=== PATIENT | male | born 1960 | race Caucasian/White ===

== ENCOUNTER 2020-04-28 07:40 | Outpatient (REF) | payer MEDICARE, SELFPAY ==
[2020-04-28 11:26] LABS: MANUAL DIFF FLAG NO
[2020-04-28 11:48] LABS: Basophils Absolute Auto 0.1 X10*3/uL (0.0-0.2); Basophils Percent Auto 0.6 % (0-2); Eosinophils Absolute Auto 0.2 X10*3/uL (0.0-0.4); Eosinophils Percent Auto 2.5 % (0-4); Hematocrit 46.6 % (42-52); Imm Gran Abs Auto 0.03 X10*3/uL (0.00-0.03); Imm Gran Pct Auto 0.3 % (0.0-0.4); Lymphocytes Absolute Auto 2.8 X10*3/uL (1.2-4.9); Lymphocytes Percent Auto 31.7 % (20-40); Mean Corpuscular HGB Conc 32.2 g/dl (31.0-36.0); Mean Corpuscular Hemoglobin 29.9 pg (27.0-33.0); Mean Platelet Volume 10.3 fL (9.4-12.4); Monocytes Absolute Auto 0.7 X10*3/uL (0.1-1.2); Monocytes Percent Auto 7.5 % (2-11); Neutrophils Percent Auto 57.4 % (45-73); Platelet Count 274 X10*3/uL (160-400); Red Blood Count 5.01 X10*6/uL (4.60-5.80); Red Cell Distribution Width 13.7 % (11.0-16.0); White Blood Count 8.8 X10*3/uL (4.8-10.8)
[2020-04-28 12:03] LABS: Creatinine Urine 104.77 mg/dL
[2020-04-28 12:05] LABS: Creatinine Urine 105.84 mg/dL; Microalbum/Creatinine Ratio Ur 39.6 ug/mg cr
[2020-04-28 12:07] LABS: Alanine Aminotransferase 39 U/L (0-40); Albumin Level 4.5 g/dL (3.5-5.0); Alkaline Phosphatase 146 U/L (39-117); Anion Gap 16 (12-20); Aspartate Amino Transferase 19 U/L (5-37); Bilirubin Total 0.2 mg/dL (0.0-1.0); Blood Urea Nitrogen 12 mg/dL (9-16); Calcium 8.6 mg/dL (8.4-10.2); Carbon Dioxide 27 mmol/L (22-29); Chloride 99 mmol/L (96-108); Cholesterol 257 mg/dL; Estimated Glomerular Filt Rate > 60; Glucose Fasting 208 mg/dL (60-99); HDL Cholesterol 29 mg/dL; Sodium 138 mmol/L (135-145); Total Protein 6.8 g/dL (6.5-8.0); Triglycerides 714 mg/dL
[2020-04-28 12:08] LABS: Prostate Specific Antigen Scr 0.68 ng/mL (<0.05-4.0); T4 Thyroxine 6.3 ug/dL (4.5-12.0); Thyroid Stimulating Hormone 1.44 mIU/mL (0.32-4.0)
[2020-04-28 21:47] LABS: Vitamin B12 1174 pg/mL (200-900)
[2020-05-01 21:24] LABS: Folate 17.9 ng/mL (> or = 4.0)
== END 2020-04-28 07:41 | disposition home or self-care (01) ==
LOC: HO.HMGCLDS 07:40
PROVIDERS: PCP Internal Medicine; Visit Provider Internal Medicine
DX: M87.051 Idiopathic aseptic necrosis of right femur (principal); E11.9 Type 2 diabetes mellitus without complications; I25.10 Atherosclerotic heart disease of native coronary artery without angina pectoris; E78.5 Hyperlipidemia, unspecified; I11.0 Hypertensive heart disease with heart failure; J44.9 Chronic obstructive pulmonary disease, unspecified; N40.0 Benign prostatic hyperplasia without lower urinary tract symptoms; F32.9 Major depressive disorder, single episode, unspecified; K62.5 Hemorrhage of anus and rectum; Z86.73 Personal history of transient ischemic attack (TIA), and cerebral infarction without residual deficits
CPT/HCPCS: 36415; 80053; 80061; 82043; 82607; 82746; 84153; 84436; 84443; 85025

== ENCOUNTER 2020-10-02 13:13 | Outpatient (REF) | payer MEDICARE, SELFPAY ==
--- NOTE | ~2020-10-02 | XR_ITS ---
EXAMINATION: XR CHEST CLINICAL INFORMATION: Intercostal pain COMPARISON: None TECHNIQUE: 2 views of the chest were obtained. FINDINGS: No significant abnormality is noted involving the heart, lungs, mediastinum, bony thorax or soft tissues. XR/XR chest 2V IMPRESSION: Unremarkable chest examination.
== END 2020-10-02 13:14 | disposition home or self-care (01) ==
LOC: HO.XRAY 13:13
PROVIDERS: PCP Internal Medicine; Visit Provider Nurse Practitioner Family
DX: R07.82 Intercostal pain (principal)
CPT/HCPCS: 71046

== ENCOUNTER 2020-10-03 09:38 | Outpatient (REF) | payer MEDICARE, SELFPAY ==
[2020-10-03 10:17] LABS: MANUAL DIFF FLAG NO
[2020-10-03 10:24] LABS: Basophils Absolute Auto 0.1 X10*3/uL (0.0-0.2); Basophils Percent Auto 0.5 % (0-2); Eosinophils Absolute Auto 0.2 X10*3/uL (0.0-0.4); Eosinophils Percent Auto 2.1 % (0-4); Hematocrit 45.8 % (42-52); Hemoglobin 15.3 g/dl (14.0-18.0); Imm Gran Abs Auto 0.04 X10*3/uL (0.00-0.03); Imm Gran Pct Auto 0.4 % (0.0-0.4); Lymphocytes Absolute Auto 2.6 X10*3/uL (1.2-4.9); Lymphocytes Percent Auto 26.2 % (20-40); Mean Corpuscular HGB Conc 33.4 g/dl (31.0-36.0); Mean Corpuscular Hemoglobin 29.9 pg (27.0-33.0); Mean Corpuscular Volume 89.5 fL (80-98); Mean Platelet Volume 9.9 fL (9.4-12.4); Monocytes Absolute Auto 0.8 X10*3/uL (0.1-1.2); Monocytes Percent Auto 7.6 % (2-11); Neutrophils Absolute Auto 6.2 X10*3/uL (2.0-8.3); Neutrophils Percent Auto 63.2 % (45-73); Platelet Count 238 X10*3/uL (160-400); Red Blood Count 5.12 X10*6/uL (4.60-5.80); Red Cell Distribution Width 13.5 % (11.0-16.0); White Blood Count 9.9 X10*3/uL (4.8-10.8)
[2020-10-03 10:46] LABS: Alanine Aminotransferase 20 U/L (0-40); Albumin Level 4.5 g/dL (3.5-5.0); Alkaline Phosphatase 120 U/L (39-117); Anion Gap 13 (12-20); Aspartate Amino Transferase 13 U/L (5-37); Bilirubin Total 0.5 mg/dL (0.0-1.0); Blood Urea Nitrogen 11 mg/dL (9-16); Calcium 8.7 mg/dL (8.4-10.2); Carbon Dioxide 29 mmol/L (22-29); Chloride 104 mmol/L (96-108); Cholesterol 268 mg/dL; Estimated Glomerular Filt Rate > 60; Glucose Fasting 159 mg/dL (60-99); HDL Cholesterol 32 mg/dL; Potassium 4.3 mmol/L (3.3-5.1); Sodium 142 mmol/L (135-145); Total Protein 6.6 g/dL (6.5-8.0); Triglycerides 496 mg/dL
[2020-10-03 11:24] LABS: Creatinine Urine 157.25 mg/dL
== END 2020-10-03 09:39 | disposition home or self-care (01) ==
LOC: HO.LAB 09:38
PROVIDERS: PCP Internal Medicine; Visit Provider Nurse Practitioner Family
DX: E11.65 Type 2 diabetes mellitus with hyperglycemia (principal); E78.00 Pure hypercholesterolemia, unspecified
CPT/HCPCS: 36415; 80053; 80061; 82043; 85025

== ENCOUNTER 2020-10-06 07:56 | Outpatient (REF) | payer MEDICARE, SELFPAY ==
--- NOTE | 2020-10-06 09:54 | MHC.AU.ANO ---
Adult Audiological Evaluation Date of Visit: 10/06/20 Body Component Engineer Used: Not Applicable Reason for Appointment: Audiologic re-evaluation due to perceived change in hearing ability. Ayo has lost his hearing aids received from this office in 2017 and needs replacements. Does patient feel they have a hearing loss?: Yes If Yes, Which Ear?: Both Ears When Was Hearing Difficulty First Noticed?: Childhood Has hearing been tested previously?: Yes Previous Hearing Test Results: 08/08/2016 [facility] Asymmetric moderately-severe rising to moderate mixed hearing loss at 4000 Hz, dropping to a severe loss at 8000 Hz with the left ear being poorer than the right in the high frequencies. Ear History: Ear Infections in Childhood: Both Ears History of Ear Wax Buildup: Both Ears Previous Ear Surgery: Multiple surgeries including tympanic membrane repair Bothersome Tinnitus/Ringing/Noises in Ears: Both Ears History of occupational noise exposure?: Yes Medical History: Medical History: Diabetes, Heart Problems, High Blood Pressure, Stroke Medication List: Not available for review Otoscopy: Right Ear: Partially occluded with cerumen Left Ear: Partially occluded with cerumen Tympanometry: Tympanometry performed due to: History of middle ear dysfunction Right Ear: Reduced Middle Ear Compliance (Type As) Left Ear: Non-compliant Middle Ear System (Type B) Otoacoustic Emissions Right Ear Results: Not performed at today's visit. Left Ear Results: Not performed at today's visit. Hearing Evaluation: Transducer(s) Used: Insert Earphones Bone Conduction Method: Conventional Audiometry Stimuli Used: Pure Tones Right Ear: Description of Hearing: Moderately-severe to severe mixed hearing loss Left Ear: Description of Hearing: Moderately-severe mixed hearing loss Speech Recognition Threshold (SRT): Method Used: Monitored Live Voice Stimuli Used: Spondee Words Right Ear: 60 dB HL Left Ear: 55 dB HL Word Discrimination: Method: Recorded Lists Word Lists Used: NU-6 Right Ear: 92% at 95 dB HL Left Ear: 92% at 90 dB HL Most Comfortable Level (MCL): Right Ear: 95 dB HL Left Ear: 90 dB HL Comparison: Compared to the most recent evaluation: Thresholds have decreased bilaterally. Recommendations: Cerumen removal by a physician. Audiological re-evaluation in one year. Due to the degree of hearing loss and communication difficulties, new binaural hearing aids are recommended. Ayo is advised to contact his insurance to determine which provider he can go to to obtain the hearing aids as [facility] is not contracted to dispense hearing aids with his insurance at this time. Diagnosis: Primary Diagnosis: H90.6 Mixed Hearing Loss, Bilateral Secondary Diagnosis: H69.93 Unspecified Eustachian Tube Dysfunction, Bilateral Services Performed: Comprehensive Audiological Evaluation (CPT 68323) Tympanometry (CPT 53104) Signature: Provider: Casimiro Garcia, CCC-A
== END 2020-10-06 07:57 | disposition home or self-care (01) ==
LOC: HO.SH 07:56
PROVIDERS: Visit Provider Internal Medicine
DX: H90.6 Mixed conductive and sensorineural hearing loss, bilateral (principal); H69.93 Unspecified Eustachian tube disorder, bilateral
CPT/HCPCS: 92557; 92567

== ENCOUNTER 2020-10-19 10:03 | Outpatient (REF) | payer MEDICARE, SELFPAY ==
--- NOTE | ~2020-10-19 | XR_ITS ---
EXAMINATION: XR HAND, LEFT CLINICAL INFORMATION: Other signs and symptoms of the musculoskeletal system COMPARISON: 07/29/2016 TECHNIQUE: PA, lateral, and oblique views of the left hand. FINDINGS: No fracture or dislocation. Mild degenerative changes throughout the interphalangeal joints with small osteophytes present. Diffuse soft tissue swelling, greatest at the ulnar aspect of the hand. No osseous erosions. XR/XR hand LT min 3V IMPRESSION: Soft tissue swelling. No acute osseous abnormality. Mild degenerative change.
[2020-10-19 11:33] LABS: Alanine Aminotransferase 23 U/L (0-40); Albumin Level 4.4 g/dL (3.5-5.0); Alkaline Phosphatase 135 U/L (39-117); Anion Gap 13 (12-20); Aspartate Amino Transferase 12 U/L (5-37); Bilirubin Total 0.3 mg/dL (0.0-1.0); Blood Urea Nitrogen 15 mg/dL (9-16); Calcium 8.8 mg/dL (8.4-10.2); Carbon Dioxide 31 mmol/L (22-29); Chloride 104 mmol/L (96-108); Cholesterol 182 mg/dL; Estimated Glomerular Filt Rate > 60; Glucose Random 174 mg/dL (60-115); HDL Cholesterol 30 mg/dL; LDL Cholesterol Calculated 97 mg/dl; Potassium 4.7 mmol/L (3.3-5.1); Sodium 143 mmol/L (135-145); Total Protein 6.7 g/dL (6.5-8.0); Triglycerides 276 mg/dL
[2020-10-19 11:39] LABS: Estimated Average Glucose 157 mg/dL; Hemoglobin A1c % 7.1 %
== END 2020-10-19 10:04 | disposition home or self-care (01) ==
LOC: HO.LAB 10:03
PROVIDERS: PCP Internal Medicine; Visit Provider Internal Medicine
DX: E78.00 Pure hypercholesterolemia, unspecified (principal); R29.898 Other symptoms and signs involving the musculoskeletal system
CPT/HCPCS: 36415; 73130; 80053; 80061; 83036

== ENCOUNTER 2021-01-08 07:38 | Outpatient (REF) | payer MEDICARE, SELFPAY ==
[2021-01-08 09:20] LABS: PSA,Total (Free>4and<10) 0.63 ng/mL (0.00-4.00)
== END 2021-01-08 07:39 | disposition home or self-care (01) ==
LOC: HO.LAB 07:38
PROVIDERS: PCP Internal Medicine; Visit Provider Urology
DX: Z12.5 Encounter for screening for malignant neoplasm of prostate (principal); N40.1 Benign prostatic hyperplasia with lower urinary tract symptoms
CPT/HCPCS: 36415; 84153

== ENCOUNTER → 2021-01-09 10:40 | Outpatient (BNVA) | payer MEDICARE, SELFPAY | PROVIDERS: Visit Provider Urology | DX: N40.1 Benign prostatic hyperplasia with lower urinary tract symptoms (principal); R35.0 Frequency of micturition | CPT/HCPCS: 51798; 99212 ==

== ENCOUNTER 2021-02-01 13:25 | Outpatient (REF) | payer MEDICARE, SELFPAY ==
[2021-02-01 15:06] LABS: Alanine Aminotransferase 23 U/L (0-40); Albumin Level 4.6 g/dL (3.5-5.0); Alkaline Phosphatase 132 U/L (39-117); Anion Gap 13 (12-20); Aspartate Amino Transferase 15 U/L (5-37); Bilirubin Total 0.4 mg/dL (0.0-1.0); Blood Urea Nitrogen 12 mg/dL (9-16); Calcium 9.2 mg/dL (8.4-10.2); Carbon Dioxide 28 mmol/L (22-29); Chloride 106 mmol/L (96-108); Cholesterol 146 mg/dL; Estimated Glomerular Filt Rate > 60; Glucose Random 161 mg/dL (60-115); HDL Cholesterol 28 mg/dL; LDL Cholesterol Calculated 76 mg/dl; Potassium 3.9 mmol/L (3.3-5.1); Sodium 143 mmol/L (135-145); Total Protein 6.9 g/dL (6.5-8.0); Triglycerides 210 mg/dL
[2021-02-01 15:25] LABS: Free T4 (Free Thyroxine) 0.88 ng/dL (0.71-1.85)
[2021-02-01 15:29] LABS: Thyroid Stimulating Hormone 1.07 uIU/mL (0.32-4.0)
== END 2021-02-01 13:26 | disposition home or self-care (01) ==
LOC: HO.LAB 13:25
PROVIDERS: Absent Provider Internal Medicine; PCP Internal Medicine; Referring Provider Nurse Practitioner Family; Visit Provider Internal Medicine
DX: J43.9 Emphysema, unspecified (principal); G47.33 Obstructive sleep apnea (adult) (pediatric); J98.4 Other disorders of lung; E78.00 Pure hypercholesterolemia, unspecified; E66.9 Obesity, unspecified; Z13.29 Encounter for screening for other suspected endocrine disorder
CPT/HCPCS: 36415; 80053; 80061; 84439; 84443; 99212

== ENCOUNTER 2021-09-17 10:03 | Outpatient (REF) | payer MEDICARE, SELFPAY ==
--- NOTE | ~2021-09-17 | XR_ITS ---
EXAMINATION: X-RAY BILATERAL HIPS CLINICAL INFORMATION: Bilateral primary osteoarthritis COMPARISON: MRI 12/01/2018. X-ray left hip 07/23/2019. X-ray right hip 04/22/2019. TECHNIQUE: Bilateral hips each 2 views FINDINGS: Right hip: Patchy lucencies and sclerosis in the right femoral head correlating with avascular necrosis, also seen on the prior MRI. Hip joint space is maintained. No acute fracture or dislocation is seen. Surgical clips project over the right hip joint. Left hip: Subtle sclerosis in the left femoral head, suggestive of avascular necrosis, also seen the prior MRI. No acute fracture or dislocation. Hip joint space is maintained. XR/XR hip LT min 2V IMPRESSION: Right hip: Findings suspicious for avascular necrosis right femoral head. No acute fractures seen. Left hip: Suspected left femoral head avascular necrosis. No acute fractures seen.
--- NOTE | ~2021-09-17 | XR_ITS ---
EXAMINATION: X-RAY BILATERAL HIPS CLINICAL INFORMATION: Bilateral primary osteoarthritis COMPARISON: MRI 12/01/2018. X-ray left hip 07/23/2019. X-ray right hip 04/22/2019. TECHNIQUE: Bilateral hips each 2 views FINDINGS: Right hip: Patchy lucencies and sclerosis in the right femoral head correlating with avascular necrosis, also seen on the prior MRI. Hip joint space is maintained. No acute fracture or dislocation is seen. Surgical clips project over the right hip joint. Left hip: Subtle sclerosis in the left femoral head, suggestive of avascular necrosis, also seen the prior MRI. No acute fracture or dislocation. Hip joint space is maintained. XR/XR hip RT min 2V IMPRESSION: Right hip: Findings suspicious for avascular necrosis right femoral head. No acute fractures seen. Left hip: Suspected left femoral head avascular necrosis. No acute fractures seen.
[2021-09-17 10:36] LABS: MANUAL DIFF FLAG NO
[2021-09-17 10:54] LABS: Basophils Absolute Auto 0.1 X10*3/uL (0.0-0.2); Basophils Percent Auto 0.7 % (0-2); Eosinophils Absolute Auto 0.1 X10*3/uL (0.0-0.4); Eosinophils Percent Auto 1.7 % (0-4); Hematocrit 44.2 % (42.0-52.0); Hemoglobin 14.7 g/dl (14.0-18.0); Imm Gran Abs Auto 0.04 X10*3/uL (0.00-0.03); Imm Gran Pct Auto 0.5 % (0.0-0.4); Lymphocytes Absolute Auto 2.6 X10*3/uL (1.2-4.9); Lymphocytes Percent Auto 31.3 % (20-40); Mean Corpuscular HGB Conc 33.3 g/dl (31.0-36.0); Mean Corpuscular Hemoglobin 29.5 pg (27.0-33.0); Mean Corpuscular Volume 88.6 fL (80.0-98.0); Mean Platelet Volume 10.6 fL (9.4-12.4); Monocytes Absolute Auto 0.6 X10*3/uL (0.1-1.2); Monocytes Percent Auto 7.1 % (2-11); Neutrophils Percent Auto 58.7 % (45-73); Platelet Count 220 X10*3/uL (160-400); Red Blood Count 4.99 X10*6/uL (4.60-5.80); Red Cell Distribution Width 13.2 % (11.0-16.0); White Blood Count 8.4 X10*3/uL (4.8-10.8)
[2021-09-17 11:46] LABS: Alanine Aminotransferase 28 U/L (0-40); Albumin Level 4.2 g/dL (3.5-5.0); Alkaline Phosphatase 109 U/L (39-117); Anion Gap 16 (12-20); Aspartate Amino Transferase 16 U/L (5-37); Bilirubin Total 0.5 mg/dL (0.0-1.0); Blood Urea Nitrogen 13 mg/dL (9-16); Calcium 9.8 mg/dL (8.4-10.2); Carbon Dioxide 27 mmol/L (22-29); Chloride 98 mmol/L (96-108); Cholesterol 252 mg/dL; Estimated Glomerular Filt Rate > 60; HDL Cholesterol 30 mg/dL; Potassium 4.8 mmol/L (3.3-5.1); Sodium 136 mmol/L (135-145); Total Protein 6.4 g/dL (6.5-8.0); Triglycerides 653 mg/dL
[2021-09-17 11:47] LABS: Creatinine Urine 31.76 mg/dL; Microalbum/Creatinine Ratio Ur 28.3 ug/mg cr
[2021-09-17 11:53] LABS: Free T4 (Free Thyroxine) 0.89 ng/dL (0.71-1.85); Prostate Specific Antigen Scr 0.59 ng/mL (<0.05-4.0); Thyroid Stimulating Hormone 0.76 uIU/mL (0.32-4.0); Vitamin D 25-OH Total 30.5 ng/mL (>30)
[2021-09-17 11:56] LABS: Glucose Random 475 mg/dL (60-115)
[2021-09-17 13:23] LABS: Folate > 20.0 ng/mL (> or = 4.0); Vitamin B12 1021 pg/mL (200-900)
== END 2021-09-17 10:04 | disposition home or self-care (01) ==
LOC: HO.XRAY 10:03
PROVIDERS: PCP Internal Medicine; Visit Provider Internal Medicine
DX: Z12.5 Encounter for screening for malignant neoplasm of prostate (principal); E11.65 Type 2 diabetes mellitus with hyperglycemia; M16.0 Bilateral primary osteoarthritis of hip; E78.00 Pure hypercholesterolemia, unspecified
CPT/HCPCS: 36415; 73502; 80053; 80061; 82043; 82306; 82607; 82746; 84153; 84439; 84443; 85025

== ENCOUNTER 2021-10-16 14:12 | Outpatient (REF) | payer MEDICARE, SELFPAY ==
--- NOTE | ~2021-10-16 | US_ITS ---
EXAMINATION: US ABDOMEN COMPLETE CLINICAL INFORMATION: Elevated liver function tests. Left upper quadrant abdominal pain. COMPARISON: CT abdomen pelvis 06/02/2019. TECHNIQUE: Real-time imaging of the abdominal viscera. FINDINGS: PANCREAS: The head and body the pancreas are normal. The tail is not well visualized due to bowel gas. ABDOMINAL AORTA: The proximal abdominal aorta is normal in caliber. The mid and distal abdominal aorta are not well visualized due to bowel gas. There is evidence of atherosclerotic disease. INFERIOR VENA CAVA: The visualized IVC is normal. LIVER: Liver echotexture is increased. The liver is normal in size. The liver contour is normal. No focal hepatic lesion. There is no intrahepatic biliary duct dilatation seen. GALLBLADDER: Normal. The gallbladder is physiologically distended without evidence of stones, sludge, polyps, wall thickening or pericholecystic fluid. COMMON BILE DUCT: Normal in caliber measuring 0.79 cm in diameter. RIGHT KIDNEY: There is a 2 cm cyst in the midpole. This may have a small focus of wall calcification. No hydronephrosis. No renal calculi or focal parenchymal lesions. The kidney measures 9.9 cm in maximum dimension. LEFT KIDNEY: There is a 5 mm cyst in the lower pole. No hydronephrosis or renal calculi. The kidney measures 10.7 cm in maximum dimension. SPLEEN: Upper normal in size. The spleen measures 12.7 cm in maximum dimension. FREE FLUID: None. US/US abdomen complete IMPRESSION: Echogenic liver probably representing fatty infiltration. Small bilateral renal cysts. Limited visualization of the tail the pancreas and aorta. Atherosclerotic disease.
== END 2021-10-16 14:13 | disposition home or self-care (01) ==
LOC: HO.US 14:12
PROVIDERS: PCP Internal Medicine; Visit Provider Internal Medicine
DX: R79.89 Other specified abnormal findings of blood chemistry (principal); R10.12 Left upper quadrant pain
CPT/HCPCS: 76700

== ENCOUNTER 2022-01-08 08:24 | Outpatient (REF) | payer MEDICARE, SELFPAY ==
[2022-01-08 09:25] LABS: Estimated Average Glucose 157 mg/dL; Hemoglobin A1c % 7.1 %
[2022-01-08 10:35] LABS: Alanine Aminotransferase 18 U/L (0-40); Albumin Level 4.5 g/dL (3.5-5.0); Alkaline Phosphatase 76 U/L (39-117); Anion Gap 13 (12-20); Aspartate Amino Transferase 15 U/L (5-37); Bilirubin Total 0.3 mg/dL (0.0-1.0); Blood Urea Nitrogen 21 mg/dL (9-16); Carbon Dioxide 26 mmol/L (22-29); Chloride 104 mmol/L (96-108); Cholesterol 175 mg/dL; Estimated Glomerular Filt Rate > 60; Glucose Random 130 mg/dL (60-115); HDL Cholesterol 44 mg/dL; LDL Cholesterol Calculated 111 mg/dl; Potassium 4.5 mmol/L (3.3-5.1); Sodium 138 mmol/L (135-145); Total Protein 6.6 g/dL (6.5-8.0); Triglycerides 100 mg/dL
== END 2022-01-08 08:25 | disposition home or self-care (01) ==
LOC: HO.10HDL 08:24
PROVIDERS: Visit Provider Internal Medicine
DX: E11.65 Type 2 diabetes mellitus with hyperglycemia (principal); E78.00 Pure hypercholesterolemia, unspecified
CPT/HCPCS: 36415; 80053; 80061; 83036

== ENCOUNTER → 2022-01-10 09:29 | Outpatient (BNVA) | payer MEDICARE, SELFPAY | PROVIDERS: PCP Internal Medicine; Visit Provider Urology | DX: N40.1 Benign prostatic hyperplasia with lower urinary tract symptoms (principal); R35.0 Frequency of micturition | CPT/HCPCS: 51798; 99212 ==

== ENCOUNTER 2022-01-31 14:19 | Outpatient (REF) | payer MEDICARE, SELFPAY ==
--- NOTE | ~2022-01-31 | XR_ITS ---
EXAMINATION: XR CHEST 2 VIEWS CLINICAL INFORMATION: J98.4 - Other disorders of lung. COMPARISON: Chest radiographs dated 10/02/2020. TECHNIQUE: Frontal and lateral views of the chest were obtained. FINDINGS: The heart, great vessels, pulmonary vasculature and mediastinum are normal. The lungs show no focal infiltrate, effusion or pneumothorax. There is no acute osseous abnormality. XR/XR chest 2V IMPRESSION: No active cardiopulmonary disease.
== END 2022-01-31 14:20 | disposition home or self-care (01) ==
LOC: HO.XRAY 14:19
PROVIDERS: PCP Internal Medicine; Visit Provider Internal Medicine
DX: J98.4 Other disorders of lung (principal); J43.9 Emphysema, unspecified; G47.33 Obstructive sleep apnea (adult) (pediatric)
CPT/HCPCS: 71046; 94010; 99212

== ENCOUNTER → 2022-02-26 14:47 | Outpatient (BNVA) | payer MEDICARE, SELFPAY | PROVIDERS: PCP Internal Medicine; Referring Provider Internal Medicine; Visit Provider Internal Medicine | DX: Z01.810 Encounter for preprocedural cardiovascular examination (principal); I25.10 Atherosclerotic heart disease of native coronary artery without angina pectoris | CPT/HCPCS: 93005; 99212 ==

== ENCOUNTER 2022-03-12 16:10 | Outpatient (REF) | payer MEDICARE, SELFPAY ==
--- NOTE | ~2022-03-12 | XR_ITS ---
EXAMINATION: XR HIP, LEFT CLINICAL INFORMATION: Pain COMPARISON: Previous x-ray August 2021 TECHNIQUE: Two views of the left hip. FINDINGS: Bone alignment is normal. No fracture or dislocation is seen. The joint space is normal. There is heterogeneous attenuation of the subchondral femoral head suggestive of AVN. Soft tissues are normal. XR/XR hip LT min 2V IMPRESSION: Left femoral head AVN.
--- NOTE | ~2022-03-12 | XR_ITS ---
EXAMINATION: LUMBAR SPINE AND SACRUM X-RAY CLINICAL INFORMATION: Fall COMPARISON: CT of the abdomen and pelvis May 2019 TECHNIQUE: 3 views of the lumbar spine. 3 views of the sacrum. FINDINGS: Lumbar spine: Bone alignment is normal. No fracture or dislocation is seen. There is degenerative disc disease at L5-S1. There is lower lumbar spine facet arthritis. There is evidence of atherosclerotic disease. There is a distal aortic stent. There are surgical clips in the retroperitoneum. Sacrum and coccyx: Bone alignment is normal. No fracture or dislocation is seen. The sacroiliac joints are normal. There is evidence of atherosclerotic disease. There are low central pelvic calcifications probably representing calcifications in the prostate. There are surgical clips projecting over the right femoral head. XR/XR sacrum coccyx min 2V IMPRESSION: Lumbar spine: Degenerative changes. Sacrum and coccyx: No fracture seen.
--- NOTE | ~2022-03-12 | XR_ITS ---
EXAMINATION: LUMBAR SPINE AND SACRUM X-RAY CLINICAL INFORMATION: Fall COMPARISON: CT of the abdomen and pelvis May 2019 TECHNIQUE: 3 views of the lumbar spine. 3 views of the sacrum. FINDINGS: Lumbar spine: Bone alignment is normal. No fracture or dislocation is seen. There is degenerative disc disease at L5-S1. There is lower lumbar spine facet arthritis. There is evidence of atherosclerotic disease. There is a distal aortic stent. There are surgical clips in the retroperitoneum. Sacrum and coccyx: Bone alignment is normal. No fracture or dislocation is seen. The sacroiliac joints are normal. There is evidence of atherosclerotic disease. There are low central pelvic calcifications probably representing calcifications in the prostate. There are surgical clips projecting over the right femoral head. XR/XR lumbar spine 2-3V IMPRESSION: Lumbar spine: Degenerative changes. Sacrum and coccyx: No fracture seen.
[2022-03-12 16:36] LABS: MANUAL DIFF FLAG NO
[2022-03-12 17:23] LABS: Basophils Absolute Auto 0.1 X10*3/uL (0.0-0.2); Basophils Percent Auto 0.5 % (0-2); Eosinophils Absolute Auto 0.2 X10*3/uL (0.0-0.4); Eosinophils Percent Auto 1.5 % (0-4); Hematocrit 42.6 % (42.0-52.0); Hemoglobin 14.2 g/dl (14.0-18.0); Imm Gran Abs Auto 0.05 X10*3/uL (0.00-0.03); Imm Gran Pct Auto 0.4 % (0.0-0.4); Lymphocytes Absolute Auto 3.8 X10*3/uL (1.2-4.9); Lymphocytes Percent Auto 27.6 % (20-40); Mean Corpuscular HGB Conc 33.3 g/dl (31.0-36.0); Mean Corpuscular Hemoglobin 29.8 pg (27.0-33.0); Mean Corpuscular Volume 89.3 fL (80.0-98.0); Mean Platelet Volume 10.3 fL (9.4-12.4); Monocytes Absolute Auto 0.9 X10*3/uL (0.1-1.2); Monocytes Percent Auto 6.3 % (2-11); Neutrophils Absolute Auto 8.7 x10*3/uL (2.0-8.3); Neutrophils Percent Auto 63.7 % (45-73); Platelet Count 289 X10*3/uL (160-400); Red Blood Count 4.77 X10*6/uL (4.60-5.80); Red Cell Distribution Width 14.1 % (11.0-16.0); White Blood Count 13.7 X10*3/uL (4.8-10.8)
[2022-03-12 17:48] LABS: Alanine Aminotransferase 41 U/L (0-40); Albumin Level 4.4 g/dL (3.5-5.0); Alkaline Phosphatase 83 U/L (39-117); Anion Gap 18 (12-20); Aspartate Amino Transferase 46 U/L (5-37); Bilirubin Total 0.4 mg/dL (0.0-1.0); Blood Urea Nitrogen 18 mg/dL (9-16); Calcium 9.3 mg/dL (8.4-10.2); Carbon Dioxide 23 mmol/L (22-29); Chloride 107 mmol/L (96-108); Estimated Glomerular Filt Rate > 60; Glucose Random 76 mg/dL (60-115); Sodium 144 mmol/L (135-145); Total Protein 6.7 g/dL (6.5-8.0)
[2022-03-12 17:49] LABS: Appearance Urine Clear; Color Urine Yellow; Glucose Urine UA Negative (Negative); Leukocyte Esterase Urine Moderate (2+) (Negative); Nitrite Urine Negative (Negative); PH 5.5 (5.0-8.0); Specific Gravity - Urine 1.025 (1.005-1.025); Urine Blood Negative (Negative); Urine Ketones Trace mg/dL (Negative); Urine Protein Trace mg/dL (Neg-Trace)
[2022-03-12 19:20] LABS: Bacteria Urine None Seen (None Seen); Hyaline Casts Urine 0-2 /LPF (0-2); RBC Urine 0-2 /HPF (0-2); Squamous Epithelial Cell Urine 0-2 /HPF (0-2); UACC Culture Trigger YES; WBC Urine 21-50 /HPF (0-5)
== END 2022-03-12 16:11 | disposition home or self-care (01) ==
LOC: HO.XRAY 16:10
PROVIDERS: PCP Internal Medicine; Visit Provider Nurse Practitioner Family
DX: R42 Dizziness and giddiness (principal); M25.552 Pain in left hip; R30.0 Dysuria; Z91.81 History of falling
CPT/HCPCS: 36415; 72100; 72220; 73502; 80053; 81001; 85025; 87086

== ENCOUNTER 2022-03-19 13:22 | Outpatient (REF) | payer MEDICARE, SELFPAY ==
--- NOTE | ~2022-03-19 | XR_ITS ---
EXAMINATION: XR HIP, LEFT CLINICAL INFORMATION: Pain left hip. COMPARISON: None. TECHNIQUE: 2 views of the left hip. FINDINGS: There is loss of left hip joint space without bony erosive changes or osteophytes. No acute fracture or dislocation. There are numerous calcifications seen in overlying the pubic symphysis likely within the prostate gland. XR/XR hip LT w [id number] IMPRESSION: Unremarkable left hip exam.
== END 2022-03-19 13:23 | disposition home or self-care (01) ==
LOC: HO.HMGCX 13:22
PROVIDERS: Visit Provider Nurse Practitioner Family
DX: M25.552 Pain in left hip (principal)
CPT/HCPCS: 73502

== ENCOUNTER 2022-03-21 10:03 | Emergency (ER) | payer MEDICARE, SELFPAY ==
--- NOTE | ~2022-03-21 | US_ITS ---
EXAMINATION: US VENOUS ULTRASOUND WITH DOPPLER LOWER EXTREMITY, LEFT CLINICAL INFORMATION: Left calf pain and tenderness. COMPARISON: None TECHNIQUE: Ultrasound of the deep veins is performed from the hip to the calf with compression sonography and color and pulse Doppler assessment. Spectral analysis with color-flow imaging is performed. FINDINGS: There is normal venous compression and respiratory variation and augmented flow. The visualized common femoral vein, superficial femoral vein, profunda femoral vein, popliteal vein, and the trifurcation region shows no evidence of deep venous thrombosis. No left popliteal cyst. The subcutaneous soft tissues are unremarkable. Mild widening and heterogeneity in the distal Achilles tendon without surrounding fluid collection. The subcutaneous soft tissues are unremarkable. Color Doppler showed no abnormal vascular flow. US/US venous duplex LE LT IMPRESSION: 1. No evidence for deep venous thrombosis in the visualized veins of the left lower extremity. 2. Mild widening and heterogeneity in the distal Achilles tendon. Correlate with physical exam as grade 1/2 strain cannot be excluded. If there is concern for acute injury, MRI should be considered.
--- NOTE | ~2022-03-21 | CT_ITS ---
EXAMINATION: CT HIP WITHOUT CONTRAST, LEFT CLINICAL INFORMATION: Fall history of AVN. COMPARISON: X-rays of the left hip February 2022, MRI of the right hip November 2018, CT scan the abdomen and pelvis 1999. TECHNIQUE: CT scan left hip is performed with reconstruction imaging performed at the acquisition workstation. This CT examination was performed using dose optimization techniques as appropriate, variously including the following: *Automated exposure control *Adjustment of mA and/or kV according to patient size (this includes techniques or standardized protocols for targeted exams where dose is matched to indication/reason for exam; i.e. extremities or head) *Use of iterative reconstruction technique DLP: 368 mGy-cm. FINDINGS: In the apex of the femoral head, there is an area of serpentine-shaped sclerosis extending along the subchondral portion of the anterosuperior femoral head unchanged compared to prior. The appearance is characteristic for chronic avascular necrosis. There is no femoral head complicating fracture. Joint space remains normal. There are degenerative changes in the symphysis pubis and left sacroiliac joint. Arterial calcification present. Posterior calcifications unchanged. CT/CT hip LT wo IV con IMPRESSION: Avascular necrosis of the left femoral head, stable compared with prior MRI and CT performed in 2019. No acute abnormality.
--- NOTE | ~2022-03-21 | XR_ITS ---
EXAMINATION: XR ANKLE, LEFT CLINICAL INFORMATION: Left ankle pain after falling COMPARISON: None TECHNIQUE: AP, lateral, and mortise views of the left ankle. FINDINGS: The bones and soft tissues are normal. No fracture. Alignment is anatomic. Joint spaces are maintained. No joint effusion. Small plantar and dorsal calcaneal spurs. XR/XR ankle LT min 3V IMPRESSION: No evidence for acute bony fracture or dislocation.
--- NOTE | ~2022-03-21 | CT_ITS ---
EXAMINATION: CT SCAN OF THE LEFT KNEE WITHOUT CONTRAST CLINICAL INFORMATION: Severe pain status post fall. COMPARISON: X-rays of the left knee July 2016. TECHNIQUE: CT scan of the left knee is performed reconstruction imaging performed at the acquisition workstation FINDINGS: There is no fracture. The visualized bone and compartments are normal. No arthrosis. No visible joint effusion. Arterial calcification present. CT/CT knee LT wo IV con IMPRESSION: No fracture or acute abnormality.
[2022-03-21 10:04] VITALS: BP 161/88; RESP 16; TEMP 36.6; O2SAT 98; BMI 34.9
[2022-03-21 10:45] VITALS: BP 157/88; PULSE 87; RESP 18; TEMP 36.9; O2SAT 92
--- NOTE | 2022-03-21 10:46 | ED.LOWEXIN ---
HPI - Extremity Injury (Lower) General Chief Complaint: Extremity Injury, Lower Stated Complaint: pains on L side Time Seen by Provider: 03/21/22 10:37 Source: patient Mode of arrival: wheelchair Limitations: no limitations History of Present Illness HPI Narrative: 61-year-old male with a history of CVA with left sided weakness, diabetes on insulin with neuropathy, hip osteoarthritis on chronic pain medication, COPD, BPH, LUIS ALBERTO, HLD, HTN, anxiety, depression who presents to the ER for evaluation of ongoing left lower extremity pain after a fall 2 weeks ago at home and his garden. He states he has had outpatient x-rays that did not show any broken bones. He reports the pain is getting worse and he is unable to walk at all. He has been taking extra of his Percocet to manage the pain with no improvement. He ran out of his pain medications. He reports the pain is worst in his left knee, his left calf in his left Achilles. He can barely move his foot. He reports his leg is numb, worse than usual. When asked about his fall he states he was dizzy and does not know what exactly happened. He thinks he fell on his left side but he isn't sure. He has seen his primary care doctor for this and is post to see orthopedics in the next week and a half. His doctor is also trying to arrange for physical therapy. MD complaint: hip injury, knee injury, leg injury, ankle injury and fall Onset (ago): week(s) (2) Injury: Left: hip, knee and ankle Type of Injury: unknown Place: home Severity: moderate Relieving factors: immobilization Exacerbating factors: weight bearing, movement and palpation Context: fall Associated symptoms: unable to bear weight Other symptoms: none Related Data Home Medications Medication Instructions Recorded Confirmed aspirin 81 mg tablet,delayed 80 mg PO DAILY 10/02/20 03/12/22 release cetirizine 10 mg tablet 10 mg PO QAM 01/10/22 03/12/22 famotidine 20 mg tablet 20 mg PO DAILY 01/10/22 03/12/22 insulin lispro 100 unit/mL subcut 01/10/22 03/12/22 subcutaneous pen triamcinolone acetonide 0.1 % topical 01/10/22 03/12/22 lotion Previous Rx's Medication Instructions Recorded sennosides 8.6 mg-docusate sodium 2 tab-cap PO BEDTIME 30 days #60 05/23/21 50 mg capsule (Senna Plus) caps nitroglycerin 0.4 mg sublingual 0.4 mg sublingual Q5M PRN chest 11/19/21 tablet pain #25 tabs pen needle, diabetic 31 gauge x #100 ea 11/21/21/ (1st Tier Unifine Pentips) insulin glargine 100 unit/mL (3 25 unit (0.25 mL) subcut QPM #8 mL 12/06/21 mL) subcutaneous pen (Lantus Solostar U-100 Insulin) pioglitazone 30 mg tablet 30 mg PO DAILY 30 days #30 tabs 12/06/21 albuterol sulfate 2.5 mg/3 mL 2.5 mg (3 mL) inhalation QID PRN 12/20/21 (0.083 %) solution for nebulization shortness of breath or wheezing #360 vials albuterol sulfate 90 mcg/actuation 2 puff inhalation Q4-6H PRN 12/20/21 aerosol inhaler shortness of breath or wheezing #1 ea atorvastatin 80 mg tablet 80 mg PO QPM 90 days #90 tabs 12/20/21 fenofibrate 160 mg tablet 160 mg PO DAILY 90 days #90 tabs 12/20/21 gabapentin 300 mg capsule 300 mg PO BID 90 days #180 caps 12/20/21 duloxetine 60 mg capsule,delayed 60 mg PO DAILY 90 days #90 caps 01/14/22 release ezetimibe 10 mg tablet (Zetia) 10 mg PO DAILY #30 tabs 01/14/22 flash glucose scanning reader #1 ea 01/14/22 (FreeStyle Anival 14 Day [place]) flash glucose sensor (FreeStyle #6 kits 01/14/22 Anival 14 Day Sensor kit) lisinopril 20 mg tablet 20 mg PO DAILY 3 months #90 tabs 02/19/22 meclizine 25 mg tablet 25 mg PO DAILY PRN dizziness 90 02/19/22 days #60 tabs metformin 1,000 mg tablet 1,000 mg PO DAILY 90 days #90 tabs 02/19/22 blood sugar diagnostic #3 boxes 02/20/22 blood-glucose meter (OneTouch #1 ea 02/20/22 Ultra2 Meter kit) lancets (OneTouch UltraSoft #3 boxes 02/20/22 Lancets) lancets 33 gauge (OneTouch Delica #3 boxes 02/20/22 Lancets) lidocaine 4 % topical patch 1 patch topical DAILY PRN pain #15 03/13/22 (Aspercreme (lidocaine)) ea blood sugar diagnostic (FreeStyle #100 ea 03/14/22 Lite Strips) naproxen 250 mg tablet 250 mg PO BID PRN pain #20 tabs 03/14/22 sulfamethoxazole 800 1 tab PO BID #14 tabs 03/14/22 mg-trimethoprim 160 mg tablet (Bactrim DS) oxycodone-acetaminophen 5 mg-325 1 tab PO BID PRN pain 30 days #60 03/19/22 mg tablet (Percocet) tabs oxycodone 5 mg tablet 5 mg PO Q6H PRN severe pain (scale 03/21/22 score 7-10) #10 tabs Allergies Allergy/AdvReac Type Severity Reaction Status Date / Time ciprofloxacin [From CIPRO] Allergy Severe SWELLING, Verified 03/12/22 15:31 ITCHING bee pollen [BEE STINGS] Allergy Unknown HIVES Verified 03/12/22 15:31 Penicillins Allergy Unknown UNKNOWN Verified 03/12/22 15:31 insulin lispro AdvReac Intermediate Swelling Verified 03/12/22 15:31 [From Humalog U-100 Insulin] Review of Systems Review of Systems: Constitutional: No Fever, No Chills ENT/Mouth: No sore throat, No Rhinorrhea, No Swallowing Difficulty Cardiovascular: No Chest Pain, No SOB Respiratory: No Cough, No Sputum Gastrointestinal: No Nausea, No Vomiting, No Diarrhea, No abdominal Pain Genitourinary: No Dysuria, No Urinary Frequency, No Hematuria Musculoskeletal: + joint pain, + Myalgias Skin: No Skin Lesions, No rash Neuro: No Weakness, No Numbness, No Dizziness, No Headache Psych: + Anxiety/Panic, No Depression Heme/Lymph: No Bruising, No Lymphadenopathy PMFSH Past Medical History Medical History Alcohol abuse Anxiety and depression Avascular necrosis of bone of right hip BPH (benign prostatic hyperplasia) Colon cancer screening COPD (chronic obstructive pulmonary disease) Coronary artery disease Cough History of CVA (cerebrovascular accident) Hypercholesterolemia Hypertension Leg cramps LUQ abdominal pain Mass of left paraspinous region Obesity (BMI 30-39.9) Obstructive sleep apnea Osteoarthritis, hip, bilateral Peripheral vascular disease Restrictive lung disease Type 2 diabetes mellitus with hyperglycemia Urinary incontinence Surgical History History of surgery History of tonsillectomy History of vascular surgery Family History Family History Father Lung cancer COPD (chronic obstructive pulmonary disease) Heart disease Hypertension Mother COPD (chronic obstructive pulmonary disease) Diabetes Hypertension Breast cancer Paternal Uncle Prostate cancer Sister Heart disease Social History Social History Housing: House Alcohol intake: former Patient Tobacco Use Status: Former Tobacco user e-Cigarette/Vaping Use: Never Used Second Hand Smoke Exposure: No Substance Use Type: Marijuana service: No Current occupational status: disabled Cognitive needs: Yes (cane) Hearing needs: Yes Vision needs: Yes Physical Exam Vital Signs: Vital Signs: Last Vital Signs Temp 98.9 F 03/21/22 14:16 Pulse 83 03/21/22 14:16 Resp 16 03/21/22 14:16 BP 165/96 H 03/21/22 14:22 Pulse Ox 94 03/21/22 14:16 O2 Del Method 03/21/22 14:16 O2 Flow Rate 2 03/21/22 14:16 BMI result Body Mass Index 34.9 Appearance: Alert. Oriented X3. No acute distress. Eyes: Pupils equal, round and reactive to light. ENT: Pharynx normal. Neck: Normal inspection. Neck supple. CVS: Normal heart rate and rhythm. Pulses normal. Respiratory: No respiratory distress. Breath sounds normal. Abdomen: Soft and nontender. +BS x4 Skin: Skin warm and dry. Normal skin color. Normal skin turgor. No rashes. Extremities: Left hand with contracture. Weakness on the left side. Left lower extremity with significant tenderness to the calf and Achilles. Unable to lay on his stomach for Espino test. No overlying erythema or warmth. Limited mobility of the foot, very limited plantar and dorsiflexion. No tenderness of the medial or lateral malleoli. The knee is nontender, no swelling. Pelvis is stable. No lateral hip tenderness. Neuro: Oriented X 3. left-sided weakness Course Course Course Narrative: 61-year-old male with history of stroke and left-sided weakness, diabetes diabetic neuropathy coming into the ER for evaluation of left lower extremity pain after a fall 2 weeks ago. He has had multiple x-rays done as an outpatient with no acute findings. He reports the pain is ongoing, limiting his ability to walk. He reports the pain is mostly in the back of his left ankle and foot. He has limited range of motion of the foot due to pain posteriorly. He has calf tenderness. Will get ultrasound of the lower extremity to rule out DVT, soft tissue ultrasound to rule out Achilles rupture, unable to do the Espino test due to pain. Will medicate and reassess. Will also get CT scans of his hip for rule out occult fracture. Reevaluation(s) Reevaluation #1: CT scans of the hip and knee were unremarkable. Ankle x-rays normal. Lower extremity Doppler does not show any DVT but there is some mild widening and heterogenicity in the distal Achilles tendon, recommended correlating with physical exam as a grade 1/2 strain cannot be excluded. MRI is recommended, however this is not emergent test should be done today in the emergency department. his injury was 2 weeks ago. He has an appointment with Orthopedics in a week and a half. Will plan to put the patient in a walking boot, treat his pain and have him follow-up with ortho for further evaluation. Spoke with case management rn who is going to arrange home VNA, home PT and OT. Patient adamantly denied need for physical therapy evaluation in the ER and does not want to go to an acute rehab. He states he has a wheelchair at home and can make his entire 1st floor safe unlivable for him Reevaluation #2: given patient's stroke history and left-sided weakness, he is having a difficult time ambulating with crutches with they walking boot. He would like to use it at home with a walker, which is what he ambulates with at baseline. Given the weight of a temporary splint, this would also likely be too heavy for him to tolerate. With a walking boot he can take it on and off as needed. He also has a wheelchair at home. He is stable for discharge home with Ortho follow-up. Discharge Plan Discharge Clinical Impression: Strain of left Achilles tendon Patient Disposition: Home, Self-Care Instructions: Achilles Tendinitis (ED) Additional Instructions: Your ultrasound today showed mild widening and heterogenicity in the distal Achilles tendon, grade 1/2 strain cannot be excluded. Your x-rays and CT scans not show any broken bones. You may bear weight as tolerated. Recommend with wearing the provided walking due with a walker when ambulating around her home. Home VNA, physical therapy and occupational therapy will follow-up with you in the home, most likely this Friday. Recommend following up with Orthopedics as scheduled. Take the prescribed pain medication as directed, for additional pain medication follow-up with your primary care doctor. Recommend rest, ice, elevation of the leg whenever possible. If you develop new or worsening symptoms call 911 or come back to the ER for further evaluation. Prescriptions: New oxycodone 5 mg tablet 5 mg PO Q6H PRN (Reason: severe pain (scale score 7-10)) Qty: 10 0RF Rx Instructions: Partial Fill upon patient request. No Action (DME) pen needle, diabetic [1st Tier Unifine Pentips] 31 gauge x 5/16 needle See Rx Instructions .Route Qty: 100 3RF Rx Instructions: 3 to 4 times per day albuterol sulfate 90 mcg/actuation HFA aerosol inhaler 2 puff inhalation Q4-6H PRN (Reason: shortness of breath or wheezing) Qty: 1 0RF albuterol sulfate 2.5 mg /3 mL (0.083 %) solution for nebulization 2.5 mg inhalation QID PRN (Reason: shortness of breath or wheezing) Qty: 360 3RF fenofibrate 160 mg tablet 160 mg PO DAILY 90 Days Qty: 90 3RF gabapentin 300 mg capsule 300 mg PO BID 90 Days Qty: 180 0RF atorvastatin 80 mg tablet 80 mg PO QPM 90 Days Qty: 90 2RF metformin 1,000 mg tablet 1,000 mg PO DAILY 90 Days Qty: 90 2RF meclizine 25 mg tablet 25 mg PO DAILY PRN (Reason: dizziness) 90 Days Qty: 60 0RF lisinopril 20 mg tablet 20 mg PO DAILY 90 Days Qty: 90 1RF (DME) blood sugar diagnostic Strip See Rx Instructions .ROUTE .MEDSUPPLY Qty: 3 3RF Rx Instructions: As directed check the blood sugar 3 times a day (DME) lancets [OneTouch UltraSoft Lancets] Misc See Rx Instructions .ROUTE .MEDSUPPLY Qty: 3 3RF Rx Instructions: As directed check the blood sugarTID (DME) blood-glucose meter [OneTouch Ultra2 Meter] Kit See Rx Instructions .ROUTE .MEDSUPPLY Qty: 1 0RF Rx Instructions: As directed check the blood sugar once a day (DME) lancets [OneTouch Delica Lancets] 33 gauge [facility] [place] See Rx Instructions .ROUTE .MEDSUPPLY Qty: 3 3RF Rx Instructions: As directed check the blood sugar TID lidocaine [Aspercreme (lidocaine)] 4 % adhesive patch,medicated 1 patch topical DAILY PRN (Reason: pain) Qty: 15 0RF naproxen 250 mg tablet 250 mg PO BID PRN (Reason: pain) Qty: 20 0RF (DME) FreeStyle Lite Strips Strip See Rx Instructions .MEDSUPPLY Qty: 100 2RF Rx Instructions: test daily sulfamethoxazole-trimethoprim [Bactrim DS] 800-160 mg tablet 1 tab PO BID Qty: 14 0RF oxycodone-acetaminophen [Percocet] 5-325 mg tablet 1 tab PO BID PRN (Reason: pain) 30 Days Qty: 60 0RF (DME) FreeStyle Anival 14 Day [place] [facility] [place] See Rx Instructions .ROUTE .MEDSUPPLY Qty: 1 0RF Rx Instructions: 4 times per day, patient on insulin (DME) FreeStyle Anival 14 Day Sensor Kit See Rx Instructions .ROUTE .MEDSUPPLY Qty: 6 3RF Rx Instructions: 4 times per day patient on insulin duloxetine 60 mg capsule,delayed release(DR/EC) 60 mg PO DAILY 90 Days Qty: 90 1RF ezetimibe [Zetia] 10 mg tablet 10 mg PO DAILY Qty: 30 3RF flu vacc [id number] 6mos up(PF) 60 mcg (15 mcg x 4)/0.5 mL syringe 0.5 ml IM ONCE Qty: 0.5 0RF aspirin 81 mg tablet,delayed release (DR/EC) 80 mg PO DAILY pioglitazone 30 mg tablet 30 mg PO DAILY 30 Days Qty: 30 3RF Lantus Solostar U-100 Insulin 100 unit/mL (3 mL) insulin pen 25 unit subcut QPM Qty: 8 3RF Rx Instructions: or as directed Senna Plus 8.6-50 mg capsule 2 tab-cap PO BEDTIME 30 Days Qty: 60 2RF nitroglycerin 0.4 mg tablet, sublingual 0.4 mg sublingual Q5M PRN (Reason: chest pain) Qty: 25 0RF Rx Instructions: do not exceed 3 doses per episode cetirizine 10 mg tablet 10 mg PO QAM famotidine 20 mg tablet 20 mg PO DAILY triamcinolone acetonide 0.1 % lotion topical insulin lispro 100 unit/mL insulin pen subcut Referrals: Jacey LAZARO [Outside] (Agency will call you to arrange a visit. ) Antonino Deluna MD [Physician] - (left achilles pain, ?strain) Interventions: ED Discharge Assessment Last Done: 03/21/22 16:27 Discharge Date/Time: 03/21/22 16:28
[2022-03-21] MEDS: HYDROmorphone HCl 1 MG/ML SYRINGE IM (11:56)
[2022-03-21 14:16] VITALS: BP 173/100; PULSE 83; RESP 16; TEMP 37.2; O2SAT 94
[2022-03-21 14:22] VITALS: BP 165/96
[2022-03-21] MEDS: oxyCODONE HCl Immed Release 5 MG TABLET 10 MG PO (14:48)
--- NOTE | 2022-03-21 16:02 | MHC.CM.ED ---
Received case management consult from Alisha CLEMENTE. Patient is s/p CVA. Was recently at PCP's office. PCP's office is in the process of arranging [facility]. [facility] referral made. Face to face completed. Patient and Alisha CLEMENTE aware. Continue to monitor for d/c needs.
== END 2022-03-21 16:28 | disposition home or self-care (01) ==
PROVIDERS: Emergency Provider Student in an Organized Health Care Education/Training Program; PCP Internal Medicine
DX: S86.012A Strain of left Achilles tendon, initial encounter (principal); W19.XXXA Unspecified fall, initial encounter; M25.562 Pain in left knee; M79.662 Pain in left lower leg; R42 Dizziness and giddiness; Y93.H2 Activity, gardening and landscaping; Y92.017 Garden or yard in single-family (private) house as the place of occurrence of the external cause; Y99.9 Unspecified external cause status
CPT/HCPCS: 73610; 73700; 93971; 96372; 99284; J1170

== ENCOUNTER 2022-04-04 13:13 | Emergency (ER) | payer MEDICARE, SELFPAY ==
[2022-04-04] VITALS (8 sets, daily range): BP systolic 145–210; BP diastolic 70–120; PULSE 53–112; RESP 16–30; TEMP 36.6–37.1; O2SAT 94–98; BMI 34.9; BMI 29.6
--- NOTE | ~2022-04-04 | CT_ITS ---
STUDY PERFORMED: CTA ABDOMEN, PELVIS AND LOWER EXTREMITY RUNOFF WITH CONTRAST HISTORY: Cold left lower extremity DESCRIPTION: Routine abdominal aorta and lower extremity runoff CTA protocol with contrast was performed. 100 mL of Omnipaque 350 was administered. 3D POSTPROCESSING: Multiple 3-D angiographic images were processed from the initial data set by the [facility] under concurrent physician supervision. This CT examination was performed using dose optimization techniques as appropriate, variously including the following: *Automated exposure control *Adjustment of mA and/or kV according to patient size (this includes techniques or standardized protocols for targeted exams where dose is matched to indication/reason for exam; i.e. extremities or head) *Use of iterative reconstruction technique DLP: 480 mGycm. 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 The celiac and SMA are patent. There are 2 renal arteries on the left and a single renal artery on the right that are patent. Immediately below the level of the renal arteries the aorta abruptly occludes. 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 The graft arises at the junction of the thoracic and abdominal aorta above the level of all abdominal vessels. At the time of the 06/02/2019, a common trunk was patent and the left femoral component was patent. The right femoral component was already occluded in 2019. On the current study, the entire graft including the common trunk as well as both the left and right limbs are completely occluded. RIGHT LOWER EXTREMITY: - Common Iliac Artery: Occluded. - Internal Iliac Artery: Occluded. - External Iliac Artery: Diseased and fills via collaterals. - Common Femoral Artery: Diseased but patent. Mild stenosis at the site of the occluded graft anastomosis.. - Profunda Femoral Artery: Patent. - Superficial Femoral Artery: Mild disease throughout. - Popliteal Artery: Patent. - Tibioperoneal Trunk: Widely patent - Posterior Tibial Artery: Widely patent. - Peroneal Artery: Widely patent. - Anterior Tibial Artery: Widely patent. LEFT LOWER EXTREMITY: - Common Iliac Artery: Occluded. - Internal Iliac Artery: Occluded. - External Iliac Artery: Occluded. - Common Femoral Artery: Occluded. - Profunda Femoral Artery: Patent and reconstituted via collaterals at the femoral bifurcation. - Superficial Femoral Artery: Patent but severely diseased, reconstituted via collaterals at the femoral bifurcation. There is a short segment near occlusion present in the mid SFA (6:919). - Popliteal Artery: Mildly diseased. - Tibioperoneal Trunk: Patent - Posterior Tibial Artery: Occluded. - Peroneal Artery: Fills faintly very proximally and poorly seen distally, possibly secondary to bolus. - Anterior Tibial Artery: Fills proximally, faint distally possibly secondary to bolus. CELIOMESENTERIC ARTERIES: Celiac and SMA are patent. The GINA is not. RENAL ARTERIES: Single patent renal artery on the right. 2 rather equal sized renal arteries. The lower pole branch has an ostial stenosis.. NONVASCULAR: Lung Bases: The visualized lung bases are unremarkable aside from some minimal atelectasis.. Liver, Gallbladder and Biliary Tree: The liver is normal in size, shape, and attenuation. No focal hepatic lesion or biliary ductal dilatation is present. The gallbladder is unremarkable with no evidence of radiopaque gallstones, gallbladder wall thickening, or obvious pericholecystic inflammatory changes. Pancreas: Unremarkable. Spleen: Unremarkable. Adrenal Glands: Both adrenal glands are thickened, left greater than right Kidneys and Ureters: The kidneys are normal in size, shape, and attenuation. No hydronephrosis, hydroureter, or calculi seen. No perinephric stranding. Bladder: Unremarkable. Gastrointestinal Tract: The small and large bowel are unremarkable. Colonic diverticula without diverticulitis. The appendix is unremarkable. Abdominal Wall: There is a left inguinal hernia present which appears to be direct. Bowel loops it directly in front of the groin vessels. Lymph Nodes: No retroperitoneal lymphadenopathy. Pelvic Viscera: Calcifications present throughout a mildly prominent prostate. Seminal vesicles normal. Osseous Structures: Mild degenerative changes present in the spine is marked at L5-S1 with there is herniation of disc material into the thecal sac and disc space narrowing. No bony destructive lesions are seen. CT/CT angio abd aorta runoff IMPRESSION: 1. There is been a dramatic change since the prior CT with occlusion of the entire aortobifemoral graft. Previously, the right limb had been occluded but the left limb had been patent. 2. On the left, the entire iliac system is occluded and there is reconstituted proximal profunda femoris and superficial femoral arteries. The SFA is extremely diseased with a near occlusive short segment stenosis. There is two-vessel runoff seen. The peroneal and anterior tibial artery both of which are not seen distally possibly secondary to low flow. 3. On the right, a diseased external iliac reconstitutes in the SFA is patent with mild disease. The popliteal is patent and there is good three-vessel runoff.
--- NOTE | ~2022-04-04 | XR_ITS ---
EXAMINATION: XR ANKLE, LEFT CLINICAL INFORMATION: Evaluate wound/ostial with pain COMPARISON: Left ankle 03/21/2022 TECHNIQUE: AP, lateral, and mortise views of the left ankle. FINDINGS: The bones and soft tissues are unremarkable and there is been no interval change when compared to 03/21/2022. No bone destruction to suggest osteomyelitis. No fracture. Alignment is anatomic. Joint spaces are maintained. No joint effusion. XR/XR ankle LT 2V IMPRESSION: Normal left ankle.
--- NOTE | ~2022-04-04 | US_ITS ---
EXAMINATION: NONINVASIVE ASSESSMENT OF THE ARTERIES OF THE LEFT LOWER EXTREMITY Viet Becerril MD CLINICAL INFORMATION: Cold left lower extremity TECHNIQUE: Bilateral lower extremity duplex ultrasound was performed with velocity measurements and waveform analysis in the Left common femoral arteries, profunda femoris arteries, proximal mid and distal superficial femoral arteries, popliteal arteries and tibial vessels. In the right leg, scans which were performed for comparison were limited due to the common femoral artery proximal profunda femoris artery and the proximal superficial femoral artery. This study was performed only at rest. COMPARISON: CT abdomen pelvis 10/27/2018 and 06/02/2019 Of note, The CT reveals that there are bilateral extra-anatomic grafts arising from the distal aorta extending down to the femoral arteries. At the time of the CT scan, the right-sided graft was occluded but the left-sided graft appear to be patent. FINDINGS: Velocities in cm/sec and phasicity as well as the presence of plaque are reported below. LEFT LEG: The common femoral artery is occluded and there is monophasic slow flow seen throughout the remainder of the left lower extremity External iliac artery: Occluded without flow Common Femoral: Occluded without flow Profunda Femoris: 29 Proximal SFA: 20 Mid SFA: 29 Distal SFA: 12 Popliteal: 20 Posterior tibial: 4 RIGHT LEG: Waveforms are all monophasic Common Femoral: 65 Proximal SFA: 35 Proximal profunda femoris: 38 US/US arterial duplex LE LT IMPRESSION: The patient's anatomic aortobifemoral grafts were not imaged but given the monophasic waveforms, presumably they are occluded. The previously seen patent left common femoral artery is now occluded with monophasic waveforms throughout the left lower extremity. Monophasic waveforms on the small portion of the right lower extremity that was examined suggest continued occlusion of this graft similar to the time of the last CT on 06/02/2019.
--- NOTE | 2022-04-04 13:26 | ED.GENADULT ---
HPI - General Adult General Chief complaint: General Medical <BRYN Flores Last Filed: 04/04/22 18:21> Stated complaint: BLE PAIN, SEEN RECENTLY FOR SAME PER EMS <BRYN Flores Last Filed: 04/04/22 18:21> Time Seen by Provider: 04/04/22 13:22 <BRYN Flores - Last Filed: 04/04/22 18:21> Source: patient and EMS <BRYN Flores Last Filed: 04/04/22 18:21> Mode of arrival: EMS <BRYN Flores Last Filed: 04/04/22 18:21> History of Present Illness HPI narrative: 61-year-old male with a history of CVA with left sided weakness, diabetes on insulin with neuropathy, hip osteoarthritis on chronic pain medication, COPD, BPH, LUIS ALBERTO, HLD, HTN, anxiety, depression who presents to the ER for evaluation of ongoing LLE pain x weeks. Reports left lower extremity intermittently cold. Pain described as burning. Also reports ulceration to left ankle x2 weeks. Denies fever, chills, trauma/injury or fall Patient was sent to ED by Jacey LAZARO as is unsafe at home Patient was evaluated in our ED on 03/21/2022 for similar symptoms had CT of the hip/knee which did not show any acute findings other than known left hip avascular necrosis. Also had LLE DVT which did not show DVT. Plan was to follow-up with orthopedics which patient has not yet done <BRYN Flores Last Filed: 04/04/22 18:21> Onset (ago): week(s) <BRYN Flores - Last Filed: 04/04/22 18:21> Related Data Home medications: Home Medications Medication Instructions Recorded Confirmed aspirin 81 mg tablet,delayed 80 mg PO DAILY 10/02/20 03/12/22 release cetirizine 10 mg tablet 10 mg PO QAM 01/10/22 03/12/22 famotidine 20 mg tablet 20 mg PO DAILY 01/10/22 03/12/22 insulin lispro 100 unit/mL 0 sliding scale dose subcut QIDACHS 01/10/22 04/04/22 subcutaneous pen triamcinolone acetonide 0.1 % topical 01/10/22 03/12/22 lotion oxycodone-acetaminophen 5 mg-325 1 tab PO BID PRN pain 04/04/22 04/04/22 mg tablet Previous Rx's Medication Instructions Recorded sennosides 8.6 mg-docusate sodium 2 tab-cap PO BEDTIME 30 days #60 05/23/21 50 mg capsule (Senna Plus) caps nitroglycerin 0.4 mg sublingual 0.4 mg sublingual Q5M PRN chest 11/19/21 tablet pain #25 tabs pen needle, diabetic 31 gauge x #100 ea 11/21/21/ (1st Tier Unifine Pentips) insulin glargine 100 unit/mL (3 25 unit (0.25 mL) subcut QPM #8 mL 12/06/21 mL) subcutaneous pen (Lantus Solostar U-100 Insulin) pioglitazone 30 mg tablet 30 mg PO DAILY 30 days #30 tabs 12/06/21 albuterol sulfate 2.5 mg/3 mL 2.5 mg (3 mL) inhalation QID PRN 12/20/21 (0.083 %) solution for nebulization shortness of breath or wheezing #360 vials albuterol sulfate 90 mcg/actuation 2 puff inhalation Q4-6H PRN 12/20/21 aerosol inhaler shortness of breath or wheezing #1 ea atorvastatin 80 mg tablet 80 mg PO QPM 90 days #90 tabs 12/20/21 fenofibrate 160 mg tablet 160 mg PO DAILY 90 days #90 tabs 12/20/21 gabapentin 300 mg capsule 300 mg PO BID 90 days #180 caps 12/20/21 duloxetine 60 mg capsule,delayed 60 mg PO DAILY 90 days #90 caps 01/14/22 release ezetimibe 10 mg tablet (Zetia) 10 mg PO DAILY #30 tabs 01/14/22 flash glucose scanning reader #1 ea 01/14/22 (FreeStyle Anival 14 Day [place]) flash glucose sensor (FreeStyle #6 kits 01/14/22 Anival 14 Day Sensor kit) lisinopril 20 mg tablet 20 mg PO DAILY 3 months #90 tabs 02/19/22 meclizine 25 mg tablet 25 mg PO DAILY PRN dizziness 90 02/19/22 days #60 tabs metformin 1,000 mg tablet 1,000 mg PO DAILY 90 days #90 tabs 02/19/22 blood sugar diagnostic #3 boxes 02/20/22 blood-glucose meter (OneTouch #1 ea 02/20/22 Ultra2 Meter kit) lancets (OneTouch UltraSoft #3 boxes 02/20/22 Lancets) lancets 33 gauge (OneTouch Delica #3 boxes 02/20/22 Lancets) lidocaine 4 % topical patch 1 patch topical DAILY PRN pain #15 03/13/22 (Aspercreme (lidocaine)) ea blood sugar diagnostic (FreeStyle #100 ea 03/14/22 Lite Strips) naproxen 250 mg tablet 250 mg PO BID PRN pain #20 tabs 03/14/22 oxycodone 5 mg tablet 5 mg PO Q6H PRN severe pain (scale 04/01/22 score 7-10) #75 tabs <BRYN Flores - Last Filed: 04/04/22 18:21> Allergies/adverse reactions: Allergies Allergy/AdvReac Type Severity Reaction Status Date / Time ciprofloxacin [From CIPRO] Allergy Severe SWELLING, Verified 04/01/22 08:58 ITCHING bee pollen [BEE STINGS] Allergy Unknown HIVES Verified 04/01/22 08:58 Penicillins Allergy Unknown UNKNOWN Verified 04/01/22 08:58 insulin lispro AdvReac Intermediate Swelling Verified 04/01/22 08:58 [From Humalog U-100 Insulin] <BRYN Flores - Last Filed: 04/04/22 18:21> Review of Systems Review of Systems: Constitutional: No Fever, No Chills, No Fatigue, No Malaise ENT/Mouth: No Ear Pain, No sore throat, No Rhinorrhea, No Swallowing Difficulty Eyes: No Eye Pain, No Swelling, No Redness, No Vision Changes Cardiovascular: No Chest Pain, No SOB, + Edema, No Palpitations Respiratory: No Cough, No Sputum, No Dyspnea Gastrointestinal: No Nausea, No Vomiting, No Diarrhea, No Constipation, No Abdominal pain Genitourinary: No irregular bleeding, No Dysuria, No Urinary Frequency, No Hematuria, No Urgency Musculoskeletal: + joint pain, No Myalgias, No Joint Swelling Skin: + Skin Lesions, No rash Neuro: No Weakness, No Numbness, No Paresthesias, No Dizziness, No Headache <BRYN Flores - Last Filed: 04/04/22 18:21> Yes all other systems are reviewed and are negative <BRYN Flores - Last Filed: 04/04/22 18:21> Constitutional: Constitutional: Reports as per HPI <BRYN Flores - Last Filed: 04/04/22 18:21> [facility] Past Medical History Attestation statement: The following information was validated with the patient. <BRYN Flores - Last Filed: 04/04/22 18:21> Medical History: Medical History Alcohol abuse Anxiety and depression Avascular necrosis of bone of right hip BPH (benign prostatic hyperplasia) Colon cancer screening COPD (chronic obstructive pulmonary disease) Coronary artery disease Cough History of CVA (cerebrovascular accident) Hypercholesterolemia Hypertension Leg cramps LUQ abdominal pain Mass of left paraspinous region Obesity (BMI 30-39.9) Obstructive sleep apnea Osteoarthritis, hip, bilateral Peripheral vascular disease Restrictive lung disease Type 2 diabetes mellitus with hyperglycemia Urinary incontinence <BRYN Flores - Last Filed: 04/04/22 18:21> Surgical History: Surgical History History of surgery History of tonsillectomy History of vascular surgery <BRYN Flores - Last Filed: 04/04/22 18:21> Family History Family History: Family History Father Lung cancer COPD (chronic obstructive pulmonary disease) Heart disease Hypertension Mother COPD (chronic obstructive pulmonary disease) Diabetes Hypertension Breast cancer Paternal Uncle Prostate cancer Sister Heart disease <BRYN Flores - Last Filed: 04/04/22 18:21> Social History Social History: Social History Housing: House Alcohol intake: former Patient Tobacco Use Status: Former Tobacco user e-Cigarette/Vaping Use: Never Used Second Hand Smoke Exposure: No Use of substances other than those prescribed or required for medical reasons: No Substance Use Type: Marijuana Advance Directives: No Advance Directives Information Provided: No service: No Current occupational status: disabled Cognitive needs: Yes (cane) Hearing needs: Yes Vision needs: Yes <BRYN Flores Last Filed: 04/04/22 18:21> Physical Exam ED Vital Signs: Vital Signs - 24 hr 04/04/22 13:23 04/04/22 14:56 04/04/22 15:11 Temperature 98 F Pulse Rate 112 H 103 H 88 Respiratory Rate 19 30 H 29 H Blood Pressure 169/112 H 186/87 H 152/83 H Pulse Oximetry 95 95 Oxygen Delivery Method Room Air Room Air 04/04/22 16:30 04/04/22 17:06 04/04/22 17:59 Temperature 98.0 F Pulse Rate 53 93 Respiratory Rate 20 29 H 20 Blood Pressure 146/82 H 145/70 H Pulse Oximetry 98 94 Oxygen Delivery Method Room Air Room Air BMI result Body Mass Index 29.6 <BRYN Flores Last Filed: 04/04/22 18:21> Vital Signs - 24 hr 04/04/22 13:23 04/04/22 14:56 04/04/22 15:11 Temperature 98 F Pulse Rate 112 H 103 H 88 Respiratory Rate 19 30 H 29 H Blood Pressure 169/112 H 186/87 H 152/83 H Pulse Oximetry 95 95 Oxygen Delivery Method Room Air Room Air 04/04/22 16:30 04/04/22 17:06 04/04/22 17:59 Temperature 98.0 F Pulse Rate 53 93 Respiratory Rate 20 29 H 20 Blood Pressure 146/82 H 145/70 H Pulse Oximetry 98 94 Oxygen Delivery Method Room Air Room Air BMI result Body Mass Index 29.6 <BRYN Wu - Last Filed: 04/04/22 18:53> Const General: cooperative, healthy appearing and no acute distress <BRYN Flores Last Filed: 04/04/22 18:21> Orientation/consciousness: patient oriented x3 <BRYN Flores Last Filed: 04/04/22 18:21> Limitations: no limitations <BRYN Flores Last Filed: 04/04/22 18:21> HENMT Head: Yes normal to inspection and Yes atraumatic <BRYN Flores Last Filed: 04/04/22 18:21> Ears: hearing grossly normal bilaterally <Roselia Freemanpatricia PA - Last Filed: 04/04/22 18:21> General nose exam: Normal external nose present <Roselia Freemanpatricia PA - Last Filed: 04/04/22 18:21> Face and sinus: Yes normal facial exam <Roselia Freemanpatricia PA - Last Filed: 04/04/22 18:21> Eyes General: appearance normal, both eyes and all related structures <Roselia Freemanpatricia PA - Last Filed: 04/04/22 18:21> EOM: EOMs intact bilaterally <Roselia Freemanpatricia PA - Last Filed: 04/04/22 18:21> Neck Neck: Yes normal visual inspection and Yes no meningeal signs <Roselia Freemanpatricia PA - Last Filed: 04/04/22 18:21> Resp Effort & Inspection: normal respiratory effort and no respiratory distress <Roselia Freemanpatricia PA - Last Filed: 04/04/22 18:21> Auscultation: clear to auscultation bilaterally <Roselia Freemanpatricia PA - Last Filed: 04/04/22 18:21> Cardio Rate: regular rate <Roselia Freemanpatricia PA - Last Filed: 04/04/22 18:21> Heart sounds: S1 normal heart sound present and S2 normal heart sound present <Roselia Freemanpatricia PA - Last Filed: 04/04/22 18:21> GI Inspection: Yes normal to inspection <Roselia Freemanpatricia PA - Last Filed: 04/04/22 18:21> Palpation (GI): Soft to palpation, nontender, no guarding and not rigid <Roselia Freemanpatricia PA - Last Filed: 04/04/22 18:21> General: Yes no CVA tenderness <Roselia Freemanpatricia PA - Last Filed: 04/04/22 18:21> Back/Spine/Pelvis Back: no CVA tenderness <Roselia Freemanpatricia PA - Last Filed: 04/04/22 18:21> Skin Other: Please refer to image above of left lower extremity ulceration. Nontender to palpation. No active drainage. No surrounding cellulitis. No fluctuance or induration, no streaking. <Roselia Mendez PA - Last Filed: 04/04/22 18:21> Rashes: no rashes <BRYN Flores - Last Filed: 04/04/22 18:21> Neuro General: patient oriented x3, tone normal and no meningeal signs <BRYN Flores Last Filed: 04/04/22 18:21> Gait exam (Neuro): Normal gait present <BRYN Flores Last Filed: 04/04/22 18:21> Extrem Other: Left lower extremity cool to touch, distal pulses palpable. Exquisitely tender to light palpation. Decreased ROM throughout secondary to pain. <BRYN Flores Last Filed: 04/04/22 18:21> Course Course Course Narrative: -1420--lactic acid elevated to 2.1 > likely from metformin, no evidence of infection at this time. Low suspicion for severe sepsis. Tachycardia suspected from pain. -1428--noted leukocytosis of 13.2. CRP elevated to 18.52 > empiric IV Cefepime/Vancomycin ordered -ESR is elevated to 90 XR ankle LT 2V IMPRESSION: Normal left ankle. > [place] from radiologist patient has severe arterial inflow disease > recommended CTA abdominal aortic runoff US arterial duplex LE LT IMPRESSION: The patient's anatomic aortobifemoral grafts were not imaged but given the monophasic waveforms, presumably they are occluded. The previously seen patent left common femoral artery is now occluded with monophasic waveforms throughout the left lower extremity. Monophasic waveforms on the small portion of the right lower extremity that was examined suggest continued occlusion of this graft similar to the time of the last CT on 06/02/2019. > ASA ordered -case discussed with Triny who suspects transfer however will pend CTA -this software writer has called ED Radiology to obtain stat reading twice, apparently no radiologist on from 1700-18:00 that is able to read study -1820--ED care transferred to BRYN Little pending CTA and anticipated transfer <BRYN Flores Last Filed: 04/04/22 18:21> Reevaluation(s) Reevaluation #1: Grafts were placed CTA aorta run off shows occlusion of the entire aortobifemoral graft. On the left the entire iliac system is occluded. Will start patient on heparin, patient had a graft placed at [facility], discussed this case with Triny it is most appropriate for patient to go to wear these grafts were placed. At this time call out to [facility] for arterial occlusion. <BRYN Wu - Last Filed: 04/04/22 18:53> Time: 18:39 <BRYN Wu - Last Filed: 04/04/22 18:53> Reevaluation #2: Dr. [facility] ED accepting <BRYN Wu - Last Filed: 04/04/22 18:53> Time: 18:47 <BRYN Wu - Last Filed: 04/04/22 18:53> Medical Decision Making MDM Narrative Medical decision making narrative: 61-year-old male with a history of CVA with left sided weakness, diabetes on insulin with neuropathy, hip osteoarthritis on chronic pain medication, COPD, BPH, LUIS ALBERTO, HLD, HTN, anxiety, depression who presents to the ER for evaluation of ongoing LLE pain x weeks. On exam hypertensive admits to taking BP meds this morning, tachycardic likely from pain, PE as above. Please refer to image. Concern for PAD/arterial compromise vs osteomyelitis. Low suspicion for DVT with recent negative duplex. Low concern for fracture. Compartments soft, low suspicion for compartment syndrome or necrotizing fasciitis Plan: Labs, lactic, ESR/CRP, ankle x-ray, arterial ultrasound, admission vs PT/case management <BRYN Flores - Last Filed: 04/04/22 18:21> Medical Records Medical records reviewed: Yes I reviewed the patient's medical records. <BYRN Flores - Last Filed: 04/04/22 18:21> Lab Data Lab results reviewed: Yes I reviewed the patient's lab results. <BRYN Flores Last Filed: 04/04/22 18:21> Result diagrams: : 04/04/22 13:54 04/04/22 13:54 <BRYN Flores Last Filed: 04/04/22 18:21> Labs: Lab Results 04/04/22 04/04/22 04/04/22 Range/Units 13:54 13:54 13:54 WBC (4.8-10.8) X10*3/uL RBC (4.60-5.80) X10*6/uL Hgb (14.0-18.0) g/dl Hct (42.0-52.0) % MCV (80.0-98.0) fL MCH (27.0-33.0) pg MCHC (31.0-36.0) g/dl RDW (11.0-16.0) % Plt Count (160-400) X10*3/uL MPV (9.4-12.4) fL Immature Gran % (Auto) (0.0-0.4) % Neut % (Auto) (45-73) % Lymph % (Auto) (20-40) % Weber % (Auto) (2-11) % Eos % (Auto) (0-4) % Baso % (Auto) (0-2) % Lymph # (Auto) (1.2-4.9) X10*3/uL Weber # (Auto) (0.1-1.2) X10*3/uL Eos # (Auto) (0.0-0.4) X10*3/uL Baso # (Auto) (0.0-0.2) X10*3/uL Abs Immat Gran (auto) (0.00-0.03) X10*3/uL Absolute Neuts (auto) (2.0-8.3) x10*3/uL Absolute Nucleated RBC (0.0-0.012) X10*3/uL Nucleated RBC % (auto) (0.0-0.2) /100WBC ESR 90 H (0-15) MM/HR Sodium 140 (135-145) mmol/L Potassium 4.2 (3.3-5.1) mmol/L Chloride 100 (96-108) mmol/L Carbon Dioxide 26 (22-29) mmol/L Anion Gap 18 (12-20) BUN 8 L D (9-16) mg/dL Creatinine 0.67 (0.5-1.4) mg/dL Estim Creat Clear Calc 106.3 Estimated GFR > 60 Random Glucose 118 H D (60-115) mg/dL Lactic Acid 2.1 H* (0.5-2.0) mmol/L Lactic Acid F/U @ 2Hr (0.5-2.0) mmol/L Calcium 9.1 (8.4-10.2) mg/dL Magnesium 1.6 (1.6-2.6) mg/dL Total Bilirubin 0.2 (0.0-1.0) mg/dL Direct Bilirubin < 0.2 (0.0-0.5) mg/dL AST 103 H (5-37) U/L ALT 103 H (0-40) U/L Alkaline Phosphatase 113 D (39-117) U/L C-Reactive Protein 18.52 H (< or = 0.50) mg/dL Total Protein 6.5 (6.5-8.0) g/dL Albumin 4.0 (3.5-5.0) g/dL COVID-19 (ANTHONY) (Negative) COVID-19 Clin Com 04/04/22 04/04/22 04/04/22 Range/Units 13:54 14:46 16:47 WBC 13.2 H (4.8-10.8) X10*3/uL RBC 4.35 L (4.60-5.80) X10*6/uL Hgb 12.3 L (14.0-18.0) g/dl Hct 37.9 L (42.0-52.0) % MCV 87.1 (80.0-98.0) fL MCH 28.3 (27.0-33.0) pg MCHC 32.5 (31.0-36.0) g/dl RDW 13.2 (11.0-16.0) % Plt Count 408 H D (160-400) X10*3/uL MPV 9.3 L (9.4-12.4) fL Immature Gran % (Auto) 0.5 H (0.0-0.4) % Neut % (Auto) 72.6 (45-73) % Lymph % (Auto) 19.3 L (20-40) % Weber % (Auto) 6.9 (2-11) % Eos % (Auto) 0.5 (0-4) % Baso % (Auto) 0.2 (0-2) % Lymph # (Auto) 2.5 (1.2-4.9) X10*3/uL Weber # (Auto) 0.9 (0.1-1.2) X10*3/uL Eos # (Auto) 0.1 (0.0-0.4) X10*3/uL Baso # (Auto) 0.0 (0.0-0.2) X10*3/uL Abs Immat Gran (auto) 0.07 H (0.00-0.03) X10*3/uL Absolute Neuts (auto) 9.6 H (2.0-8.3) x10*3/uL Absolute Nucleated RBC 0.000 (0.0-0.012) X10*3/uL Nucleated RBC % (auto) 0.0 (0.0-0.2) /100WBC ESR (0-15) MM/HR Sodium (135-145) mmol/L Potassium (3.3-5.1) mmol/L Chloride (96-108) mmol/L Carbon Dioxide (22-29) mmol/L Anion Gap (12-20) BUN (9-16) mg/dL Creatinine (0.5-1.4) mg/dL Estim Creat Clear Calc Estimated GFR Random Glucose (60-115) mg/dL Lactic Acid (0.5-2.0) mmol/L Lactic Acid F/U @ 2Hr 1.3 (0.5-2.0) mmol/L Calcium (8.4-10.2) mg/dL Magnesium (1.6-2.6) mg/dL Total Bilirubin (0.0-1.0) mg/dL Direct Bilirubin (0.0-0.5) mg/dL AST (5-37) U/L ALT (0-40) U/L Alkaline Phosphatase (39-117) U/L C-Reactive Protein (< or = 0.50) mg/dL Total Protein (6.5-8.0) g/dL Albumin (3.5-5.0) g/dL COVID-19 (ANTHONY) Negative (Negative) COVID-19 Clin Com See Note <BRYN Flores - Last Filed: 04/04/22 18:21> Lab Results 04/04/22 04/04/22 04/04/22 Range/Units 13:54 13:54 13:54 WBC (4.8-10.8) X10*3/uL RBC (4.60-5.80) X10*6/uL Hgb (14.0-18.0) g/dl Hct (42.0-52.0) % MCV (80.0-98.0) fL MCH (27.0-33.0) pg MCHC (31.0-36.0) g/dl RDW (11.0-16.0) % Plt Count (160-400) X10*3/uL MPV (9.4-12.4) fL Immature Gran % (Auto) (0.0-0.4) % Neut % (Auto) (45-73) % Lymph % (Auto) (20-40) % Weber % (Auto) (2-11) % Eos % (Auto) (0-4) % Baso % (Auto) (0-2) % Lymph # (Auto) (1.2-4.9) X10*3/uL [place] # (Auto) (0.1-1.2) X10*3/uL Eos # (Auto) (0.0-0.4) X10*3/uL Baso # (Auto) (0.0-0.2) X10*3/uL Abs Immat Gran (auto) (0.00-0.03) X10*3/uL Absolute Neuts (auto) (2.0-8.3) x10*3/uL Absolute Nucleated RBC (0.0-0.012) X10*3/uL Nucleated RBC % (auto) (0.0-0.2) /100WBC ESR 90 H (0-15) MM/HR Sodium 140 (135-145) mmol/L Potassium 4.2 (3.3-5.1) mmol/L Chloride 100 (96-108) mmol/L Carbon Dioxide 26 (22-29) mmol/L Anion Gap 18 (12-20) BUN 8 L D (9-16) mg/dL Creatinine 0.67 (0.5-1.4) mg/dL Estim Creat Clear Calc 106.3 Estimated GFR > 60 Random Glucose 118 H D (60-115) mg/dL Lactic Acid 2.1 H* (0.5-2.0) mmol/L Lactic Acid F/U @ 2Hr (0.5-2.0) mmol/L Calcium 9.1 (8.4-10.2) mg/dL Magnesium 1.6 (1.6-2.6) mg/dL Total Bilirubin 0.2 (0.0-1.0) mg/dL Direct Bilirubin < 0.2 (0.0-0.5) mg/dL AST 103 H (5-37) U/L ALT 103 H (0-40) U/L Alkaline Phosphatase 113 D (39-117) U/L C-Reactive Protein 18.52 H (< or = 0.50) mg/dL Total Protein 6.5 (6.5-8.0) g/dL Albumin 4.0 (3.5-5.0) g/dL COVID-19 (ANTHONY) (Negative) COVID-19 Clin Com 04/04/22 04/04/22 04/04/22 Range/Units 13:54 14:46 16:47 WBC 13.2 H (4.8-10.8) X10*3/uL RBC 4.35 L (4.60-5.80) X10*6/uL Hgb 12.3 L (14.0-18.0) g/dl Hct 37.9 L (42.0-52.0) % MCV 87.1 (80.0-98.0) fL MCH 28.3 (27.0-33.0) pg MCHC 32.5 (31.0-36.0) g/dl RDW 13.2 (11.0-16.0) % Plt Count 408 H D (160-400) X10*3/uL MPV 9.3 L (9.4-12.4) fL Immature Gran % (Auto) 0.5 H (0.0-0.4) % Neut % (Auto) 72.6 (45-73) % Lymph % (Auto) 19.3 L (20-40) % Weber % (Auto) 6.9 (2-11) % Eos % (Auto) 0.5 (0-4) % Baso % (Auto) 0.2 (0-2) % Lymph # (Auto) 2.5 (1.2-4.9) X10*3/uL Weber # (Auto) 0.9 (0.1-1.2) X10*3/uL Eos # (Auto) 0.1 (0.0-0.4) X10*3/uL Baso # (Auto) 0.0 (0.0-0.2) X10*3/uL Abs Immat Gran (auto) 0.07 H (0.00-0.03) X10*3/uL Absolute Neuts (auto) 9.6 H (2.0-8.3) x10*3/uL Absolute Nucleated RBC 0.000 (0.0-0.012) X10*3/uL Nucleated RBC % (auto) 0.0 (0.0-0.2) /100WBC ESR (0-15) MM/HR Sodium (135-145) mmol/L Potassium (3.3-5.1) mmol/L Chloride (96-108) mmol/L Carbon Dioxide (22-29) mmol/L Anion Gap (12-20) BUN (9-16) mg/dL Creatinine (0.5-1.4) mg/dL Estim Creat Clear Calc Estimated GFR Random Glucose (60-115) mg/dL Lactic Acid (0.5-2.0) mmol/L Lactic Acid F/U @ 2Hr 1.3 (0.5-2.0) mmol/L Calcium (8.4-10.2) mg/dL Magnesium (1.6-2.6) mg/dL Total Bilirubin (0.0-1.0) mg/dL Direct Bilirubin (0.0-0.5) mg/dL AST (5-37) U/L ALT (0-40) U/L Alkaline Phosphatase (39-117) U/L C-Reactive Protein (< or = 0.50) mg/dL Total Protein (6.5-8.0) g/dL Albumin (3.5-5.0) g/dL COVID-19 (ANTHONY) Negative (Negative) COVID-19 Clin Com See Note <BRYN Wu - Last Filed: 04/04/22 18:53> Critical Care Time Critical Care Time Critical Care Time: Yes <BRYN Flores - Last Filed: 04/04/22 18:21> Total Critical Care Time: 40 <BRYN Flores - Last Filed: 04/04/22 18:21> Attestation: I have personally provided critical care time exclusive of time spent on separately billable procedures. Time includes review of lab data, radiology results, discussion with consultants, and monitoring for potential decompensation. Intervention performed as documented. <BRYN Flores - Last Filed: 04/04/22 18:21> I have personally provided critical care time exclusive of time spent on separately billable procedures. Time includes review of lab data, radiology results, discussion with consultants, and monitoring for potential decompensation. Intervention performed as documented. I attest to this time spent taking care of the patient, obtaining history, physical, reviewing labs, imaging, speaking to my attending, speaking to specialist. <BRYN Wu - Last Filed: 04/04/22 18:53> Discharge Plan Discharge Clinical Impression: Occlusion of common femoral artery <BRYN Flores - Last Filed: 04/04/22 18:21> Patient Disposition: [facility] <BRYN Flores - Last Filed: 04/04/22 18:21> Transfer Details: Dr[facility] ED accepting <BRYN Flores - Last Filed: 04/04/22 18:21> [facility] ED accepting <BRYN Wu - Last Filed: 04/04/22 18:53> Additional Instructions: Dr. [facility] ED accepting <BRYN Flores - Last Filed: 04/04/22 18:21> Prescriptions: No Action (DME) pen needle, diabetic [1st Tier Unifine Pentips] 31 gauge x 5/16 needle See Rx Instructions .Route Qty: 100 3RF Rx Instructions: 3 to 4 times per day albuterol sulfate 90 mcg/actuation HFA aerosol inhaler 2 puff inhalation Q4-6H PRN (Reason: shortness of breath or wheezing) Qty: 1 0RF albuterol sulfate 2.5 mg /3 mL (0.083 %) solution for nebulization 2.5 mg inhalation QID PRN (Reason: shortness of breath or wheezing) Qty: 360 3RF fenofibrate 160 mg tablet 160 mg PO DAILY 90 Days Qty: 90 3RF gabapentin 300 mg capsule 300 mg PO BID 90 Days Qty: 180 0RF atorvastatin 80 mg tablet 80 mg PO QPM 90 Days Qty: 90 2RF metformin 1,000 mg tablet 1,000 mg PO DAILY 90 Days Qty: 90 2RF meclizine 25 mg tablet 25 mg PO DAILY PRN (Reason: dizziness) 90 Days Qty: 60 0RF lisinopril 20 mg tablet 20 mg PO DAILY 90 Days Qty: 90 1RF (DME) blood sugar diagnostic Strip See Rx Instructions .ROUTE .MEDSUPPLY Qty: 3 3RF Rx Instructions: As directed check the blood sugar 3 times a day (DME) lancets [OneTouch UltraSoft Lancets] [facility] [place] Rx Instructions .ROUTE .MEDSUPPLY Qty: 3 3RF Rx Instructions: As directed check the blood sugarTID (DME) blood-glucose meter [OneTouch Ultra2 Meter] Kit See Rx Instructions .ROUTE .MEDSUPPLY Qty: 1 0RF Rx Instructions: As directed check the blood sugar once a day (DME) lancets [OneTouch Delica Lancets] 33 gauge [facility] [place] Rx Instructions .ROUTE .MEDSUPPLY Qty: 3 3RF Rx Instructions: As directed check the blood sugar TID lidocaine [Aspercreme (lidocaine)] 4 % adhesive patch,medicated 1 patch topical DAILY PRN (Reason: pain) Qty: 15 0RF naproxen 250 mg tablet 250 mg PO BID PRN (Reason: pain) Qty: 20 0RF (DME) FreeStyle Lite Strips Strip See Rx Instructions .MEDSUPPLY Qty: 100 2RF Rx Instructions: test daily oxycodone-acetaminophen 5-325 mg tablet 1 tab PO BID PRN (Reason: pain) (DME) FreeStyle Anival 14 Day [place] [facility] [place] Rx Instructions .ROUTE .MEDSUPPLY Qty: 1 0RF Rx Instructions: 4 times per day, patient on insulin (DME) FreeStyle Anival 14 Day Sensor Kit See Rx Instructions .ROUTE .MEDSUPPLY Qty: 6 3RF Rx Instructions: 4 times per day patient on insulin duloxetine 60 mg capsule,delayed release(DR/EC) 60 mg PO DAILY 90 Days Qty: 90 1RF ezetimibe [Zetia] 10 mg tablet 10 mg PO DAILY Qty: 30 3RF aspirin 81 mg tablet,delayed release (DR/EC) 80 mg PO DAILY pioglitazone 30 mg tablet 30 mg PO DAILY 30 Days Qty: 30 3RF Lantus Solostar U-100 Insulin 100 unit/mL (3 mL) insulin pen 25 unit subcut QPM Qty: 8 3RF Rx Instructions: or as directed oxycodone 5 mg tablet 5 mg PO Q6H PRN (Reason: severe pain (scale score 7-10)) Qty: 75 0RF Rx Instructions: Partial Fill upon patient request. Senna Plus 8.6-50 mg capsule 2 tab-cap PO BEDTIME 30 Days Qty: 60 2RF nitroglycerin 0.4 mg tablet, sublingual 0.4 mg sublingual Q5M PRN (Reason: chest pain) Qty: 25 0RF Rx Instructions: do not exceed 3 doses per episode cetirizine 10 mg tablet 10 mg PO QAM famotidine 20 mg tablet 20 mg PO DAILY triamcinolone acetonide 0.1 % lotion topical insulin lispro 100 unit/mL insulin pen 0 sliding scale dose subcut QIDACHS Protocol: Insulin Correction Scale Less than or equal to 110 ---- Give (units): 0 111 to 150 Give (units): 0 151 to 200 Give (units): 2 201 to 250 Give (units): 4 251 to 300 Give (units): 6 301 to 350 Give (units): 8 Greater than 350 Give (units): 10 Call if Blood Glucose > : 350 <BRYN Flores - Last Filed: 04/04/22 18:21>
[2022-04-04 14:01] LABS: MANUAL DIFF FLAG NO
[2022-04-04 14:06] LABS: Basophils Percent Auto 0.2 % (0-2); Eosinophils Absolute Auto 0.1 X10*3/uL (0.0-0.4); Eosinophils Percent Auto 0.5 % (0-4); Hematocrit 37.9 % (42.0-52.0); Hemoglobin 12.3 g/dl (14.0-18.0); Imm Gran Abs Auto 0.07 X10*3/uL (0.00-0.03); Imm Gran Pct Auto 0.5 % (0.0-0.4); Lymphocytes Absolute Auto 2.5 X10*3/uL (1.2-4.9); Lymphocytes Percent Auto 19.3 % (20-40); Mean Corpuscular HGB Conc 32.5 g/dl (31.0-36.0); Mean Corpuscular Hemoglobin 28.3 pg (27.0-33.0); Mean Corpuscular Volume 87.1 fL (80.0-98.0); Mean Platelet Volume 9.3 fL (9.4-12.4); Monocytes Absolute Auto 0.9 X10*3/uL (0.1-1.2); Monocytes Percent Auto 6.9 % (2-11); Neutrophils Absolute Auto 9.6 x10*3/uL (2.0-8.3); Neutrophils Percent Auto 72.6 % (45-73); Platelet Count 408 X10*3/uL (160-400); Red Blood Count 4.35 X10*6/uL (4.60-5.80); Red Cell Distribution Width 13.2 % (11.0-16.0); White Blood Count 13.2 X10*3/uL (4.8-10.8)
[2022-04-04 14:16] LABS: Anion Gap 18 (12-20); Blood Urea Nitrogen 8 mg/dL (9-16); C Reactive Protein 18.52 mg/dL (< or = 0.50); Calcium 9.1 mg/dL (8.4-10.2); Carbon Dioxide 26 mmol/L (22-29); Chloride 100 mmol/L (96-108); Creatinine Clr Calc Pharmacy 106.3; Estimated Glomerular Filt Rate > 60; Glucose Random 118 mg/dL (60-115); Potassium 4.2 mmol/L (3.3-5.1); Sodium 140 mmol/L (135-145)
[2022-04-04 14:20] LABS: Lactic Acid 2.1 mmol/L (0.5-2.0)
[2022-04-04] MEDS: Labetalol HCL 100 MG/20 ML VIAL IVPUSH (14:53)
[2022-04-04] MEDS: cefEPime HCl 2 GM in 0.9 % Sodium Chloride 50 ML IV (14:54)
[2022-04-04] MEDS: 0.9 % Sodium Chloride 1,000 ML 999 ML IV (14:54)
[2022-04-04 14:55] LABS: Erythrocyte Sedimentation Rate 90 MM/HR (0-15)
[2022-04-04 15:23] LABS: COVID-19 Test Negative (Negative)
[2022-04-04 15:27] LABS: Alanine Aminotransferase 103 U/L (0-40); Alkaline Phosphatase 113 U/L (39-117); Aspartate Amino Transferase 103 U/L (5-37); Bilirubin Direct < 0.2 mg/dL (0.0-0.5); Bilirubin Total 0.2 mg/dL (0.0-1.0); Magnesium 1.6 mg/dL (1.6-2.6); Total Protein 6.5 g/dL (6.5-8.0)
[2022-04-04 15:59] LABS: Reflex Lactate? Lactic Acid Added
[2022-04-04] MEDS: iohexoL 350 MG/ML 100 ML INFUS..BTL IV (16:27)
[2022-04-04] MEDS: Aspirin Enteric Coated 325 MG TABLET.DR PO (17:06)
[2022-04-04] MEDS: Morphine Sulfate 4 MG/ML CARTRIDGE IVPUSH ×2 (17:06→19:53)
[2022-04-04 17:07] LABS: ~Lactic Acid-LAB USE ONLY 1.3 mmol/L (0.5-2.0)
--- NOTE | 2022-04-04 18:05 | PC.NURSE ---
pt a&ox3, hypertensive, other vss, medicated per provider order, NaCl finished, vanco 2g running, pt continues to report pain and numbness in legs, morphine brought pain down from a 04/29 [address] pt [address] results, med rec ordered.
[2022-04-04 19:47] LABS: Hematocrit 35.6 % (42.0-52.0); Hemoglobin 11.6 g/dl (14.0-18.0); Mean Corpuscular HGB Conc 32.6 g/dl (31.0-36.0); Mean Corpuscular Hemoglobin 28.5 pg (27.0-33.0); Mean Corpuscular Volume 87.5 fL (80.0-98.0); Mean Platelet Volume 9.1 fL (9.4-12.4); Platelet Count 388 X10*3/uL (160-400); Red Blood Count 4.07 X10*6/uL (4.60-5.80); Red Cell Distribution Width 13.4 % (11.0-16.0); White Blood Count 14.2 X10*3/uL (4.8-10.8)
[2022-04-04 19:53] LABS: INTERNATIONAL NORM RATIO 1.1 (0.9-1.1); Prothrombin Time 12.7 SEC (10.0-13.1)
[2022-04-04 19:56] LABS: PTT Heparin Drip 29.1 SEC (53-77.9)
[2022-04-04] MEDS: Heparin Sodium,Porcine 5,000 UNIT/ML VIAL 5700 UNIT IVPUSH (19:56)
[2022-04-04] MEDS: Heparin Sodium,Porcine/1/2NS 25,000 UNIT/250 ML IV.SOLN 9.97 UNIT IVCONT (19:59)
--- NOTE | 2022-04-04 20:09 | PC.NURSE ---
pt a&ox3, vss - remains hypertensive, reporting 10/10 pain, given morphine, and medicated per provider order. 18G placed right AC by provider, life flight at bedside to transfer pt to [place].
[2022-04-04] MEDS: LORazepam 1 MG TABLET PO (20:22)
--- NOTE | 2022-04-04 20:38 | PC.NURSE ---
attempted to call in report to [facility], transferred to multiple people, call disconnected.
--- NOTE | 2022-04-04 20:42 | PC.NURSE ---
attempted two more times to call in report to [facility], line disconnected after multiple transfers both times.
== END 2022-04-04 21:33 | disposition short-term general hospital (02) ==
PROVIDERS: Physician Assistant; Emergency Provider Emergency Medicine; PCP Internal Medicine
DX: I77.1 Stricture of artery (principal); M79.662 Pain in left lower leg; R60.0 Localized edema; E11.9 Type 2 diabetes mellitus without complications; Z79.4 Long term (current) use of insulin; Z20.822 Contact with and (suspected) exposure to COVID-19; Z87.891 Personal history of nicotine dependence; Z79.899 Other long term (current) drug therapy; Z86.73 Personal history of transient ischemic attack (TIA), and cerebral infarction without residual deficits
CPT/HCPCS: 36415; 73600; 75635; 80048; 80076; 83605; 83735; 85025; 85027; 85610; 85652; 85730; 86140; 87040; 87635; 93926; 96361; 96365; 96366; 96367; 96375; 99285; J0692; J2270; J3370; Q9967

== ENCOUNTER 2022-05-05 16:19 | Emergency (ER) | payer MEDICARE, SELFPAY ==
--- NOTE | ~2022-05-05 | CT_ITS ---
EXAMINATION: NONCONTRAST HEAD CT NONCONTRAST CERVICAL SPINE CT INDICATION INFORMATION: Pain status post fall COMPARISON: 10/13/2018 TECHNIQUE: Separate noncontrast CT examinations of the head and cervical spine were performed. Coronal and sagittal images were created for each examination at the technologist workstation. This CT examination was performed using dose optimization techniques as appropriate, variously including the following: *Automated exposure control *Adjustment of mA and/or kV according to patient size (this includes techniques or standardized protocols for targeted exams where dose is matched to indication/reason for exam; i.e. extremities or head) *Use of iterative reconstruction technique DLP: 1171 mGy-cm FINDINGS: Head: There is no evidence of acute intracranial hemorrhage or territorial infarction. No abnormal mass effect or midline shift is seen. Mcbride to white matter differentiation is well preserved. No extra-axial fluid collections are identified. No hydrocephalus. No significant volume loss. Chronic right frontoparietal infarct redemonstrated. Chronic bilateral thalamic lacunar infarcts also unchanged. Mild background chronic white matter small vessel ischemic changes. No acute osseous or soft tissue abnormality. The mastoid air cells and visualized portions of the paranasal sinuses are well aerated. Cervical spine: There is anatomic alignment of the vertebral bodies and posterior elements. The atlantoaxial and atlantooccipital articulations are intact. Vertebral body heights maintained. Endplate osteophytes present throughout the cervical spine, most notably at C3-C4 and C6-C7. No evidence of acute fracture. No prevertebral soft tissue swelling. Visualized portions of the lung apices are unremarkable. The thyroid gland is unremarkable. CT/CT cervical spine wo IV con IMPRESSION: No acute intracranial pathology. No cervical spine fracture or traumatic malalignment.
[2022-05-05 16:30] VITALS: BP 132/76; BP 97/54; PULSE 64; PULSE 75; RESP 14; TEMP 36.5; O2SAT 93; O2SAT 95; BMI 28.2
--- NOTE | 2022-05-05 18:02 | ED.GENADULT ---
HPI - General Adult General Chief complaint: Fall Stated complaint: fall Time Seen by Provider: 05/05/22 16:30 Source: patient Mode of arrival: ambulatory Limitations: no limitations History of Present Illness HPI narrative: 61-year-old male history of recent left BKA done April 09 and [facility] presents to the ED for opening of left BKA wound yesterday after falling. Patient states yesterdat he was reaching for the bathroom door handle and his right slippers were loose and tripped and fell unto his left BKA wound and than it opened. Patient states than wound opened and has been bleeding alot ever since yesterday. Patient denies hitting head, loss of concsuosuness, fever, chills, chest pain, shortness of breath, headache, or abdominal pain before falling Related Data Home Medications Medication Instructions Recorded Confirmed aspirin 81 mg tablet,delayed 80 mg PO DAILY 10/02/20 03/12/22 release cetirizine 10 mg tablet 10 mg PO QAM 01/10/22 03/12/22 famotidine 20 mg tablet 20 mg PO DAILY 01/10/22 03/12/22 insulin lispro 100 unit/mL 0 sliding scale dose subcut QIDACHS 01/10/22 04/04/22 subcutaneous pen triamcinolone acetonide 0.1 % topical 01/10/22 03/12/22 lotion oxycodone-acetaminophen 5 mg-325 1 tab PO BID PRN pain 04/04/22 04/04/22 mg tablet Previous Rx's Medication Instructions Recorded sennosides 8.6 mg-docusate sodium 2 tab-cap PO BEDTIME 30 days #60 05/23/21 50 mg capsule (Senna Plus) caps nitroglycerin 0.4 mg sublingual 0.4 mg sublingual Q5M PRN chest 11/19/21 tablet pain #25 tabs pen needle, diabetic 31 gauge x #100 ea 11/21/2112/03 (1st Tier Unifine Pentips) insulin glargine 100 unit/mL (3 25 unit (0.25 mL) subcut QPM #8 mL 12/06/21 mL) subcutaneous pen (Lantus Solostar U-100 Insulin) pioglitazone 30 mg tablet 30 mg PO DAILY 30 days #30 tabs 12/06/21 albuterol sulfate 2.5 mg/3 mL 2.5 mg (3 mL) inhalation QID PRN 12/20/21 (0.083 %) solution for nebulization shortness of breath or wheezing #360 vials albuterol sulfate 90 mcg/actuation 2 puff inhalation Q4-6H PRN 12/20/21 aerosol inhaler shortness of breath or wheezing #1 ea atorvastatin 80 mg tablet 80 mg PO QPM 90 days #90 tabs 12/20/21 fenofibrate 160 mg tablet 160 mg PO DAILY 90 days #90 tabs 12/20/21 gabapentin 300 mg capsule 300 mg PO BID 90 days #180 caps 12/20/21 duloxetine 60 mg capsule,delayed 60 mg PO DAILY 90 days #90 caps 01/14/22 release ezetimibe 10 mg tablet (Zetia) 10 mg PO DAILY #30 tabs 01/14/22 flash glucose scanning reader #1 ea 01/14/22 (FreeStyle Anival 14 Day Hornick) flash glucose sensor (FreeStyle #6 kits 01/14/22 Anival 14 Day Sensor kit) lisinopril 20 mg tablet 20 mg PO DAILY 3 months #90 tabs 02/19/22 meclizine 25 mg tablet 25 mg PO DAILY PRN dizziness 90 02/19/22 days #60 tabs metformin 1,000 mg tablet 1,000 mg PO DAILY 90 days #90 tabs 02/19/22 blood sugar diagnostic #3 boxes 02/20/22 blood-glucose meter (OneTouch #1 ea 02/20/22 Ultra2 Meter kit) lancets (OneTouch UltraSoft #3 boxes 02/20/22 Lancets) lancets 33 gauge (OneTouch Delica #3 boxes 02/20/22 Lancets) lidocaine 4 % topical patch 1 patch topical DAILY PRN pain #15 03/13/22 (Aspercreme (lidocaine)) ea blood sugar diagnostic (FreeStyle #100 ea 03/14/22 Lite Strips) naproxen 250 mg tablet 250 mg PO BID PRN pain #20 tabs 03/14/22 oxycodone 5 mg tablet 5 mg PO Q6H PRN severe pain (scale 04/01/22 score 7-10) #75 tabs Allergies Allergy/AdvReac Type Severity Reaction Status Date / Time ciprofloxacin [From CIPRO] Allergy Severe SWELLING, Verified 04/01/22 08:58 ITCHING bee pollen [BEE STINGS] Allergy Unknown HIVES Verified 04/01/22 08:58 Penicillins Allergy Unknown UNKNOWN Verified 04/01/22 08:58 insulin lispro AdvReac Intermediate Swelling Verified 04/01/22 08:58 [From Humalog U-100 Insulin] Review of Systems Review of Systems: Fall. left wound opened Yes all other systems are reviewed and are negative [facility] Past Medical History Medical History Alcohol abuse Anxiety and depression Avascular necrosis of bone of right hip BPH (benign prostatic hyperplasia) Colon cancer screening COPD (chronic obstructive pulmonary disease) Coronary artery disease Cough History of CVA (cerebrovascular accident) Hypercholesterolemia Hypertension Leg cramps LUQ abdominal pain Mass of left paraspinous region Obesity (BMI 30-39.9) Obstructive sleep apnea Osteoarthritis, hip, bilateral Peripheral vascular disease Restrictive lung disease Type 2 diabetes mellitus with hyperglycemia Urinary incontinence Surgical History History of surgery History of tonsillectomy History of vascular surgery Family History Family History Father Lung cancer COPD (chronic obstructive pulmonary disease) Heart disease Hypertension Mother COPD (chronic obstructive pulmonary disease) Diabetes Hypertension Breast cancer Paternal Uncle Prostate cancer Sister Heart disease Social History Social History Housing: House Alcohol intake: never Patient Tobacco Use Status: Former Tobacco user e-Cigarette/Vaping Use: Never Used Second Hand Smoke Exposure: No Use of substances other than those prescribed or required for medical reasons: Yes Substance Use Type: Marijuana Advance Directives: No Advance Directives Information Provided: No service: No Current occupational status: disabled Cognitive needs: Yes (cane) Hearing needs: Yes Vision needs: Yes Physical Exam ED Vital Signs: Vital Signs - 24 hr 05/05/22 16:30 05/05/22 18:24 05/05/22 20:07 Temperature 97.7 F Pulse Rate 64 69 80 Respiratory Rate 14 16 Blood Pressure 97/54 L 103/53 L 111/53 L Pulse Oximetry 93 94 Oxygen Delivery Method Room Air Room Air 05/05/22 20:27 Temperature 97.6 F Pulse Rate 71 Respiratory Rate 14 Blood Pressure 101/58 L Pulse Oximetry 92 Oxygen Delivery Method Room Air BMI result Body Mass Index 28.2 Const General: cooperative, healthy appearing, comfortable, no acute distress, well developed, alert, awake and Physically active Orientation/consciousness: oriented to person, oriented to place, oriented to time and patient oriented x3 [facility] Head: Yes normal to inspection, Yes No palpable skull fracture present, Yes normocephalic, Yes atraumatic and No abrasion Eyes General: appearance normal, both eyes and all related structures Neck Neck: Yes normal visual inspection, Yes full ROM, Yes no lymphadenopathy, Yes no meningeal signs, Yes trachea midline, Yes supple, No anterior neck swelling and No tender Chest Chest palpation & inspection: normal inspection of the chest and normal palpation of entire chest wall Resp Effort & Inspection: normal respiratory effort and able to speak in complete sentences Auscultation: clear to auscultation bilaterally Cardio Jugular venous distension: no JVD Heart sounds: S1 normal heart sound present and S2 normal heart sound present GI Inspection: Yes normal to inspection and No abdominal wall ecchymosis Palpation (GI): Soft to palpation, not firm, nontender, no guarding and not rigid General: No CVA tenderness and Yes no CVA tenderness Back/Spine/Pelvis Back: no CVA tenderness, No CVA tenderness and No back tenderness Skin General skin exam: no rashes or lesions noted and elasticity normal Neuro General: oriented to person, oriented to place, oriented to time, patient oriented x3, tone normal, moves all extremities, Normal light touch and pain sensation, no meningeal signs, no focal motor deficits and CN's II-XI intact bilaterally Extrem Other: Left BKA wound positive for dehiscnece and bleeding. Psych Appearance: grossly normal, well kempt and not disheveled Course Course Course Narrative: Active bleeding from the his wound Reevaluation(s) Reevaluation #1: Wound evaluated Dr. Garcia which was cleaned with sterile saline Betadine iodine and ChloraPrep. Twenty ilana was placed to close wound. Patient given p.o. antibiotics empirically. Left patient denies hitting head was sent for head CT cervical spine to rule out any bleed due to patient being on blood thinners. Blood pressure soft will do basic labs and give fluids. Time: 18:25 Reevaluation #2: O2 saturation on monitor 95%. Patient not in respiratory distress. Patient 02 saturation below 95 % were positional. Patient lying flat and unable to sit up straight due to left BKA pain. Labs ordered and pending due to soft blood pressure and patient stating large amount of bleeding from open BkA wound since yesterday. Time: 19:36 Reevaluation #3: Has slight drop in hemoglobin and hematocrit. Patient is on Xarelto. discuseds with patient the necessity for rectal exam to make sure he is not bleeding ( GI) since he is on blood thinners, but patient refused. Patient feels fine and wants to be discharged. It was discussed with patient workup or admit for GI bleed due to him being on blood thinner the patient still refused. Patient states bleeding was from the large amount of blood since yesterday from open left wound BKA. Case discussed with doctors Mello states patient could be discharged. patient made aware of possible if having GI bleed. patient understood risk and wanted to be discharged. 02 sat on monitor 97% on discharge. patient informed to hold xerolta and follow up wt PCP. Time: 21:21 Medical Decision Making MDM Narrative Medical decision making narrative: Wound dehiscence Lab Data Result diagrams: 05/05/22 20:03 05/05/22 20:03 Labs: Lab Results 05/05/22 05/05/22 05/05/22 Range/Units 20:03 20:03 20:03 WBC 11.6 H (4.8-10.8) X10*3/uL RBC 3.27 L (4.60-5.80) X10*6/uL Hgb 9.6 L (14.0-18.0) g/dl Hct 29.4 L (42.0-52.0) % MCV 89.9 (80.0-98.0) fL MCH 29.4 (27.0-33.0) pg MCHC 32.7 (31.0-36.0) g/dl RDW 14.8 (11.0-16.0) % Plt Count 308 (160-400) X10*3/uL MPV 9.2 L (9.4-12.4) fL Immature Gran % (Auto) 0.3 (0.0-0.4) % Neut % (Auto) 65.9 (45-73) % Lymph % (Auto) 24.6 (20-40) % [place] % (Auto) 6.6 (2-11) % Eos % (Auto) 2.3 (0-4) % Baso % (Auto) 0.3 (0-2) % Lymph # (Auto) 2.9 (1.2-4.9) X10*3/uL [place] # (Auto) 0.8 (0.1-1.2) X10*3/uL Eos # (Auto) 0.3 (0.0-0.4) X10*3/uL Baso # (Auto) 0.0 (0.0-0.2) X10*3/uL Abs Immat Gran (auto) 0.03 (0.00-0.03) X10*3/uL Absolute Neuts (auto) 7.7 (2.0-8.3) x10*3/uL Absolute Nucleated RBC 0.000 (0.0-0.012) X10*3/uL Nucleated RBC % (auto) 0.0 (0.0-0.2) /100WBC PT 12.1 (10.0-13.1) SEC INR 1.1 (0.9-1.1) APTT 32.7 (26.0-36.4) SEC Sodium 137 (135-145) mmol/L Potassium 4.6 (3.3-5.1) mmol/L Chloride 102 (96-108) mmol/L Carbon Dioxide 23 (22-29) mmol/L Anion Gap 17 (12-20) BUN 27 H D (9-16) mg/dL Creatinine 0.77 (0.5-1.4) mg/dL Estim Creat Clear Calc 83.3 Estimated GFR > 60 Random Glucose 110 (60-115) mg/dL Calcium 8.5 D (8.4-10.2) mg/dL Total Bilirubin 0.2 (0.0-1.0) mg/dL AST 10 D (5-37) U/L ALT 15 (0-40) U/L Alkaline Phosphatase 120 H (39-117) U/L Total Protein 5.9 L (6.5-8.0) g/dL Albumin 3.8 (3.5-5.0) g/dL Discharge Plan Discharge Clinical Impression: Dehiscence of wound Patient Disposition: Home, Self-Care Instructions: Wound Dehiscence (ED) Additional Instructions: You need follow-up with [facility] for left BKA wound dehiscence. Your made aware of dropping hemoglobin/hematocrit and did not want any further evaluation. Return to the ED immediately denies any rectal bleeding, black stool, abdominal pain, dizziness, weakness, chest pain, shortness of breath, fever, chills, vomiting blood, coughing up blood, or any other concerning symptoms. Please follow-up primary care provider Prescriptions: No Action (DME) pen needle, diabetic [1st Tier Unifine Pentips] 31 gauge x 5/16 needle See Rx Instructions .Route Qty: 100 3RF Rx Instructions: 3 to 4 times per day albuterol sulfate 90 mcg/actuation HFA aerosol inhaler 2 puff inhalation Q4-6H PRN (Reason: shortness of breath or wheezing) Qty: 1 0RF albuterol sulfate 2.5 mg /3 mL (0.083 %) solution for nebulization 2.5 mg inhalation QID PRN (Reason: shortness of breath or wheezing) Qty: 360 3RF fenofibrate 160 mg tablet 160 mg PO DAILY 90 Days Qty: 90 3RF gabapentin 300 mg capsule 300 mg PO BID 90 Days Qty: 180 0RF atorvastatin 80 mg tablet 80 mg PO QPM 90 Days Qty: 90 2RF metformin 1,000 mg tablet 1,000 mg PO DAILY 90 Days Qty: 90 2RF meclizine 25 mg tablet 25 mg PO DAILY PRN (Reason: dizziness) 90 Days Qty: 60 0RF lisinopril 20 mg tablet 20 mg PO DAILY 90 Days Qty: 90 1RF (DME) blood sugar diagnostic Strip See Rx Instructions .ROUTE .MEDSUPPLY Qty: 3 3RF Rx Instructions: As directed check the blood sugar 3 times a day (DME) lancets [OneTouch UltraSoft Lancets] Mis See Rx Instructions .ROUTE .MEDSUPPLY Qty: 3 3RF Rx Instructions: As directed check the blood sugarTID (DME) blood-glucose meter [OneTouch Ultra2 Meter] Kit See Rx Instructions .ROUTE .MEDSUPPLY Qty: 1 0RF Rx Instructions: As directed check the blood sugar once a day (DME) lancets [OneTouch Delica Lancets] 33 gauge misc See Rx Instructions .ROUTE .MEDSUPPLY Qty: 3 3RF Rx Instructions: As directed check the blood sugar TID lidocaine [Aspercreme (lidocaine)] 4 % adhesive patch,medicated 1 patch topical DAILY PRN (Reason: pain) Qty: 15 0RF naproxen 250 mg tablet 250 mg PO BID PRN (Reason: pain) Qty: 20 0RF (DME) FreeStyle Lite Strips Strip See Rx Instructions .MEDSUPPLY Qty: 100 2RF Rx Instructions: test daily oxycodone-acetaminophen 5-325 mg tablet 1 tab PO BID PRN (Reason: pain) (DME) FreeStyle Anival 14 Day Hornick Misc See Rx Instructions .ROUTE .MEDSUPPLY Qty: 1 0RF Rx Instructions: 4 times per day, patient on insulin (DME) FreeStyle Anival 14 Day Sensor Kit See Rx Instructions .ROUTE .MEDSUPPLY Qty: 6 3RF Rx Instructions: 4 times per day patient on insulin duloxetine 60 mg capsule,delayed release(DR/EC) 60 mg PO DAILY 90 Days Qty: 90 1RF ezetimibe [Zetia] 10 mg tablet 10 mg PO DAILY Qty: 30 3RF aspirin 81 mg tablet,delayed release (DR/EC) 80 mg PO DAILY pioglitazone 30 mg tablet 30 mg PO DAILY 30 Days Qty: 30 3RF Lantus Solostar U-100 Insulin 100 unit/mL (3 mL) insulin pen 25 unit subcut QPM Qty: 8 3RF Rx Instructions: or as directed oxycodone 5 mg tablet 5 mg PO Q6H PRN (Reason: severe pain (scale score 7-10)) Qty: 75 0RF Rx Instructions: Partial Fill upon patient request. Senna Plus 8.6-50 mg capsule 2 tab-cap PO BEDTIME 30 Days Qty: 60 2RF nitroglycerin 0.4 mg tablet, sublingual 0.4 mg sublingual Q5M PRN (Reason: chest pain) Qty: 25 0RF Rx Instructions: do not exceed 3 doses per episode cetirizine 10 mg tablet 10 mg PO QAM famotidine 20 mg tablet 20 mg PO DAILY triamcinolone acetonide 0.1 % lotion topical insulin lispro 100 unit/mL insulin pen 0 sliding scale dose subcut QIDACHS Protocol: Insulin Correction Scale Less than or equal to 110 ---- Give (units): 0 111 to 150 Give (units): 0 151 to 200 Give (units): 2 201 to 250 Give (units): 4 251 to 300 Give (units): 6 301 to 350 Give (units): 8 Greater than 350 Give (units): 10 Call MD if Blood Glucose > : 350 Referrals: [facility] [place] Surgeons [Provider Group] (Wound dehiscence) [facility] [place] Wound Care Management [Provider Group] (Wound dehiscence) Interventions: ED Discharge Assessment Last Done: 05/05/22 21:44 Discharge Date/Time: 05/05/22 21:57 Print Language: Sami
[2022-05-05] MEDS: fentaNYL citrate/PF 100 MCG/2 ML VIAL 25 MCG IVPUSH (18:14)
[2022-05-05] MEDS: 0.9 % Sodium Chloride 1,000 ML 999 ML IV (18:15)
[2022-05-05] MEDS: cephALEXin 500 MG CAPSULE PO (18:15)
[2022-05-05 18:24] VITALS: BP 103/53; PULSE 69; RESP 16; O2SAT 94
--- NOTE | 2022-05-05 18:27 | PC.NURSE ---
patent a/ox4 . pearrla . heart rate regular at 72 beats per minute . lungs clear , breathing even and unlabored . patient is a recent below the knee left leg amputee that fell today reopening area , provider at bedside cleansed area and applied 27 ilana to close area . IV placed in left AC and patient medicated for pain , given IV fluids and antibiotics . patient aware of plan of care .
[2022-05-05 20:07] VITALS: BP 111/53; PULSE 80
[2022-05-05 20:09] LABS: Basophils Percent Auto 0.3 % (0-2); Eosinophils Absolute Auto 0.3 X10*3/uL (0.0-0.4); Eosinophils Percent Auto 2.3 % (0-4); Hematocrit 29.4 % (42.0-52.0); Hemoglobin 9.6 g/dl (14.0-18.0); Imm Gran Abs Auto 0.03 X10*3/uL (0.00-0.03); Imm Gran Pct Auto 0.3 % (0.0-0.4); Lymphocytes Absolute Auto 2.9 X10*3/uL (1.2-4.9); Lymphocytes Percent Auto 24.6 % (20-40); MANUAL DIFF FLAG NO; Mean Corpuscular HGB Conc 32.7 g/dl (31.0-36.0); Mean Corpuscular Hemoglobin 29.4 pg (27.0-33.0); Mean Corpuscular Volume 89.9 fL (80.0-98.0); Mean Platelet Volume 9.2 fL (9.4-12.4); Monocytes Absolute Auto 0.8 X10*3/uL (0.1-1.2); Monocytes Percent Auto 6.6 % (2-11); Neutrophils Absolute Auto 7.7 x10*3/uL (2.0-8.3); Neutrophils Percent Auto 65.9 % (45-73); Platelet Count 308 X10*3/uL (160-400); Red Blood Count 3.27 X10*6/uL (4.60-5.80); Red Cell Distribution Width 14.8 % (11.0-16.0); White Blood Count 11.6 X10*3/uL (4.8-10.8)
[2022-05-05 20:15] LABS: INTERNATIONAL NORM RATIO 1.1 (0.9-1.1); Prothrombin Time 12.1 SEC (10.0-13.1)
[2022-05-05 20:17] LABS: Partial Thromboplastin Time 32.7 SEC (26.0-36.4)
[2022-05-05 20:27] VITALS: BP 101/58; PULSE 71; RESP 14; TEMP 36.4; O2SAT 92
[2022-05-05 20:34] LABS: Alanine Aminotransferase 15 U/L (0-40); Albumin Level 3.8 g/dL (3.5-5.0); Alkaline Phosphatase 120 U/L (39-117); Anion Gap 17 (12-20); Aspartate Amino Transferase 10 U/L (5-37); Bilirubin Total 0.2 mg/dL (0.0-1.0); Blood Urea Nitrogen 27 mg/dL (9-16); Calcium 8.5 mg/dL (8.4-10.2); Carbon Dioxide 23 mmol/L (22-29); Chloride 102 mmol/L (96-108); Creatinine Clr Calc Pharmacy 83.3; Estimated Glomerular Filt Rate > 60; Glucose Random 110 mg/dL (60-115); Potassium 4.6 mmol/L (3.3-5.1); Sodium 137 mmol/L (135-145); Total Protein 5.9 g/dL (6.5-8.0)
[2022-05-05] MEDS: Ketorolac Tromethamine 30 MG/ML VIAL IVPUSH (20:40)
== END 2022-05-05 21:57 | disposition home or self-care (01) ==
PROVIDERS: Physician Assistant; Emergency Provider Internal Medicine
DX: S89.92XA Unspecified injury of left lower leg, initial encounter (principal); R51.9 Headache, unspecified; M54.2 Cervicalgia; T81.30XA Disruption of wound, unspecified, initial encounter; Y82.9 Unspecified medical devices associated with adverse incidents; Y92.9 Unspecified place or not applicable; W01.0XXA Fall on same level from slipping, tripping and stumbling without subsequent striking against object, initial encounter; Y93.9 Activity, unspecified; Y99.9 Unspecified external cause status; Z87.891 Personal history of nicotine dependence; Z79.899 Other long term (current) drug therapy
CPT/HCPCS: 36415; 70450; 72125; 80053; 85025; 85610; 85730; 96372; 96374; 96375; 99284; 99285; J1885; J3010

== ENCOUNTER 2022-05-08 15:35 | Emergency (ER) | payer MEDICARE, SELFPAY ==
[2022-05-08 16:38] VITALS: BP 117/51; PULSE 69; RESP 18; TEMP 37.2; O2SAT 95; BMI 32.2
== END 2022-05-08 21:18 | disposition left against medical advice (07) ==
PROVIDERS: Emergency Provider Emergency Medicine; PCP Internal Medicine
DX: T87.89 Other complications of amputation stump (principal); Z89.512 Acquired absence of left leg below knee; Y82.8 Other medical devices associated with adverse incidents
CPT/HCPCS: 99281; 99282

== ENCOUNTER → 2022-05-14 09:45 | Outpatient (BNVA) | payer MEDICARE, SELFPAY | PROVIDERS: PCP Internal Medicine; Visit Provider Surgery | DX: Z48.02 Encounter for removal of sutures (principal); T87.81 Dehiscence of amputation stump; I73.9 Peripheral vascular disease, unspecified; Z89.612 Acquired absence of left leg above knee | CPT/HCPCS: 99202 ==

== ENCOUNTER 2022-05-21 12:40 | Outpatient (RCR) | payer MEDICARE, OTHER, SELFPAY | END 2022-07-09 12:00 | disposition home or self-care (01) | LOC: HO.WCC 12:40 | PROVIDERS: PCP Internal Medicine; Visit Provider Physician Assistant | DX: Z09 Encounter for follow-up examination after completed treatment for conditions other than malignant neoplasm (principal); E11.51 Type 2 diabetes mellitus with diabetic peripheral angiopathy without gangrene; E11.40 Type 2 diabetes mellitus with diabetic neuropathy, unspecified; I69.354 Hemiplegia and hemiparesis following cerebral infarction affecting left non-dominant side; I25.10 Atherosclerotic heart disease of native coronary artery without angina pectoris; I25.2 Old myocardial infarction; F12.90 Cannabis use, unspecified, uncomplicated; Z89.612 Acquired absence of left leg above knee; Z95.1 Presence of aortocoronary bypass graft; Z87.2 Personal history of diseases of the skin and subcutaneous tissue | CPT/HCPCS: 11042; 99212; 99213 ==

== ENCOUNTER 2022-07-25 08:15 | Outpatient (REF) | payer MEDICARE, SELFPAY ==
[2022-07-25 10:30] LABS: Hematocrit 43.8 % (42.0-52.0); Hemoglobin 13.9 g/dl (14.0-18.0); Immature Retic Fraction 10.2 % (2.3-13.4); Mean Corpuscular HGB Conc 31.7 g/dl (31.0-36.0); Mean Corpuscular Hemoglobin 27.5 pg (27.0-33.0); Mean Corpuscular Volume 86.6 fL (80.0-98.0); Mean Platelet Volume 9.9 fL (9.4-12.4); Platelet Count 339 X10*3/uL (160-400); Red Blood Count 5.06 X10*6/uL (4.60-5.80); Red Cell Distribution Width 14.4 % (11.0-16.0); Retic HGB Equivalent 34.1 pg (30.0-35.0); Reticulocyte Percent 1.3 % (0.5-1.8); Reticulocytes Absolute 0.064 X10*6/uL (0.026-0.095); White Blood Count 8.8 X10*3/uL (4.8-10.8)
[2022-07-25 10:40] LABS: Estimated Average Glucose 131 mg/dL; Hemoglobin A1c % 6.2 %
[2022-07-25 10:56] LABS: Alanine Aminotransferase 15 U/L (0-40); Albumin Level 4.3 g/dL (3.5-5.0); Alkaline Phosphatase 97 U/L (39-117); Anion Gap 12 (12-20); Aspartate Amino Transferase 12 U/L (5-37); Bilirubin Total 0.2 mg/dL (0.0-1.0); Blood Urea Nitrogen 10 mg/dL (9-16); Calcium 9.3 mg/dL (8.4-10.2); Carbon Dioxide 29 mmol/L (22-29); Chloride 102 mmol/L (96-108); Cholesterol 122 mg/dL; Estimated Glomerular Filt Rate > 60; Glucose Random 129 mg/dL (60-115); HDL Cholesterol 40 mg/dL; Iron 47 mcg/dL (45-160); LDL Cholesterol Calculated 65 mg/dl; Percent Iron Saturation 13 % (15-50); Potassium 4.2 mmol/L (3.3-5.1); Sodium 139 mmol/L (135-145); Total Iron Binding Capacity 352 mcg/dL (228-428); Total Protein 6.5 g/dL (6.5-8.0); Triglycerides 86 mg/dL; Unsaturated Iron Binding 305 ug/dL
[2022-07-25 10:59] LABS: Creatinine Urine 44.12 mg/dL; Microalbum/Creatinine Ratio Ur 47.5 ug/mg cr
[2022-07-25 11:14] LABS: Ferritin 56 ng/mL (20-250); Free T4 (Free Thyroxine) 0.98 ng/dL (0.71-1.85); Prostate Specific Antigen Scr 0.41 ng/mL (<0.05-4.0)
[2022-07-25 11:25] LABS: Folate 17.8 ng/mL (> or = 4.0); Vitamin B12 787 pg/mL (200-900)
== END 2022-07-25 08:16 | disposition home or self-care (01) ==
LOC: HO.10HDL 08:15
PROVIDERS: Visit Provider Internal Medicine
DX: Z12.5 Encounter for screening for malignant neoplasm of prostate (principal); E11.65 Type 2 diabetes mellitus with hyperglycemia; D72.829 Elevated white blood cell count, unspecified; E78.00 Pure hypercholesterolemia, unspecified
CPT/HCPCS: 36415; 80053; 80061; 82043; 82607; 82728; 82746; 83036; 83540; 84153; 84439; 84443; 85027; 85045

== ENCOUNTER 2022-08-15 10:45 | Outpatient (REF) | payer MEDICARE, MEDICAID, SELFPAY ==
--- NOTE | ~2022-08-15 | US_ITS ---
EXAMINATION: US PELVIS LIMITED (BLADDER) CLINICAL INFORMATION: Frequency of micturition. COMPARISON: CT angiography abdomen and pelvis and lower extremity runoff with contrast 04/04/2022. Ultrasound abdomen complete 10/16/2021. X-ray abdomen KUB 05/21/2017. TECHNIQUE: Real-time imaging of the bladder. Technically limited study secondary to body habitus. FINDINGS: BLADDER: Well distended and normal. Right ureteral jet is demonstrated; left is not. Prevoid bladder volume is 155.4 mL. Postvoid bladder volume is 34.3 mL. The bladder wall is thickened. ADDITIONAL FINDINGS: Prostate is mildly enlarged with a volume of 25.5 mL. There is echogenic calcification seen in the prostate gland. US/US bladder IMPRESSION: 1. Small postvoid residual bladder volume with normal right ureteral jet. Left ureteral jet is not seen. 2. Mild prostate enlargement.
== END 2022-08-15 10:46 | disposition home or self-care (01) ==
LOC: HO.US 10:45
PROVIDERS: Visit Provider Internal Medicine
DX: R35.0 Frequency of micturition (principal)
CPT/HCPCS: 76857

== ENCOUNTER → 2022-08-21 10:50 | Outpatient (BNVA) | payer MEDICARE, MEDICAID, SELFPAY | PROVIDERS: PCP Internal Medicine; Visit Provider Internal Medicine | DX: J43.9 Emphysema, unspecified (principal); J98.4 Other disorders of lung; G47.33 Obstructive sleep apnea (adult) (pediatric) | CPT/HCPCS: 99212 ==

== ENCOUNTER 2022-09-25 18:16 | Emergency (ER) | payer MEDICARE, MEDICAID, SELFPAY ==
--- NOTE | ~2022-09-25 | XR_ITS ---
EXAMINATION: XR CHEST CLINICAL INFORMATION: Shortness of breath COMPARISON: Chest x-ray on 01/31/2022 TECHNIQUE: 2 views of the chest were obtained. FINDINGS: The cardiac silhouette is normal. There is mild diffuse bronchial wall thickening. There are no areas of consolidation. There are no pleural effusions or pneumothoraces. The bones and soft tissues are unremarkable for the patient's age. XR/XR chest 2V IMPRESSION: Bronchial wall thickening may be infectious and/or inflammatory in etiology.
[2022-09-25 18:29] VITALS: BP 115/72; PULSE 74; RESP 18; TEMP 37.1; O2SAT 93; BMI 27.3
[2022-09-25 18:30] VITALS: BP 115/72; PULSE 71; RESP 20; TEMP 37.1; O2SAT 94
--- NOTE | 2022-09-25 18:31 | MHC.EDTECH ---
PT CAME IN VIA [facility] ,PT VITALS SIGN TAKEN ,PT USE THE URINAL ,PT GOT CHANGE INTO HOSPITAL ATTIRE ,PT WAS HOOKED UP TO WELFARE VISITOR .
--- NOTE | 2022-09-25 18:36 | PC.NURSE ---
Coming from home with increasing diff breathing. Pt denies any pain. COPD hx on 2l baseline. Left bka
--- NOTE | 2022-09-25 18:44 | ECG_ITS ---
Test Reason : SOB Blood Pressure : / mmHG Vent. Rate : 073 BPM Atrial Rate : 073 BPM P-R Int : 180 ms QRS Dur : 090 ms QT Int : 404 ms P-R-T Axes : 068 087 084 degrees QTc Int : 445 ms Normal sinus rhythm Low voltage QRS Cannot rule out Anterior infarct , age undetermined Abnormal ECG When compared with ECG of 13-OCT-2018 19:57, Minimal criteria for Anterior infarct are now Present Nonspecific T wave abnormality, improved in Inferior leads Nonspecific T wave abnormality, improved in Lateral leads Referred By: Deangelo Paula Electronically Signed By:AWAIS EDMONDS
--- NOTE | 2022-09-25 18:45 | ED_ITS ---
HPI - SOB/Dyspnea General Chief Complaint: Dyspnea Stated Complaint: SOB,97% 4LPM,ON HOME O2 PER EMS Time Seen by Provider: 09/25/22 18:34 Source: patient, EMS and old records reviewed Limitations: no limitations History of Present Illness HPI Narrative: Patient with a history of COPD, diabetes, uses oxygen at night at home. He states today he was cooking and the smoke from brown flower gave him shortness of breath. He denies being sick before this He denies chest pain. He states he went to put his oxygen on but 1 of his cats at to through the line so it was not getting much oxygen. He states it made him very anxious so he called EMS. No recent visits for similar issues. He denies recent history of COVID or other pulmonary infections. Chronic cough. No change in phlegm. Related Data Home Medications Medication Instructions Recorded Confirmed aspirin 81 mg tablet,delayed 80 mg PO DAILY 10/02/20 05/14/22 release cetirizine 10 mg tablet 10 mg PO QAM 01/10/22 05/14/22 insulin lispro 100 unit/mL 0 sliding scale dose subcut QIDACHS 01/10/22 05/14/22 subcutaneous pen Oxygen Home Use 05/23/22 Previous Rx's Medication Instructions Recorded sennosides 8.6 mg-docusate sodium 2 tab-cap PO BEDTIME 30 days #60 05/23/21 50 mg capsule (Senna Plus) caps nitroglycerin 0.4 mg sublingual 0.4 mg sublingual Q5M PRN chest 11/19/21 tablet pain #25 tabs pen needle, diabetic 31 gauge x #100 ea 11/21/21 5/16 (1st Tier Unifine Pentips) insulin glargine 100 unit/mL (3 25 unit (0.25 mL) subcut QPM #8 mL 12/06/21 mL) subcutaneous pen (Lantus Solostar U-100 Insulin) albuterol sulfate 2.5 mg/3 mL 2.5 mg (3 mL) inhalation QID PRN 12/20/21 (0.083 %) solution for nebulization shortness of breath or wheezing #360 vials albuterol sulfate 90 mcg/actuation 2 puff inhalation Q4-6H PRN 12/20/21 aerosol inhaler shortness of breath or wheezing #1 ea fenofibrate 160 mg tablet 160 mg PO DAILY 90 days #90 tabs 12/20/21 flash glucose scanning reader #1 ea 01/14/22 (FreeStyle Anival 14 Day Ignacio) flash glucose sensor (FreeStyle #6 kits 01/14/22 Anival 14 Day Sensor kit) blood sugar diagnostic #3 boxes 02/20/22 blood pressure monitor #1 ea 05/08/22 blood sugar diagnostic #3 boxes 05/10/22 lancets (AttorneyFeeTouch UltraSoft #3 boxes 05/10/22 Lancets) lancets 33 gauge (AttorneyFeeTouch Delica #3 boxes 05/10/22 Lancets) nut.tx.gluc.intol,lac-free,soy 1 ea PO .QD 90 days #90 bottles 05/23/22 (Glucerna oral liquid) atorvastatin 80 mg tablet 80 mg PO QPM 90 days #90 tabs 06/06/22 lidocaine 5 % topical patch 2 patch topical Q12H #1 box 06/06/22 melatonin 3 mg tablet 9 mg PO BEDTIME #270 tabs 06/06/22 quetiapine 25 mg tablet 25 mg PO BEDTIME #90 tabs 06/06/22 tizanidine 4 mg tablet 4 mg PO Q8H #90 tabs 06/06/22 blood-glucose meter (AttorneyFeeTouch #1 ea 06/07/22 Ultra2 Meter kit) COLLECTIONS TECHNICIAN SLEEVE L #1 ea 07/10/22 amlodipine 10 mg tablet 10 mg PO DAILY #90 tabs 07/29/22 carvedilol 25 mg tablet 25 mg PO BID #180 tabs 07/29/22 docusate sodium 100 mg capsule 100 mg PO BID #180 caps 07/29/22 duloxetine 60 mg capsule,delayed 60 mg PO DAILY 90 days #90 caps 07/29/22 release finasteride 5 mg tablet 5 mg PO DAILY #90 tabs 07/29/22 furosemide 40 mg tablet 40 mg PO DAILY #30 tabs 07/29/22 gabapentin 300 mg capsule 300 mg PO TID #90 caps 07/29/22 meclizine 25 mg tablet 25 mg PO DAILY PRN dizziness 90 07/29/22 days #60 tabs metformin 500 mg tablet 500 mg PO BID #180 tabs 07/29/22 rivaroxaban 2.5 mg tablet (Xarelto) 2.5 mg PO BID #90 tabs 07/29/22 pioglitazone 30 mg tablet 30 mg PO DAILY 30 days #30 tabs 08/09/22 ezetimibe 10 mg tablet (Zetia) 10 mg PO DAILY #30 tabs 08/18/22 [id number] SOCK, multiple ply #1 ea 08/20/22 ABove knee ([place]) DIABETIC SHOE #1 ea 08/23/22 potassium chloride 20 mEq 40 meq PO DAILY #60 tabs 09/03/22 tablet,extended release(part/cryst) oxycodone 10 mg tablet 10 mg PO TID PRN severe pain 09/12/22 (scale score 7-10) 30 days #85 tabs azithromycin 250 mg tablet 250 mg PO DAILY 4 days #4 tabs 09/25/22 nicotine (polacrilex) 2 mg gum 2 mg buccal Q2H #110 ea 09/25/22 prednisone 20 mg tablet 20 mg PO DAILY #5 tabs 09/25/22 Allergies Allergy/AdvReac Type Severity Reaction Status Date / Time ciprofloxacin [From CIPRO] Allergy Severe SWELLING, Verified 09/25/22 10:19 ITCHING bee pollen [BEE STINGS] Allergy Unknown HIVES Verified 09/25/22 10:19 Penicillins Allergy Unknown UNKNOWN Verified 09/25/22 10:19 insulin lispro AdvReac Intermediate Swelling Verified 09/25/22 10:19 [From Humalog U-100 Insulin] Review of Systems Constitutional: Comments: No fevers or chills. No general malaise. Cardiovascular: Comments: No chest pain Respiratory: Comments: Increased dyspnea as described Gastrointestinal: Comments: No nausea vomiting or diarrhea no abdominal pain Neurologic: Comments: No focal weakness PMFSH Past Medical History Medical History Alcohol abuse Ankle pain, left Anxiety and depression Avascular necrosis of bone of right hip BPH (benign prostatic hyperplasia) Colon cancer screening COPD (chronic obstructive pulmonary disease) Coronary artery disease Cough Dizziness Elevated WBCs History of CVA (cerebrovascular accident) Hospital discharge follow-up Hypercholesterolemia Hypertension Left leg weakness Leg cramps LUQ abdominal pain Mass of left paraspinous region Obesity (BMI 30-39.9) Obstructive sleep apnea Osteoarthritis, hip, bilateral Peripheral vascular disease Preoperative cardiovascular examination Recurrent falls Restrictive lung disease Screening for prostate cancer Type 2 diabetes mellitus with hyperglycemia Urinary incontinence UTI (urinary tract infection) Surgical History History of surgery History of tonsillectomy History of vascular surgery Family History Family History Father Lung cancer COPD (chronic obstructive pulmonary disease) Heart disease Hypertension Mother COPD (chronic obstructive pulmonary disease) Diabetes Hypertension Breast cancer Paternal Uncle Prostate cancer Sister Heart disease Social History Social History Housing: House Alcohol intake: never Patient Tobacco Use Status: Former Tobacco user Smoked in Last 30 Days: Yes e-Cigarette/Vaping Use: Never Used Second Hand Smoke Exposure: No Substance Use Type: Marijuana Advance Directives: No Advance Directives Information Provided: Yes service: No Current occupational status: disabled Cognitive needs: Yes (cane, wheel chair ) Hearing needs: Yes Vision needs: Yes Physical Exam Vital Signs: Vital Signs: Last Vital Signs Temp 97.8 F 09/25/22 19:44 Pulse 70 09/25/22 19:44 Resp 16 09/25/22 19:44 BP 122/87 09/25/22 19:44 Pulse Ox 93 09/25/22 19:44 O2 Del Method 09/25/22 19:44 O2 Flow Rate 2 09/25/22 19:44 Oxygen Flow Rate 2 09/25/22 18:29 BMI result Body Mass Index 27.3 Const: Other: Awake and alert. At this time no acute distress. On 4 L he is 93% on room air. Remainder vital signs are stable. He does appear somewhat anxious Resp: Other: Very diminished bilaterally without obvious wheezes rales or rhonchi. Cardio: Other: Regular rate and rhythm without murmurs rubs or gallops GI: Other: Soft nontender nondistended Skin: Other: Warm pink and dry without rash Neuro: Other: Nonfocal neuro exam Extrem: Other: Left leg above the knee amputation, remote Medications Administered Discontinued Medications Generic Name Dose Route Start Last Admin Trade Name Freq PRN Reason Stop Dose Admin Azithromycin 500 mg 09/25/22 19:20 09/25/22 20:02 Azithromycin 500 Mg Tablet PO 09/25/22 19:21 500 mg ONCE ONE Administration Ceftriaxone Sodium 1 gm/ 50 mls @ 100 mls/hr 09/25/22 19:20 09/25/22 20:01 Sodium Chloride IV 09/25/22 19:49 100 mls/hr ONCE ONE Administration Lorazepam 0.5 mg 09/25/22 18:43 09/25/22 20:00 Lorazepam 2 Mg/Ml Vial IVPUSH 09/25/22 18:44 0.5 mg ONCE ONE Administration Methylprednisolone Sodium Succinate 125 mg 09/25/22 18:43 09/25/22 19:59 Methylprednisolone Sod Succ 125 Mg/2 Ml Vial IVPUSH 09/25/22 18:44 125 mg ONCE ONE Administration Medical Decision Making Medical Decision Making MDM Narrative: Patient with acute dyspnea which started today after exposure to cooking smoke. This very well could be primarily reactive it a patient with history of significant COPD. It is also possible there is an underlying infectious or ischemic component. Will do cardiac and pulmonary workup. In the meantime will treat with a albuterol, Solu-Medrol, Ativan. Will reassess post treatment 20:28. Patient is feeling much better after treatment. Chest x-ray shows probable bronchitis. Will discharge home on prednisone and Zithromax for short course Lab Data 09/25/22 19:38 09/25/22 19:38 Labs: Lab Results 09/25/22 09/25/22 09/25/22 Range/Units 19:37 19:38 19:38 WBC 11.8 H (4.8-10.8) X10*3/uL RBC 4.87 (4.60-5.80) X10*6/uL Hgb 13.7 L (14.0-18.0) g/dl Hct 42.7 (42.0-52.0) % MCV 87.7 (80.0-98.0) fL MCH 28.1 (27.0-33.0) pg MCHC 32.1 (31.0-36.0) g/dl RDW 15.5 (11.0-16.0) % Plt Count 301 (160-400) X10*3/uL MPV 9.9 (9.4-12.4) fL Immature Gran % (Auto) 0.4 (0.0-0.4) % Neut % (Auto) 76.4 H (45-73) % Lymph % (Auto) 16.8 L (20-40) % [place] % (Auto) 4.0 (2-11) % Eos % (Auto) 1.8 (0-4) % Baso % (Auto) 0.6 (0-2) % Lymph # (Auto) 2.0 (1.2-4.9) X10*3/uL [place] # (Auto) 0.5 (0.1-1.2) X10*3/uL Eos # (Auto) 0.2 (0.0-0.4) X10*3/uL Baso # (Auto) 0.1 (0.0-0.2) X10*3/uL Abs Immat Gran (auto) 0.05 H (0.00-0.03) X10*3/uL Absolute Neuts (auto) 9.0 H (2.0-8.3) x10*3/uL Absolute Nucleated RBC 0.000 (0.0-0.012) X10*3/uL Nucleated RBC % (auto) 0.0 (0.0-0.2) /100WBC D-Dimer High Sensitivty 176 NG/ML Sodium (135-145) mmol/L Potassium (3.3-5.1) mmol/L Chloride (96-108) mmol/L Carbon Dioxide (22-29) mmol/L Anion Gap (12-20) BUN (9-16) mg/dL Creatinine (0.5-1.4) mg/dL Estim Creat Clear Calc Estimated GFR Random Glucose (60-115) mg/dL Lactic Acid 1.5 (0.5-2.0) mmol/L Calcium (8.4-10.2) mg/dL Total Bilirubin (0.0-1.0) mg/dL AST (5-37) U/L ALT (0-40) U/L Alkaline Phosphatase (39-117) U/L Troponin I High Sens (<3.5-35.0) ng/L B-Natriuretic Peptide (<100) pg/mL Total Protein (6.5-8.0) g/dL Albumin (3.5-5.0) g/dL COVID-19 (ANTHONY) (Negative) COVID-19 Clin Com 09/25/22 09/25/22 09/25/22 Range/Units 19:38 19:38 19:39 WBC (4.8-10.8) X10*3/uL RBC (4.60-5.80) X10*6/uL Hgb (14.0-18.0) g/dl Hct (42.0-52.0) % MCV (80.0-98.0) fL MCH (27.0-33.0) pg MCHC (31.0-36.0) g/dl RDW (11.0-16.0) % Plt Count (160-400) X10*3/uL MPV (9.4-12.4) fL Immature Gran % (Auto) (0.0-0.4) % Neut % (Auto) (45-73) % Lymph % (Auto) (20-40) % [place] % (Auto) (2-11) % Eos % (Auto) (0-4) % Baso % (Auto) (0-2) % Lymph # (Auto) (1.2-4.9) X10*3/uL [place] # (Auto) (0.1-1.2) X10*3/uL Eos # (Auto) (0.0-0.4) X10*3/uL Baso # (Auto) (0.0-0.2) X10*3/uL Abs Immat Gran (auto) (0.00-0.03) X10*3/uL Absolute Neuts (auto) (2.0-8.3) x10*3/uL Absolute Nucleated RBC (0.0-0.012) X10*3/uL Nucleated RBC % (auto) (0.0-0.2) /100WBC D-Dimer High Sensitivty NG/ML Sodium 144 (135-145) mmol/L Potassium 4.4 (3.3-5.1) mmol/L Chloride 106 (96-108) mmol/L Carbon Dioxide 28 (22-29) mmol/L Anion Gap 14 (12-20) BUN 18 H (9-16) mg/dL Creatinine 0.99 (0.5-1.4) mg/dL Estim Creat Clear Calc 68.0 Estimated GFR > 60 Random Glucose 134 H (60-115) mg/dL Lactic Acid (0.5-2.0) mmol/L Calcium 9.8 (8.4-10.2) mg/dL Total Bilirubin 0.3 (0.0-1.0) mg/dL AST 16 (5-37) U/L ALT 19 (0-40) U/L Alkaline Phosphatase 84 (39-117) U/L Troponin I High Sens 7.3 (<3.5-35.0) ng/L B-Natriuretic Peptide 32 (<100) pg/mL Total Protein 6.8 (6.5-8.0) g/dL Albumin 4.6 (3.5-5.0) g/dL COVID-19 (ANTHONY) (Negative) COVID-19 Clin Com 09/25/22 Range/Units 19:39 WBC (4.8-10.8) X10*3/uL RBC (4.60-5.80) X10*6/uL Hgb (14.0-18.0) g/dl Hct (42.0-52.0) % MCV (80.0-98.0) fL MCH (27.0-33.0) pg MCHC (31.0-36.0) g/dl RDW (11.0-16.0) % Plt Count (160-400) X10*3/uL MPV (9.4-12.4) fL Immature Gran % (Auto) (0.0-0.4) % Neut % (Auto) (45-73) % Lymph % (Auto) (20-40) % [place] % (Auto) (2-11) % Eos % (Auto) (0-4) % Baso % (Auto) (0-2) % Lymph # (Auto) (1.2-4.9) X10*3/uL [place] # (Auto) (0.1-1.2) X10*3/uL Eos # (Auto) (0.0-0.4) X10*3/uL Baso # (Auto) (0.0-0.2) X10*3/uL Abs Immat Gran (auto) (0.00-0.03) X10*3/uL Absolute Neuts (auto) (2.0-8.3) x10*3/uL Absolute Nucleated RBC (0.0-0.012) X10*3/uL Nucleated RBC % (auto) (0.0-0.2) /100WBC D-Dimer High Sensitivty NG/ML Sodium (135-145) mmol/L Potassium (3.3-5.1) mmol/L Chloride (96-108) mmol/L Carbon Dioxide (22-29) mmol/L Anion Gap (12-20) BUN (9-16) mg/dL Creatinine (0.5-1.4) mg/dL Estim Creat Clear Calc Estimated GFR Random Glucose (60-115) mg/dL Lactic Acid (0.5-2.0) mmol/L Calcium (8.4-10.2) mg/dL Total Bilirubin (0.0-1.0) mg/dL AST (5-37) U/L ALT (0-40) U/L Alkaline Phosphatase (39-117) U/L Troponin I High Sens (<3.5-35.0) ng/L B-Natriuretic Peptide (<100) pg/mL Total Protein (6.5-8.0) g/dL Albumin (3.5-5.0) g/dL COVID-19 (ANTHONY) Negative (Negative) COVID-19 Clin Com See Note Discharge Plan Discharge Clinical Impression: Acute exacerbation of chronic obstructive airways disease, Bronchitis Patient Disposition: Home, Self-Care Instructions: Acute Bronchitis (ED), COPD (Chronic Obstructive Pulmonary Disease) (ED) Additional Instructions: Continue to take your current medications. In addition I am prescribing a very short course of prednisone and azithromycin. The prednisone may elevate your blood sugar temporarily so be sure to adjust as needed. Prescriptions: New prednisone 20 mg tablet 20 mg PO DAILY Qty: 5 0RF azithromycin 250 mg tablet 250 mg PO DAILY 4 Days Qty: 4 0RF Rx Instructions: start on day 2 of therapy No Action (DME) pen needle, diabetic [1st Tier Unifine Pentips] 31 gauge x 5/16 needle See Rx Instructions .Route Qty: 100 3RF Rx Instructions: 3 to 4 times per day albuterol sulfate 90 mcg/actuation HFA aerosol inhaler 2 puff inhalation Q4-6H PRN (Reason: shortness of breath or wheezing) Qty: 1 0RF albuterol sulfate 2.5 mg /3 mL (0.083 %) solution for nebulization 2.5 mg inhalation QID PRN (Reason: shortness of breath or wheezing) Qty: 360 3RF fenofibrate 160 mg tablet 160 mg PO DAILY 90 Days Qty: 90 3RF (DME) blood sugar diagnostic Strip See Rx Instructions .ROUTE .MEDSUPPLY Qty: 3 3RF Rx Instructions: As directed check the blood sugar 3 times a day (DME) lancets [OneTouch UltraSoft Lancets] [facility] See Rx Instructions .ROUTE .MEDSUPPLY Qty: 3 3RF Rx Instructions: As directed check the blood sugarTID (DME) blood sugar diagnostic Strip See Rx Instructions .ROUTE .MEDSUPPLY Qty: 3 3RF Rx Instructions: As directed check the blood sugar 3 a day (DME) lancets [OneTouch Delica Lancets] 33 gauge misc See Rx Instructions .ROUTE .MEDSUPPLY Qty: 3 3RF Rx Instructions: As directed check the blood sugar TID melatonin 3 mg tablet 9 mg PO BEDTIME Qty: 270 3RF quetiapine 25 mg tablet 25 mg PO BEDTIME Qty: 90 3RF tizanidine 4 mg tablet 4 mg PO Q8H Qty: 90 2RF lidocaine 5 % adhesive patch,medicated 2 patch topical Q12H Qty: 1 3RF Rx Instructions: leave on most painful area for up to 12 hrs atorvastatin 80 mg tablet 80 mg PO QPM 90 Days Qty: 90 2RF (DME) blood-glucose meter [OneTouch Ultra2 Meter] Kit See Rx Instructions .ROUTE .MEDSUPPLY Qty: 1 0RF Rx Instructions: As directed check the blood sugar once a day amlodipine 10 mg tablet 10 mg PO DAILY Qty: 90 1RF gabapentin 300 mg capsule 300 mg PO TID Qty: 90 2RF finasteride 5 mg tablet 5 mg PO DAILY Qty: 90 1RF metformin 500 mg tablet 500 mg PO BID Qty: 180 1RF furosemide 40 mg tablet 40 mg PO DAILY Qty: 30 0RF docusate sodium 100 mg capsule 100 mg PO BID Qty: 180 2RF Xarelto 2.5 mg tablet 2.5 mg PO BID Qty: 90 0RF carvedilol 25 mg tablet 25 mg PO BID Qty: 180 1RF duloxetine 60 mg capsule,delayed release(DR/EC) 60 mg PO DAILY 90 Days Qty: 90 1RF meclizine 25 mg tablet 25 mg PO DAILY PRN (Reason: dizziness) 90 Days Qty: 60 0RF pioglitazone 30 mg tablet 30 mg PO DAILY 30 Days Qty: 30 3RF ezetimibe [Zetia] 10 mg tablet 10 mg PO DAILY Qty: 30 3RF (DME) [id number] SOCK, multiple ply ABove knee ([place]) See Rx Instructions .Route .MEDSUPPLY Qty: 1 0RF Rx Instructions: As directed potassium chloride 20 mEq tablet,ER particles/crystals 40 meq PO DAILY Qty: 60 0RF oxycodone 10 mg tablet 10 mg PO TID PRN (Reason: severe pain (scale score 7-10)) 30 Days Qty: 85 0RF Rx Instructions: Partial Fill upon patient request. (DME) FreeStyle Anival 14 Day Ignacio Misc See Rx Instructions .ROUTE .MEDSUPPLY Qty: 1 0RF Rx Instructions: 4 times per day, patient on insulin (DME) FreeStyle Anival 14 Day Sensor Kit See Rx Instructions .ROUTE .MEDSUPPLY Qty: 6 3RF Rx Instructions: 4 times per day patient on insulin aspirin 81 mg tablet,delayed release (DR/EC) 80 mg PO DAILY Lantus Solostar U-100 Insulin 100 unit/mL (3 mL) insulin pen 25 unit subcut QPM Qty: 8 3RF Rx Instructions: or as directed (DME) blood pressure monitor Kit See Rx Instructions .Route Qty: 1 0RF Rx Instructions: As directed (DME) COLLECTIONS TECHNICIAN SLEEVE L See Rx Instructions .Route .MEDSUPPLY Qty: 1 0RF Rx Instructions: As directed (DME) DIABETIC SHOE See Rx Instructions .Route .MEDSUPPLY Qty: 1 0RF Rx Instructions: As directed Senna Plus 8.6-50 mg capsule 2 tab-cap PO BEDTIME 30 Days Qty: 60 2RF nitroglycerin 0.4 mg tablet, sublingual 0.4 mg sublingual Q5M PRN (Reason: chest pain) Qty: 25 0RF Rx Instructions: do not exceed 3 doses per episode (DME) Oxygen Home Use Kit See Rx Instructions .Route Rx Instructions: 2 LPM as needed- [employer] supplier Glucerna Liquid 1 ea PO .QD 90 Days Qty: 90 0RF nicotine (polacrilex) 2 mg gum 2 mg buccal Q2H Qty: 110 0RF cetirizine 10 mg tablet 10 mg PO QAM insulin lispro 100 unit/mL insulin pen 0 sliding scale dose subcut QIDACHS Protocol: Insulin Correction Scale Less than or equal to 110 ---- Give (units): 0 111 to 150 Give (units): 0 151 to 200 Give (units): 2 201 to 250 Give (units): 4 251 to 300 Give (units): 6 301 to 350 Give (units): 8 Greater than 350 Give (units): 10 Call MD if Blood Glucose > : 350
--- NOTE | 2022-09-25 19:42 | MHC.EDTECH ---
pt ekg done and was read by provider ,blood drawn including blood culture 1st and 2 nd set ,lactic acid and covid swab all of which sent to lab .
[2022-09-25 19:44] VITALS: BP 122/87; PULSE 70; RESP 16; TEMP 36.6; O2SAT 93
[2022-09-25 19:45] LABS: MANUAL DIFF FLAG NO
[2022-09-25 19:48] LABS: Basophils Absolute Auto 0.1 X10*3/uL (0.0-0.2); Basophils Percent Auto 0.6 % (0-2); Eosinophils Absolute Auto 0.2 X10*3/uL (0.0-0.4); Eosinophils Percent Auto 1.8 % (0-4); Hematocrit 42.7 % (42.0-52.0); Hemoglobin 13.7 g/dl (14.0-18.0); Imm Gran Abs Auto 0.05 X10*3/uL (0.00-0.03); Imm Gran Pct Auto 0.4 % (0.0-0.4); Lymphocytes Percent Auto 16.8 % (20-40); Mean Corpuscular HGB Conc 32.1 g/dl (31.0-36.0); Mean Corpuscular Hemoglobin 28.1 pg (27.0-33.0); Mean Corpuscular Volume 87.7 fL (80.0-98.0); Mean Platelet Volume 9.9 fL (9.4-12.4); Monocytes Absolute Auto 0.5 X10*3/uL (0.1-1.2); Neutrophils Percent Auto 76.4 % (45-73); Platelet Count 301 X10*3/uL (160-400); Red Blood Count 4.87 X10*6/uL (4.60-5.80); Red Cell Distribution Width 15.5 % (11.0-16.0); White Blood Count 11.8 X10*3/uL (4.8-10.8)
[2022-09-25 19:57] LABS: D Dimer High Sensitivity 176 NG/ML
[2022-09-25 19:58] LABS: Lactic Acid 1.5 mmol/L (0.5-2.0)
[2022-09-25 19:59] LABS: COVID-19 Test Negative (Negative); IDNOW Serial# 55D5AD1C
[2022-09-25] MEDS: methylPREDNISolone Sod Succ 125 MG/2 ML VIAL IVPUSH (19:59)
[2022-09-25] MEDS: LORazepam 2 MG/ML VIAL 0.5 MG IVPUSH (20:00)
[2022-09-25] MEDS: cefTRIAXone sodium 1 GM in 0.9 % Sodium Chloride 50 ML IV (20:01)
[2022-09-25] MEDS: Azithromycin 500 MG TABLET PO (20:02)
[2022-09-25 20:03] LABS: Alanine Aminotransferase 19 U/L (0-40); Albumin Level 4.6 g/dL (3.5-5.0); Alkaline Phosphatase 84 U/L (39-117); Anion Gap 14 (12-20); Aspartate Amino Transferase 16 U/L (5-37); Bilirubin Total 0.3 mg/dL (0.0-1.0); Blood Urea Nitrogen 18 mg/dL (9-16); Calcium 9.8 mg/dL (8.4-10.2); Carbon Dioxide 28 mmol/L (22-29); Chloride 106 mmol/L (96-108); Estimated Glomerular Filt Rate > 60; Glucose Random 134 mg/dL (60-115); Potassium 4.4 mmol/L (3.3-5.1); Sodium 144 mmol/L (135-145); Total Protein 6.8 g/dL (6.5-8.0)
[2022-09-25 20:08] LABS: B Type Natriuretic Peptide 32 pg/mL (<100)
[2022-09-25 20:10] LABS: Troponin-I High Sensitivity 7.3 ng/L (<3.5-35.0)
== END 2022-09-25 20:55 | disposition home or self-care (01) ==
PROVIDERS: Emergency Provider Emergency Medicine; PCP Internal Medicine
DX: J44.1 Chronic obstructive pulmonary disease with (acute) exacerbation (principal); R06.02 Shortness of breath; Z20.822 Contact with and (suspected) exposure to COVID-19; E11.9 Type 2 diabetes mellitus without complications; I10 Essential (primary) hypertension; E78.00 Pure hypercholesterolemia, unspecified; F12.90 Cannabis use, unspecified, uncomplicated; Z99.81 Dependence on supplemental oxygen; Z87.891 Personal history of nicotine dependence; Z79.4 Long term (current) use of insulin; Z79.82 Long term (current) use of aspirin; Z79.899 Other long term (current) drug therapy; Z79.02 Long term (current) use of antithrombotics/antiplatelets
CPT/HCPCS: 36415; 71046; 80053; 83605; 83880; 84484; 85025; 85379; 87040; 87635; 93005; 96374; 96375; 99284; 99285; J0696; J2060; J2930

== ENCOUNTER → 2022-10-31 09:57 | Outpatient (BNVA) | payer MEDICARE, MEDICAID, SELFPAY | PROVIDERS: PCP Internal Medicine; Visit Provider Nurse Practitioner Family | DX: R35.0 Frequency of micturition (principal); N39.43 Post-void dribbling | CPT/HCPCS: 51798; 99202 ==

== ENCOUNTER 2022-11-11 09:09 | Emergency (ER) | payer MEDICARE, MEDICAID, SELFPAY ==
[2022-11-11] VITALS (8 sets, daily range): BP systolic 152–176; BP diastolic 63–92; PULSE 66–80; RESP 17–22; TEMP 36.6–37.3; O2SAT 91–96; BMI 32.5
--- NOTE | ~2022-11-11 | CT_ITS ---
EXAMINATION: CT PELVIS WITHOUT CONTRAST CLINICAL INFORMATION: Severe pelvic pain. COMPARISON: Previous CTA of the abdomen and pelvis March 2022 TECHNIQUE: Helical scanning was performed with submillimeter collimation through the pelvis. Sagittal and coronal multiplanar 2-D reconstructions were obtained. This CT examination was performed using dose optimization techniques as appropriate, variously including the following: *Automated exposure control *Adjustment of mA and/or kV according to patient size (this includes techniques or standardized protocols for targeted exams where dose is matched to indication/reason for exam; i.e. extremities or head) *Use of iterative reconstruction technique DLP: 374 mGy-cm FINDINGS: There is severe atherosclerotic disease. There is a partially visualized stent seen abdominal aorta. There are partially visualized by iliac bypass grafts. There is a new bypass graft in the left lateral abdomen extending to the left common femoral artery suggestive of an ax femoral bypass graft. There is a small amount of fluid seen surrounding the graft measuring 3 x 3 x 10 cm. Visualized bowel is unremarkable. The bladder is normal. There are large calcifications in the prostate gland. No ascites adenopathy or free air. No hernia. Degenerative changes at the left hip joint. Probable bilateral femoral head AVN. Degenerative changes of the visualized lower lumbar spine. CT/CT pelvis wo IV con . IMPRESSION: New left-sided bypass graft anastomosed to the left common femoral artery probably representing a left axillary femoral bypass graft. 3 x 3 x 10 cm fluid collection along the length of the visualized graft. Severe atherosclerotic disease. Bilateral femoral head AVN. Mild arthritis at the left hip joint.
--- NOTE | ~2022-11-11 | XR_ITS ---
EXAMINATION: XR HIP, RIGHT CLINICAL INFORMATION: Fall. Pain. COMPARISON: Previous x-ray August 2021 and CTA of the abdomen and pelvis March 2022 TECHNIQUE: Two views of the right hip and one view of the pelvis. FINDINGS: Bone alignment is normal. No fracture or dislocation. There is irregular sclerosis of both subchondral femoral heads suggestive of AVN. There is mild arthritis at the left hip joint. Bones of the pelvis are normal. There is evidence of atherosclerotic disease. There are calcifications in the prostate gland. XR/XR hip RT w [id number] IMPRESSION: No fracture or dislocation. Bilateral femoral head AVN. Mild arthritis at the left hip joint.
--- NOTE | ~2022-11-11 | CT_ITS ---
EXAMINATION: CT ANGIOGRAM RIGHT CLINICAL INFORMATION: Vascular disease. Absent pulses. Recent bypass. COMPARISON: Previous CTA of the abdomen and pelvis and bilateral lower extremities April 2017 TECHNIQUE: Axial images through the pelvis and right lower extremity following 100 mL Omnipaque 350 intravenous contrast. Sagittal and coronal reconstructions as well as 3-D MIPS reconstructions were performed. Concurrent supervision was provided on an independent workstation. This CT examination was performed using dose optimization techniques as appropriate, variously including the following: *Automated exposure control *Adjustment of mA and/or kV according to patient size (this includes techniques or standardized protocols for targeted exams where dose is matched to indication/reason for exam; i.e. extremities or head) *Use of iterative reconstruction technique DLP: 424 mGy-cm FINDINGS: There is severe atherosclerotic disease with vessel wall calcification. The visualized common internal and external iliac arteries are heavily calcified bilaterally. No flow is seen in the [place] visualized common internal and external iliac arteries bilaterally. There is a bi femoral bypass graft that is partially visualized and appears occluded. There is a bypass graft in the left lateral abdominal wall that is partially visualized. This is anastomosed to the distal left common femoral artery/proximal left profunda. This presumably represents a left axillary femoral bypass graft. Right: The right common femoral artery is occluded. The right SFA is occluded. There is a small amount of flow is seen in proximal right profunda branches in the upper thigh. The right popliteal artery is occluded. No flow is seen in the trifurcation vessels in the lower leg. No flow is seen in the right foot. Left: There is an above-knee amputation. There is a a patent left axillary bypass graft. This appears to be anastomosed to the distal common femoral artery/proximal left profunda. The left leg is not included in the [id number]. The visualized proximal left profunda is patent. There is severe atherosclerotic disease with very small caliber vessel and severe segmental stenoses of the visualized [place] left SFA. Nonvascular: Visualized bowel is unremarkable. The bladder is normal. The prostate gland is heavily calcified and slightly enlarged. No ascites or adenopathy. There is bilateral femoral head AVN. Bony structures are otherwise unremarkable. CT/CT angio LE RT IMPRESSION: Severe atherosclerotic disease. Occluded bifemoral bypass grafts in the pelvis. Patent left axillary to femoral bypass graft. There may be minimal flow in proximal profunda collaterals in the upper thigh otherwise there is no flow seen in the right lower extremity.
--- NOTE | 2022-11-11 09:24 | ED.GENADULT ---
HPI - General Adult General Chief complaint: Fall Stated complaint: R HIP PAIN S/P FALL OUT OF W/C THIS AM PER EMS Time Seen by Provider: 11/11/22 09:11 Source: patient and EMS Mode of arrival: EMS Limitations: no limitations History of Present Illness HPI narrative: 62-year-old male presents with right hip pain. Patient fell from his wheelchair. With mechanical nature. He did not lose consciousness. There was no prodrome such as chest pain, shortness breath, palpitations or lightheadedness. He did not hit his head. Did not lose consciousness. He denies a severe her right hip pain. The pain is worse with movement. Does not radiate. There is no numbness or tingling. Patient was by her by EMS per Related Data Home Medications Medication Instructions Recorded Confirmed insulin lispro 100 unit/mL 0 sliding scale dose subcut QIDACHS 01/10/22 11/11/22 subcutaneous pen Oxygen Home Use 05/23/22 10/18/22 gabapentin 600 mg tablet 600 mg PO TID 11/11/22 11/11/22 Previous Rx's Medication Instructions Recorded pen needle, diabetic 31 gauge x #100 ea 11/21/21/ (1st Tier Unifine Pentips) insulin glargine 100 unit/mL (3 25 unit (0.25 mL) subcut QPM #8 mL 12/06/21 mL) subcutaneous pen (Lantus Solostar U-100 Insulin) albuterol sulfate 2.5 mg/3 mL 2.5 mg (3 mL) inhalation QID PRN 12/20/21 (0.083 %) solution for nebulization shortness of breath or wheezing #360 vials albuterol sulfate 90 mcg/actuation 2 puff inhalation Q4-6H PRN 12/20/21 aerosol inhaler shortness of breath or wheezing #1 ea fenofibrate 160 mg tablet 160 mg PO DAILY 90 days #90 tabs 12/20/21 flash glucose scanning reader #1 ea 01/14/22 (FreeStyle Anival 14 Day [place]) flash glucose sensor (FreeStyle #6 kits 01/14/22 Anival 14 Day Sensor kit) blood sugar diagnostic #3 boxes 02/20/22 blood pressure monitor #1 ea 05/08/22 blood sugar diagnostic #3 boxes 05/10/22 lancets (OneTouch UltraSoft #3 boxes 05/10/22 Lancets) lancets 33 gauge ([facility] Del[facility] #3 boxes 05/10/22 Lancets) atorvastatin 80 mg tablet 80 mg PO QPM 90 days #90 tabs 06/06/22 melatonin 3 mg tablet 9 mg PO BEDTIME #270 tabs 06/06/22 quetiapine 25 mg tablet 25 mg PO BEDTIME #90 tabs 06/06/22 tizanidine 4 mg tablet 4 mg PO Q8H #90 tabs 06/06/22 blood-glucose meter ([facility] #[facility] ea 06/07/22 Ultra2 Meter kit) RETAIL PRODUCT DEMO SPECIALIST SLEEVE L #1 ea 07/10/22 amlodipine 10 mg tablet 10 mg PO DAILY #90 tabs 07/29/22 carvedilol 25 mg tablet 25 mg PO BID #180 tabs 07/29/22 docusate sodium 100 mg capsule 100 mg PO BID #180 caps 07/29/22 duloxetine 60 mg capsule,delayed 60 mg PO DAILY 90 days #90 caps 07/29/22 release finasteride 5 mg tablet 5 mg PO DAILY #90 tabs 07/29/22 gabapentin 300 mg capsule 300 mg PO TID #90 caps 07/29/22 metformin 500 mg tablet 500 mg PO BID #180 tabs 07/29/22 pioglitazone 30 mg tablet 30 mg PO DAILY 30 days #30 tabs 08/09/22 ezetimibe 10 mg tablet (Zetia) 10 mg PO DAILY #30 tabs 08/18/22 [id number] SOCK, multiple ply #1 ea 08/20/22 ABove knee (AK) DIABETIC SHOE #1 ea 08/23/22 nicotine (polacrilex) 2 mg gum 2 mg buccal Q2H #110 ea 09/25/22 prednisone 20 mg tablet 20 mg PO DAILY #5 tabs 09/25/22 potassium chloride 20 mEq 40 meq PO DAILY #60 tabs 10/15/22 tablet,extended release(part/cryst) rivaroxaban 2.5 mg tablet (Xarelto) 2.5 mg PO BID #90 tabs 10/15/22 hydrocortisone 2.5 % topical cream 1 appl PA BID-QID PRN hemorrhoids 10/18/22 with perineal applicator #30 grams (Proctosol HC) terazosin 5 mg capsule 5 mg PO BEDTIME 30 days #30 caps 10/31/22 lisinopril 10 mg tablet 10 mg PO DAILY #30 tabs 11/06/22 nitroglycerin 0.4 mg sublingual 0.4 mg sublingual Q5M PRN chest 11/06/22 tablet pain #25 tabs lidocaine 5 % topical patch 2 patch topical Q12H 30 days #30 ea 11/07/22 oxycodone 10 mg tablet 10 mg PO TID PRN severe pain 11/07/22 (scale score 7-10) 30 days #80 tabs Allergies Allergy/AdvReac Type Severity Reaction Status Date / Time ciprofloxacin [From CIPRO] Allergy Severe SWELLING, Verified 10/31/22 10:54 ITCHING bee pollen [BEE STINGS] Allergy Unknown HIVES Verified 10/31/22 10:54 Penicillins Allergy Unknown UNKNOWN Verified 10/31/22 10:54 insulin lispro AdvReac Intermediate Swelling Verified 10/31/22 10:54 [From Humalog U-100 Insulin] [facility] Past Medical History Medical History Alcohol abuse Ankle pain, left Anxiety and depression Avascular necrosis of bone of right hip BPH (benign prostatic hyperplasia) Colon cancer screening COPD (chronic obstructive pulmonary disease) Coronary artery disease Cough Dizziness Elevated WBCs History of CVA (cerebrovascular accident) Hospital discharge follow-up Hypercholesterolemia Hypertension Left leg weakness Leg cramps LUQ abdominal pain Mass of left paraspinous region Obesity (BMI 30-39.9) Obstructive sleep apnea Osteoarthritis, hip, bilateral Peripheral vascular disease Preoperative cardiovascular examination Recurrent falls Restrictive lung disease Screening for prostate cancer Type 2 diabetes mellitus with hyperglycemia Urinary incontinence UTI (urinary tract infection) Surgical History History of surgery History of tonsillectomy History of vascular surgery Family History Family History Father Lung cancer COPD (chronic obstructive pulmonary disease) Heart disease Hypertension Mother COPD (chronic obstructive pulmonary disease) Diabetes Hypertension Breast cancer Paternal Uncle Prostate cancer Sister Heart disease Social History Social History Housing: House Alcohol intake: never Patient Tobacco Use Status: Former Tobacco user Smoked in Last 30 Days: Yes e-Cigarette/Vaping Use: Never Used Second Hand Smoke Exposure: No Use of substances other than those prescribed or required for medical reasons: Yes Substance Use Type: Marijuana Substance Use Frequency: Daily Advance Directives: No Advance Directives Information Provided: No service: No Current occupational status: disabled Cognitive needs: Yes (cane, wheel chair ) Hearing needs: Yes Vision needs: Yes Physical Exam ED Vital Signs: Vital Signs - 24 hr 11/11/22 09:31 11/11/22 10:23 11/11/22 12:36 Temperature 99.2 F Pulse Rate 66 Respiratory Rate 18 20 20 Blood Pressure 171/74 H Pulse Oximetry 91 L Oxygen Delivery Method Room Air 11/11/22 12:40 11/11/22 15:29 11/11/22 15:33 Temperature 97.9 F 98.4 F Pulse Rate 69 70 Respiratory Rate 20 22 H 22 H Blood Pressure 176/63 H 163/84 H Pulse Oximetry 91 L 92 Oxygen Delivery Method Room Air Room Air BMI result Body Mass Index 32.5 GEN: Well developed, no acute distress, alert, oriented HEENT: Normocephalic, atraumatic, normal external ears, nose appears normal, no oropharyngeal edema or exudates Eyes: Normal to appearance Neck: Supple, no lymphadenopathy Respiratory: Talks in complete sentences, no respiratory distress, clear to auscultation bilaterally Cardiovascular: Regular rate and rhythm, no murmurs rubs or gallops Abdomen: Soft, nontender, nondistended, no guarding, no rebound Back: No CVA tenderness Extremities: No clubbing cyanosis or edema, right aka, unable to fully assess right hip Neurologic: No focal neurologic deficits, cranial nerves 2-12 intact, strength is 5/5 bilaterally Skin: No rash Course Course Course Narrative: 62-year-old male presents with acute traumatic right hip pain. Will rule out fracture Reevaluation(s) Reevaluation #1: There is no evidence of fracture on CT scan or x-ray. He still has significant pain in the right hip area. He is getting his 4th dose of opioid analgesics. His extremity continues to feel cold all palpation. He does have faint pulses on the dorsal pedis. At this point, I will order a CT angiogram of the right lower extremity to rule out acute occlusion which could be causing his pain. He reports difficulty feeling his leg. I did contact [place] [facility] PP for Dr. Ventura, [facility]. I have forwarded on the images to [facility]. There was a seroma noted on the left side or fluid collection rather. They believe it is a seroma does not require immediate attention. However more concerning is his pain out of proportion to injury and cool extremity. Time: 14:18 Reevaluation #2: Awaiting CTA results. Discussed plan with Dr. Carroll. If any major issues, pain Dr. Ventura from can be contact. Time: 16:09 Medications Administered Discontinued Medications Generic Name Dose Route Start Last Admin Trade Name Freq PRN Reason Stop Dose Admin Hydromorphone HCl 0.5 mg 11/11/22 09:15 11/11/22 10:23 Hydromorphone Hcl 0.5 Mg/0.5 Ml Syringe IVPUSH 11/11/22 09:16 0.5 mg ONCE ONE Administration Protocol Hydromorphone HCl 1 mg 11/11/22 10:49 11/11/22 10:57 Hydromorphone Hcl 1 Mg/Ml Syringe IVPUSH 11/11/22 10:50 1 mg ONCE ONE Administration Protocol Hydromorphone HCl 1 mg 11/11/22 11:41 11/11/22 12:36 Hydromorphone Hcl 1 Mg/Ml Syringe IVPUSH 11/11/22 11:42 1 mg ONCE ONE Administration Protocol Hydromorphone HCl 1.5 mg 11/11/22 14:16 11/11/22 15:33 Hydromorphone Hcl 2 Mg/Ml Vial IVPUSH 11/11/22 14:17 1.5 mg ONCE ONE Administration Protocol Ceftriaxone Sodium 1 gm/ 50 mls @ 100 mls/hr 11/11/22 10:09 11/11/22 10:57 Sodium Chloride IV 11/11/22 10:38 Infused ONCE ONE Infusion Iohexol 100 ml 11/11/22 15:20 11/11/22 15:21 Iohexol 350 Mg/Ml 100 Ml Infus..Btl IV 11/11/22 15:21 85 ml ONCE ONE Administration Medical Decision Making Medical Decision Making MDM Narrative: 62-year-old male presents with acute right hip pain. Is traumatic. I have a very difficult time assessing patient for possible deformity. He is tender generally speaking. Will obtain an x-ray. Will provide patient with analgesia Differential Diagnosis Differential Diagnoses: The differential diagnosis associated with the presentation includes (Fracture, strain, sprain, contusion) Admission/Observation Consideration of admission/observation: Escalation of care including admission/observation considered Lab Data MDM Lab Attestation statement: I reviewed the patient's lab results. 11/11/22 10:17 11/11/22 10:17 Labs: Lab Results 11/11/22 11/11/22 11/11/22 Range/Units 09:23 09:23 10:17 WBC 13.3 H (4.8-10.8) X10*3/uL RBC 4.85 (4.60-5.80) X10*6/uL Hgb 14.1 (14.0-18.0) g/dl Hct 43.1 (42.0-52.0) % MCV 88.9 (80.0-98.0) fL MCH 29.1 (27.0-33.0) pg MCHC 32.7 (31.0-36.0) g/dl RDW 14.8 (11.0-16.0) % Plt Count 277 (160-400) X10*3/uL MPV 9.9 (9.4-12.4) fL Immature Gran % (Auto) 0.4 (0.0-0.4) % Neut % (Auto) 78.1 H (45-73) % Lymph % (Auto) 14.8 L (20-40) % [place] % (Auto) 5.2 (2-11) % Eos % (Auto) 1.1 (0-4) % Baso % (Auto) 0.4 (0-2) % Lymph # (Auto) 2.0 (1.2-4.9) X10*3/uL [place] # (Auto) 0.7 (0.1-1.2) X10*3/uL Eos # (Auto) 0.1 (0.0-0.4) X10*3/uL Baso # (Auto) 0.1 (0.0-0.2) X10*3/uL Abs Immat Gran (auto) 0.05 H (0.00-0.03) X10*3/uL Absolute Neuts (auto) 10.4 H (2.0-8.3) x10*3/uL Absolute Nucleated RBC 0.000 (0.0-0.012) X10*3/uL Nucleated RBC % (auto) 0.0 (0.0-0.2) /100WBC Sodium (135-145) mmol/L Potassium (3.3-5.1) mmol/L Chloride (96-108) mmol/L Carbon Dioxide (22-29) mmol/L Anion Gap (12-20) BUN (9-16) mg/dL Creatinine (0.5-1.4) mg/dL Estim Creat Clear Calc Estimated GFR Random Glucose (60-115) mg/dL Calcium (8.4-10.2) mg/dL Urine Color Yellow Urine Appearance Clear Urine pH 6.5 (5.0-9.0) Ur Specific [place] 1.015 (1.005-1.025) Urine Protein Negative (Neg-Trace) mg/dL Urine Glucose (UA) 500 H (Negative) mg/dL Urine Ketones Negative (Negative) mg/dL Urine Blood Negative (Negative) Urine Nitrite Negative (Negative) Ur Leukocyte Esterase Moderate (2+) H (Negative) Urine RBC 0-2 (0-2) /HPF Urine WBC >50 H (0-5) /HPF Ur Squamous Epith Cells 0-2 (0-2) /HPF Urine Bacteria None Seen (None Seen) Hyaline Casts 0-2 (0-2) /LPF COVID-19 (ANTHONY) Negative (Negative) COVID-19 Clin Com See Note 11/11/22 Range/Units 10:17 WBC (4.8-10.8) X10*3/uL RBC (4.60-5.80) X10*6/uL Hgb (14.0-18.0) g/dl Hct (42.0-52.0) % MCV (80.0-98.0) fL MCH (27.0-33.0) pg MCHC (31.0-36.0) g/dl RDW (11.0-16.0) % Plt Count (160-400) X10*3/uL MPV (9.4-12.4) fL Immature Gran % (Auto) (0.0-0.4) % Neut % (Auto) (45-73) % Lymph % (Auto) (20-40) % [place] % (Auto) (2-11) % Eos % (Auto) (0-4) % Baso % (Auto) (0-2) % Lymph # (Auto) (1.2-4.9) X10*3/uL [place] # (Auto) (0.1-1.2) X10*3/uL Eos # (Auto) (0.0-0.4) X10*3/uL Baso # (Auto) (0.0-0.2) X10*3/uL Abs Immat Gran (auto) (0.00-0.03) X10*3/uL Absolute Neuts (auto) (2.0-8.3) x10*3/uL Absolute Nucleated RBC (0.0-0.012) X10*3/uL Nucleated RBC % (auto) (0.0-0.2) /100WBC Sodium 143 (135-145) mmol/L Potassium 4.2 (3.3-5.1) mmol/L Chloride 106 (96-108) mmol/L Carbon Dioxide 27 (22-29) mmol/L Anion Gap 14 (12-20) BUN 14 (9-16) mg/dL Creatinine 0.87 (0.5-1.4) mg/dL Estim Creat Clear Calc 75.0 Estimated GFR > 60 Random Glucose 225 H (60-115) mg/dL Calcium 8.9 D (8.4-10.2) mg/dL Urine Color Urine Appearance Urine pH (5.0-9.0) Ur Specific [place] (1.005-1.025) Urine Protein (Neg-Trace) mg/dL Urine Glucose (UA) (Negative) mg/dL Urine Ketones (Negative) mg/dL Urine Blood (Negative) Urine Nitrite (Negative) Ur Leukocyte Esterase (Negative) Urine RBC (0-2) /HPF Urine WBC (0-5) /HPF Ur Squamous Epith Cells (0-2) /HPF Urine Bacteria (None Seen) Hyaline Casts (0-2) /LPF COVID-19 (ANTHONY) (Negative) COVID-19 Clin Com Independent Interpretation I performed an independent interpretation of an: EKG and Plain X-Ray Independent Historian Clinical information obtained from an independent historian. History obtained from or confirmed by: EMS Prescription Management I considered prescription management with: Pain Medication Critical Care Time Critical Care Time Critical Care Time: Yes Total Critical Care Time: 50 Attestation: Approximately 50 minutes of critical care time performed with bedside assessment, frequent re-evaluation, pain management, concern for acute vascular compromise of the right lower extremity, consultation with providers, all outside procedure. Discharge Plan Discharge Clinical Impression: Acute pain of right hip, Accidental fall, Acute UTI Patient Disposition: Still a Patient Prescriptions: No Action (DME) pen needle, diabetic [1st Tier Unifine Pentips] 31 gauge x 5/16 needle See Rx Instructions .Route Qty: 100 3RF Rx Instructions: 3 to 4 times per day albuterol sulfate 90 mcg/actuation HFA aerosol inhaler 2 puff inhalation Q4-6H PRN (Reason: shortness of breath or wheezing) Qty: 1 0RF albuterol sulfate 2.5 mg /3 mL (0.083 %) solution for nebulization 2.5 mg inhalation QID PRN (Reason: shortness of breath or wheezing) Qty: 360 3RF fenofibrate 160 mg tablet 160 mg PO DAILY 90 Days Qty: 90 3RF (DME) blood sugar diagnostic Strip See Rx Instructions .ROUTE .MEDSUPPLY Qty: 3 3RF Rx Instructions: As directed check the blood sugar 3 times a day (DME) lancets [OneTouch UltraSoft Lancets] [facility] See Rx Instructions .ROUTE .MEDSUPPLY Qty: 3 3RF Rx Instructions: As directed check the blood sugarTID (DME) blood sugar diagnostic Strip See Rx Instructions .ROUTE .MEDSUPPLY Qty: 3 3RF Rx Instructions: As directed check the blood sugar 3 a day (DME) lancets [OneTouch Delica Lancets] 33 gauge misc See Rx Instructions .ROUTE .MEDSUPPLY Qty: 3 3RF Rx Instructions: As directed check the blood sugar TID melatonin 3 mg tablet 9 mg PO BEDTIME Qty: 270 3RF quetiapine 25 mg tablet 25 mg PO BEDTIME Qty: 90 3RF tizanidine 4 mg tablet 4 mg PO Q8H Qty: 90 2RF atorvastatin 80 mg tablet 80 mg PO QPM 90 Days Qty: 90 2RF (DME) blood-glucose meter [OneTouch Ultra2 Meter] Kit See Rx Instructions .ROUTE .MEDSUPPLY Qty: 1 0RF Rx Instructions: As directed check the blood sugar once a day amlodipine 10 mg tablet 10 mg PO DAILY Qty: 90 1RF gabapentin 300 mg capsule 300 mg PO TID Qty: 90 2RF finasteride 5 mg tablet 5 mg PO DAILY Qty: 90 1RF metformin 500 mg tablet 500 mg PO BID Qty: 180 1RF docusate sodium 100 mg capsule 100 mg PO BID Qty: 180 2RF carvedilol 25 mg tablet 25 mg PO BID Qty: 180 1RF duloxetine 60 mg capsule,delayed release(DR/EC) 60 mg PO DAILY 90 Days Qty: 90 1RF pioglitazone 30 mg tablet 30 mg PO DAILY 30 Days Qty: 30 3RF ezetimibe [Zetia] 10 mg tablet 10 mg PO DAILY Qty: 30 3RF (DME) [id number] SOCK, multiple ply ABove knee ([place]) See Rx Instructions .Route .MEDSUPPLY Qty: 1 0RF Rx Instructions: As directed Xarelto 2.5 mg tablet 2.5 mg PO BID Qty: 90 0RF potassium chloride 20 mEq tablet,ER particles/crystals 40 meq PO DAILY Qty: 60 0RF nitroglycerin 0.4 mg tablet, sublingual 0.4 mg sublingual Q5M PRN (Reason: chest pain) Qty: 25 0RF Rx Instructions: do not exceed 3 doses per episode lisinopril 10 mg tablet 10 mg PO DAILY Qty: 30 6RF lidocaine 5 % adhesive patch,medicated 2 patch topical Q12H 30 Days Qty: 30 12RF Rx Instructions: leave on most painful area for up to 12 hrs oxycodone 10 mg tablet 10 mg PO TID PRN (Reason: severe pain (scale score 7-10)) 30 Days Qty: 80 0RF Rx Instructions: Partial Fill upon patient request. prednisone 20 mg tablet 20 mg PO DAILY Qty: 5 0RF gabapentin 600 mg tablet 600 mg PO TID (DME) FreeStyle Anival 14 Day [place] Misc See Rx Instructions .ROUTE .MEDSUPPLY Qty: 1 0RF Rx Instructions: 4 times per day, patient on insulin (DME) FreeStyle Anival 14 Day Sensor Kit See Rx Instructions .ROUTE .MEDSUPPLY Qty: 6 3RF Rx Instructions: 4 times per day patient on insulin Lantus Solostar U-100 Insulin 100 unit/mL (3 mL) insulin pen 25 unit subcut QPM Qty: 8 3RF Rx Instructions: or as directed (DME) blood pressure monitor Kit See Rx Instructions .Route Qty: 1 0RF Rx Instructions: As directed (DME) RETAIL PRODUCT DEMO SPECIALIST SLEEVE L See Rx Instructions .Route .MEDSUPPLY Qty: 1 0RF Rx Instructions: As directed (DME) DIABETIC SHOE See Rx Instructions .Route .MEDSUPPLY Qty: 1 0RF Rx Instructions: As directed (DME) Oxygen Home Use Kit See Rx Instructions .Route Rx Instructions: 2 LPM as needed- [facility] [place] supplier hydrocortisone [Proctosol HC] 2.5 % cream with perineal applicator 1 appl PA BID-QID PRN (Reason: hemorrhoids) Qty: 30 3RF nicotine (polacrilex) 2 mg gum 2 mg buccal Q2H Qty: 110 0RF insulin lispro 100 unit/mL insulin pen 0 sliding scale dose subcut QIDACHS Protocol: Insulin Correction Scale Less than or equal to 110 ---- Give (units): 0 111 to 150 Give (units): 0 151 to 200 Give (units): 2 201 to 250 Give (units): 4 251 to 300 Give (units): 6 301 to 350 Give (units): 8 Greater than 350 Give (units): 10 Call MD if Blood Glucose > : 350 terazosin 5 mg capsule 5 mg PO BEDTIME 30 Days Qty: 30 1RF
[2022-11-11 09:44] LABS: COVID-19 Test Negative (Negative); IDNOW Serial# 9DB6401D
[2022-11-11 09:52] LABS: Appearance Urine Clear; Color Urine Yellow; Glucose Urine UA 500 mg/dL (Negative); Leukocyte Esterase Urine Moderate (2+) (Negative); Nitrite Urine Negative (Negative); PH 6.5 (5.0-9.0); Specific Gravity - Urine 1.015 (1.005-1.025); UMIC TRIGGER UACC YES; Urine Blood Negative (Negative); Urine Ketones Negative (Negative); Urine Protein Negative (Neg-Trace)
--- NOTE | 2022-11-11 09:55 | PHA.MEDREC ---
Pharmacy Consult ? Medication Reconciliation Pharmacy has completed the medication reconciliation. List from [facility]
[2022-11-11 09:57] LABS: Bacteria Urine None Seen (None Seen); Hyaline Casts Urine 0-2 /LPF (0-2); RBC Urine 0-2 /HPF (0-2); Squamous Epithelial Cell Urine 0-2 /HPF (0-2); UACC Culture Trigger YES; WBC Urine >50 /HPF (0-5)
[2022-11-11 10:21] LABS: MANUAL DIFF FLAG NO
[2022-11-11] MEDS: HYDROmorphone HCl 0.5 MG/0.5 ML SYRINGE IVPUSH (10:23)
[2022-11-11] MEDS: cefTRIAXone sodium 1 GM in 0.9 % Sodium Chloride 50 ML IV (10:27)
[2022-11-11 10:28] LABS: Basophils Absolute Auto 0.1 X10*3/uL (0.0-0.2); Basophils Percent Auto 0.4 % (0-2); Eosinophils Absolute Auto 0.1 X10*3/uL (0.0-0.4); Eosinophils Percent Auto 1.1 % (0-4); Hematocrit 43.1 % (42.0-52.0); Hemoglobin 14.1 g/dl (14.0-18.0); Imm Gran Abs Auto 0.05 X10*3/uL (0.00-0.03); Imm Gran Pct Auto 0.4 % (0.0-0.4); Lymphocytes Percent Auto 14.8 % (20-40); Mean Corpuscular HGB Conc 32.7 g/dl (31.0-36.0); Mean Corpuscular Hemoglobin 29.1 pg (27.0-33.0); Mean Corpuscular Volume 88.9 fL (80.0-98.0); Mean Platelet Volume 9.9 fL (9.4-12.4); Monocytes Absolute Auto 0.7 X10*3/uL (0.1-1.2); Monocytes Percent Auto 5.2 % (2-11); Neutrophils Absolute Auto 10.4 x10*3/uL (2.0-8.3); Neutrophils Percent Auto 78.1 % (45-73); Platelet Count 277 X10*3/uL (160-400); Red Blood Count 4.85 X10*6/uL (4.60-5.80); Red Cell Distribution Width 14.8 % (11.0-16.0); White Blood Count 13.3 X10*3/uL (4.8-10.8)
[2022-11-11 10:47] LABS: Anion Gap 14 (12-20); Blood Urea Nitrogen 14 mg/dL (9-16); Calcium 8.9 mg/dL (8.4-10.2); Carbon Dioxide 27 mmol/L (22-29); Chloride 106 mmol/L (96-108); Estimated Glomerular Filt Rate > 60; Glucose Random 225 mg/dL (60-115); Potassium 4.2 mmol/L (3.3-5.1); Sodium 143 mmol/L (135-145)
--- NOTE | 2022-11-11 10:52 | PC.NURSE ---
pt reporting pain to the right hip, cannot move right leg, and right lower extremity pale, cool to touch, with faint pedal pulse. pt laying on left side as stated more comfortable for pt. IV line established, labs drawn, urine sample obtained, medicated per mar. pt currently resting in no apparent distress. vss. pt sating at 91% but is reported to be pt's baseline due to hx of COPD. wctm
[2022-11-11] MEDS: HYDROmorphone HCl 1 MG/ML SYRINGE IVPUSH ×3 (10:57→19:52)
--- NOTE | 2022-11-11 11:12 | PC.NURSE ---
medicated further per emar, repositioned with assistance from pct and this rn, pt able to partially assist in repositioning. urinal placed at bedside.
[2022-11-11] MEDS: iohexoL 350 MG/ML 100 ML INFUS..BTL IV (15:21)
[2022-11-11] MEDS: HYDROmorphone HCl 2 MG/ML VIAL 1.5 MG IVPUSH (15:33)
--- NOTE | 2022-11-11 18:49 | MHC.EDTECH ---
@[id number] CALL PLACED TO [facility] [facility] TRANSFER LINE @ DR VICTOR REQUEST JOCELYNE ANSWERS, TAKES PT INFO THEN ASKS TO SPEAK WITH DR KAYLEIGH VICTOR TAKES OVER CALL RIGHT AWAY
--- NOTE | 2022-11-11 19:33 | MHC.EDTECH ---
[facility] accepted patient to the ED, accepted and accpetd for vascular. Luis called for a BLS transfer at 1923 ETA 1999. RN aware
== END 2022-11-11 21:25 | disposition short-term general hospital (02) ==
PROVIDERS: Emergency Medicine; Emergency Provider Emergency Medicine Emergency Medical Services; PCP Internal Medicine
DX: G89.11 Acute pain due to trauma (principal); M25.551 Pain in right hip; N39.0 Urinary tract infection, site not specified; E11.9 Type 2 diabetes mellitus without complications; I10 Essential (primary) hypertension; E78.00 Pure hypercholesterolemia, unspecified; Z86.73 Personal history of transient ischemic attack (TIA), and cerebral infarction without residual deficits; Z79.899 Other long term (current) drug therapy; Z79.02 Long term (current) use of antithrombotics/antiplatelets; Z79.84 Long term (current) use of oral hypoglycemic drugs; Z79.01 Long term (current) use of anticoagulants
CPT/HCPCS: 72192; 73502; 73706; 80048; 81001; 85025; 87086; 87635; 96365; 96375; 96376; 99285; J0696; J1170; Q9967

== ENCOUNTER 2023-01-13 08:24 | Outpatient (REF) | payer MEDICARE, MEDICAID, SELFPAY ==
[2023-01-13 10:25] LABS: MANUAL DIFF FLAG NO
[2023-01-13 10:32] LABS: Basophils Percent Auto 0.4 % (0-2); Eosinophils Absolute Auto 0.3 X10*3/uL (0.0-0.4); Eosinophils Percent Auto 3.1 % (0-4); Hematocrit 35.5 % (42.0-52.0); Hemoglobin 11.2 g/dl (14.0-18.0); Imm Gran Abs Auto 0.03 X10*3/uL (0.00-0.03); Imm Gran Pct Auto 0.4 % (0.0-0.4); Lymphocytes Absolute Auto 2.1 X10*3/uL (1.2-4.9); Lymphocytes Percent Auto 24.8 % (20-40); Mean Corpuscular HGB Conc 31.5 g/dl (31.0-36.0); Mean Corpuscular Hemoglobin 28.2 pg (27.0-33.0); Mean Corpuscular Volume 89.4 fL (80.0-98.0); Mean Platelet Volume 10.3 fL (9.4-12.4); Monocytes Absolute Auto 0.6 X10*3/uL (0.1-1.2); Monocytes Percent Auto 7.6 % (2-11); Neutrophils Absolute Auto 5.3 x10*3/uL (2.0-8.3); Neutrophils Percent Auto 63.7 % (45-73); Platelet Count 272 X10*3/uL (160-400); Red Blood Count 3.97 X10*6/uL (4.60-5.80); Red Cell Distribution Width 14.2 % (11.0-16.0); White Blood Count 8.3 X10*3/uL (4.8-10.8)
[2023-01-13 10:42] LABS: Sodium 140 mmol/L (135-145)
[2023-01-13 10:43] LABS: Alanine Aminotransferase 11 U/L (0-40); Albumin Level 3.8 g/dL (3.5-5.0); Alkaline Phosphatase 70 U/L (39-117); Anion Gap 12 (12-20); Aspartate Amino Transferase 14 U/L (5-37); Bilirubin Total 0.3 mg/dL (0.0-1.0); Blood Urea Nitrogen 15 mg/dL (9-16); Calcium 9.1 mg/dL (8.4-10.2); Carbon Dioxide 28 mmol/L (22-29); Chloride 104 mmol/L (96-108); Estimated Glomerular Filt Rate > 60; Glucose Random 115 mg/dL (60-115); Magnesium 1.7 mg/dL (1.6-2.6); Potassium 4.3 mmol/L (3.3-5.1); Total Protein 6.5 g/dL (6.5-8.0)
[2023-01-13 10:56] LABS: B Type Natriuretic Peptide 37 pg/mL (<100)
== END 2023-01-13 08:25 | disposition home or self-care (01) ==
LOC: HO.10HDL 08:24
PROVIDERS: Visit Provider Internal Medicine
DX: I25.10 Atherosclerotic heart disease of native coronary artery without angina pectoris (principal); Z86.73 Personal history of transient ischemic attack (TIA), and cerebral infarction without residual deficits
CPT/HCPCS: 36415; 80053; 83735; 83880; 85025

== ENCOUNTER 2023-02-14 07:42 | Outpatient (REF) | payer MEDICARE, MEDICAID, SELFPAY ==
--- NOTE | ~2023-02-14 | FL_ITS ---
EXAMINATION: FL BARIUM SWALLOW CLINICAL INFORMATION: Dysphagia. COMPARISON: 12/25/2016. TECHNIQUE: Barium swallow examination is performed using fluoroscopic evaluation in addition to multiple fluoroscopic spot views. The patient is imaged both upright and prone and using both thick and thin sulfate along with effervescent granules. Fluoroscopy Time: 1.8 minutes minutes DAP: 7.302 Gycm2 Images: 20 FINDINGS: The study was limited due to inability of patient to stand or turn on table. A modified barium swallow chair was used for a portion of the study. On a few of the thin and thick liquid swallows, there is noted to be a small amount of laryngeal penetration without tracheal aspiration and which cleared with spontaneous coughing. No nasopharyngeal reflux identified. No Zenker's diverticulum. No cricopharyngeal hypertrophy. There is normal esophageal motility. No persistent stricture or ulceration is appreciated. There is a small sliding hiatal hernia. No gastroesophageal reflux was elicited including with water siphon test. Patient swallowed half-inch diameter barium tablet without difficulty. FL/FL barium swallow IMPRESSION: 1. Limited study demonstrating some trace laryngeal penetration without tracheal aspiration. Spontaneous cough reflex was elicited with the penetration. 2. Small sliding hiatal hernia.
== END 2023-02-14 07:43 | disposition home or self-care (01) ==
LOC: HO.XRAY 07:42
PROVIDERS: Visit Provider Internal Medicine
DX: R13.10 Dysphagia, unspecified (principal)
CPT/HCPCS: 74220

== ENCOUNTER → 2023-02-14 07:43 | Outpatient (BNV) | payer MEDICARE, MEDICAID, SELFPAY | PROVIDERS: Visit Provider Radiology Diagnostic Radiology | DX: R13.10 Dysphagia, unspecified (principal) | CPT/HCPCS: 74221 ==

== ENCOUNTER 2023-02-24 10:27 | Outpatient (AMB) | payer MEDICARE, MEDICAID, SELFPAY ==
[2023-02-24 10:48] VITALS: BP 84/52; PULSE 58; O2SAT 89; BMI 32.8
--- NOTE | 2023-02-24 10:48 | A.OFFVIS_ITS ---
Intake Vital Signs 02/24/23 10:48 Height 5 ft Weight 168 lb BMI 32.8 BP 84/52 L Blood Pressure Location Lt brachial Position Sitting Pulse 58 Pulse Source Pulse Oximeter Pulse Oximetry (%) 89 L Oxygen Delivery Method Room Air Intake Visit Reasons: COPD Intake Note: pt is here for follow up and states he has been having trouble with breathing, he is using gummies rather than smoking. Training Consultant Required: No Allergies ciprofloxacin [From CIPRO] Allergy (Severe, Verified 02/24/23 11:01) SWELLING, ITCHING bee pollen [BEE STINGS] Allergy (Unknown, Verified 02/24/23 11:01) HIVES Penicillins Allergy (Unknown, Verified 02/24/23 11:01) UNKNOWN insulin lispro [From Humalog U-100 Insulin] Adverse Reaction (Intermediate, Verified 02/24/23 11:01) Swelling Medication List - Last Reconciled 02/24/23 by Azael Sams MD albuterol sulfate 90 mcg/actuation 2 puffs inhalation Q4-6H PRN albuterol sulfate 2.5 mg (3 mL) inhalation QID PRN amlodipine 10 mg PO DAILY atorvastatin 80 mg PO QPM 90 days blood pressure monitor As directed blood sugar diagnostic As directed check the blood sugar 3 a day blood sugar diagnostic As directed check the blood sugar 3 times a day blood-glucose meter (Modern Family DoctorTouch Ultra2 Meter kit) As directed check the blood sugar once a day cadexomer iodine 0.9% (Iodosorb) 40 grams topical ONCE carvedilol 25 mg PO BID compress.stocking,knee,reg,med As directed 20-30 mm HG [DIABETIC SHOE As directed] docusate sodium 100 mg PO BID duloxetine 60 mg PO DAILY 90 days ezetimibe (Zetia) 10 mg PO DAILY fenofibrate 160 mg PO DAILY 90 days finasteride 5 mg PO DAILY flash glucose scanning reader (RacemiStyle Anival 14 Day [place]) 4 times per day, patient on insulin flash glucose sensor (FreeStyle Anival 14 Day Sensor kit) 4 times per day patient on insulin gabapentin 300 mg PO TID gabapentin 600 mg PO TID 30 days hydrocortisone 2.5% (Proctosol HC) 1 appl AL BID-QID PRN insulin glargine (Lantus Solostar U-100 Insulin) 25 units (0.25 mL) subcut QPM insulin lispro 1 sliding scale dose See Protocol subcut QIDACHS [[id number] SOCK, multiple ply ABove knee (AK) As directed] lancets As directed check the blood sugar TID lancets As directed check the blood sugarTID lidocaine 5% 2 patches topical Q12H 30 days lisinopril 10 mg PO DAILY lorazepam 0.5 mg PO BEDTIME PRN metformin 500 mg PO BID nicotine (polacrilex) 2 mg buccal Q2H nitroglycerin 0.4 mg sublingual Q5M PRN oxycodone 10 mg PO TID PRN 30 days Oxygen Home Use 2 LPM as needed- [employer]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, diabetic (1st Tier Unifine Pentips) 3 to 4 times per day pioglitazone 30 mg PO DAILY 90 days potassium chloride ER 40 mEq (2 x 20 mEq) PO DAILY [PULLUPS XL As directed] quetiapine 25 mg PO BEDTIME rivaroxaban (Xarelto) 2.5 mg PO BID [LOSS PREVENTION AND 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 HE HAS THE PROSTHESIS FOR LEFT LOWER EXTREMITY AND WOULD BE, STARTING TO USE IT. HIS WEIGHT REMAINS UP, HE HAS SLEEP APNEA BUT CANNOT USE THE CPAP, DOES USE O2. 2 L/MINUTE FOR NOCTURNAL HYPOXEMIA CLAIMS THAT HE GETS SHORT OF BREATH EASILY DURING THE DAYTIME AND HAS MILD INTERMITTENT COUGH. LUCKILY HE HAS HAD NO CHEST INFECTION. USES ALBUTEROL SOLUTION IN THE NEBULIZER TWICE A DAY AND P.R.N.. HIS PULMONARY PROBLEM IS MAINLY RESTRICTIVE DUE TO BEING OVERWEIGHT. HE DOES NOT SMOKE CIGARETTES AND USES ONLY GUMMIES. REPLACED BY [facility] Medical History Alcohol abuse Ankle pain, left Anxiety and depression Avascular necrosis of bone of right hip BPH (benign prostatic hyperplasia) Colon cancer screening COPD (chronic obstructive pulmonary disease) Coronary artery disease Cough Dizziness Elevated WBCs History of CVA (cerebrovascular accident) Hospital discharge follow-up Hypercholesterolemia Hypertension Left leg weakness Leg cramps LUQ abdominal pain Mass of left paraspinous region Obesity (BMI 30-39.9) Obstructive sleep apnea Osteoarthritis, hip, bilateral Peripheral vascular disease Preoperative cardiovascular examination Recurrent falls Restrictive lung disease Screening for prostate cancer Type 2 diabetes mellitus with hyperglycemia Urinary incontinence UTI (urinary tract infection) Surgical History History of surgery History of tonsillectomy History of vascular surgery Family History Father Lung cancer COPD (chronic obstructive pulmonary disease) Heart disease Hypertension Mother COPD (chronic obstructive pulmonary disease) Diabetes Hypertension Breast cancer Paternal Uncle Prostate cancer Sister Heart disease Social History Housing: House Alcohol intake: never Patient Tobacco Use Status: Former Tobacco user Tobacco use type: Cigarette Years Smoked: stopped smoking 12/2022 e-Cigarette/Vaping Use: Never Used Second Hand Smoke Exposure: No Substance Use Type: Marijuana service: No Current occupational status: disabled Cognitive needs: Yes (cane, wheel chair ) Hearing needs: Yes Vision needs: Yes Review of Systems Const All systems reviewed & are unremarkable except as noted in HPI and below ENT Denies nasal congestion and Denies nasal discharge Card Denies chest pain at rest, Denies irregular heart rhythm, Denies leg edema and Reports dyspnea on exertion (mild ) Resp Reports cough (occasional due to an urge to clear throat ) and Reports dyspnea on exertion (mild ) GI Reports no additional complaints Musc Reports arthralgias (rt hip ) Neuro Reports no additional complaints Psych Reports no additional complaints Physical Exam Const General: healthy appearing (Except for being overweight), comfortable, no acute distress, alert and awake Orientation/consciousness: patient oriented x3 HEENT Head: Yes normal to inspection General nose exam: No nasal polyps present and No nasal discharge present Face and sinus: Yes sinuses nontender Mouth: oropharynx normal Throat: Yes posterior oropharynx normal Eyes General: appearance normal, both eyes and all related structures Neck Neck: Yes normal visual inspection, Yes no lymphadenopathy, Yes trachea midline and Yes no JVD Thyroid: Thyroid normal Chest Chest palpation & inspection: normal inspection of the chest, normal palpation of entire chest wall and no tenderness Resp Other: Percussion note is resonant, breath sounds are slightly decreased over the basilar areas. No wheezes rhonchi or crepitations are heard. Cardio Palpation: normal PMI Rate: regular rate Rhythm: regular rhythm Heart sounds: no gallops and no murmurs Peripheral pulses: Peripheral pulses 2+ throughout GI Palpation (GI): Soft to palpation, nontender, No hepatosplenomegaly present, no masses and Other GI palpation findings present (Abdomen is slightly protuberant) Auscultation: normal bowel sounds Back/Spine/Pelvis Thoracic/Lumbar Spine: thoracic and lumbar spine normal to inspection Skin General skin exam: no rashes or lesions noted Neuro General: patient oriented x3 and no focal motor deficits Cranial nerves: Yes CN's II-XII intact bilaterally Extrem Other: S/P LEFT AK. AMPUTEE RT LEG AND FOOT , THIN , NO PULSES General: Yes no calf tenderness Psych Appearance: grossly normal and well kempt Speech and movement: Normal speech and movement present Assessment & Plan Assessment & Plan (1) Obesity (BMI 30-39.9): Comment: HE DOES HAVE MODERATELY SEVERE OBESITY. MAINLY IT IS DUE TO BODY HABITUS. HE IS SHORT STATURED WEIGHT REMAINS UP BECAUSE HE IS NOT ABLE TO DO MUCH WALKING, HOPEFULLY ONCE HE LEARNS TO USE THE PROSTHESIS, AND STARTS WALKING, HE WILL BE IS ABLE TO LOSE SOME WEIGHT. Code(s): E66.9 - Obesity, unspecified (2) Obstructive sleep apnea: Comment: HAS CLINICAL FEATURES OF OBSTRUCTIVE SLEEP APNEA, HE IS NOT ABLE TO TOLERATE CPAP. AT THIS TIME , HE DOES NOT HAVE SYMPTOMS OF OBSTRUCTIVE SLEEP APNEA AT NIGHT, BUT DOES HAVE NOCTURNAL HYPOXEMIA. USES O2 2 L/MT AT NIGHT . Code(s): G47.33 - Obstructive sleep apnea (adult) (pediatric) (3) COPD (chronic obstructive pulmonary disease): Comment: THE OBSTRUCTIVE COMPONENT IS VERY MINIMAL, HE HAS NEBULIZER DEVICE AT HOME. ADVISED TO USE ALBUTEROL SOLUTION IN THE NEBULIZER B.I.D, AND MAY USE Q 6 HOURS P.R.N.. HE MAY ALSO USE OXYGEN 2 L/MINUTE FOR SHORT PERIODS IF HE FEELS SHORT OF BREATH DURING THE DAYTIME. Code(s): J44.9 - Chronic obstructive pulmonary disease, unspecified Qualifiers: COPD type: emphysema Emphysema type: unspecified Qualified Code(s): J43.9 - Emphysema, unspecified Coding Level of Care Code Est Pt Level 3 (02740) Diagnoses Obesity (BMI 30-39.9) E66.9 Obstructive sleep apnea G47.33 COPD (chronic obstructive pulmonary disease) J43.9 COPD type: emphysema Emphysema type: unspecified
== END 2023-02-24 11:02 | disposition home or self-care (01) ==
PROVIDERS: PCP Internal Medicine; Visit Provider Internal Medicine
DX: E66.9 Obesity, unspecified (principal); G47.33 Obstructive sleep apnea (adult) (pediatric); J43.9 Emphysema, unspecified
CPT/HCPCS: 99213

== ENCOUNTER → 2023-02-24 10:27 | Outpatient (BNVA) | payer MEDICARE, MEDICAID, SELFPAY | PROVIDERS: Visit Provider Internal Medicine | DX: J43.9 Emphysema, unspecified (principal); G47.33 Obstructive sleep apnea (adult) (pediatric); E66.9 Obesity, unspecified | CPT/HCPCS: 99212 ==

== ENCOUNTER 2023-03-05 13:02 | Outpatient (AMB) | payer MEDICARE, MEDICAID, SELFPAY ==
[2023-03-05 13:04] VITALS: BP 102/56; PULSE 58; O2SAT 91
--- NOTE | 2023-03-05 13:04 | MHC.PC.OV ---
Vital Signs 03/05/23 13:04 03/05/23 13:21 Height 5 ft BP 102/56 L Blood Pressure Location Lt brachial Position Sitting Pulse 58 Pulse Source Pulse Oximeter Temp Source Skin Pulse Oximetry (%) 91 L 93 Oxygen Delivery Method Room Air Room Air Intake Visit Reasons: fatigue Intake Note: pt states fatigue X1week Hop Strainer Required: No Allergies ciprofloxacin [From CIPRO] Allergy (Severe, Verified 03/05/23 13:19) SWELLING, ITCHING bee pollen [BEE STINGS] Allergy (Unknown, Verified 03/05/23 13:19) HIVES Penicillins Allergy (Unknown, Verified 03/05/23 13:19) UNKNOWN insulin lispro [From Humalog U-100 Insulin] Adverse Reaction (Intermediate, Verified 03/05/23 13:19) Swelling Medication List - Last Reconciled 03/05/23 by ILIA Alcazar albuterol sulfate 90 mcg/actuation 2 puffs inhalation Q4-6H PRN albuterol sulfate 2.5 mg (3 mL) inhalation QID PRN amlodipine 10 mg PO DAILY atorvastatin 80 mg PO QPM 90 days blood pressure monitor As directed blood sugar diagnostic As directed check the blood sugar 3 a day blood sugar diagnostic As directed check the blood sugar 3 times a day blood-glucose meter ([employer] Ultra2 Meter kit) As directed check the blood sugar once a day cadexomer iodine 0.9% (Iodosorb) 40 grams topical ONCE carvedilol 25 mg PO BID compress.stocking,knee,reg,med As directed 20-30 mm HG [DIABETIC SHOE As directed] docusate sodium 100 mg PO BID duloxetine 60 mg PO DAILY 90 days ezetimibe (Zetia) 10 mg PO DAILY fenofibrate 160 mg PO DAILY 90 days finasteride 5 mg PO DAILY flash glucose scanning reader ([employer]Style Anival 14 Day [place]) 4 times per day, patient on insulin flash glucose sensor (FreeStyle Anival 14 Day Sensor kit) 4 times per day patient on insulin gabapentin 300 mg PO TID gabapentin 600 mg PO TID 30 days hydrocortisone 2.5% (Proctosol HC) 1 appl [place] BID-QID PRN insulin glargine (Lantus Solostar U-100 Insulin) 25 units (0.25 mL) subcut QPM insulin lispro 1 sliding scale dose See Protocol subcut QIDACHS [[id number] SOCK, multiple ply ABove knee ([place]) As directed] lancets As directed check the blood sugar TID lancets As directed check the blood sugarTID lidocaine 5% 2 patches topical Q12H 30 days lisinopril 10 mg PO DAILY lorazepam 0.5 mg PO BEDTIME PRN metformin 500 mg PO BID nicotine (polacrilex) 2 mg buccal Q2H nitroglycerin 0.4 mg sublingual Q5M PRN oxycodone 10 mg PO TID PRN 30 days Oxygen Home Use 2 LPM as needed- [employer]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 Holliday. Medical history significant for hypertension, hypercholesterolemia, CAD, diabetes type 2, BPH, COPD, obesity, LUIS ALBERTO-on oxygen at night, AKA of left lower extremity, anemia. Patient also reports dark urine, burning with urination, urinary frequency, low back pain for over 1 week now. Reports that he does not drink enough water. No fever or chills. Also reports suprapubic pain. No shortness of breath or chest pain. [facility] Medical History Alcohol abuse Ankle pain, left Anxiety and depression Avascular necrosis of bone of right hip BPH (benign prostatic hyperplasia) Colon cancer screening COPD (chronic obstructive pulmonary disease) Coronary artery disease Cough Dizziness Elevated WBCs History of CVA (cerebrovascular accident) Hospital discharge follow-up Hypercholesterolemia Hypertension Left leg weakness Leg cramps LUQ abdominal pain Mass of left paraspinous region Obesity (BMI 30-39.9) Obstructive sleep apnea Osteoarthritis, hip, bilateral Peripheral vascular disease Preoperative cardiovascular examination Recurrent falls Restrictive lung disease Screening for prostate cancer Type 2 diabetes mellitus with hyperglycemia Urinary incontinence UTI (urinary tract infection) Surgical History History of surgery History of tonsillectomy History of vascular surgery Family History Father Lung cancer COPD (chronic obstructive pulmonary disease) Heart disease Hypertension Mother COPD (chronic obstructive pulmonary disease) Diabetes Hypertension Breast cancer Paternal Uncle Prostate cancer Sister Heart disease Social History Housing: House Alcohol intake: never Patient Tobacco Use Status: Former Tobacco user Tobacco use type: Cigarette Years Smoked: stopped smoking 12/2022 e-Cigarette/Vaping Use: Never Used Second Hand Smoke Exposure: No Substance Use Type: Marijuana service: No Current occupational status: disabled Cognitive needs: Yes (cane, wheel chair ) Hearing needs: Yes Vision needs: Yes Questionnaire Thrive Questionnaire Date Thrive assessed: 10/18/22 AUDIT C Alcohol Use Questionnaire (AUDIT-C) 1. How often do you have a drink containing alcohol?: Never 3. How often do you have six or more drinks on one occasion?: Never Total Score: 0 Score Reviewed/Action Taken: No FRANCESCA-7 AMB Questionnaire FRANCESCA-7 Date FRANCESCA - 7 assessed: 10/18/22 Source: Developed by Drs. Lio Izaguirre, Taylor Beck, Kiko Chaparro and colleagues, with an educational anh from [employer]. Review of Systems Const Denies body aches, Denies chills, Reports fatigue, Denies fever(s) and Denies headache(s) Eyes Denies change in vision ENT Denies dizziness, Denies otalgia, Denies headache(s), Denies nasal discharge, Denies sinus pain and Denies sore throat Card Denies chest pain, Denies edema, Denies lightheadedness and Denies dyspnea Resp Denies cough, Denies dyspnea and Denies wheezing GI Reports abdominal pain, Denies constipation, Denies diarrhea, Denies nausea and Denies vomiting Denies hematuria, Denies difficulty urinating, Reports dysuria, Reports flank pain and Reports urinary frequency Musc Denies myalgias Skin/Breast Denies rash Neuro Denies dizziness and Denies headache(s) Endo Reports fatigue Aller/Immun Denies wheezing Physical exam (Primary Care) Vital Signs: Last Vital Signs Pulse 58 03/05/23 13:04 BP 102/56 L 03/05/23 13:04 Pulse Ox 91 L 03/05/23 13:04 Oxygen Delivery Method Room Air 03/05/23 13:04 Tobacco/Smoking Status: Tobacco use Status Tobacco use date assessed 03/05/23 03/05/23 13:11 Patient Tobacco Use Status Former Tobacco user 03/05/23 13:11 Tobacco use type Cigarette 03/05/23 13:11 e-Cigarette/Vaping Use Never Used 03/05/23 13:11 Thrive Assessment: Date of Thrive Assessment Date Thrive assessed 10/18/22 03/05/23 13:11 Const General: cooperative and no acute distress Orientation/consciousness: patient oriented x3 HENMT Head: Yes normocephalic and Yes atraumatic Mouth: oropharynx normal and moist mucous membranes Throat: Yes posterior oropharynx normal Eyes General: appearance normal, both eyes and all related structures Neck Neck: Yes normal visual inspection, Yes full ROM and Yes no lymphadenopathy Resp Effort & Inspection: normal respiratory effort and able to speak in complete sentences Auscultation: clear to auscultation bilaterally, no crackles, no rales, no rhonchi and no wheezes Cardio Rate: regular rate Rhythm: regular rhythm Heart sounds: S1 normal heart sound present and S2 normal heart sound present GI Palpation (GI): Soft to palpation, not firm, Tenderness to palpation present (GI) suprapubicly; with no rebound tenderness, no guarding, not rigid and no hepatosplenomegaly Auscultation: normal bowel sounds General: No CVA tenderness Back/Spine/Pelvis Back: No CVA tenderness Skin General skin exam: no rashes or lesions noted Neuro General: patient oriented x3 Extrem Other: Trace edema right lower extremity Left lower extremity AKA General: Yes full ROM Assessment and Plan Assessment & Plan (1) Dysuria: Code(s): R30.0 - Dysuria Plan: Urinalysis showed leukocytes and protein, due to patient being symptomatic will treat with antibiotic for UTI. Increase fluid consumption. Will send urine for culture. Patient agreed with the plan. Keep appointment with PCP as scheduled or follow-up sooner as needed. Orders: Orders Urine Culture Today R30.0 - Dysuria Medications: New nitrofurantoin monohyd/m-cryst 100 mg (Macrobid) must administer with a meal/food 100 mg PO Q12H 7 days 14 caps 0RF R30.0 - Dysuria Coding Level of Care Code Est Pt Level 3 (54129) Diagnoses Dysuria R30.0
[2023-03-05 13:21] VITALS: O2SAT 93
== END 2023-03-05 14:05 | disposition home or self-care (01) ==
PROVIDERS: PCP Internal Medicine; Visit Provider Nurse Practitioner Family
DX: R30.0 Dysuria (principal); Z13.9 Encounter for screening, unspecified
CPT/HCPCS: 81003; 99213

== ENCOUNTER 2023-03-05 13:39 | Outpatient (REF) | payer MEDICARE, MEDICAID, SELFPAY | END 2023-03-05 13:40 | disposition home or self-care (01) | LOC: HO.LAB 13:39 | PROVIDERS: Visit Provider Nurse Practitioner Family | DX: R30.0 Dysuria (principal) | CPT/HCPCS: 87086 ==

== ENCOUNTER 2023-03-12 11:00 | Outpatient (REF) | payer MEDICARE, MEDICAID, SELFPAY ==
[2023-03-12 11:13] LABS: MANUAL DIFF FLAG NO
[2023-03-12 11:52] LABS: Basophils Percent Auto 0.5 % (0-2); Eosinophils Absolute Auto 0.3 X10*3/uL (0.0-0.4); Eosinophils Percent Auto 3.6 % (0-4); Hematocrit 39.1 % (42.0-52.0); Hemoglobin 12.2 g/dl (14.0-18.0); Imm Gran Abs Auto 0.02 X10*3/uL (0.00-0.03); Imm Gran Pct Auto 0.3 % (0.0-0.4); Immature Retic Fraction 20.9 % (2.3-13.4); Lymphocytes Absolute Auto 2.3 X10*3/uL (1.2-4.9); Lymphocytes Percent Auto 29.8 % (20-40); Mean Corpuscular HGB Conc 31.2 g/dl (31.0-36.0); Mean Corpuscular Hemoglobin 27.1 pg (27.0-33.0); Mean Corpuscular Volume 86.7 fL (80.0-98.0); Mean Platelet Volume 10.1 fL (9.4-12.4); Monocytes Absolute Auto 0.5 X10*3/uL (0.1-1.2); Monocytes Percent Auto 6.4 % (2-11); Neutrophils Absolute Auto 4.7 x10*3/uL (2.0-8.3); Neutrophils Percent Auto 59.4 % (45-73); Platelet Count 286 X10*3/uL (160-400); Red Blood Count 4.51 X10*6/uL (4.60-5.80); Red Cell Distribution Width 15.2 % (11.0-16.0); Retic HGB Equivalent 31.4 pg (30.0-35.0); Reticulocyte Percent 1.9 % (0.5-1.8); Reticulocytes Absolute 0.084 X10*6/uL (0.026-0.095); White Blood Count 7.8 X10*3/uL (4.8-10.8)
[2023-03-12 12:01] LABS: Appearance Urine Clear; Color Urine Yellow; Glucose Urine UA Negative (Negative); Leukocyte Esterase Urine Trace (Negative); Nitrite Urine Negative (Negative); PH 5.5 (5.0-9.0); UMIC TRIGGER UA YES; Urine Blood Negative (Negative); Urine Ketones Negative (Negative); Urine Protein Trace mg/dL (Neg-Trace)
[2023-03-12 12:04] LABS: Bacteria Urine None Seen (None Seen); Hyaline Casts Urine 0-2 /LPF (0-2); RBC Urine 0-2 /HPF (0-2); Squamous Epithelial Cell Urine 0-2 /HPF (0-2); WBC Urine 0-5 /HPF (0-5)
[2023-03-12 12:38] LABS: Iron 57 mcg/dL (45-160); Percent Iron Saturation 15 % (15-50); Total Iron Binding Capacity 372 mcg/dL (228-428); Unsaturated Iron Binding 315 ug/dL
[2023-03-12 12:43] LABS: Ferritin 55 ng/mL (20-250)
[2023-03-12 13:04] LABS: Folate 16.5 ng/mL (> or = 4.0); Vitamin B12 922 pg/mL (200-900)
== END 2023-03-12 11:01 | disposition home or self-care (01) ==
LOC: HO.LAB 11:00
PROVIDERS: PCP Internal Medicine; Visit Provider Internal Medicine
DX: D64.9 Anemia, unspecified (principal)
CPT/HCPCS: 36415; 81001; 81003; 82607; 82728; 82746; 83540; 85025; 85045

== ENCOUNTER 2023-04-07 13:31 | Outpatient (AMB) | payer MEDICARE, MEDICAID, SELFPAY ==
--- NOTE | 2023-04-07 13:42 | A.OFFVIS_ITS ---
Intake Intake Visit Reasons: Urinary/ Pain/ Burning Intake Note: Patient presents for Dysuria/urinary frequency Urology Medications: finasteride, terazosin Blood Thinner: Xarelto PVR: 0ml's Binder Cutter Hand Required: No Accompanied by: Self / Same As Patient Allergies ciprofloxacin [From CIPRO] Allergy (Severe, Verified 04/07/23 14:20) SWELLING, ITCHING bee pollen [BEE STINGS] Allergy (Unknown, Verified 04/07/23 14:20) HIVES Penicillins Allergy (Unknown, Verified 04/07/23 14:20) UNKNOWN insulin lispro [From Humalog U-100 Insulin] Adverse Reaction (Intermediate, Verified 04/07/23 14:20) Swelling Medication List - Last Reconciled 04/07/23 by ILIA Silverio-ASH albuterol sulfate 90 mcg/actuation 2 puffs inhalation Q4-6H PRN albuterol sulfate 2.5 mg (3 mL) inhalation QID PRN amlodipine 10 mg PO DAILY atorvastatin 80 mg PO QPM 90 days blood pressure monitor As directed blood sugar diagnostic As directed check the blood sugar 3 a day blood sugar diagnostic As directed check the blood sugar 3 times a day blood-glucose meter ([place] Ultra2 Meter kit) As directed check the blood sugar once a day cadexomer iodine 0.9% (Iodosorb) 40 grams topical ONCE carvedilol 25 mg PO BID compress.stocking,knee,reg,med As directed 20-30 mm HG [DIABETIC SHOE As directed] docusate sodium 100 mg PO BID duloxetine 60 mg PO DAILY 90 days ezetimibe (Zetia) 10 mg PO DAILY fenofibrate 160 mg PO DAILY 90 days finasteride 5 mg PO DAILY flash glucose scanning reader ([employer] Anival 14 Day [place]) 4 times per day, patient on insulin flash glucose sensor (FreeStyle Anival 14 Day Sensor kit) 4 times per day patient on insulin gabapentin 300 mg PO TID gabapentin 600 mg PO TID 30 days hydrocortisone 2.5% (Proctosol HC) 1 appl [place] BID-QID PRN insulin glargine (Lantus Solostar U-100 Insulin) 25 units (0.25 mL) subcut QPM insulin lispro 1 sliding scale dose See Protocol subcut QIDACHS [[id number] SOCK, multiple ply ABove knee ([place]) As directed] lancets As directed check the blood sugar TID lancets As directed check the blood sugarTID lidocaine 5% 2 patches topical Q12H 30 days lisinopril 10 mg PO DAILY lorazepam 0.5 mg PO BEDTIME PRN metformin 500 mg PO BID nicotine (polacrilex) 2 mg buccal Q2H nitroglycerin 0.4 mg sublingual Q5M PRN oxycodone 10 mg PO TID PRN 30 days Oxygen Home Use 2 LPM as needed- [employer]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, diabetic (1st Tier Unifine Pentips) 3 to 4 times per day pioglitazone 30 mg PO DAILY 90 days potassium chloride ER 40 mEq (2 x 20 mEq) PO DAILY potassium chloride ER 20 mEq PO BID [PULLUPS XL As directed] quetiapine 25 mg PO BEDTIME rivaroxaban (Xarelto) 2.5 mg PO BID [DEPUTY SHERIFF K9 HANDLER SLEEVE L As directed] sulfamethoxazole-trimethoprim 800-160 mg (Bactrim DS) 1 tab PO BID 14 days terazosin 5 mg PO BEDTIME 30 days tizanidine 4 mg PO Q8H HPI HPI Comments History of Present Illness Details Ayo is a pleasant 62-year-old male patient of Dr. Holliday. He has a past medical history of recurrent falls, restrictive lung disease, LUIS ALBERTO, obesity, osteoarthritis, COPD, history of CVA, BPH, type 2 diabetes, coronary artery disease, PVD, hypercholesteremia, alcohol abuse, anxiety, depression, and hypertension. He presents to the office today for a follow up. Of note, patient was seen approximately approximately 5 months ago as a new patient for urinary issues at which time a retroperitoneal ultrasound was ordered for further assess ment evaluation. Patient reports he has been unable to follow-up due to being hospitalized and undergoing surgical procedure for his right leg. He reports noting worsening lower urinary symptoms. He discusses he continues with urinary urgency, urinary frequency, nocturia, and pain upon urination. MITZI performed and prostate noted to be boggy. Discussed symptoms possibly related to prostatitis. Patient reports having had previous TURP approximately 5-[address] Blue. Patient discusses in March 2022 undergoing left above the knee amputation in [place] and is recovering well and has been receiving PT and OT therapy. Patient discusses being a recovering alcoholic and had been sober for over 3 years. He discusses attempting to quit smoking and is limiting his smoking and utilizing nicotine patches. He mentions feeling is alcoholism has caught up to him and he has been having so many health concerns with his eyes, ears, circulation, bladder issues, and overall health. Discussed importance of obtaining retroperitoneal ultrasound as recommended at last office visit. In office urinalysis results reviewed with the patient today. PVR 0 mL. PSAs are as follows: 05/09--0.7, 01/08--0.6, 09/11--0.6, 08/12-- 0.4 PFSH Medical History Recurrent falls Hospital discharge follow-up Ankle pain, left Left leg weakness UTI (urinary tract infection) Screening for prostate cancer Elevated WBCs Dizziness Preoperative cardiovascular examination LUQ abdominal pain Cough Colon cancer screening Leg cramps Restrictive lung disease Mass of left paraspinous region Obstructive sleep apnea Obesity (BMI 30-39.9) Osteoarthritis, hip, bilateral COPD (chronic obstructive pulmonary disease) History of CVA (cerebrovascular accident) BPH (benign prostatic hyperplasia) Avascular necrosis of bone of right hip Type 2 diabetes mellitus with hyperglycemia Coronary artery disease Peripheral vascular disease Hypercholesterolemia Alcohol abuse Urinary incontinence Anxiety and depression Hypertension Surgical History History of surgery History of vascular surgery History of tonsillectomy Family History Father Lung cancer COPD (chronic obstructive pulmonary disease) Heart disease Hypertension Mother COPD (chronic obstructive pulmonary disease) Diabetes Hypertension Breast cancer Paternal Uncle Prostate cancer Sister Heart disease Social History Housing: House Alcohol intake: never Patient Tobacco Use Status: Former Tobacco user Tobacco use type: Cigarette Years Smoked: stopped smoking 12/2022 e-Cigarette/Vaping Use: Never Used Second Hand Smoke Exposure: No Substance Use Type: Marijuana service: No Current occupational status: disabled Cognitive needs: Yes (cane, wheel chair ) Hearing needs: Yes Vision needs: Yes Review of Systems Const All systems reviewed & are unremarkable except as noted in HPI and below Reports as per HPI Eyes Reports as per HPI ENT Reports no additional complaints Card Reports as per HPI Resp Reports as per HPI GI Reports no additional complaints Reports as per HPI Musc Reports as per HPI Neuro Reports as per HPI Psych Reports as per [facility] Endo Reports as per HPI Jorge/Lymph Reports no additional complaints Aller/Immun Reports no additional complaints Physical Exam Const General: cooperative, comfortable, no acute distress, well developed, alert and awake Orientation/consciousness: patient oriented x3 Limitations: wheelchair HEENT Other: bilateral hearing aides present. Head: Yes normal to inspection, Yes normocephalic and Yes atraumatic Ears: hearing grossly normal bilaterally Eyes General: appearance normal, both eyes and all related structures Neck Neck: Yes normal visual inspection and Yes trachea midline Chest Chest palpation & inspection: normal inspection of the chest Resp Effort & Inspection: normal respiratory effort and able to speak in complete sentences Cardio Rate: regular rate GI Inspection: Yes normal to inspection Rectal Exam - Male: Yes visual inspection normal, Yes normal sphincter tone and Yes prostate abnormal (boggy ) General: Yes no CVA tenderness Back/Spine/Pelvis Back: no CVA tenderness Skin General skin exam: no rashes or lesions noted Neuro General: patient oriented x3 Extrem General: Yes normal to inspection Psych Appearance: grossly normal and well kempt Mental Status: mental status grossly normal Speech and movement: Normal speech and movement present and Clear speech present Affect: normal affect Attitude: cooperative Thought process: Normal thought process present Thought content: Normal thought content present Insight: Fair insight present (Psych) Judgement: Fair judgement present (Psych) Office Procedures Post Void Residual Post Residual Void Post Void Residual (PVR): 0 48093-Apay Void Residual by ultrasound Results AMB Urinalysis, Automated UA Leukoctes 70 Randee/uL Last Edit by JohnnieParkplatzking Marie on 04/07/23 14:03 UA Nitrite Negative Last Edit by Abebe Salazar on 04/07/23 14:03 UA Urobilinogen 0.2 mg/dL Last Edit by [employer] on 04/07/23 14:03 UA Protein 0 mg/dL Last Edit by Clicker Marie on 04/07/23 14:03 UA pH 5.5 Last Edit by HookLogicellen Salazar on 04/07/23 14:03 UA Blood 0 Buster/uL Last Edit by Clicker Marie on 04/07/23 14:03 UA Specific [place] 1.025 Last Edit by Clicker Marie on 04/07/23 14:03 UA Ketone Negative Last Edit by Abebe Salazar on 04/07/23 14:03 UA Bilirubin 0 mg/dL Last Edit by Abebe Salazar on 04/07/23 14:03 UA Glucose 0 mg/dL Last Edit by Abebe Salazar on 04/07/23 14:03 Results Reviewed Results Reviewed: Laboratory Last Values Urine pH (Auto) 5.5 04/07/23 13:50 Specific [place] (Auto) 1.025 04/07/23 13:50 Urine Protein (Auto) 0 mg/dL 04/07/23 13:50 Glucose (UA)(Auto) 0 mg/dL 04/07/23 13:50 Urine Ketones (Auto) Negative 04/07/23 13:50 Urine Blood (Auto) 0 Buster/uL 04/07/23 13:50 Urine Nitrite (Auto) Negative 04/07/23 13:50 Urine Bilirubin (Auto) 0 mg/dL 04/07/23 13:50 Urine Urobilinogen (Auto) 0.2 mg/dL 04/07/23 13:50 Leukocyte Esterase (Auto) 70 Randee/uL 04/07/23 13:50 Assessment & Plan Assessment & Plan (1) Lower urinary tract symptoms: Code(s): R39.9 - Unspecified symptoms and signs involving the genitourinary system (2) Prostatitis: Code(s): N41.9 - Inflammatory disease of prostate, unspecified Plan In office urinalysis results reviewed with the patient today; as noted above. MITZI; boggy prostate Start Bactrim as discussed and prescribed. Will obtain retroperitoneal ultrasound for further assessment evaluation. Discussed, educated, and encouraged on the importance of drinking plenty of water daily. Discussed importance of managing diabetes for improvement in lower urinary tract symptoms as well as overall health and well-being. Discussed and stressed the importance of limiting/quitting smoking for overall health and well-being. Follow-up in 1 month with imaging to be completed prior; or sooner with any issues, concerns, and or questions. Orders: Orders AMB Urinalysis Automated Today Z13.9 - Encounter for screening, unspecified AMB Post Void Residual by ultrasound Today N40.1 - Benign prostatic hyperplasia with lower urinary tract symptoms, R35.0 - Frequency of micturition US retroperitoneal comp Today R39.9 - Unspecified symptoms and signs involving the genitourinary system Medications: New sulfamethoxazole-trimethoprim 800-160 mg (Bactrim DS) 1 tab PO BID 14 days 28 tabs 0RF N39.0 - Urinary tract infection, site not specified Discontinued nitrofurantoin monohyd/m-cryst 100 mg (Macrobid) must administer with a meal/food Discontinued Reason: Doctor's Order 100 mg PO Q12H 7 days 14 caps 0RF R30.0 - Dysuria Patient Instructions: The patient had an opportunity to ask questions regarding the treatment plan. All questions were answered. Physical exam, labs, and imaging were discussed and reviewed in detail. As well as risks, benefits, and discussion of treatment choices. No major barriers to understanding were identified. The patient expressed understanding and agreement with the above treatment plan. The patient was made aware they should contact our office by phone for worsening of their current condition, the appearance of new symptoms, or with any questions or concerns. Compliance is encouraged with any medications and follow up testing that is ordered. It is a privilege to be allowed the opportunity to participate in? your urological care.? Again, if you have any questions or concerns If you have any questions or concerns please do not hesitate to contact me. The office is [phone]. This note is constructed using voice recognition software. While every effort has been made to ensure accuracy accounts payable associate errors may have been included. Yours sincerely, ILIA Silverio-ASH Coding Level of Care Code Tele Est Pt Level 4 (56631) Diagnoses Lower urinary tract symptoms R39.9 Prostatitis N41.9 CPT Codes Post Residual Void - PVR CPT Code: 73284-Xfdu Void Residual by ultrasound ([id number])
== END 2023-04-07 14:13 | disposition home or self-care (01) ==
PROVIDERS: PCP Internal Medicine; Visit Provider Nurse Practitioner Family
DX: R39.9 Unspecified symptoms and signs involving the genitourinary system (principal); N41.9 Inflammatory disease of prostate, unspecified
CPT/HCPCS: 99214

== ENCOUNTER → 2023-04-07 13:31 | Outpatient (BNVA) | payer MEDICARE, MEDICAID, SELFPAY | PROVIDERS: PCP Internal Medicine; Visit Provider Nurse Practitioner Family | DX: N41.9 Inflammatory disease of prostate, unspecified (principal); R39.9 Unspecified symptoms and signs involving the genitourinary system | CPT/HCPCS: 51798; 81003 ==

== ENCOUNTER 2023-04-17 10:45 | Outpatient (AMB) | payer MEDICARE, MEDICAID, SELFPAY ==
[2023-04-17 10:51] VITALS: BP 102/52; PULSE 54; O2SAT 89
--- NOTE | 2023-04-17 10:51 | MHC.PC.OV ---
Vital Signs 04/17/23 10:51 Height 5 ft BMI Reason not done Patient refused/unable BP 102/52 L Blood Pressure Location Lt brachial Position Sitting Pulse 54 Pulse Source Pulse Oximeter Pulse Oximetry (%) 89 L Oxygen Delivery Method Room Air Intake Visit Reasons: Slurred speech Allergies ciprofloxacin [From CIPRO] Allergy (Severe, Verified 04/17/23 10:51) SWELLING, ITCHING bee pollen [BEE STINGS] Allergy (Unknown, Verified 04/17/23 10:51) HIVES Penicillins Allergy (Unknown, Verified 04/17/23 10:51) UNKNOWN insulin lispro [From Humalog U-100 Insulin] Adverse Reaction (Intermediate, Verified 04/17/23 10:51) Swelling Medication List - Last Reconciled 04/17/23 by Pedro Holliday MD albuterol sulfate 90 mcg/actuation 2 puffs inhalation Q4-6H PRN albuterol sulfate 2.5 mg (3 mL) inhalation QID PRN amlodipine 5 mg PO DAILY aspirin (Adult Low Dose Aspirin) 81 mg PO DAILY atorvastatin 80 mg PO QPM 90 days blood pressure monitor As directed blood sugar diagnostic As directed check the blood sugar 3 a day blood sugar diagnostic As directed check the blood sugar 3 times a day blood-glucose meter (Spongecelluch Ultra2 Meter kit) As directed check the blood sugar once a day cadexomer iodine 0.9% (Iodosorb) 40 grams topical ONCE carvedilol 25 mg PO BID compress.stocking,knee,reg,med As directed 20-30 mm HG [DIABETIC SHOE As directed] docusate sodium 100 mg PO BID duloxetine 60 mg PO DAILY 90 days ezetimibe (Zetia) 10 mg PO DAILY fenofibrate 160 mg PO DAILY 90 days finasteride 5 mg PO DAILY flash glucose scanning reader (FreeStyle Anival 14 Day [place]) 4 times per day, patient on insulin flash glucose sensor (FreeStyle Anival 14 Day Sensor kit) 4 times per day patient on insulin gabapentin 300 mg PO TID gabapentin 600 mg PO TID 30 days hydrocortisone 2.5% (Proctosol HC) 1 appl [place] BID-QID PRN insulin glargine (Lantus Solostar U-100 Insulin) 25 units (0.25 mL) subcut QPM insulin lispro 1 sliding scale dose See Protocol subcut QIDACHS [[id number] SOCK, multiple ply ABove knee ([place]) As directed] lancets As directed check the blood sugar TID lancets As directed check the blood sugarTID lidocaine 5% 2 patches topical Q12H 30 days lisinopril 10 mg PO DAILY lorazepam 0.5 mg PO BEDTIME PRN metformin 500 mg PO BID nicotine (polacrilex) 2 mg buccal Q2H nitroglycerin 0.4 mg sublingual Q5M PRN oxycodone 10 mg PO TID PRN 30 days Oxygen Home Use 2 LPM as needed- [employer]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, diabetic (1st Tier Unifine Pentips) 3 to 4 times per day pioglitazone 30 mg PO DAILY 90 days potassium chloride ER 40 mEq (2 x 20 mEq) PO DAILY potassium chloride ER 20 mEq PO BID [PULLUPS XL As directed] quetiapine 25 mg PO BEDTIME rivaroxaban (Xarelto) 2.5 mg PO BID [ELEPHANT TAMER SLEEVE L As directed] sulfamethoxazole-trimethoprim 800-160 mg (Bactrim DS) 1 tab PO BID 14 days terazosin 5 mg PO BEDTIME 30 days tizanidine 4 mg PO Q8H Tobacco use date assessed: 03/05/23 Dental Screening Dental Screen Date: 04/17/23 Did you have a dental visit in the last 12 months?: No Did you have a dental problem in the last 6 months where you did not have access to dental care?: No Was dental information given to patient?: No HPI Slurred speech HPI Details 62-year-old male smoker with multiple medical problems diabetes mellitus COPD hypercholesterolemia hypertension coronary artery disease peripheral vascular disease history of CVA with a history of ski me of the right lower extremity with an 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 Review of the notes follows up with urology recently has urinary urgency frequency and pain on urination concern about prostatitis patient has been advised on ultrasound of the kidneys was started on Bactrim. With a history of smoking patient is scheduled to have CT scan 03/21/2023 at 15:00. Patient also has COPD and be followed up by Pulmonary breathing is compromised due to the morbid obesity has features of obstructive sleep apnea but cannot tolerate CPAP has nocturnal hypoxemia also uses oxygen at. Night Patient has dysphagia and had barium swallow done Limited study demonstrating some trace laryngeal penetration without tracheal aspiration. Spontaneous cough reflex was elicited with the penetration. 2. Small sliding hiatal hernia. Patient was beeing seen by PT to train patient to walk using L leg prosthesis but noted to have slurring of speech. . started last week had panic attack states could not hold anything - sleed off chair - states could not talk - emt called but decline ER visit now . complains of L facial numbness with weakness of the L arm. PAtient is on xarelto [facility] Medical History Recurrent falls Hospital discharge follow-up Ankle pain, left Left leg weakness UTI (urinary tract infection) Screening for prostate cancer Elevated WBCs Dizziness Preoperative cardiovascular examination LUQ abdominal pain Cough Colon cancer screening Leg cramps Restrictive lung disease Mass of left paraspinous region Obstructive sleep apnea Obesity (BMI 30-39.9) Osteoarthritis, hip, bilateral COPD (chronic obstructive pulmonary disease) History of CVA (cerebrovascular accident) BPH (benign prostatic hyperplasia) Avascular necrosis of bone of right hip Type 2 diabetes mellitus with hyperglycemia Coronary artery disease Peripheral vascular disease Hypercholesterolemia Alcohol abuse Urinary incontinence Anxiety and depression Hypertension Surgical History History of surgery History of vascular surgery History of tonsillectomy Family History Father Lung cancer COPD (chronic obstructive pulmonary disease) Heart disease Hypertension Mother COPD (chronic obstructive pulmonary disease) Diabetes Hypertension Breast cancer Paternal Uncle Prostate cancer Sister Heart disease Social History Housing: House Alcohol intake: never Patient Tobacco Use Status: Former Tobacco user Tobacco use type: Cigarette Years Smoked: stopped smoking 12/2022 e-Cigarette/Vaping Use: Never Used Second Hand Smoke Exposure: No Substance Use Type: Marijuana service: No Current occupational status: disabled Cognitive needs: Yes (cane, wheel chair ) Hearing needs: Yes Vision needs: Yes Questionnaire PHQ-9 Over the last 2 weeks, how often have you been bothered by any of the following problems? 1. Little interest or pleasure in doing things: more than half the days 2. Feeling down, depressed, or hopeless: nearly every day 3. Trouble falling or staying asleep, or sleeping too much: nearly every day 4. Feeling tired or having little energy: nearly every day 5. Poor appetite or overeating: more than half the days 6. Feeling bad about yourself - or that you are a failure or have let yourself or your family down: nearly every day 7. Trouble concentrating on things, such as reading the newspaper or watching television: nearly every day 8. Moving or speaking so slowly that other people could have noticed. Or the opposite - being so fidgety or restless that you have been moving around a lot more than usual: nearly every day 9. Thoughts that you would be better off or of hurting yourself in some way: not at all Total score: 22 Depression Screening Interpretation: Positive Depression Screening Follow-up: Declines treatment Source: Developed by Drs. Lio Izaguirre, Taylor Beck, Kiko Chaparro and colleagues, with an educational anh from [employer]. Thrive Questionnaire Date Thrive assessed: 10/18/22 AUDIT C Alcohol Use Questionnaire (AUDIT-C) 1. How often do you have a drink containing alcohol?: Never 3. How often do you have six or more drinks on one occasion?: Never Total Score: 0 Score Reviewed/Action Taken: No FRANCESCA-7 AMB Questionnaire FRANCESCA-7 Date FRANCESCA - 7 assessed: 10/18/22 Source: Developed by Drs. Lio Izaguirre, Taylor Beck, Kiko Chaparro and colleagues, with an educational anh from [employer]. Physical exam (Primary Care) Vital Signs: Last Vital Signs Pulse 54 04/17/23 10:51 BP 102/52 L 04/17/23 10:51 Pulse Ox 89 L 04/17/23 10:51 Oxygen Delivery Method Room Air 04/17/23 10:51 Tobacco/Smoking Status: Tobacco use Status Tobacco use date assessed 03/05/23 04/17/23 10:58 Patient Tobacco Use Status Former Tobacco user 04/17/23 10:58 Tobacco use type Cigarette 04/17/23 10:58 e-Cigarette/Vaping Use Never Used 04/17/23 10:58 PHQ-9: PHQ-9 Score PHQ-9: Total score 22 04/17/23 11:10 Depression Screening Interpretation: Positive Depression Screening Follow-up: Declines treatment Thrive Assessment: Date of Thrive Assessment Date Thrive assessed 10/18/22 04/17/23 10:58 Const General: alert; No acute distress Eyes Conjunctivae: conjunctivae normal Resp Auscultation: clear to auscultation bilaterally Cardio Rate: regular rate Rhythm: regular rhythm GI Inspection: Yes normal to inspection Extrem Other: Patient sitting on the wheelchair left above the knee amputation with sensory problem of left side of the face with mild weakness of the left upper extremity 4/5 while all the other extremities are 5/5. Smile with left mild asymmetry on the nasal labial fold Results AMB Hemoglobin A1c AMB Hemoglobin A1c 6.1 % Last Edit by Amanda Cartagena CMA on 04/17/23 11:12 Results Reviewed Results Reviewed: Laboratory Last Values Hgb A1c (Clinic) 6.1 % (4.0-6.0) H 04/17/23 11:10 Assessment and Plan Assessment & Plan (1) Hypertension: Code(s): I10 - Essential (primary) hypertension Qualifiers: Hypertension type: essential hypertension Qualified Code(s): I10 - Essential (primary) hypertension Plan: Continue with blood pressure medication. Decrease salt intake and exercise because of blood pressure being on the hypotensive side will decrease amlodipine to 5 mg once a day (2) Hypercholesterolemia: Code(s): E78.00 - Pure hypercholesterolemia, unspecified Plan: Avoid fried foods, chicken skin, eggs, butter margarine, pastries and meat. Be it pork or beef they have a lot of cholesterol LDL goal of less than 70. Last blood work was in July 2019 (3) Coronary artery disease: Comment: RCA stent in 2012 Dr. Dodson Code(s): I25.10 - Atherosclerotic heart disease of [place] coronary artery without angina pectoris Qualifiers: Coronary Disease-Associated Artery/Lesion type: [place] artery [place] vs. transplanted heart: [place] heart Associated angina: without angina Qualified Code(s): I25.10 - Atherosclerotic heart disease of [place] coronary artery without angina pectoris Plan: Control the cholesterol, weight, blood pressure, diabetes (4) Type 2 diabetes mellitus with hyperglycemia: Code(s): E11.65 - Type 2 diabetes mellitus with hyperglycemia Qualifiers: Diabetes mellitus watermelon inspector insulin use: without fdc use Qualified Code(s): E11.65 - Type 2 diabetes mellitus with hyperglycemia Plan: Decrease the amount of carbohydrate intake, pasta, bread, rice and potatoes are all sugar and that is aside from all the sweet stuff, remember that fruits are good but they are Sweet also. Patient is advised not to drink any soda. Hemoglobin A1c goal of less than 6.5. (5) Obesity (BMI 30-39.9): Comment: HE DOES HAVE MODERATELY SEVERE OBESITY. MAINLY IT IS DUE TO BODY HABITUS. HE IS SHORT STATURED WEIGHT REMAINS UP BECAUSE HE IS NOT ABLE TO DO MUCH WALKING, HOPEFULLY ONCE HE LEARNS TO USE THE PROSTHESIS, AND STARTS WALKING, HE WILL BE IS ABLE TO LOSE SOME WEIGHT. Code(s): E66.9 - Obesity, unspecified Plan: Diet and exercise (6) COPD (chronic obstructive pulmonary disease): Comment: THE OBSTRUCTIVE COMPONENT IS VERY MINIMAL, HE HAS NEBULIZER DEVICE AT HOME. ADVISED TO USE ALBUTEROL SOLUTION IN THE NEBULIZER B.I.D, AND MAY USE Q 6 HOURS P.R.N.. HE MAY ALSO USE OXYGEN 2 L/MINUTE FOR SHORT PERIODS IF HE FEELS SHORT OF BREATH DURING THE DAYTIME. Code(s): J44.9 - Chronic obstructive pulmonary disease, unspecified Qualifiers: COPD type: emphysema Emphysema type: unspecified Qualified Code(s): J43.9 - Emphysema, unspecified Plan: Continue with inhaler as needed (7) History of CVA (cerebrovascular accident): Comment: Left-sided weakness Code(s): Z86.73 - Personal history of transient ischemic attack (TIA), and cerebral infarction without residual deficits Plan: Patient is on aspirin already and on anticoagulation with Xarelto will refer to Neurology (8) Tobacco abuse: Comment: Patient stopped mid December 2022 Code(s): Z72.0 - Tobacco use Plan: Patient states has stopped smoking already and using the gum (9) Ischemia of right lower extremity: Comment: October 2022 with critical limb ischemia of the right femoral and popliteal artery status post bypass, revascularization and fasciotomy on the right lower extremity now with concerns about early rhabdomyolysis patient underwent right axillary to femoral bypass thrombo embolectomy of the right superficial femoral artery and 4 compartment fasciotomy of the right leg, Code(s): I99.8 - Other disorder of circulatory system Plan: Control the cholesterol, weight, blood pressure, diabetes (10) Above knee amputation of left lower extremity: Comment: Left 04/15/2022 Dr. Boone Code(s): S78.112A - Complete traumatic amputation at level between left hip and knee, initial encounter Plan: Patient has the prosthesis right now for the left lower extremity (11) Slurring of speech: Code(s): R47.81 - Slurred speech Plan: Will worked up for CVA this has started 1 week ago patient is on aspirin and Xarelto will check blood work to control to prevent. Orders: Orders AMB Hemoglobin A1c Today Z13.9 - Encounter for screening, unspecified CT head/brain wo IV con Today R47.81 - Slurred speech Comprehensive Met. Panel Today R47.81 - Slurred speech Complete Blood Count Auto Diff Today R47.81 - Slurred speech Free T4 (Free Thyroxine) Today R47.81 - Slurred speech Thyroid Stimulating Hormone Today R47.81 - Slurred speech Vitamin B12 and Folate Today R47.81 - Slurred speech Referrals Neurology Referral R47.81 - Slurred speech Medications: New aspirin (Adult Low Dose Aspirin) 81 mg PO DAILY 30 tabs 0RF Z86.73 - Personal history of transient ischemic attack (TIA), and cerebral infarction without residual deficits Changed From amlodipine 10 mg PO DAILY 90 tabs 1RF I10 - Essential (primary) hypertension To amlodipine 5 mg PO DAILY 30 tabs 5RF I10 - Essential (primary) hypertension Coding Level of Care Code Est Pt Level 4 (88946) Diagnoses Essential hypertension I10 Hypertension type: essential hypertension Hypercholesterolemia E78.00 Coronary artery disease involving [place] coronary artery of [place] heart without angina pectoris I25.10 Coronary Disease-Associated Artery/Lesion type: [place] artery [place] vs. transplanted heart: [place] heart Associated angina: without angina Type 2 diabetes mellitus with hyperglycemia, without long-term current use of insulin E11.65 Diabetes mellitus watermelon inspector insulin use: without fdc use Obesity (BMI 30-39.9) E66.9 Pulmonary emphysema, unspecified emphysema type J43.9 COPD type: emphysema Emphysema type: unspecified History of CVA (cerebrovascular accident) Z86.73 Tobacco abuse Z72.0 Ischemia of right lower extremity I99.8 Above knee amputation of left lower extremity S78.112A Slurring of speech R47.81 Additional Codes PHQ-9 - 99853 - PHQ-9 Billing: ([id number])
== END 2023-04-17 11:32 | disposition home or self-care (01) ==
PROVIDERS: PCP Internal Medicine; Visit Provider Internal Medicine
DX: E11.65 Type 2 diabetes mellitus with hyperglycemia (principal); J43.9 Emphysema, unspecified; S78.112A Complete traumatic amputation at level between left hip and knee, initial encounter; Z89.612 Acquired absence of left leg above knee; I10 Essential (primary) hypertension; E78.00 Pure hypercholesterolemia, unspecified; I25.10 Atherosclerotic heart disease of native coronary artery without angina pectoris; I99.8 Other disorder of circulatory system; E66.9 Obesity, unspecified; Z86.73 Personal history of transient ischemic attack (TIA), and cerebral infarction without residual deficits; Z72.0 Tobacco use; R47.81 Slurred speech
CPT/HCPCS: 83036; 99214

== ENCOUNTER 2023-04-17 14:19 | Outpatient (REF) | payer MEDICARE, MEDICAID, SELFPAY ==
--- NOTE | ~2023-04-17 | CT_ITS ---
EXAMINATION: CT HEAD WITHOUT CONTRAST CLINICAL INFORMATION: Slurred speech. COMPARISON: 05/05/2022 TECHNIQUE: Contiguous axial imaging was performed from the skull base to vertex without intravenous administration of contrast. This CT examination was performed using dose optimization techniques as appropriate, variously including the following: *Automated exposure control *Adjustment of mA and/or kV according to patient size (this includes techniques or standardized protocols for targeted exams where dose is matched to indication/reason for exam; i.e. extremities or head) *Use of iterative reconstruction technique DLP: 884 mGy-cm FINDINGS: The lateral, third and fourth ventricles are normally outlined. The cortical sulci and basal cisterns are normally outlined as well. There is an old right frontal/parietal infarct. There is an old left thalamic lacunar infarct. There is no acute territorial defect, hemorrhage or midline shift. The extra-axial spaces are unremarkable. Calvarium: Intact. Maxillofacial sinuses and mastoids: The maxillofacial sinuses are clear. The mastoids are under aerated/opacified. CT/CT head/brain wo IV con IMPRESSION: Old right frontoparietal infarct. Old left thalamic lacunar infarct. No acute intracranial abnormality.
[2023-04-17 14:29] LABS: MANUAL DIFF FLAG NO
[2023-04-17 15:08] LABS: Basophils Absolute Auto 0.1 X10*3/uL (0.0-0.2); Basophils Percent Auto 0.6 % (0-2); Eosinophils Absolute Auto 0.2 X10*3/uL (0.0-0.4); Eosinophils Percent Auto 2.4 % (0-4); Hematocrit 37.9 % (42.0-52.0); Hemoglobin 11.9 g/dl (14.0-18.0); Imm Gran Abs Auto 0.03 X10*3/uL (0.00-0.03); Imm Gran Pct Auto 0.4 % (0.0-0.4); Lymphocytes Absolute Auto 1.9 X10*3/uL (1.2-4.9); Lymphocytes Percent Auto 23.5 % (20-40); Mean Corpuscular HGB Conc 31.4 g/dl (31.0-36.0); Mean Corpuscular Hemoglobin 28.2 pg (27.0-33.0); Mean Corpuscular Volume 89.8 fL (80.0-98.0); Mean Platelet Volume 10.1 fL (9.4-12.4); Monocytes Absolute Auto 0.5 X10*3/uL (0.1-1.2); Monocytes Percent Auto 5.9 % (2-11); Neutrophils Absolute Auto 5.6 x10*3/uL (2.0-8.3); Neutrophils Percent Auto 67.2 % (45-73); Platelet Count 250 X10*3/uL (160-400); Red Blood Count 4.22 X10*6/uL (4.60-5.80); Red Cell Distribution Width 16.4 % (11.0-16.0); White Blood Count 8.3 X10*3/uL (4.8-10.8)
[2023-04-17 15:41] LABS: Alanine Aminotransferase 19 U/L (0-40); Albumin Level 4.2 g/dL (3.5-5.0); Alkaline Phosphatase 65 U/L (39-117); Anion Gap 16 (12-20); Aspartate Amino Transferase 18 U/L (5-37); Bilirubin Total 0.2 mg/dL (0.0-1.0); Blood Urea Nitrogen 19 mg/dL (9-16); Calcium 9.4 mg/dL (8.4-10.2); Carbon Dioxide 27 mmol/L (22-29); Chloride 101 mmol/L (96-108); Estimated Glomerular Filt Rate 43; Glucose Random 90 mg/dL (60-115); Potassium 4.4 mmol/L (3.3-5.1); Sodium 140 mmol/L (135-145); Total Protein 6.7 g/dL (6.5-8.0)
[2023-04-17 15:58] LABS: Free T4 (Free Thyroxine) 1.06 ng/dL (0.71-1.85); Thyroid Stimulating Hormone 0.47 uIU/mL (0.32-4.0)
[2023-04-17 16:12] LABS: Folate > 20.0 ng/mL (> or = 4.0); Vitamin B12 919 pg/mL (200-900)
== END 2023-04-17 14:20 | disposition home or self-care (01) ==
LOC: HO.CT 14:19
PROVIDERS: PCP Internal Medicine; Visit Provider Internal Medicine
DX: R47.81 Slurred speech (principal)
CPT/HCPCS: 36415; 70450; 80053; 82607; 82746; 84439; 84443; 85025

== ENCOUNTER 2023-05-02 10:03 | Outpatient (AMB) | payer MEDICARE, SELFPAY ==
[2023-05-02 10:08] VITALS: BP 128/68; PULSE 64; O2SAT 97
--- NOTE | 2023-05-02 10:08 | MHC.PC.OV ---
Vital Signs 05/02/23 10:08 Height 5 ft BMI Reason not done Patient refused/unable BP 128/68 Blood Pressure Location Lt brachial Position Sitting Pulse 64 Pulse Source Pulse Oximeter Pulse Oximetry (%) 97 Oxygen Delivery Method Room Air Intake Visit Reasons: 3 month f/u Allergies ciprofloxacin [From CIPRO] Allergy (Severe, Verified 05/02/23 10:09) SWELLING, ITCHING bee pollen [BEE STINGS] Allergy (Unknown, Verified 05/02/23 10:09) HIVES Penicillins Allergy (Unknown, Verified 05/02/23 10:09) UNKNOWN insulin lispro [From Humalog U-100 Insulin] Adverse Reaction (Intermediate, Verified 05/02/23 10:09) Swelling Tobacco use date assessed: 03/05/23 Dental Screening Dental Screen Date: 05/02/23 Did you have a dental visit in the last 12 months?: No Did you have a dental problem in the last 6 months where you did not have access to dental care?: No Was dental information given to patient?: No HPI 3 month f/u HPI Details 62-year-old obese male Smoker with diabetes mellitus coronary artery disease hypertension hypercholesterolemia COPD history of CVA with left above the knee amputation coming in for follow-up. Last seen in 04/17/2023. Up-to-date with Cologuard test. Patient had a CT of the brain showing no acute intracranial abnormality but old right frontoparietal infarct old left thalamic lacunar infarct. Noted on the blood work showing renal insufficiency. Patient is here for follow-up PAtient states was trying to reach down and fell hitting his head with R temporal laceration , otherwise need glucerna refill and pull ups too big. [facility] Medical History Recurrent falls Hospital discharge follow-up Ankle pain, left Left leg weakness UTI (urinary tract infection) Screening for prostate cancer Elevated WBCs Dizziness Preoperative cardiovascular examination LUQ abdominal pain Cough Colon cancer screening Leg cramps Restrictive lung disease Mass of left paraspinous region Obstructive sleep apnea Obesity (BMI 30-39.9) Osteoarthritis, hip, bilateral COPD (chronic obstructive pulmonary disease) History of CVA (cerebrovascular accident) BPH (benign prostatic hyperplasia) Avascular necrosis of bone of right hip Type 2 diabetes mellitus with hyperglycemia Coronary artery disease Peripheral vascular disease Hypercholesterolemia Alcohol abuse Urinary incontinence Anxiety and depression Hypertension Surgical History History of surgery History of vascular surgery History of tonsillectomy Family History Father Lung cancer COPD (chronic obstructive pulmonary disease) Heart disease Hypertension Mother COPD (chronic obstructive pulmonary disease) Diabetes Hypertension Breast cancer Paternal Uncle Prostate cancer Sister Heart disease Social History Housing: House Alcohol intake: never Patient Tobacco Use Status: Former Tobacco user Tobacco use type: Cigarette Years Smoked: stopped smoking 12/2022 e-Cigarette/Vaping Use: Never Used Second Hand Smoke Exposure: No Substance Use Type: Marijuana service: No Current occupational status: disabled Cognitive needs: Yes (cane, wheel chair ) Hearing needs: Yes Vision needs: Yes Questionnaire PHQ-9 Over the last 2 weeks, how often have you been bothered by any of the following problems? 1. Little interest or pleasure in doing things: more than half the days 2. Feeling down, depressed, or hopeless: nearly every day 3. Trouble falling or staying asleep, or sleeping too much: nearly every day 4. Feeling tired or having little energy: nearly every day 5. Poor appetite or overeating: more than half the days 6. Feeling bad about yourself - or that you are a failure or have let yourself or your family down: nearly every day 7. Trouble concentrating on things, such as reading the newspaper or watching television: nearly every day 8. Moving or speaking so slowly that other people could have noticed. Or the opposite - being so fidgety or restless that you have been moving around a lot more than usual: nearly every day 9. Thoughts that you would be better off or of hurting yourself in some way: not at all Total score: 22 Depression Screening Interpretation: Positive Depression Screening Follow-up: Declines treatment Depression Screening Done: Yes Source: Developed by Drs. Lio Izaguirre, Taylor Beck, Kiko Chaparro and colleagues, with an educational anh from [employer]. Thrive Questionnaire Date Thrive assessed: 10/18/22 AUDIT C Alcohol Use Questionnaire (AUDIT-C) 1. How often do you have a drink containing alcohol?: Never 3. How often do you have six or more drinks on one occasion?: Never Total Score: 0 Score Reviewed/Action Taken: No FRANCESCA-7 AMB Questionnaire FRANCESCA-7 Date FRANCESCA - 7 assessed: 10/18/22 Source: Developed by Drs. Lio Izaguirre, Taylor Beck, Kiko Chaparro and colleagues, with an educational anh from [employer]. Physical exam (Primary Care) Vital Signs: Last Vital Signs Pulse 64 05/02/23 10:08 BP 128/68 05/02/23 10:08 Pulse Ox 97 05/02/23 10:08 Oxygen Delivery Method Room Air 05/02/23 10:08 Tobacco/Smoking Status: Tobacco use Status Tobacco use date assessed 03/05/23 05/02/23 10:15 Patient Tobacco Use Status Former Tobacco user 05/02/23 10:15 Tobacco use type Cigarette 05/02/23 10:15 e-Cigarette/Vaping Use Never Used 05/02/23 10:15 PHQ-9: PHQ-9 Score PHQ-9: Total score 22 05/02/23 10:26 Depression Screening Interpretation: Positive Depression Screening Follow-up: Declines treatment Thrive Assessment: Date of Thrive Assessment Date Thrive assessed 10/18/22 05/02/23 10:15 Const General: alert; No acute distress Eyes Conjunctivae: conjunctivae normal Resp Auscultation: clear to auscultation bilaterally Cardio Rate: regular rate Rhythm: regular rhythm GI Inspection: Yes normal to inspection Extrem Other: L above the knee amputation General: Yes edema Office Procedures Flu Questionnaire Does the patient have a severe egg allergy?: No Does the patient have severe life threatening allergies?: No Does the patient have a fever or illness today?: No Has the patient ever had Guillain-[place] Syndrome?: No Has the patient ever had any past reaction to a flu shot?: No Immunizations flu vacc [id number] 6mos up(PF) 60 mcg(15 mcgx4)/0.5 mL IM syringe Performing Provider: Pedro Holliday MD [facility] Administered by: Amanda Cartagena CMA on 05/02/23 10:23 Dose Route Admin Location Dispensed Lot Number Expiration Date NDC Acid Strength Inspector 0.5 mL IM Left Deltoid 0.5 mL [id number] 01/18/24 13134-241-99 [employer] VIS Given Date VIS Provided VIS Publication Date 05/02/23 Single Vaccine 21 Eligibility Eligibility Date Funding Source Not [facility] Eligible 05/02/23 Private Assessment and Plan Assessment & Plan (1) Renal insufficiency: Code(s): N28.9 - Disorder of kidney and ureter, unspecified Plan: Avoid NSAIDs, keep well hydrated will continue to follow-up. remindced repeat test (2) Tobacco abuse: Comment: Patient stopped mid December 2022 Code(s): Z72.0 - Tobacco use Plan: Patient has done good with stopping! (3) History of CVA (cerebrovascular accident): Comment: Left-sided weakness Code(s): Z86.73 - Personal history of transient ischemic attack (TIA), and cerebral infarction without residual deficits Plan: Control the cholesterol, weight, blood pressure, diabetes (4) Peripheral vascular disease: Comment: Left axillofemoral bypass and guillotine at knee amputation left 04/09/2022 Dr. Ventura Code(s): I73.9 - Peripheral vascular disease, unspecified Plan: When sitting down elevate the legs, exercise, and support stockings (5) Above knee amputation of left lower extremity: Comment: Left 04/15/2022 Dr. Boone Code(s): S78.112A - Complete traumatic amputation at level between left hip and knee, initial encounter (6) Atherosclerotic cardiovascular disease: Code(s): I25.10 - Atherosclerotic heart disease of [place] coronary artery without angina pectoris Plan: Control the cholesterol, weight, blood pressure, diabetes (7) Obstructive sleep apnea: Comment: HAS CLINICAL FEATURES OF OBSTRUCTIVE SLEEP APNEA, HE IS NOT ABLE TO TOLERATE CPAP. AT THIS TIME , HE DOES NOT HAVE SYMPTOMS OF OBSTRUCTIVE SLEEP APNEA AT NIGHT, BUT DOES HAVE NOCTURNAL HYPOXEMIA. USES O2 2 L/MT AT NIGHT . Code(s): G47.33 - Obstructive sleep apnea (adult) (pediatric) Plan: Patient not able to tolerate CPAP (8) Obesity (BMI 30-39.9): Comment: HE DOES HAVE MODERATELY SEVERE OBESITY. MAINLY IT IS DUE TO BODY HABITUS. HE IS SHORT STATURED WEIGHT REMAINS UP BECAUSE HE IS NOT ABLE TO DO MUCH WALKING, HOPEFULLY ONCE HE LEARNS TO USE THE PROSTHESIS, AND STARTS WALKING, HE WILL BE IS ABLE TO LOSE SOME WEIGHT. 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 Hemoglobin A1c goal of less than 6.5 (10) COPD (chronic obstructive pulmonary disease): Comment: THE OBSTRUCTIVE COMPONENT IS VERY MINIMAL, HE HAS NEBULIZER DEVICE AT HOME. ADVISED TO USE ALBUTEROL SOLUTION IN THE NEBULIZER B.I.D, AND MAY USE Q 6 HOURS P.R.N.. HE MAY ALSO USE OXYGEN 2 L/MINUTE FOR SHORT PERIODS IF HE FEELS SHORT OF BREATH DURING THE DAYTIME. Code(s): J44.9 - Chronic obstructive pulmonary disease, unspecified Qualifiers: COPD type: emphysema Emphysema type: unspecified Qualified Code(s): J43.9 - Emphysema, unspecified Plan: Continue with inhaler summation (11) Hypertension: Code(s): I10 - Essential (primary) hypertension Qualifiers: Hypertension type: essential hypertension Qualified Code(s): I10 - Essential (primary) hypertension Plan: Continue with blood pressure medication. Decrease salt intake and exercise (12) Hypercholesterolemia: Code(s): E78.00 - Pure hypercholesterolemia, unspecified Plan: Avoid fried foods, chicken skin, eggs, butter margarine, pastries and meat. Be it pork or beef they have a lot of cholesterol LDL goal of less than 70 and triglyceride of less than 150 Orders: Orders Influenza [id number] Immunization Today Z23 - Encounter for immunization Complete Blood Count Auto Diff 3 Months E11. - Type 2 diabetes mellitus with hyperglycemia Thyroid Stimulating Hormone 3 Months . - Type 2 diabetes mellitus with hyperglycemia Vitamin B12 and Folate 3 Months . - Type 2 diabetes mellitus with hyperglycemia Lipid Panel 3 Months E11.65 - Type 2 diabetes mellitus with hyperglycemia, E78.00 - Pure hypercholesterolemia, unspecified Creatinine Urine 3 Months . - Type 2 diabetes mellitus with hyperglycemia Prostate Specific Antigen Scr 3 Months . - Type 2 diabetes mellitus with hyperglycemia Comprehensive Met. Panel 3 Months .65 - Type 2 diabetes mellitus with hyperglycemia Free T4 (Free Thyroxine) 3 Months E11.65 - Type 2 diabetes mellitus with hyperglycemia Microalbumin, Random (w Creat) 3 Months E11.65 - Type 2 diabetes mellitus with hyperglycemia Medications: Refilled nut.tx.gluc.intol,lac-free,soy (Glucerna oral liquid) 1 ea PO .QD 90 ea 3RF 90 days E11.65 - Type 2 diabetes mellitus with hyperglycemia [PULLUPS XL] As directed 60 ea 11RF R35.0 - Frequency of micturition, Z86.73 - Personal history of transient ischemic attack (TIA), and cerebral infarction without residual deficits Coding Level of Care Code Est Pt Level 4 (63735) Diagnoses Renal insufficiency N28.9 Tobacco abuse Z72.0 History of CVA (cerebrovascular accident) Z86.73 Peripheral vascular disease I73.9 Above knee amputation of left lower extremity S78.112A Atherosclerotic cardiovascular disease I25.10 Obstructive sleep apnea G47.33 Obesity (BMI 30-39.9) E66.9 Type 2 diabetes mellitus with hyperglycemia, without long-term current use of insulin E11.65 Diabetes mellitus senior living insulin use: without senior living use Pulmonary emphysema, unspecified emphysema type J43.9 COPD type: emphysema Emphysema type: unspecified Essential hypertension I10 Hypertension type: essential hypertension Hypercholesterolemia E78.00 Additional Codes PHQ-9 - 86269 - PHQ-9 Billing: ([id number])
== END 2023-05-02 11:39 | disposition home or self-care (01) ==
PROVIDERS: PCP Internal Medicine; Visit Provider Internal Medicine
DX: Z23 Encounter for immunization (principal)
CPT/HCPCS: 90471; 90686; 99214

== ENCOUNTER 2023-05-06 12:29 | Outpatient (REF) | payer MEDICARE, MEDICAID, SELFPAY ==
--- NOTE | ~2023-05-06 | US_ITS ---
EXAMINATION: US RETROPERITONEAL COMPLETE (RENAL) CLINICAL INFORMATION: Prostatitis, UTI symptoms. COMPARISON: US pelvis limited (bladder) 08/15/2022. CTA abdomen, pelvis and lower extremity runoff with contrast 04/04/2022. Ultrasound abdomen complete 10/16/2021. X-ray abdomen KUB 05/21/2017. TECHNIQUE: Real-time imaging of the kidneys and bladder. Technically extremely limited study secondary to breathing and body habitus. FINDINGS: RIGHT KIDNEY: 10.9 x 5.9 x 5.8 cm (SAG x AP x TRV). No hydronephrosis. No renal calculi. Limited visualization. Right renal mid to lower pole 1.8 x 1.8 x 1.9 cm complex cyst with septations and calcifications previously measured 2.2 x 2.0 x 2.1 cm on 10/16/2021 and appears increased in complexity with focal lobular peripheral calcification measuring 0.4 cm and thickening of septations. LEFT KIDNEY: 10.9 x 4.7 x 4.4 cm (SAG x AP x TRV). No hydronephrosis. No renal calculi. Limited visualization. 0.8 x 0.6 x 0.9 cm cyst with benign features. There is no indication for follow-up imaging. BLADDER: Partially distended, limiting evaluation. Mild irregularity and trabeculation of the bladder wall as well as bladder wall thickness of 0.5 cm are difficult to fully evaluate due to suboptimal distention. Bilateral ureteral jets are demonstrated. Prevoid bladder volume is 141.3 mL. Postvoid bladder volume is 23.4 mL. ADDITIONAL FINDINGS: Prostate volume 34.0 mL. US/US retroperitoneal comp IMPRESSION: 1. Right renal mid to lower pole 1.9 cm complex cyst appears increased in complexity with focal lobular peripheral calcification measuring 0.4 cm and thickening of septations. Limited visualization. CT scan recommended for further evaluation. 2. No hydronephrosis. No renal calculi. 3. Enlarged prostate. 4. Mild irregularity and trabeculation of the bladder wall as well as bladder wall thickness of 0.5 cm are difficult to fully evaluate due to suboptimal distention of the bladder.
== END 2023-05-06 12:30 | disposition home or self-care (01) ==
LOC: HO.US 12:29
PROVIDERS: PCP Internal Medicine; Visit Provider Nurse Practitioner Family
DX: R39.9 Unspecified symptoms and signs involving the genitourinary system (principal)
CPT/HCPCS: 76770

== ENCOUNTER 2023-05-19 08:52 | Outpatient (AMB) | payer MEDICARE, MEDICAID, SELFPAY ==
--- NOTE | 2023-05-19 08:59 | A.OFFVIS_ITS ---
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: No Accompanied by: Self / Same As Patient Allergies ciprofloxacin [From CIPRO] Allergy (Severe, Verified 05/19/23 10:06) SWELLING, ITCHING bee pollen [BEE STINGS] Allergy (Unknown, Verified 05/19/23 10:06) HIVES Penicillins Allergy (Unknown, Verified 05/19/23 10:06) UNKNOWN insulin lispro [From Humalog U-100 Insulin] Adverse Reaction (Intermediate, Verified 05/19/23 10:06) Swelling Medication List - Last Reconciled 05/19/23 by QUYEN Silverio albuterol sulfate 90 mcg/actuation 2 puffs inhalation Q4-6H PRN albuterol sulfate 2.5 mg (3 mL) inhalation QID PRN amlodipine 5 mg PO DAILY aspirin (Adult Low Dose Aspirin) 81 mg PO DAILY atorvastatin 80 mg PO QPM 90 days blood pressure monitor As directed blood sugar diagnostic As directed check the blood sugar 3 a day blood sugar diagnostic As directed check the blood sugar 3 times a day blood-glucose meter (OneTouch Ultra2 Meter kit) As directed check the blood sugar once a day cadexomer iodine 0.9% (Iodosorb) 40 grams topical ONCE carvedilol 25 mg PO BID compress.stocking,knee,reg,med As directed 20-30 mm HG [DIABETIC SHOE As directed] docusate sodium 100 mg PO BID duloxetine 60 mg PO DAILY 90 days ezetimibe (Zetia) 10 mg PO DAILY fenofibrate 160 mg PO DAILY 90 days finasteride 5 mg PO DAILY flash glucose scanning reader (FireFly LED Lighting Anival 14 Day [place]) 4 times per day, patient on insulin flash glucose sensor (Desktoneyle Anival 14 Day Sensor kit) 4 times per day patient on insulin gabapentin 300 mg PO TID gabapentin 600 mg PO TID 30 days hydrocortisone 2.5% (Proctosol HC) 1 appl [place] BID-QID PRN insulin glargine (Lantus Solostar U-100 Insulin) 25 units (0.25 mL) subcut QPM insulin lispro 1 sliding scale dose See Protocol subcut QIDACHS [[id number] SOCK, multiple ply ABove knee (AK) As directed] lancets As directed check the blood sugar TID lancets As directed check the blood sugarTID lidocaine 5% 2 patches topical Q12H 30 days lisinopril 10 mg PO DAILY lorazepam 0.5 mg PO BEDTIME PRN metformin 500 mg PO BID nicotine (polacrilex) 2 mg buccal Q2H nitrofurantoin macrocrystal 100 mg PO DAILY 14 days nitroglycerin 0.4 mg sublingual Q5M PRN nut.tx.gluc.intol,lac-free,soy (Glucerna oral liquid) 1 ea PO .QD 90 days oxycodone 10 mg PO TID PRN 30 days Oxygen Home Use 2 LPM as needed- [employer]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, diabetic (1st Tier Unifine Pentips) 3 to 4 times per day pioglitazone 30 mg PO DAILY 90 days potassium chloride ER 20 mEq PO BID [PULLUPS As directed] quetiapine 25 mg PO BEDTIME rivaroxaban (Xarelto) 2.5 mg PO BID [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 Holliday. He has a past medical history of recurrent falls, restrictive lung disease, LUIS ALBERTO, obesity, osteoarthritis, COPD, history of CVA, BPH, type 2 diabetes, coronary artery disease, PVD, hypercholesteremia, alcohol abuse, anxiety, depression, and hypertension. He presents to the office today for a follow up of his lower urinary tract symptoms. In discussion with the patient today he reports to be doing and feeling well. He reports feeling as if he might have another urinary tract infection due to increased episodes of urinary frequency and foul-smelling urine. He otherwise denies hematuria, dysuria, changes to urinary stream, flank pain, fever, and or chills. When asked he reports compliance with terazosin 5 mg and finasteride 5 mg daily. Recent retroperitoneal ultrasound results reviewed with the patient today. Right kidney with no hydronephrosis or calculi noted. Right renal mid to lower pole 1.8 x 1.8 x 1.9 cm complex cyst with septations and calcifications previously measured 2.2 x 2.0 x 2.1 cm on 10/16/2021 and appears increased in complexity with focal lobular peripheral calcification measuring 0.4 cm and thickening of septations. Left kidney with no hydronephrosis and or calculi. 0.8 x 0.6 x 0.9 cyst with benign features. There is no indication for follow-up imaging per radiology report. The bladder is partially distended limiting evaluation. Mild irregularity and trabeculation of the bladder wall as well as bladder wall thickness of 0.5 cm. Pre void bladder volume is approximately 140 mL. Postvoid bladder volume is approximately [address] renal mass protocol for further assessment evaluation. Patient reports having had previous TURP approximately 5-[address] Blue. Patient discusses in March 2022 undergoing left above the knee amputation in [place] and is recovering well and has been receiving PT and OT therapy. Patient discusses being a recovering alcoholic and had been sober for over 3 years. He discusses attempting to quit smoking and is limiting his smoking and utilizing nicotine patches. He mentions feeling is alcoholism has caught up to him and he has been having so many health concerns with his eyes, ears, circulation, bladder issues, and overall health. In office urinalysis results reviewed with the patient today. PSAs are as follows: 05/09--0.7, 01/08--0.6, 09/11--0.6, 08/12-- 0.4 [facility] Medical History Recurrent falls Hospital discharge follow-up Ankle pain, left Left leg weakness UTI (urinary tract infection) Screening for prostate cancer Elevated WBCs Dizziness Preoperative cardiovascular examination LUQ abdominal pain Cough Colon cancer screening Leg cramps Restrictive lung disease Mass of left paraspinous region Obstructive sleep apnea Obesity (BMI 30-39.9) Osteoarthritis, hip, bilateral COPD (chronic obstructive pulmonary disease) History of CVA (cerebrovascular accident) BPH (benign prostatic hyperplasia) Avascular necrosis of bone of right hip Type 2 diabetes mellitus with hyperglycemia Coronary artery disease Peripheral vascular disease Hypercholesterolemia Alcohol abuse Urinary incontinence Anxiety and depression Hypertension Surgical History History of surgery History of vascular surgery History of tonsillectomy Family History Father Lung cancer COPD (chronic obstructive pulmonary disease) Heart disease Hypertension Mother COPD (chronic obstructive pulmonary disease) Diabetes Hypertension Breast cancer Paternal Uncle Prostate cancer Sister Heart disease Social History Housing: House Alcohol intake: never Patient Tobacco Use Status: Former Tobacco user Tobacco use type: Cigarette Years Smoked: stopped smoking 12/2022 e-Cigarette/Vaping Use: Never Used Second Hand Smoke Exposure: No Substance Use Type: Marijuana service: No Current occupational status: disabled Cognitive needs: Yes (cane, wheel chair ) Hearing needs: Yes Vision needs: Yes Results AMB Urinalysis, Automated UA Leukoctes 500 Randee/uL Last Edit by EVETTE Victoria on 05/19/23 09:20 3+ Luma Cardenas 05/19/23 09:20 UA Nitrite Negative Last Edit by EVETTE Victoria on 05/19/23 09:20 UA Urobilinogen 0.2 mg/dL Last Edit by EVETTE Victoria on 05/19/23 09:2 0 UA Protein 0 mg/dL Last Edit by EVETTE Victoria on 05/19/23 09:20 UA pH 6.5 Last Edit by EVETTE Victoria on 05/19/23 09:20 UA Blood 0 Buster/uL Last Edit by EVETTE Victoria on 05/19/23 09:20 UA Specific [place] 1.015 Last Edit by EVETTE Victoria on 05/19/23 09: 20 UA Ketone Negative Last Edit by EVETTE Victoria on 05/19/23 09:20 UA Bilirubin 0 mg/dL Last Edit by EVETTE Victoria on 05/19/23 09:20 UA Glucose 0 mg/dL Last Edit by EVETTE Victoria on 05/19/23 09:20 Results Reviewed Results Reviewed: Laboratory Last Values Urine pH (Auto) 6.5 05/19/23 09:18 Specific [place] (Auto) 1.015 05/19/23 09:18 Urine Protein (Auto) 0 mg/dL 05/19/23 09:18 Glucose (UA)(Auto) 0 mg/dL 05/19/23 09:18 Urine Ketones (Auto) Negative 05/19/23 09:18 Urine Blood (Auto) 0 Buster/uL 05/19/23 09:18 Urine Nitrite (Auto) Negative 05/19/23 09:18 Urine Bilirubin (Auto) 0 mg/dL 05/19/23 09:18 Urine Urobilinogen (Auto) 0.2 mg/dL 05/19/23 09:18 Leukocyte Esterase (Auto) 500 Randee/uL 05/19/23 09:18 Date of Service: 05/06/23 EXAMINATION: US RETROPERITONEAL COMPLETE (RENAL) FINDINGS: RIGHT KIDNEY: 10.9 x 5.9 x 5.8 cm (SAG x AP x TRV). No hydronephrosis. No renal calculi. Limited visualization. Right renal mid to lower pole 1.8 x 1.8 x 1.9 cm complex cyst with septations and calcifications previously measured 2.2 x 2.0 x 2.1 cm on 10/16/2021 and appears increased in complexity with focal lobular peripheral calcification measuring 0.4 cm and thickening of septations. LEFT KIDNEY: 10.9 x 4.7 x 4.4 cm (SAG x AP x TRV). No hydronephrosis. No renal calculi. Limited visualization. 0.8 x 0.6 x 0.9 cm cyst with benign features. There is no indication for follow-up imaging. BLADDER: Partially distended, limiting evaluation. Mild irregularity and trabeculation of the bladder wall as well as bladder wall thickness of 0.5 cm are difficult to fully evaluate due to suboptimal distention. Bilateral ureteral jets are demonstrated. Prevoid bladder volume is 141.3 mL. Postvoid bladder volume is 23.4 mL. ADDITIONAL FINDINGS: Prostate volume 34.0 mL. US/US retroperitoneal comp IMPRESSION: 1. Right renal mid to lower pole 1.9 cm complex cyst appears increased in complexity with focal lobular peripheral calcification measuring 0.4 cm and thickening of septations. Limited visualization. CT scan recommended for further evaluation. 2. No hydronephrosis. No renal calculi. 3. Enlarged prostate. 4. Mild irregularity and trabeculation of the bladder wall as well as bladder wall thickness of 0.5 cm are difficult to fully evaluate due to suboptimal distention of the bladder. Assessment & Plan Assessment & Plan (1) Complex renal cyst: Code(s): N28.1 - Cyst of kidney, acquired (2) Bladder trabeculation: Code(s): N32.89 - Other specified disorders of bladder (3) Bladder wall thickening: Code(s): N32.89 - Other specified disorders of bladder (4) Urinary dribbling: Code(s): N39.43 - Post-void dribbling (5) Frequency of micturition: Comment: July 2022 Small postvoid residual bladder volume with normal right ureteral jet. Left ureteral jet is not seen. 2. Mild prostate enlargement. Code(s): R35.0 - Frequency of micturition Plan In office urinalysis results reviewed with the patient today; as noted above; will send for urine culture. Discussed recent retroperitoneal ultrasound results with the patient today; as noted above. Will obtain CT renal mass protocol for further assessment evaluation. BUN and creatinine ordered for imaging. Continue terazosin and finasteride 5 mg daily as discussed and prescribed. Start Macrobid as discussed and prescribed. Discussed near future in office cystoscopy if symptoms persist and/or worsen. Discussed, educated, and encouraged on the importance of drinking plenty of water daily. Discussed importance of managing diabetes for improvement in lower urinary tract symptoms as well as overall health and well-being. Discussed and stressed the importance of limiting/quitting smoking for overall health and well-being. Follow-up in 1 month with imaging to be completed prior; or sooner with any issues, concerns, and or questions. Orders: Orders CT abdomen pelvis wo/w IV con Today N28.1 - Cyst of kidney, acquired Blood Urea Nitrogen Today R39.15 - Urgency of urination Creatinine Today R39.15 - Urgency of urination Urine Culture Today N39.0 - Urinary tract infection, site not specified AMB Urinalysis Automated Today Z13.9 - Encounter for screening, unspecified Medications: New nitrofurantoin macrocrystal 100 mg PO DAILY 14 days 14 caps 0RF Patient Instructions: The patient had an opportunity to ask questions regarding the treatment plan. All questions were answered. Physical exam, labs, and imaging were discussed and reviewed in detail. As well as risks, benefits, and discussion of treatment choices. No major barriers to understanding were identified. The patient expressed understanding and agreement with the above treatment plan. The patient was made aware they should contact our office by phone for worsening of their current condition, the appearance of new symptoms, or with any questions or concerns. Compliance is encouraged with any medications and follow up testing that is ordered. It is a privilege to be allowed the opportunity to participate in? your urological care.? Again, if you have any questions or concerns If you have any questions or concerns please do not hesitate to contact me. The office is [phone]. This note is constructed using voice recognition software. While every effort has been made to ensure accuracy furniture technician errors may have been included. Yours sincerely, TAMIKA Silverio Coding Level of Care Code Est Pt Level 4 (29099) Diagnoses Complex renal cyst N28.1 Bladder trabeculation N32.89 Bladder wall thickening N32.89 Urinary dribbling N39.43 Frequency of micturition R35.0
== END 2023-05-19 09:29 | disposition home or self-care (01) ==
PROVIDERS: PCP Internal Medicine; Visit Provider Nurse Practitioner Family
DX: N28.1 Cyst of kidney, acquired (principal); N32.89 Other specified disorders of bladder; N39.43 Post-void dribbling; R35.0 Frequency of micturition; Z13.9 Encounter for screening, unspecified
CPT/HCPCS: 99214

== ENCOUNTER → 2023-05-19 08:52 | Outpatient (BNVA) | payer MEDICARE, MEDICAID, SELFPAY | PROVIDERS: PCP Internal Medicine; Visit Provider Nurse Practitioner Family | DX: N28.1 Cyst of kidney, acquired (principal); R39.15 Urgency of urination; N39.0 Urinary tract infection, site not specified; N39.43 Post-void dribbling; R35.0 Frequency of micturition | CPT/HCPCS: 81003; 99212 ==

== ENCOUNTER 2023-06-04 11:00 | Outpatient (RCR) | payer MEDICARE, MEDICAID, SELFPAY ==
[2023-02-27 11:09] VITALS: BP 102/56; PULSE 58
--- NOTE | 2023-02-27 12:16 | MHC.PT.EP ---
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 He had amputation on L side in Mar 2022 secondary to blood clots in L LE, had double bypass surgery done on R LE in October 2022. He had PT after his amputation. Walking goal was unable to be achieved due to R LE blood clots. Has had no PT since October 2022. On PT examination he presents with 9/10 phantom limb pain, decreased B LE mobility, decreased strength in BLE, impaired posture, balance and gait. He is able to perform bed mobility and transfers under distant supervision. He also presents with decreased strength in L UE due to CVA. He lives alone and has HEELER 30 mins/day 3 times a week. He would benefit from skilled PT to address the aforementioned impairments and improve tolerance to functional activities. Frequency and Duration: The patient will be seen 2/week for 8 weeks Short Term Goals: 1. Pt will be able to perform sit to stand with his prosthetic and walker in 3 weeks. 2. Pt will have all hip ROM WFL which will enable him to tolerate supine lying in 4 weeks. Desk Top Publisher Goals: 1. Pt will demonstrate an increase in muscle strength by 1 grade which will enable him to tolerate standing with prosthetic for 5 minutes in 6 weeks. 2. Pt will be able to ambulate 50 feet with his prosthetic and walker in in 8 weeks. Treatment Plan: Modalities to reduce pain, spasms and effusion. Manual therapy to restore motion and function. Therapeutic exercise to improve strength and flexibility. Neuromuscular re-education for posture and balance. Therapeutic activities to return to functional activities of daily living. Electronically signed by: Elidia Jordon, PT DPT Please sign and return to therapist. Thank you for your referral.
--- NOTE | 2023-06-06 11:27 | MHC.PT.DC ---
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 Due to other medical conditions pt has not been able to progress prosthetic use at home or in clinic and has had several bouts of illness. At this time pt has plateaued in terms of physical therapy so d/c at this time to home program. He was advised to return to PT once he stabilizes medically. Electronically signed by: Elidia Ruvalcaba, PT DPT Please sign and return to therapist. Thank you for your referral.
== END 2023-06-06 11:27 | disposition home or self-care (01) ==
LOC: HO.PT 11:00
PROVIDERS: PCP Internal Medicine; Visit Provider Internal Medicine
DX: S78.112D Complete traumatic amputation at level between left hip and knee, subsequent encounter (principal); Z86.73 Personal history of transient ischemic attack (TIA), and cerebral infarction without residual deficits
CPT/HCPCS: 87086; 97110; 97112; 97116; 97162; 97530

== ENCOUNTER → 2023-06-25 10:32 | Outpatient (BNVA) | payer MEDICARE, MEDICAID, SELFPAY | PROVIDERS: PCP Internal Medicine; Visit Provider Nurse Practitioner Family ==

== ENCOUNTER 2023-07-09 09:15 | Outpatient (REF) | payer MEDICARE, SELFPAY ==
[2023-07-09 10:42] LABS: Blood Urea Nitrogen 15 mg/dL (9-16); Estimated Glomerular Filt Rate > 60
== END 2023-07-09 09:16 | disposition home or self-care (01) ==
LOC: HO.LAB 09:15
PROVIDERS: Absent Provider Internal Medicine; PCP Internal Medicine; Visit Provider Nurse Practitioner Family
DX: R39.15 Urgency of urination (principal)
CPT/HCPCS: 36415; 82565; 84520

== ENCOUNTER 2023-07-31 07:53 | Outpatient (REF) | payer MEDICARE, SELFPAY ==
--- NOTE | ~2023-07-31 | CT_ITS ---
EXAMINATION: CT ABDOMEN AND PELVIS WITHOUT AND WITH CONTRAST CLINICAL INFORMATION: Renal cyst evaluate for mass COMPARISON: Renal ultrasound from 05/06/[address] abdomen from 06/02/2019 TECHNIQUE: Multidetector volumetric imaging was performed of the abdomen and pelvis before and after the IV administration of 85 mL of Omnipaque 350 intravenous contrast. Sagittal and coronal reformatted images were obtained on the technologist's workstation. This CT examination was performed using dose optimization techniques as appropriate, variously including the following: *Automated exposure control *Adjustment of mA and/or kV according to patient size (this includes techniques or standardized protocols for targeted exams where dose is matched to indication/reason for exam; i.e. extremities or head) *Use of iterative reconstruction technique DLP: 632 mGy-cm FINDINGS: LUNG BASES: The visualized lung bases are unremarkable. LIVER, GALLBLADDER, AND BILIARY TREE: There is new since previous examination ill-defined low-attenuation lesion in the left lobe of the liver measured 0.8 cm on image 29 series 4. Another lesion seen and the right lobe of the liver, ill-defined, measured 0.7 cm The gallbladder is unremarkable with no evidence of radiopaque gallstones, gallbladder wall thickening, or obvious pericholecystic inflammatory changes. PANCREAS: Unremarkable SPLEEN: Unremarkable ADRENAL GLANDS: There is nodularity of the left adrenal gland stable since previous study. KIDNEYS AND URETERS: There is stable cortical cyst on the right in interpolar area, measured 2.0 x 1.6 cm and right upper lobe 1.2 x 1.0 cm cyst. On the left there is 2 small to characterize left lower cortical 0.6 cm cyst. There is no evidence of solid lesions hydronephrosis or nephrolithiasis. No perinephric stranding. BLADDER: Unremarkable GASTROINTESTINAL TRACT: The small and large bowel are unremarkable. The appendix is unremarkable. ABDOMINAL WALL: No significant hernia is appreciated. LYMPH NODES: Normal VASCULAR: There are atherosclerotic calcifications of abdominal aorta with bypass graft on the left. The graft on the left is not opacified, occluded. Proximal abdominal aorta is opacified. Distal abdominal aorta revealed standard but is not opacified, questionably occluded. PELVIC VISCERA: Calcifications seen in the prostate. OSSEOUS STRUCTURES: Unremarkable CT/CT abdomen pelvis wo/w IV con IMPRESSION: 1. Stable bilateral renal cysts. 2. Stable nodularity of the left adrenal gland. 3. 2 new ill-defined low-attenuation lesions in the liver, correlate with ultrasound. 4. Occluded bypass graft on the left and distal abdominal aortic occlusion. 5. Prostate calcifications. Fleischner guidelines were followed.
[2023-07-31] MEDS: iohexoL 350 MG/ML 100 ML INFUS..BTL 85 ML IV (09:06)
== END 2023-07-31 07:54 | disposition home or self-care (01) ==
LOC: HO.CT 07:53
PROVIDERS: PCP Internal Medicine; Visit Provider Nurse Practitioner Family
DX: N28.1 Cyst of kidney, acquired (principal)
CPT/HCPCS: 74178; Q9967

== ENCOUNTER 2023-08-02 23:36 | Inpatient (IN) | payer MEDICARE, MEDICAID, SELFPAY ==
--- NOTE | ~2023-08-02 | XR_ITS ---
EXAMINATION: XR CHEST CLINICAL INFORMATION: Dyspnea. COMPARISON: 09/25/2022 TECHNIQUE: Frontal view of the chest was obtained. FINDINGS: Bronchial wall thickening is again seen in the perihilar regions bilaterally. No focal airspace consolidation. No pneumothorax or pleural effusion. Cardiac and mediastinal contours are normal. Surgical clips are present in the axillary regions. There is degenerative disc disease in the thoracic spine. Osteoarthritis is present in the acromioclavicular and glenohumeral joints. XR/XR chest 1V IMPRESSION: Bronchial wall thickening can be seen with a small airways process such as asthma or atypical/viral infection.
[2023-08-02 23:42] VITALS: BP 149/99; BP 192/102; PULSE 114; PULSE 74; RESP 33; TEMP 37.2; O2SAT 84; O2SAT 97; BMI 25.7
--- NOTE | 2023-08-02 23:42 | ECG_ITS ---
Test Reason : CHEST PAIN Blood Pressure : / mmHG Vent. Rate : 058 BPM Atrial Rate : 058 BPM P-R Int : 176 ms QRS Dur : 092 ms QT Int : 396 ms P-R-T Axes : 063 095 094 degrees QTc Int : 388 ms Sinus bradycardia Rightward axis Septal infarct (cited on or before 25-SEP-2022) Abnormal ECG When compared with ECG of 25-SEP-2022 19:07, Nonspecific T wave abnormality, worse in Inferior leads QT has shortened Referred By: Generic ED Physician Electronically Signed By:LIBIA CAVAZOS MD
--- NOTE | 2023-08-02 23:51 | ED.SOB ---
HPI - SOB/Dyspnea General Chief Complaint: Dyspnea Stated Complaint: SOB for 3 Days/COPD Time Seen by Provider: 08/02/23 23:51 Source: patient and EMS Mode of arrival: EMS Limitations: no limitations History of Present Illness HPI Narrative: Patient history of COPD on home oxygen 2 liter/minute with peripheral vascular disease with left AKA does have history of sleep apnea can not use CPAP uses oxygen for nocturnal hypoxemia comes here for shortness of breath for last 3- 4 days with wheezing and dry cough desaturated to 77% on 2 L when EMS checked his pulse ox placed on CPAP saturating to 90% on arrival received nitroglycerin tablet for chest tightness and nitro paste was applied on arrival blood pressure was 196/102 by EMS on arrival 135/84 patient feels chest tied when he takes a deep breath no history of CHF Related Data Home Medications Medication Instructions Recorded Confirmed Oxygen Home Use 05/23/22 05/19/23 Previous Rx's Medication Instructions Recorded flash glucose scanning reader #1 ea 01/14/22 (FreeStyle Anival 14 Day [place]) flash glucose sensor (FreeStyle #6 kits 01/14/22 Anival 14 Day Sensor kit) blood sugar diagnostic #3 boxes 02/20/22 blood pressure monitor #1 ea 05/08/22 blood sugar diagnostic #3 boxes 05/10/22 blood-glucose meter ([employer]Touch #1 ea 06/07/22 Ultra2 Meter kit) PHARMACY OPERATIONS MANAGER SLEEVE L #1 ea 07/10/22 gabapentin 300 mg capsule 300 mg PO TID #90 caps 07/29/22 [id number] SOCK, multiple ply #1 ea 08/20/22 ABove knee ([place]) DIABETIC SHOE #1 ea 08/23/22 cadexomer iodine 0.9 % topical gel 40 g topical ONCE #40 grams 01/13/23 (Iodosorb) docusate sodium 100 mg capsule 100 mg PO BID #180 caps 01/13/23 fenofibrate 160 mg tablet 160 mg PO DAILY 90 days #90 tabs 01/13/23 lancets ##3 01/13/23 lancets 33 gauge ##3 01/13/23 quetiapine 25 mg tablet 25 mg PO BEDTIME #90 tabs 01/13/23 compress.stocking,knee,reg,med #2 ea 01/17/23 atorvastatin 80 mg tablet 80 mg PO QPM 90 days #90 tabs 01/18/23 nitroglycerin 0.4 mg sublingual 0.4 mg sublingual Q5M PRN chest 02/04/23 tablet pain #25 tabs pioglitazone 30 mg tablet 30 mg PO DAILY 90 days #90 tabs 02/04/23 aspirin 81 mg tablet,delayed 81 mg PO DAILY #30 tabs 04/17/23 release (Adult Low Dose Aspirin) insulin lispro 100 unit/mL 1 sliding scale dose subcut 04/21/23 subcutaneous pen QIDACHS #15 mL nut.tx.gluc.intol,lac-free,soy 1 ea PO .QD 90 days #90 ea 05/02/23 (Glucerna oral liquid) PULLUPS #60 ea 05/05/23 amoxicillin 500 mg-potassium 1 tab PO Q8H 14 days #42 tabs 05/21/23 clavulanate 125 mg tablet (Augmentin) Prosthetic Leg #1 ea 06/24/23 amlodipine 5 mg tablet 2.5 mg (1/2 x 5 mg) PO DAILY #30 06/25/23 tabs albuterol sulfate 90 mcg/actuation 2 puff inhalation Q4-6H PRN 06/27/23 aerosol inhaler shortness of breath or wheezing #8.5 grams duloxetine 60 mg capsule,delayed 60 mg PO DAILY 90 days #90 caps 06/27/23 release finasteride 5 mg tablet 5 mg PO DAILY #90 tabs 06/27/23 lidocaine 5 % topical patch 2 patch topical Q12H 30 days #30 ea 06/27/23 metformin 500 mg tablet 500 mg PO BID #180 tabs 06/27/23 pen needle, diabetic 31 gauge x #100 ea 06/27/2312/03 (1st Tier Unifine Pentips) rivaroxaban 2.5 mg tablet (Xarelto) 2.5 mg PO BID #90 tabs 06/27/23 tizanidine 4 mg tablet 4 mg PO Q8H #90 tabs 06/27/23 gabapentin 600 mg tablet 600 mg PO TID 30 days #90 tabs 06/30/23 carvedilol 25 mg tablet 25 mg PO BID #180 tabs 07/04/23 lisinopril 10 mg tablet 10 mg PO DAILY #30 tabs 07/04/23 insulin glargine 100 unit/mL (3 25 unit (0.25 mL) subcut QPM #15 mL 07/18/23 mL) subcutaneous pen (Lantus Solostar U-100 Insulin) oxycodone 10 mg tablet 10 mg PO TID PRN severe pain 07/29/23 (scale score 7-10) 30 days #80 tabs albuterol sulfate 2.5 mg/3 mL 2.5 mg (3 mL) inhalation QID PRN 07/30/23 (0.083 %) solution for nebulization shortness of breath or wheezing #360 mL ezetimibe 10 mg tablet (Zetia) 10 mg PO DAILY #30 tabs 07/30/23 hydrocortisone 2.5 % topical cream 1 appl [place] BID-QID PRN hemorrhoids 07/30/23 with perineal applicator #30 grams (Proctosol HC) lorazepam 0.5 mg tablet 0.5 mg PO BEDTIME PRN anxiety #14 07/30/23 tabs nicotine (polacrilex) 2 mg gum 2 mg buccal Q2H #110 ea 07/30/23 potassium chloride 20 mEq 20 meq PO BID #60 tabs 07/30/23 tablet,extended release terazosin 5 mg capsule 5 mg PO BEDTIME 30 days #90 caps 07/30/23 Allergies Allergy/AdvReac Type Severity Reaction Status Date / Time ciprofloxacin [From CIPRO] Allergy Severe SWELLING, Verified 05/19/23 10:06 ITCHING bee pollen [BEE STINGS] Allergy Unknown HIVES Verified 05/19/23 10:06 Penicillins Allergy Unknown UNKNOWN Verified 05/19/23 10:06 insulin lispro AdvReac Intermediate Swelling Verified 05/19/23 10:06 [From Humalog U-100 Insulin] Review of Systems Review of Systems: Yes all other systems are reviewed and are negative PMFSH Past Medical History Onset Date is defined in the Problem List Problems that require an onset date and time if occurred within 24 hrs of arrival to the ED Aortic Dissection and Rupture; Neurologic impairment; Cardiopulmonary Arrest; Endotracheal Intubation; Insertion or Replacement of Mechanical Circulatory Assist Device Medical History Recurrent falls Hospital discharge follow-up Ankle pain, left Left leg weakness UTI (urinary tract infection) Screening for prostate cancer Elevated WBCs Dizziness Preoperative cardiovascular examination LUQ abdominal pain Cough Colon cancer screening Leg cramps Restrictive lung disease Mass of left paraspinous region Obstructive sleep apnea Obesity (BMI 30-39.9) Osteoarthritis, hip, bilateral COPD (chronic obstructive pulmonary disease) History of CVA (cerebrovascular accident) BPH (benign prostatic hyperplasia) Avascular necrosis of bone of right hip Type 2 diabetes mellitus with hyperglycemia Coronary artery disease Peripheral vascular disease Hypercholesterolemia Alcohol abuse Urinary incontinence Anxiety and depression Hypertension Surgical History History of surgery History of vascular surgery History of tonsillectomy Family History Family History Father Lung cancer COPD (chronic obstructive pulmonary disease) Heart disease Hypertension Mother COPD (chronic obstructive pulmonary disease) Diabetes Hypertension Breast cancer Paternal Uncle Prostate cancer Sister Heart disease Social History Social History Housing: House Alcohol intake: never Patient Tobacco Use Status: Former Tobacco user Tobacco use type: Cigarette Years Smoked: stopped smoking 12/2022 e-Cigarette/Vaping Use: Never Used Second Hand Smoke Exposure: No Substance Use Type: Marijuana Advance Directives: No Advance Directives Information Provided: No service: No Current occupational status: disabled Cognitive needs: Yes (cane, wheel chair ) Hearing needs: Yes Vision needs: Yes Physical Exam Vital Signs: Vital Signs: Last Vital Signs Temp 97.3 F 08/03/23 01:58 Pulse 77 08/03/23 01:58 Resp 18 08/03/23 02:10 BP 94/61 08/03/23 01:58 Pulse Ox 93 08/03/23 01:58 O2 Del Method BiPAP 08/03/23 01:58 BMI result Body Mass Index 25.7 Appearance: Alert. Oriented X3. Moderate respiratory distress on CPAP Eyes: PERRLA, ENT: Pharynx normal. Oral Mucosa moist Neck: Normal inspection. Neck supple. CVS: Normal heart rate and rhythm. Pulses normal. Respiratory: Moderate respiratory distress. Equal air entry bilateral, bilateral decreased air entry with bilateral wheezing Abdomen: Soft and nontender. Bowel sounds are present, no mass palpable, no CVA tenderness Skin: Skin warm and dry. Normal skin color. Normal skin turgor. Extremities: No lower extremity edema. No calf tenderness left AKA Neuro: Oriented X 3. No motor deficit. No sensory deficit.No cerebellar signs , cranial nerves II-XII intact Medications Administered Discontinued Medications Generic Name Dose Route Start Last Admin Trade Name Kimberlyn PRN Reason Stop Dose Admin Albuterol Sulfate 7.5 mg/ 10 mg 08/02/23 23:59 08/03/23 00:12 Albuterol Sulfate 2.5 mg INHALE 08/03/23 00:00 10 mg ONCE ONE Administration Albuterol Sulfate 7.5 mg/ 0 mg 08/03/23 01:27 08/03/23 01:29 Albuterol/Ipratropium 3 ml INHALE 08/03/23 01:28 2.5 each ONCE ONE Administration Magnesium Sulfate 2 gm in 50 mls @ 150 mls/hr 08/02/23 23:59 08/03/23 00:21 Magnesium Sulfate/H2o IV 08/03/23 00:18 150 mls/hr ONCE ONE Administration Methylprednisolone Sodium Succinate 125 mg 08/03/23 00:00 08/03/23 00:21 Methylprednisolone Sod Succ 125 Mg/2 Ml Vial IVPUSH 08/03/23 00:01 125 mg ONCE ONE Administration Medical Decision Making Medical Decision Making [facility] Narrative: Patient with COPD with sleep apnea on home oxygen at nighttime comes here for increased shortness of breath noticed to be hypercapnic respiratory acidotic CPAP was applied feeling much better at this time will recheck his venous gases and give him more breathing treatments plan to admit to medical floor for COPD exacerbation no signs of infection patient does have chronic lung disease with respiratory failure Patient was tried without BiPAP after 2 hours of BiPAP still very tight desaturating to 88% on [address] him back on BiPAP case discussed Dr. Spear flue cleaner will re-evaluate the patient after 1 hour and if still needs BiPAP will take patient to ICU patient is saturating 92% on 06/24 BiPAP at 40% at this time looks much better but still very tight Influenza a came positive will start patient on Tamiflu Differential Diagnosis Differential Diagnoses: The differential diagnosis associated with the presentation includes Acute respiratory failure/pneumonia/CHF/pneumothorax Admission/Observation Consideration of admission/observation: Escalation of care including admission/observation considered Consult Healthcare Provider Management of the patient was discussed with: Hospitalist Lab Data [facility] Lab Attestation statement: I reviewed the patient's lab results. 08/03/23 00:14 08/03/23 00:14 Labs: Lab Results 08/03/23 08/03/23 Range/Units 00:14 00:22 WBC 9.7 (4.8-10.8) X10*3/uL RBC 4.42 L (4.60-5.80) X10*6/uL Hgb 12.7 L (14.0-18.0) g/dl Hct 40.5 L (42.0-52.0) % MCV 91.6 (80.0-98.0) fL MCH 28.7 (27.0-33.0) pg MCHC 31.4 (31.0-36.0) g/dl RDW 14.3 (11.0-16.0) % Plt Count 209 (160-400) X10*3/uL MPV 10.0 (9.4-12.4) fL Immature Gran % (Auto) 0.4 (0.0-0.4) % Neut % (Auto) 86.2 H (45-73) % Lymph % (Auto) 6.3 L (20-40) % Cherry % (Auto) 6.6 (2-11) % Eos % (Auto) 0.2 (0-4) % Baso % (Auto) 0.3 (0-2) % Lymph # (Auto) 0.6 L (1.2-4.9) X10*3/uL Cherry # (Auto) 0.6 (0.1-1.2) X10*3/uL Eos # (Auto) 0.0 (0.0-0.4) X10*3/uL Baso # (Auto) 0.0 (0.0-0.2) X10*3/uL Abs Immat Gran (auto) 0.04 H (0.00-0.03) X10*3/uL Absolute Neuts (auto) 8.4 H (2.0-8.3) x10*3/uL Absolute Nucleated RBC 0.000 (0.0-0.012) X10*3/uL Nucleated RBC % (auto) 0.0 (0.0-0.2) /100WBC VBG pH 7.26 L (7.32-7.43) VBG pCO2 76 mmHg VBG pO2 49 mmHg VBG HCO3 34 H (22-26) mmol/L VBG O2 Saturation 76.0 % VBG Base Excess 5.0 mmol/L Sodium 141 (135-145) mmol/L Potassium 4.0 (3.3-5.1) mmol/L Chloride 98 (96-108) mmol/L Carbon Dioxide 32 H (22-29) mmol/L Anion Gap 15 (12-20) BUN 11 (9-16) mg/dL Creatinine 1.03 (0.5-1.4) mg/dL Estim Creat Clear Calc 67.1 Estimated GFR > 60 Random Glucose 152 H (60-115) mg/dL Calcium 9.3 (8.4-10.2) mg/dL Total Bilirubin 0.5 (0.0-1.0) mg/dL AST 23 (5-37) U/L ALT 19 (0-40) U/L Alkaline Phosphatase 62 (39-117) U/L Troponin I High Sens 7.3 (<3.5-35.0) ng/L B-Natriuretic Peptide 104 H (<100) pg/mL Total Protein 7.3 (6.5-8.0) g/dL Albumin 4.3 (3.5-5.0) g/dL COVID-19 (ANTHONY) Negative (Negative) COVID-19 Clin Com See Note Influenza Type A (LESLY) Positive A (Negative) Influenza Type B (LESLY) Negative (Negative) Influenza A & B Note See Note Independent Interpretation I performed an independent interpretation of an: EKG and Plain X-Ray Interpretation: Sinus bradycardia heart rate 58 beats per minute nonspecific STT wave changes poor progression of R-waves no acute ischemia Radiology Impression Discussion of test interpretation with radiology: I have reviewed the radiologist's reading. Critical Care Time Critical Care Time Critical Care Time: Yes Total Critical Care Time: 70 Attestation: The patient was critically ill with a high probability of imminent or life threatening deterioration. I spent greater than 70 ???minutes of discontinuous time evaluating the patient,delivering critical care at the bedside, discussing and evaluating pertinent data with consultants. Critical care time does not include time spent performing separately billable procedures or teaching. Total time spent performing critical care was 65???minutes. Discharge Plan Discharge Clinical Impression: COPD (chronic obstructive pulmonary disease), Acute and chronic respiratory failure with hypercapnia, Influenza A Patient Disposition: Admitted As Inpatient
[2023-08-02 23:58] VITALS: PULSE 74; PULSE 87; RESP 18; RESP 22; O2SAT 97
[2023-08-03] VITALS (40 sets, daily range): BP systolic 94–152; BP diastolic 43–76; PULSE 63–102; RESP 12–29; TEMP 36.1–37; O2SAT 89–100; BMI 27.3
[2023-08-03] MEDS: Albuterol Sulfate 7.5 MG, Albuterol Sulfate (0.083%) 2.5 MG 10 MG INHALE (00:12)
--- NOTE | 2023-08-03 00:12 | PC.NURSE ---
Patient BIBA from home for evaluation of worsening SOB x3 days, chest pain, cough, chills, no fever. When EMS arrived to patient's home, patient's O2 Sat 77% on 2 LPM, BP 196/102. CPAP applied and combivent nebulizer treatment was given by EMS. Patient received combivent via CPAP, Nitro 2 tabs and nitro paste to chest prior to arrival to ED. Patient arrived to ED on CPAP saturating around 90%. RT and MD at bedside. BIPAP applied by RT, patient received nebulizer treatment. Patient changed into a hospital attire, EKG completed, radiographer cardiac catheterization applied, labs drawn and sent to lab for processing. Call staples within patient's reach.
[2023-08-03] MEDS: methylPREDNISolone Sod Succ 125 MG/2 ML VIAL IVPUSH (00:21)
[2023-08-03] MEDS: Magnesium Sulfate/H2O 2 GM/50 ML PIGGYBACK IV (00:21)
[2023-08-03 00:23] LABS: MANUAL DIFF FLAG NO
[2023-08-03 00:24] LABS: Basophils Percent Auto 0.3 % (0-2); Eosinophils Percent Auto 0.2 % (0-4); Hematocrit 40.5 % (42.0-52.0); Hemoglobin 12.7 g/dl (14.0-18.0); Imm Gran Abs Auto 0.04 X10*3/uL (0.00-0.03); Imm Gran Pct Auto 0.4 % (0.0-0.4); Lymphocytes Absolute Auto 0.6 X10*3/uL (1.2-4.9); Lymphocytes Percent Auto 6.3 % (20-40); Mean Corpuscular HGB Conc 31.4 g/dl (31.0-36.0); Mean Corpuscular Hemoglobin 28.7 pg (27.0-33.0); Mean Corpuscular Volume 91.6 fL (80.0-98.0); Monocytes Absolute Auto 0.6 X10*3/uL (0.1-1.2); Monocytes Percent Auto 6.6 % (2-11); Neutrophils Absolute Auto 8.4 x10*3/uL (2.0-8.3); Neutrophils Percent Auto 86.2 % (45-73); Platelet Count 209 X10*3/uL (160-400); Red Blood Count 4.42 X10*6/uL (4.60-5.80); Red Cell Distribution Width 14.3 % (11.0-16.0); White Blood Count 9.7 X10*3/uL (4.8-10.8)
[2023-08-03 00:28] LABS: VBG HCO3 34 mmol/L (22-26); VBG pCO2 76 mmHg; VBG pH 7.26 (7.32-7.43); VBG pO2 49 mmHg
[2023-08-03 00:31] LABS: Venous Blood Gas Refer to POC result
[2023-08-03 00:39] LABS: Alanine Aminotransferase 19 U/L (0-40); Albumin Level 4.3 g/dL (3.5-5.0); Alkaline Phosphatase 62 U/L (39-117); Anion Gap 15 (12-20); Aspartate Amino Transferase 23 U/L (5-37); Bilirubin Total 0.5 mg/dL (0.0-1.0); Blood Urea Nitrogen 11 mg/dL (9-16); Calcium 9.3 mg/dL (8.4-10.2); Carbon Dioxide 32 mmol/L (22-29); Chloride 98 mmol/L (96-108); Creatinine Clr Calc Pharmacy 67.1; Estimated Glomerular Filt Rate > 60; Glucose Random 152 mg/dL (60-115); Sodium 141 mmol/L (135-145); Total Protein 7.3 g/dL (6.5-8.0)
[2023-08-03 00:42] LABS: IDNOW Serial# 55D5AD1C; Influenza A Positive (Negative); Influenza B2 Negative (Negative)
[2023-08-03 00:43] LABS: COVID-19 Test Negative (Negative); IDNOW Serial# 16C4AD1C
[2023-08-03 00:45] LABS: B Type Natriuretic Peptide 104 pg/mL (<100); Troponin-I High Sensitivity 7.3 ng/L (<3.5-35.0)
--- NOTE | 2023-08-03 01:00 | MHC.EDTECH ---
Patient bed pad changed and repositioned
[2023-08-03] MEDS: Albuterol Sulfate 7.5 MG, Albuterol/Iprat 2.5/0.5MG 3 ML 3 ML INHALE (01:29)
--- NOTE | 2023-08-03 02:15 | PC.NURSE ---
Patient was tried without BiPAP on 3 LPM NC, noted to be tight, desaturating to 88%. BiPAP reapplied, patient's O2 sat 90-93% on BIPAP.
[2023-08-03] MEDS: Oseltamivir Phosphate 75 MG CAPSULE PO ×2 (03:51→16:33)
--- NOTE | 2023-08-03 04:10 | PC.NURSE ---
VBG drawn and sent to lab for processing. Patient reports less SOB while on BIPAP and has been maintaining O2 sat 89-94%.
[2023-08-03 04:26] LABS: Venous Blood Gas Refer to POC result
[2023-08-03 04:35] LABS: ABG Base Excess 8.4 mmol/L; ABG HCO3 36 mmol/L (22-26); ABG pCO2 63 mmHg (32-45); ABG pH 7.36 (7.35-7.45); ABG pO2 71 mmHg (83-108)
[2023-08-03] MEDS: Albuterol Sulfate (0.083%) 2.5 MG/3 ML VIAL.NEB 10 MG INHALE (04:43)
--- NOTE | 2023-08-03 05:00 | PC.NURSE ---
Patient requested and provided urinal. Patient voided 260 mL of yellow, clear urine , non-foul smelling urine.
[2023-08-03 05:12] LABS: ABG Refer to POC result
--- NOTE | 2023-08-03 05:14 | P.HPCC_ITS ---
History of Present Illness Date of Service: 08/03/23 Attending physician on admission: Chrissie Spear Chief Complaint: Hypoxic respiratory failure/influenza a/COPD exacerbation HPI: ?62-year-old gentleman with underlying history of hypertension, hyperlipidemia, diabetes, coronary artery post RCA stent in 2013, anxiety, depression, BPH, COPD on 2 L nasal cannula, obesity with BMI above 30, obstructive sleep apnea, avascular necrosis of right hip, restrictive lung disease, fatty liver, diabetic neuropathy , left AKA, CVA on Xarelto, ischemia of right lower extremity, prostatitis among multiple other things. Patient had presented to the emergency room last night with complaints of shortness a breath for the past 3 days despite of his supplemental oxygen, he has had a dry cough and EMS noted the patient was satting 77% upon their arrival.? The patient was placed on CPAP and his sats came up to 90%.? Given some ?chest tightness? patient received nitroglycerin sublingual and paste as his blood pressure was also 186/102. ?In the ER the patient received Solu- Medrol, magnesium, albuterol and subsequently Tamiflu as his workup was positive for influenza A. ?Venous blood gas was done and this showed a pH of 7.26, pCO2 of 76, PO2 49, HC03 34, the patient was placed on BiPAP.? We are asked to initially evaluate the patient but it was too soon from 10 he was placed on BiPAP, we waited a total of 4 hours of BiPAP and reassessed, although his ABG shows improvement of his hypercapnia and correction of his acidosis, as well as the fact that the patient claims to feel well, when taken off BiPAP, he appears to have respiratory distress, use of accessory muscles and desatted quite quickly requiring up to 5 L of oxygen nasal cannula to maintain his O2 sat at barely 88%.? At this point we made the determination the patient with the better treated in the ICU for continuous BiPAP. Patient is not able to give a full history but he currently denies any sputum production, fever or chills, abdominal pain, nausea, vomiting, diarrhea, chest pain, no history of CHF and denies any swelling of the right leg at this point. ROS:? Unable to obtain Past Medical History:? As above UTI Dizziness Paraspinous region mass Past Surgical History: Vascular surgery for right leg peripheral vascular disease Tonsillectomy Left AKA Skin cancer removal Family history: His father had lung cancer, hypertension, heart disease and was also a COPD or. Patient's mother had breast cancer, diabetes, COPD and hypertension. Patient's sister had coronary disease Social History:? Patient lives at home, he has an ex-smoker, quit about half year ago, unable to quantify at this point, denies alcohol or drugs. CODE STATUS: FULL CODE Allergies: NKDA Home Medications: See Med Rec PHYSICAL EXAM: VS: 107/60, 80, 18, on BiPAP at 12/5, 10, 35% satting 88% General:? Alert oriented x3 no acute distress while on BiPAP.? Difficult to assess his speech due to the mask but is otherwise normal.? He follows commands well.? Once the BiPAP was removed, the patient clearly has respiratory distress and accessory muscle usage. Skin: ?There is clubbing of the fingernails, Intact, no lesions, edema, erythema, clubbing or cyanosis.? No ulcers. HEENT:? Head is normocephalic, atraumatic, pupils equal round reactive to light accommodation bilaterally.? Extraocular movements appear intact.? Buccal mucosa is moist, Neck is supple without lymphadenopathy. Cardiac:? Clear S1-S2, no murmurs rubs or gallops. Pulmonary:? Diminished lung sounds bilaterally with expiratory wheezing bilaterally and throughout the anterior and lateral lung armendariz. Abdomen:? Protuberant, positive bowel sounds in all 4 quadrants.? Soft, nontender, no rebound or guarding.? Musculoskeletal:? Patient is moving his upper extremities upon request under major joints, right lower extremity range of motion at the major joints shows no crepitus, there is no calf edema. Neurologic:? As above, cranial nerves 2-12 are grossly intact.? No focal deficits noted. Vascular:? 2+ pulses upper extremities distally. SIGNIFICANT LABORATORY DATA:? As above White blood cells 9.7,hemolobin 2., hematocri 40.5, platelets 209, sodium 141, potassium 4.0, chloride 98, carbon dioxide 32, anion gap 15, BUN 15, creatinine 1.03, random glucose 152.? Troponins 7.3, BNP 104. REVIEW OF IMAGES: CXR IMPRESSION: Bronchial wall thickening can be seen with a small airways process such as asthma or atypical/viral infection. EKG REVIEW: ?To my view this is sinus bradycardia rate of 58 beats per minute.? There is no ST elevations, no ST depressions noted.? Age-indeterminate changes in the septal area perhaps due to prior infarct however this is also noted on previous EKGs.? QTC 388. ASSESSMENT : 1. Acute hypoxic / hypercarbic respiratory failure 2. Influenza a infection 3. Acute COPD exacerbation 4. Normocytic Anemia of chronic disease 5. Chronic diabetes type 2 6. History of coronary disease post RCA stent, peripheral vascular disease and stroke 7. Stable hypertension PLAN OF CARE: Patient will be admitted to the ICU, monitor vital signs, I's and O's, will continue with BiPAP support and I have change his settings to 14/5, 14, 40% obtaining tidal volumes of 550, his O2 sat is barely 90%.? Will continue with respiratory precautions, place him on Tamiflu b.i.d., Solu-Medrol every 6 hours, albuterol nebulizers and DuoNeb.? Given his history of COPD and appearance of the x-ray, will place him on Zithromax. Patient will need revision of his home medications particularly because he is supposed to be on a blood thinner, this needs to be confirmed and perhaps resumed as soon as possible.? In the meantime will treat his diabetes with insulin sliding scale with REGULAR insulin as he has mentioned to be allergic to Lispro.? Patient will be NPO while wearing the mask.; his blood sugars will increase given the administration of steroids.? Repeat labs tomorrow as well as blood gas. GI PROPHYLAXIS:? IV ppi DVT PROPHYLAXIS:? Pneumatic stockings, resume blood thinner upon confirmation Critical care time used for critical evaluation of this patient, diagnosis, treatment and coordination of care, review her records and documentation TOTAL CRITICAL CARE TIME 90 ?MIN . discussion and coordination with consultants, completely separate from any procedures performed. Patient's care was discussed in detail with Dr. Spear.? He is aware of all the above as well as the plan of care for this patient. [facility] Past Medical History Medical History Recurrent falls Hospital discharge follow-up Ankle pain, left Left leg weakness UTI (urinary tract infection) Screening for prostate cancer Elevated WBCs Dizziness Preoperative cardiovascular examination LUQ abdominal pain Cough Colon cancer screening Leg cramps Restrictive lung disease Mass of left paraspinous region Obstructive sleep apnea Obesity (BMI 30-39.9) Osteoarthritis, hip, bilateral COPD (chronic obstructive pulmonary disease) History of CVA (cerebrovascular accident) BPH (benign prostatic hyperplasia) Avascular necrosis of bone of right hip Type 2 diabetes mellitus with hyperglycemia Coronary artery disease Peripheral vascular disease Hypercholesterolemia Alcohol abuse Urinary incontinence Anxiety and depression Hypertension Family History Family History Father Lung cancer COPD (chronic obstructive pulmonary disease) Heart disease Hypertension Mother COPD (chronic obstructive pulmonary disease) Diabetes Hypertension Breast cancer Paternal Uncle Prostate cancer Sister Heart disease Surgical History Surgical History History of surgery History of vascular surgery History of tonsillectomy Social History Social History Household Members: None Housing: House Do you presently have visiting nurse or other home services: No Alcohol intake: former Patient Tobacco Use Status: Former Tobacco user Tobacco use type: Cigarette Years Smoked: stopped smoking 12/2022 Smoked in Last 30 Days: No e-Cigarette/Vaping Use: Never Used Second Hand Smoke Exposure: No Use of substances other than those prescribed or required for medical reasons: No Substance Use Type: Marijuana Currently Displaying Signs/Symptoms of Drug Intoxication Withdrawal: No Advance Directives: No Advance Directives Information Provided: No Do you have thoughts of harming others: None Do you have a plan to hurt others: No Plan Nutrition Risks: Acute nausea or vomiting x1 week Poor oral hygiene: No service: No Current occupational status: disabled Cognitive needs: Yes (cane, wheel chair ) Hearing needs: Yes Vision needs: Yes Meds Allergies Allergy/AdvReac Type Severity Reaction Status Date / Time ciprofloxacin [From CIPRO] Allergy Severe SWELLING, Verified 05/19/23 10:06 ITCHING bee pollen [BEE STINGS] Allergy Unknown HIVES Verified 05/19/23 10:06 Penicillins Allergy Unknown UNKNOWN Verified 05/19/23 10:06 insulin lispro AdvReac Intermediate Swelling Verified 05/19/23 10:06 [From Humalog U-100 Insulin] Active Medications: Current Medications Albuterol Sulfate (Albuterol Sulfate (0.083%) 2.5 Mg/3 Ml Vial.Neb) 2.5 mg INHALE Q3H PRN PRN Reason: Wheezing Albuterol/Ipratropium (Albuterol/Iprat 2.5/0.5mg 3 Ml Ampul.Neb) 3 ml INHALE ONCE ONE Stop: 08/03/23 05:09 Methylprednisolone Sodium Succinate (Methylprednisolone Sod Succ 125 Mg/2 Ml Vial) 60 mg IVPUSH Q6H CLARA Oseltamivir Phosphate (Oseltamivir Phosphate 75 Mg Capsule) 75 mg PO Q12H CLARA Home Medications Medication Instructions Recorded Confirmed Last Taken Type Oxygen Home Use 05/23/22 05/19/23 Unknown History atorvastatin 80 mg tablet 80 mg PO BEDTIME 08/03/23 08/03/23 08/01/23 History docusate sodium 100 mg capsule 100 mg PO BID PRN Constipation 08/03/23 08/03/23 Unknown History hydrocortisone 2.5 % topical cream 1 appl MT QID PRN hemorrhoids 08/03/23 08/03/23 Unknown History with perineal applicator (Proctosol HC) insulin glargine 100 unit/mL (3 25 unit subcut BEDTIME 08/03/23 08/03/23 08/01/23 History mL) subcutaneous pen (Lantus Solostar U-100 Insulin) lidocaine 5 % topical patch 1 patch topical DAILY 08/03/23 08/03/23 08/02/23 12:00 History multivitamin 1 tab PO DAILY 08/03/23 08/03/23 08/02/23 History tizanidine 4 mg tablet 4 mg PO TID 08/03/23 08/03/23 08/02/23 12:00 History vit C 250 mg-vit E 90 mg-zinc 40 1 tab PO BID 08/03/23 08/03/23 08/02/23 12:00 History mg-copper 1 [id number] capsule (PreserVision AREDS-2) Physical Exam 2 Vital Signs: Vital Signs: Last Vital Signs Temp 97.3 F 08/03/23 01:58 Pulse 82 08/03/23 04:48 Resp 29 H 08/03/23 05:12 BP 94/61 08/03/23 01:58 Pulse Ox 93 08/03/23 01:58 O2 Del Method BiPAP 08/03/23 01:58 BMI result Body Mass Index 25.7 Results Labs 08/03/23 07:03 08/03/23 07:03 Labs: Laboratory Results - last 24 hr 08/03/23 08/03/23 08/03/23 00:14 00:22 04:28 MCV 91.6 MCH 28.7 MCHC 31.4 RDW 14.3 Plt Count 209 MPV 10.0 Immature Gran % (Auto) 0.4 Neut % (Auto) 86.2 H Lymph % (Auto) 6.3 L [place] % (Auto) 6.6 Eos % (Auto) 0.2 Baso % (Auto) 0.3 Lymph # (Auto) 0.6 L [place] # (Auto) 0.6 Eos # (Auto) 0.0 Baso # (Auto) 0.0 Abs Immat Gran (auto) 0.04 H Absolute Neuts (auto) 8.4 H Absolute Nucleated RBC 0.000 Nucleated RBC % (auto) 0.0 O2 Saturation 93.0 ABG pH at Pt Temp 7.36 ABG pCO2 at Pt Temp 63 H* ABG pO2 at Pt Temp 71 L ABG HCO3 36 H ABG Base Excess (Actual) 8.4 VBG pH 7.26 L VBG pCO2 76 VBG pO2 49 VBG HCO3 34 H VBG O2 Saturation 76.0 VBG Base Excess 5.0 Anion Gap 15 Estim Creat Clear Calc 67.1 Estimated GFR > 60 Random Glucose 152 H Calcium 9.3 Total Bilirubin 0.5 AST 23 ALT 19 Alkaline Phosphatase 62 B-Natriuretic Peptide 104 H Total Protein 7.3 Albumin 4.3 COVID-19 (ANTHONY) Negative COVID-19 Clin Com See Note Influenza Type A (LESLY) Positive A Influenza Type B (LESLY) Negative Influenza A & B Note See Note Imaging Radiologist's Impressions: Impressions Chest X-Ray 08/03/23 00:49
[2023-08-03] MEDS: Albuterol/Iprat 2.5/0.5MG 3 ML AMPUL.NEB INHALE ×4 (05:48→19:26)
[2023-08-03] MEDS: methylPREDNISolone Sod Succ 125 MG/2 ML VIAL 60 MG IVPUSH ×3 (05:50→18:27)
[2023-08-03] MEDS: Azithromycin 500 MG in 0.9 % Sodium Chloride 250 ML 125 MG IV (06:11)
[2023-08-03 07:15] LABS: Basophils Percent Auto 0.1 % (0-2); Eosinophils Percent Auto 0.1 % (0-4); Hematocrit 37.3 % (42.0-52.0); Hemoglobin 11.8 g/dl (14.0-18.0); Imm Gran Abs Auto 0.07 X10*3/uL (0.00-0.03); Imm Gran Pct Auto 0.9 % (0.0-0.4); Lymphocytes Absolute Auto 0.5 X10*3/uL (1.2-4.9); Lymphocytes Percent Auto 6.4 % (20-40); MANUAL DIFF FLAG SCAN; Mean Corpuscular HGB Conc 31.6 g/dl (31.0-36.0); Mean Corpuscular Hemoglobin 28.6 pg (27.0-33.0); Mean Corpuscular Volume 90.3 fL (80.0-98.0); Mean Platelet Volume 10.5 fL (9.4-12.4); Monocytes Absolute Auto 0.1 X10*3/uL (0.1-1.2); Monocytes Percent Auto 1.6 % (2-11); Neutrophils Absolute Auto 7.4 x10*3/uL (2.0-8.3); Neutrophils Percent Auto 90.9 % (45-73); Platelet Count 211 X10*3/uL (160-400); Red Blood Count 4.13 X10*6/uL (4.60-5.80); Red Cell Distribution Width 14.3 % (11.0-16.0); SCAN SMEAR FLAG 1; White Blood Count 8.2 X10*3/uL (4.8-10.8)
[2023-08-03 07:36] LABS: Alanine Aminotransferase 19 U/L (0-40); Albumin Level 3.9 g/dL (3.5-5.0); Alkaline Phosphatase 60 U/L (39-117); Anion Gap 13 (12-20); Aspartate Amino Transferase 21 U/L (5-37); Bilirubin Total 0.3 mg/dL (0.0-1.0); Blood Urea Nitrogen 13 mg/dL (9-16); Carbon Dioxide 30 mmol/L (22-29); Chloride 101 mmol/L (96-108); Creatinine Clr Calc Pharmacy 91.1; Estimated Glomerular Filt Rate > 60; Glucose Random 193 mg/dL (60-115); Potassium 3.9 mmol/L (3.3-5.1); Sodium 140 mmol/L (135-145); Total Protein 6.8 g/dL (6.5-8.0)
[2023-08-03 07:46] LABS: SLIDE REVIEW VERIFIED
[2023-08-03] MEDS: Insulin Regular, Human 100 UNIT/ML 3 ML VIAL IVPUSH ×4 (08:57→20:07)
[2023-08-03 09:01] LABS: Glucose, Whole Blood 180 mg/dL (60-115)
--- NOTE | 2023-08-03 10:02 | P.ACPN_ITS ---
Advanced Care Planning Note Advanced Care Planning Note Discussed with: patient Time spent (in minutes): 15 Narrative: I introduced myself to Mr. Spann this morning. Mr. Spann was alert, oriented, and answered questions appropriately. We discussed Mr. Spann' code status. Mr. Spann was very clear that he would not want to live on life support, and would like to be DNR and DNI. We also discussed hemodialysis, which Mr. Spann was clear he would also not want. We started to discuss artificial nutrition, but Mr. Spann said he would like to discuss with his sisters. Of note, Mr. Spann stated he does not have a healthcare proxy, but would be comfortable with his s isters making decisions with regards to his care if he were unable to. A MOLST form was signed.
--- NOTE | 2023-08-03 11:26 | PHA.MEDREC ---
Pharmacy Consult ? Medication Reconciliation Pharmacy has completed the medication reconciliation. Pt abena historian of meds. Called patient's sister Joycelyn ([phone]) which had pt's med list.
[2023-08-03 12:15] LABS: Glucose, Whole Blood 156 mg/dL (60-115)
[2023-08-03] MEDS: Fenofibrate 160 MG TABLET PO (13:06)
[2023-08-03] MEDS: DULoxetine HCl 60 MG CAPSULE.DR PO (13:06)
[2023-08-03] MEDS: Ezetimibe 10 MG TABLET PO (14:10)
[2023-08-03 16:28] LABS: Glucose, Whole Blood 178 mg/dL (60-115)
[2023-08-03 18:05] LABS: VBG HCO3 34 mmol/L (22-26); VBG pCO2 52 mmHg; VBG pH 7.43 (7.32-7.43); VBG pO2 116 mmHg
[2023-08-03 18:13] LABS: Venous Blood Gas Refer to POC result
[2023-08-03] MEDS: LORazepam 0.5 MG TABLET PO (18:29)
[2023-08-03 20:03] LABS: Glucose, Whole Blood 230 mg/dL (60-115)
[2023-08-03] MEDS: Atorvastatin Calcium 80 MG TABLET PO (20:07)
[2023-08-04] VITALS (33 sets, daily range): BP systolic 101–167; BP diastolic 30–85; PULSE 62–95; RESP 13–25; TEMP 36.1–36.4; O2SAT 89–96; BMI 27.6
[2023-08-04] MEDS: methylPREDNISolone Sod Succ 125 MG/2 ML VIAL 60 MG IVPUSH ×4 (00:45→16:39)
[2023-08-04] MEDS: Melatonin 3 MG TABLET 6 MG PO (01:08)
[2023-08-04 04:59] LABS: VBG Base Excess 9.8 mmol/L; VBG HCO3 35 mmol/L (22-26); VBG pCO2 53 mmHg; VBG pH 7.43 (7.32-7.43); VBG pO2 81 mmHg
[2023-08-04] MEDS: Oseltamivir Phosphate 75 MG CAPSULE PO ×2 (04:59→16:39)
[2023-08-04] MEDS: Azithromycin 500 MG in 0.9 % Sodium Chloride 250 ML 125 MG IV (05:00)
[2023-08-04] MEDS: Pantoprazole Sodium 40 MG/10 ML VIAL IVPUSH (05:00)
[2023-08-04 05:06] LABS: MANUAL DIFF FLAG NO
[2023-08-04 05:07] LABS: Venous Blood Gas Refer to POC result
[2023-08-04 05:14] LABS: Basophils Percent Auto 0.1 % (0-2); Hematocrit 36.7 % (42.0-52.0); Hemoglobin 11.5 g/dl (14.0-18.0); Imm Gran Abs Auto 0.09 X10*3/uL (0.00-0.03); Imm Gran Pct Auto 0.8 % (0.0-0.4); Lymphocytes Absolute Auto 0.8 X10*3/uL (1.2-4.9); Lymphocytes Percent Auto 7.6 % (20-40); Mean Corpuscular HGB Conc 31.3 g/dl (31.0-36.0); Mean Corpuscular Hemoglobin 28.2 pg (27.0-33.0); Mean Platelet Volume 10.7 fL (9.4-12.4); Monocytes Absolute Auto 0.3 X10*3/uL (0.1-1.2); Monocytes Percent Auto 3.2 % (2-11); Neutrophils Absolute Auto 9.4 x10*3/uL (2.0-8.3); Neutrophils Percent Auto 88.3 % (45-73); Platelet Count 237 X10*3/uL (160-400); Red Blood Count 4.08 X10*6/uL (4.60-5.80); Red Cell Distribution Width 13.8 % (11.0-16.0); White Blood Count 10.6 X10*3/uL (4.8-10.8)
[2023-08-04 05:30] LABS: Anion Gap 11 (12-20); Blood Urea Nitrogen 19 mg/dL (9-16); Calcium 9.1 mg/dL (8.4-10.2); Carbon Dioxide 32 mmol/L (22-29); Chloride 99 mmol/L (96-108); Creatinine Clr Calc Pharmacy 91.5; Estimated Glomerular Filt Rate > 60; Glucose Random 188 mg/dL (60-115); Sodium 138 mmol/L (135-145)
[2023-08-04 07:03] LABS: MANUAL DIFF FLAG NO
[2023-08-04 07:07] LABS: Basophils Percent Auto 0.1 % (0-2); Imm Gran Abs Auto 0.04 X10*3/uL (0.00-0.03); Imm Gran Pct Auto 0.4 % (0.0-0.4); Lymphocytes Absolute Auto 0.8 X10*3/uL (1.2-4.9); Lymphocytes Percent Auto 6.9 % (20-40); Mean Corpuscular HGB Conc 32.4 g/dl (31.0-36.0); Mean Corpuscular Hemoglobin 28.8 pg (27.0-33.0); Mean Corpuscular Volume 88.7 fL (80.0-98.0); Mean Platelet Volume 10.1 fL (9.4-12.4); Monocytes Absolute Auto 0.3 X10*3/uL (0.1-1.2); Monocytes Percent Auto 2.8 % (2-11); Neutrophils Percent Auto 89.8 % (45-73); Platelet Count 216 X10*3/uL (160-400); Red Blood Count 4.17 X10*6/uL (4.60-5.80); Red Cell Distribution Width 13.8 % (11.0-16.0); White Blood Count 11.1 X10*3/uL (4.8-10.8)
[2023-08-04 07:09] LABS: Glucose, Whole Blood 181 mg/dL (60-115)
[2023-08-04] MEDS: Albuterol/Iprat 2.5/0.5MG 3 ML AMPUL.NEB INHALE ×4 (07:48→19:39)
[2023-08-04] MEDS: DULoxetine HCl 60 MG CAPSULE.DR PO (07:52)
[2023-08-04] MEDS: Ezetimibe 10 MG TABLET PO (07:52)
[2023-08-04] MEDS: Aspirin 81 MG TAB.CHEW PO (07:52)
[2023-08-04] MEDS: Fenofibrate 160 MG TABLET PO (07:53)
[2023-08-04] MEDS: Insulin Regular, Human 100 UNIT/ML 3 ML VIAL IVPUSH ×4 (07:53→20:18)
--- NOTE | 2023-08-04 09:45 | PM.CCPN ---
Subjective Subjective Date of Service: 08/04/23 Interval History: 62-year-old gentleman with multiple medical issues including COPD on 2 L, CAD status post RCA stent in 2012, diabetes mellitus, obesity, peripheral vascular disease status post left AKA, avascular necrosis of right hip, prior CVA now on Xarelto admitted on 08/03/2023 with acute hypoxic respiratory failure secondary to influenza on the background of COPD exacerbation initially requiring BiPAP support, now on high-flow nasal cannula. No events overnight. Critical Care Time (minutes): 60 Physical Exam Vital Signs: Vital Signs: Last Vital Signs Temp 97.5 F 08/04/23 08:00 Pulse 66 08/04/23 09:00 Resp 20 08/04/23 09:00 BP 141/30 H 08/04/23 09:00 Pulse Ox 95 08/04/23 09:00 O2 Del Method High Flow Nasal C annula 08/04/23 09:00 O2 Flow Rate 35 08/04/23 09:00 FiO2 50 08/04/23 09:00 BMI result Body Mass Index 27.6 Const: General: no acute distress, alert and awake Eyes: Sclerae: sclerae normal EOM: EOMs intact bilaterally Neck: Neck: Yes no lymphadenopathy, Yes trachea midline and Yes supple Resp: Effort & Inspection: normal respiratory effort and no respiratory distress Auscultation: wheezes (Bilateral) Cardio: Rate: regular rate Rhythm: regular rhythm Heart sounds: no gallops, no murmurs and no rubs GI: Palpation (GI): Soft to palpation and Other GI palpation findings present ( Nontender) Auscultation: normal bowel sounds Extrem: General: Yes no pedal edema, No clubbing and No cyanosis Objective Data Labs 08/04/23 06:58 08/04/23 04:50 Labs: Laboratory Results - last 24 hr 08/03/23 08/03/23 08/03/23 12:10 16:25 17:58 WBC RBC Hgb Hct MCV MCH MCHC RDW Plt Count MPV Immature Gran % (Auto) Neut % (Auto) Lymph % (Auto) [place] % (Auto) Eos % (Auto) Baso % (Auto) Lymph # (Auto) [place] # (Auto) Eos # (Auto) Baso # (Auto) Abs Immat Gran (auto) Absolute Neuts (auto) Absolute Nucleated RBC Nucleated RBC % (auto) VBG pH 7.43 VBG pCO2 52 VBG pO2 116 VBG HCO3 34 H VBG O2 Saturation 99.0 VBG Base Excess 9.0 Sodium Potassium Chloride Carbon Dioxide Anion Gap BUN Creatinine Estim Creat Clear Calc Estimated GFR POC Glucose 156 H 178 H Random Glucose Calcium Total Bilirubin AST ALT Alkaline Phosphatase Total Protein Albumin 08/03/23 08/04/23 08/04/23 19:59 04:50 04:50 WBC 10.6 RBC 4.08 L Hgb 11.5 L Hct 36.7 L MCV 90.0 MCH 28.2 MCHC 31.3 RDW 13.8 Plt Count 237 MPV 10.7 Immature Gran % (Auto) 0.8 H Neut % (Auto) 88.3 H Lymph % (Auto) 7.6 L [place] % (Auto) 3.2 Eos % (Auto) 0.0 Baso % (Auto) 0.1 Lymph # (Auto) 0.8 L [place] # (Auto) 0.3 Eos # (Auto) 0.0 Baso # (Auto) 0.0 Abs Immat Gran (auto) 0.09 H Absolute Neuts (auto) 9.4 H Absolute Nucleated RBC 0.000 Nucleated RBC % (auto) 0.0 VBG pH VBG pCO2 VBG pO2 VBG HCO3 VBG O2 Saturation VBG Base Excess Sodium Cancelled 138 Potassium Cancelled Chloride Carbon Dioxide Anion Gap BUN Creatinine Estim Creat Clear Calc Estimated GFR POC Glucose 230 H Random Glucose Calcium Total Bilirubin AST ALT Alkaline Phosphatase Total Protein Albumin 08/04/23 08/04/23 08/04/23 04:50 04:50 04:50 WBC RBC Hgb Hct MCV MCH MCHC RDW Plt Count MPV Immature Gran % (Auto) Neut % (Auto) Lymph % (Auto) [place] % (Auto) Eos % (Auto) Baso % (Auto) Lymph # (Auto) [place] # (Auto) Eos # (Auto) Baso # (Auto) Abs Immat Gran (auto) Absolute Neuts (auto) Absolute Nucleated RBC Nucleated RBC % (auto) VBG pH VBG pCO2 VBG pO2 VBG HCO3 VBG O2 Saturation VBG Base Excess Sodium Potassium 4.0 Chloride Cancelled 99 Carbon Dioxide Cancelled 32 H Anion Gap Cancelled BUN Creatinine Estim Creat Clear Calc Estimated GFR POC Glucose Random Glucose Calcium Total Bilirubin AST ALT Alkaline Phosphatase Total Protein Albumin 0108/04/23 08/04/23 04:50 04:50 04:50 WBC RBC Hgb Hct MCV MCH MCHC RDW Plt Count MPV Immature Gran % (Auto) Neut % (Auto) Lymph % (Auto) [place] % (Auto) Eos % (Auto) Baso % (Auto) Lymph # (Auto) [place] # (Auto) Eos # (Auto) Baso # (Auto) Abs Immat Gran (auto) Absolute Neuts (auto) Absolute Nucleated RBC Nucleated RBC % (auto) VBG pH VBG pCO2 VBG pO2 VBG HCO3 VBG O2 Saturation VBG Base Excess Sodium Potassium Chloride Carbon Dioxide Anion Gap 11 L BUN Cancelled 19 H Creatinine Cancelled 0.82 Estim Creat Clear Calc Cancelled Estimated GFR POC Glucose Random Glucose Calcium Total Bilirubin AST ALT Alkaline Phosphatase Total Protein Albumin 08/04/23 08/04/23 08/04/23 04:50 04:50 04:50 WBC RBC Hgb Hct MCV MCH MCHC RDW Plt Count MPV Immature Gran % (Auto) Neut % (Auto) Lymph % (Auto) [place] % (Auto) Eos % (Auto) Baso % (Auto) Lymph # (Auto) [place] # (Auto) Eos # (Auto) Baso # (Auto) Abs Immat Gran (auto) Absolute Neuts (auto) Absolute Nucleated RBC Nucleated RBC % (auto) VBG pH VBG pCO2 VBG pO2 VBG HCO3 VBG O2 Saturation VBG Base Excess Sodium Potassium Chloride Carbon Dioxide Anion Gap BUN Creatinine Estim Creat Clear Calc 91.5 Estimated GFR Cancelled > 60 POC Glucose Random Glucose Cancelled 188 H Calcium Cancelled Total Bilirubin AST ALT Alkaline Phosphatase Total Protein Albumin 08/04/23 08/04/23 08/04/23 04:50 04:52 06:58 WBC 11.1 H RBC 4.17 L Hgb 12.0 L Hct 37.0 L MCV 88.7 MCH 28.8 MCHC 32.4 RDW 13.8 Plt Count 216 MPV 10.1 Immature Gran % (Auto) 0.4 Neut % (Auto) 89.8 H Lymph % (Auto) 6.9 L [place] % (Auto) 2.8 Eos % (Auto) 0.0 Baso % (Auto) 0.1 Lymph # (Auto) 0.8 L [place] # (Auto) 0.3 Eos # (Auto) 0.0 Baso # (Auto) 0.0 Abs Immat Gran (auto) 0.04 H Absolute Neuts (auto) 10.0 H Absolute Nucleated RBC 0.000 Nucleated RBC % (auto) 0.0 VBG pH 7.43 VBG pCO2 53 VBG pO2 81 VBG HCO3 35 H VBG O2 Saturation 96.0 VBG Base Excess 9.8 Sodium Potassium Chloride Carbon Dioxide Anion Gap BUN Creatinine Estim Creat Clear Calc Estimated GFR POC Glucose Random Glucose Calcium 9.1 Total Bilirubin Cancelled AST Cancelled ALT Cancelled Alkaline Phosphatase Cancelled Total Protein Cancelled Albumin Cancelled 08/04/23 07:04 WBC RBC Hgb Hct MCV MCH MCHC RDW Plt Count MPV Immature Gran % (Auto) Neut % (Auto) Lymph % (Auto) [place] % (Auto) Eos % (Auto) Baso % (Auto) Lymph # (Auto) [place] # (Auto) Eos # (Auto) Baso # (Auto) Abs Immat Gran (auto) Absolute Neuts (auto) Absolute Nucleated RBC Nucleated RBC % (auto) VBG pH VBG pCO2 VBG pO2 VBG HCO3 VBG O2 Saturation VBG Base Excess Sodium Potassium Chloride Carbon Dioxide Anion Gap BUN Creatinine Estim Creat Clear Calc Estimated GFR POC Glucose 181 H Random Glucose Calcium Total Bilirubin AST ALT Alkaline Phosphatase Total Protein Albumin Progress Note: A&P Assessment and plan (1) Acute and chronic respiratory failure with hypoxia: Status: Acute (2) Influenza A: Status: Acute (3) History of CVA (cerebrovascular accident): Status: Acute (4) COPD (chronic obstructive pulmonary disease): Status: Acute (5) Type 2 diabetes mellitus with hyperglycemia: Status: Acute (6) Coronary artery disease: Status: Acute (7) Peripheral vascular disease: Status: Acute (8) Above knee amputation of left lower extremity: Status: Acute Plan Assessment: 62-year-old gentleman with multiple medical issues admitted with acute on chronic hypoxic and hypercapnic respiratory failure secondary to influenza of a background of oxygen-dependent COPD, CAD, PVD, diabetes mellitus Plan: Neuro: No acute issues. Cardiac: No acute issues. Underlying CAD and history of CVA, continues on rivaroxaban and home CAD regimen. Pulmonary: Acute on chronic hypoxic respiratory failure. Hypercapnic component resolved. Titrated of BiPAP. Continue to titrate down supplemental oxygen to baseline. Underlying influenza. Continue Tamiflu. Continue systemic glucocorticoids for COPD exacerbation. Renal: No acute issues. Endo: No acute issues. GI: No acute issues. ID: Influenza a on Tamiflu. COPD exacerbation azithromycin. Heme/Onc: No acute issues. Psych: No acute issues. Miscellaneous: No acute issues. Prophylaxis: Rivaroxaban Diet: Cardiac Critical care time spent: 60 minutes Quality Stroke Does the patient have a stroke diagnosis?: No VTE Prior VTE?: No VTE Risk Level:: Medical - moderate - high VTE Device Contraindication: N/A - Device Ordered VTE Drug Contraindication: N/A - Med Ordered
[2023-08-04 11:16] LABS: Glucose, Whole Blood 222 mg/dL (60-115)
--- NOTE | 2023-08-04 15:46 | MHC.CM.PN ---
Met with pt to discuss d/c planning needs: pt resides alone, has [employer] for O2 needs, uses a walker or w/c and has family support for transportation. Pt states he has been trying for [employer] services through his PCP since April without success. Discussed d/c needs: pt states hes been to [facility] and does not wish to return. He is receptive to [facility] and chose [place]. He is also in the process of getting a left leg prosthetic - has been fitted. Will refer to [facility] and encouraged pt to continue to pursue [employer] services through PCP. IMM in chart. Assisted pt w/HCP completion. CM to follow.
[2023-08-04 16:08] LABS: Glucose, Whole Blood 202 mg/dL (60-115)
[2023-08-04] MEDS: oxyCODONE HCl Immed Release 5 MG TABLET 10 MG PO (19:11)
[2023-08-04 20:07] LABS: Glucose, Whole Blood 250 mg/dL (60-115)
[2023-08-04] MEDS: LORazepam 0.5 MG TABLET PO (20:18)
[2023-08-04] MEDS: diphenhydrAMINE HCL 25 MG CAPSULE PO (20:18)
[2023-08-04] MEDS: Atorvastatin Calcium 80 MG TABLET PO (20:18)
[2023-08-05] VITALS (21 sets, daily range): BP systolic 99–172; BP diastolic 28–82; PULSE 58–74; RESP 14–21; TEMP 36.2–37.1; O2SAT 87–94; BMI 27.9
[2023-08-05] MEDS: methylPREDNISolone Sod Succ 125 MG/2 ML VIAL 60 MG IVPUSH ×2 (00:07→05:15)
[2023-08-05 05:01] LABS: VBG Base Excess 13.2 mmol/L; VBG HCO3 38 mmol/L (22-26); VBG pCO2 49 mmHg; VBG pH 7.49 (7.32-7.43); VBG pO2 46 mmHg
[2023-08-05 05:11] LABS: Basophils Percent Auto 0.1 % (0-2); Hematocrit 36.5 % (42.0-52.0); Hemoglobin 11.7 g/dl (14.0-18.0); Imm Gran Abs Auto 0.04 X10*3/uL (0.00-0.03); Imm Gran Pct Auto 0.4 % (0.0-0.4); Lymphocytes Absolute Auto 0.9 X10*3/uL (1.2-4.9); Lymphocytes Percent Auto 8.9 % (20-40); MANUAL DIFF FLAG NO; Mean Corpuscular HGB Conc 32.1 g/dl (31.0-36.0); Mean Corpuscular Hemoglobin 27.9 pg (27.0-33.0); Mean Corpuscular Volume 87.1 fL (80.0-98.0); Mean Platelet Volume 10.2 fL (9.4-12.4); Monocytes Absolute Auto 0.4 X10*3/uL (0.1-1.2); Monocytes Percent Auto 3.8 % (2-11); Neutrophils Absolute Auto 9.2 x10*3/uL (2.0-8.3); Neutrophils Percent Auto 86.8 % (45-73); Platelet Count 229 X10*3/uL (160-400); Red Blood Count 4.19 X10*6/uL (4.60-5.80); Red Cell Distribution Width 13.8 % (11.0-16.0); White Blood Count 10.6 X10*3/uL (4.8-10.8)
[2023-08-05] MEDS: Pantoprazole Sodium 40 MG/10 ML VIAL IVPUSH (05:15)
[2023-08-05] MEDS: Oseltamivir Phosphate 75 MG CAPSULE PO ×2 (05:15→17:02)
[2023-08-05] MEDS: Azithromycin 500 MG in 0.9 % Sodium Chloride 250 ML 125 MG IV (05:18)
[2023-08-05 05:35] LABS: Albumin Level 3.9 g/dL (3.5-5.0); Anion Gap 11 (12-20); Blood Urea Nitrogen 20 mg/dL (9-16); Calcium 9.4 mg/dL (8.4-10.2); Carbon Dioxide 35 mmol/L (22-29); Chloride 95 mmol/L (96-108); Creatinine Clr Calc Pharmacy 88.8; Estimated Glomerular Filt Rate > 60; Glucose Random 206 mg/dL (60-115); Magnesium 1.6 mg/dL (1.6-2.6); Phosphorus 2.3 mg/dL (2.7-4.5); Potassium 4.3 mmol/L (3.3-5.1); Sodium 137 mmol/L (135-145)
[2023-08-05 05:38] LABS: Venous Blood Gas Refer to POC result
[2023-08-05] MEDS: Albuterol Sulfate (0.083%) 2.5 MG/3 ML VIAL.NEB INHALE (05:49)
[2023-08-05 07:32] LABS: Glucose, Whole Blood 211 mg/dL (60-115)
[2023-08-05] MEDS: Insulin Regular, Human 100 UNIT/ML 3 ML VIAL IVPUSH ×4 (07:46→21:52)
[2023-08-05] MEDS: Fenofibrate 160 MG TABLET PO (07:47)
[2023-08-05] MEDS: Ezetimibe 10 MG TABLET PO (07:47)
[2023-08-05] MEDS: Aspirin 81 MG TAB.CHEW PO (07:47)
[2023-08-05] MEDS: DULoxetine HCl 60 MG CAPSULE.DR PO (07:47)
[2023-08-05] MEDS: Albuterol/Iprat 2.5/0.5MG 3 ML AMPUL.NEB INHALE ×4 (07:54→19:50)
[2023-08-05] MEDS: Sodium,Potassium Phosphates POWD.PACK 2 PACKET PO (09:03)
[2023-08-05] MEDS: predniSONE 20 MG TABLET 40 MG PO (09:03)
[2023-08-05] MEDS: Magnesium Sulfate/D5W 1 GM/100 ML PIGGYBACK IV (09:03)
--- NOTE | 2023-08-05 09:22 | PM.CCPN ---
Subjective Subjective Date of Service: 08/05/23 Interval History: 62-year-old gentleman with multiple medical issues including COPD on 2 L, CAD status post RCA stent in 2012, diabetes mellitus, obesity, peripheral vascular disease status post left AKA, avascular necrosis of right hip, prior CVA now on Xarelto admitted on 08/03/2023 with acute hypoxic respiratory failure secondary to influenza on the background of COPD exacerbation initially requiring BiPAP support, now on high-flow nasal cannula / oximizer. No events overnight. Critical Care Time (minutes): 0 Physical Exam Vital Signs: Vital Signs: Last Vital Signs Temp 97.8 F 08/05/23 08:00 Pulse 68 08/05/23 09:00 Resp 18 08/05/23 09:00 BP 111/54 L 08/05/23 09:00 Pulse Ox 91 L 08/05/23 09:00 O2 Del Method High Flow Nasal C annula 08/05/23 07:00 O2 Flow Rate 6 08/05/23 09:00 FiO2 40 08/05/23 08:00 BMI result Body Mass Index 27.9 Const: General: no acute distress, alert and awake Eyes: Sclerae: sclerae normal EOM: EOMs intact bilaterally Neck: Neck: Yes no lymphadenopathy, Yes trachea midline and Yes supple Resp: Effort & Inspection: normal respiratory effort and no respiratory distress Auscultation: wheezes expiratory wheezes Cardio: Rate: regular rate Rhythm: regular rhythm Heart sounds: no gallops, no murmurs and no rubs GI: Palpation (GI): Soft to palpation and Other GI palpation findings present ( Nontender) Auscultation: normal bowel sounds Extrem: General: Yes no pedal edema, No clubbing, No cyanosis and Yes other (Left AKA) Objective Data Labs 08/05/23 04:48 08/05/23 04:48 Labs: Laboratory Results - last 24 hr 08/04/23 08/04/23 08/04/23 11:12 16:03 20:02 WBC RBC Hgb Hct MCV MCH MCHC RDW Plt Count MPV Immature Gran % (Auto) Neut % (Auto) Lymph % (Auto) [place] % (Auto) Eos % (Auto) Baso % (Auto) Lymph # (Auto) [place] # (Auto) Eos # (Auto) Baso # (Auto) Abs Immat Gran (auto) Absolute Neuts (auto) Absolute Nucleated RBC Nucleated RBC % (auto) VBG pH VBG pCO2 VBG pO2 VBG HCO3 VBG O2 Saturation VBG Base Excess Sodium Potassium Chloride Carbon Dioxide Anion Gap BUN Creatinine Estim Creat Clear Calc Estimated GFR POC Glucose 222 H 202 H 250 H Random Glucose Calcium Phosphorus Magnesium Albumin 08/05/23 08/05/23 08/05/23 04:48 04:54 07:24 WBC 10.6 RBC 4.19 L Hgb 11.7 L Hct 36.5 L MCV 87.1 MCH 27.9 MCHC 32.1 RDW 13.8 Plt Count 229 MPV 10.2 Immature Gran % (Auto) 0.4 Neut % (Auto) 86.8 H Lymph % (Auto) 8.9 L [place] % (Auto) 3.8 Eos % (Auto) 0.0 Baso % (Auto) 0.1 Lymph # (Auto) 0.9 L [place] # (Auto) 0.4 Eos # (Auto) 0.0 Baso # (Auto) 0.0 Abs Immat Gran (auto) 0.04 H Absolute Neuts (auto) 9.2 H Absolute Nucleated RBC 0.000 Nucleated RBC % (auto) 0.0 VBG pH 7.49 H VBG pCO2 49 VBG pO2 46 VBG HCO3 38 H VBG O2 Saturation 78.0 VBG Base Excess 13.2 Sodium 137 Potassium 4.3 Chloride 95 L Carbon Dioxide 35 H Anion Gap 11 L BUN 20 H Creatinine 0.85 Estim Creat Clear Calc 88.8 Estimated GFR > 60 POC Glucose 211 H Random Glucose 206 H Calcium 9.4 Phosphorus 2.3 L Magnesium 1.6 Albumin 3.9 Progress Note: A&P Assessment and plan (1) Acute and chronic respiratory failure with hypoxia: Status: Acute (2) Influenza A: Status: Acute (3) History of CVA (cerebrovascular accident): Status: Acute (4) Peripheral vascular disease: Status: Acute (5) Above knee amputation of left lower extremity: Status: Acute (6) Restrictive lung disease: Status: Acute (7) Obstructive sleep apnea: Status: Acute (8) COPD (chronic obstructive pulmonary disease): Status: Acute (9) Type 2 diabetes mellitus with hyperglycemia: Status: Acute (10) Coronary artery disease: Status: Acute Plan Assessment: 62-year-old gentleman with multiple medical issues admitted with acute on chronic hypoxic and hypercapnic respiratory failure secondary to influenza of a background of oxygen-dependent COPD, CAD, PVD, diabetes mellitus Plan: Neuro: No acute issues. Cardiac: No acute issues. Underlying CAD and history of CVA, continues on rivaroxaban and home CAD regimen. Pulmonary: Acute on chronic hypoxic respiratory failure. Hypercapnic component resolved. Titrated of BiPAP. Continue to titrate down supplemental oxygen to baseline. Underlying influenza. Continue Tamiflu. Continue systemic glucocorticoids for COPD exacerbation. Renal: No acute issues. Endo: No acute issues. GI: No acute issues. ID: Influenza A on Tamiflu. COPD exacerbation on azithromycin/prednisone. Heme/Onc: No acute issues. Psych: No acute issues. Miscellaneous: No acute issues. Prophylaxis: Rivaroxaban Diet: Cardiac Quality Stroke Does the patient have a stroke diagnosis?: No VTE Prior VTE?: No VTE Risk Level:: Medical - moderate - high VTE Device Contraindication: N/A - Device Ordered VTE Drug Contraindication: N/A - Med Ordered
[2023-08-05 12:28] LABS: Glucose, Whole Blood 315 mg/dL (60-115)
[2023-08-05 16:23] LABS: Glucose, Whole Blood 249 mg/dL (60-115)
[2023-08-05 20:40] LABS: Glucose, Whole Blood 184 mg/dL (60-115)
[2023-08-05] MEDS: oxyCODONE HCl Immed Release 5 MG TABLET 10 MG PO (21:46)
[2023-08-05] MEDS: Atorvastatin Calcium 80 MG TABLET PO (21:47)
[2023-08-05] MEDS: LORazepam 0.5 MG TABLET PO (21:47)
[2023-08-06] VITALS (10 sets, daily range): BP systolic 123–167; BP diastolic 67–87; PULSE 49–89; RESP 16–20; TEMP 36–36.7; O2SAT 90–95
[2023-08-06] MEDS: Oseltamivir Phosphate 75 MG CAPSULE PO ×2 (05:25→14:49)
[2023-08-06] MEDS: Azithromycin 500 MG in 0.9 % Sodium Chloride 250 ML 125 MG IV (05:29)
[2023-08-06] MEDS: Albuterol Sulfate (0.083%) 2.5 MG/3 ML VIAL.NEB INHALE (05:39)
[2023-08-06 07:44] LABS: Glucose, Whole Blood 128 mg/dL (60-115)
[2023-08-06] MEDS: Albuterol/Iprat 2.5/0.5MG 3 ML AMPUL.NEB INHALE ×4 (07:48→19:39)
[2023-08-06 07:52] LABS: Basophils Percent Auto 0.1 % (0-2); Eosinophils Percent Auto 0.1 % (0-4); Hematocrit 37.5 % (42.0-52.0); Hemoglobin 12.1 g/dl (14.0-18.0); Imm Gran Abs Auto 0.06 X10*3/uL (0.00-0.03); Imm Gran Pct Auto 0.6 % (0.0-0.4); Lymphocytes Absolute Auto 2.6 X10*3/uL (1.2-4.9); Lymphocytes Percent Auto 25.7 % (20-40); MANUAL DIFF FLAG SCAN; Mean Corpuscular HGB Conc 32.3 g/dl (31.0-36.0); Mean Corpuscular Hemoglobin 28.3 pg (27.0-33.0); Mean Corpuscular Volume 87.8 fL (80.0-98.0); Mean Platelet Volume 10.8 fL (9.4-12.4); Monocytes Percent Auto 9.4 % (2-11); Neutrophils Absolute Auto 6.5 x10*3/uL (2.0-8.3); Neutrophils Percent Auto 64.1 % (45-73); Platelet Count 227 X10*3/uL (160-400); Red Blood Count 4.27 X10*6/uL (4.60-5.80); Red Cell Distribution Width 13.8 % (11.0-16.0); SCAN SMEAR FLAG 1; White Blood Count 10.2 X10*3/uL (4.8-10.8)
[2023-08-06] MEDS: DULoxetine HCl 60 MG CAPSULE.DR PO (08:00)
[2023-08-06] MEDS: predniSONE 20 MG TABLET 40 MG PO (08:00)
[2023-08-06] MEDS: Fenofibrate 160 MG TABLET PO (08:00)
[2023-08-06] MEDS: Aspirin 81 MG TAB.CHEW PO (08:00)
[2023-08-06 08:01] LABS: Albumin Level 3.6 g/dL (3.5-5.0); Anion Gap 12 (12-20); Blood Urea Nitrogen 21 mg/dL (9-16); Calcium 9.1 mg/dL (8.4-10.2); Carbon Dioxide 34 mmol/L (22-29); Chloride 98 mmol/L (96-108); Creatinine Clr Calc Pharmacy 78.6; Estimated Glomerular Filt Rate > 60; Glucose Random 133 mg/dL (60-115); Magnesium 1.7 mg/dL (1.6-2.6); Phosphorus 2.7 mg/dL (2.7-4.5); Potassium 3.5 mmol/L (3.3-5.1); Sodium 140 mmol/L (135-145)
[2023-08-06] MEDS: Ezetimibe 10 MG TABLET PO (08:01)
[2023-08-06] MEDS: lisinopriL 10 MG TABLET PO (08:01)
[2023-08-06] MEDS: TiZANidine HCL 4 MG TABLET PO ×3 (08:01→20:21)
[2023-08-06] MEDS: amLODIPine Besylate 2.5 MG TABLET PO (08:01)
[2023-08-06] MEDS: carvediloL 25 MG TABLET PO (08:01)
[2023-08-06 08:58] LABS: SLIDE REVIEW VERIFIED
--- NOTE | 2023-08-06 10:44 | HO.PM.IMPN ---
Subjective Subjective Date of Service: 08/06/23 Interval History: much improved, still wheezy, some sob Physical Exam Vital Signs: Vital Signs: Last Vital Signs Temp 98.1 F 08/06/23 07:11 Pulse 89 08/06/23 08:03 Resp 20 08/06/23 08:03 BP 166/87 H 08/06/23 07:11 Pulse Ox 92 08/06/23 07:11 O2 Del Method Nasal Cannula 08/06/23 07:11 O2 Flow Rate 3 08/06/23 07:11 FiO2 40 08/05/23 20:00 BMI result Body Mass Index 27.9 General: AO X 3, no acute distress Resp: wheezing bilateral, some accessory muscles used CVS: S1,S2,RRR GI: soft, non tender, non distended Neuro: motor grossly intact, alert Psych: appropriate affect, appropriate insight Objective Data Active Medications Albuterol Sulfate (Albuterol Sulfate (0.083%) 2.5 Mg/3 Ml Vial.Neb) 2.5 mg INHALE Q3H PRN PRN Reason: Shortness of Breath/Wheezing Last Admin: 08/06/23 05:39 Dose: 2.5 mg Documented By: RAN Albuterol/Ipratropium (Albuterol/Iprat 2.5/0.5mg 3 Ml Ampul.Neb) 3 ml INHALE RQ4H WHILE AWAKE [facility] Last Admin: 08/06/23 07:48 Dose: 3 ml Documented By: EVY Amlodipine Besylate (Amlodipine Besylate 2.5 Mg Tablet) 2.5 mg PO DAILY [facility]; Protocol Last Admin: 08/06/23 08:01 Dose: 2.5 mg Documented By: IZZY Aspirin (Aspirin 81 Mg Tab.Chew) 81 mg PO DAILY [facility] Last Admin: 08/06/23 08:00 Dose: 81 mg Documented By: IZZY Atorvastatin Calcium (Atorvastatin Calcium 80 Mg Tablet) 80 mg PO BEDTIME [facility] Last Admin: 08/05/23 21:47 Dose: 80 mg Documented By: KENNY Carvedilol (Carvedilol 25 Mg Tablet) 25 mg PO BID [facility]; Protocol Last Admin: 08/06/23 08:01 Dose: 25 mg Documented By: IZZY Doxazosin Mesylate (Doxazosin Mesylate 2 Mg Tablet) 4 mg PO BEDTIME [facility] Duloxetine HCl (Duloxetine Hcl 60 Mg Capsule.) 60 mg PO DAILY [facility] Last Admin: 08/06/23 08:00 Dose: 60 mg Documented By: IZZY Ezetimibe (Ezetimibe 10 Mg Tablet) 10 mg PO DAILY [facility] Last Admin: 08/06/23 08:01 Dose: 10 mg Documented By: IZZY Fenofibrate (Fenofibrate 160 Mg Tablet) 160 mg PO DAILY [facility] Last Admin: 08/06/23 08:00 Dose: 160 mg Documented By: IZZY Azithromycin 500 mg/ Sodium (Chloride) 250 mls @ 125 mls/hr IV Q24H [facility] Last Infusion: 08/06/23 08:07 Dose: Infused Documented By: IZZY Insulin Glargine (Insulin Glargine,Hum.Rec.Anlog 100 Unit/Ml 10 Ml Vial) 25 unit SUBCUT BEDTIME [facility] Insulin Human Regular (Insulin Regular, Human 100 Unit/Ml 3 Ml Vial) 0 unit IVPUSH QIDACHS [facility]; Protocol Last Admin: 08/06/23 07:44 Dose: Not Given Documented By: IZZY Non-Admin Reason: No Insulin Coverage Lisinopril (Lisinopril 10 Mg Tablet) 10 mg PO DAILY [facility]; Protocol Last Admin: 08/06/23 08:01 Dose: 10 mg Documented By: IZZY Lorazepam (Lorazepam 0.5 Mg Tablet) 0.5 mg PO BEDTIME PRN PRN Reason: Anxiety Last Admin: 08/05/23 21:47 Dose: 0.5 mg Documented By: KENNY Pat Own (Rivaroxaban (2.5 Mg Tablet)) 2.5 each PO BID [facility] Last Admin: 08/06/23 08:02 Dose: 2.5 each Documented By: IZZY Oseltamivir Phosphate (Oseltamivir Phosphate 75 Mg Capsule) 75 mg PO Q12H [facility] Last Admin: 08/06/23 05:25 Dose: 75 mg Documented By: JAZMIN Oxycodone HCl (Oxycodone Hcl Immed Release 5 Mg Tablet) 10 mg PO Q6H PRN PRN Reason: Pain, Moderate(Pain Scale 4-6) Last Admin: 08/05/23 21:46 Dose: 10 mg Documented By: KENNY Prednisone (Prednisone 20 Mg Tablet) 40 mg PO DAILY [facility] Last Admin: 08/06/23 08:00 Dose: 40 mg Documented By: IZZY Quetiapine Fumarate (Quetiapine Fumarate 25 Mg Tablet) 25 mg PO BEDTIME [facility] Tizanidine HCl (Tizanidine Hcl 4 Mg Tablet) 4 mg PO TID [facility] Last Admin: 08/06/23 08:01 Dose: 4 mg Documented By: IZZY Labs 08/06/23 07:02 08/06/23 07:02 Labs: Laboratory Results - last 24 hr 08/05/23 08/05/23 08/05/23 12:24 16:09 20:23 MCV MCH MCHC RDW Plt Count MPV Immature Gran % (Auto) Neut % (Auto) Lymph % (Auto) [place] % (Auto) Eos % (Auto) Baso % (Auto) Lymph # (Auto) [place] # (Auto) Eos # (Auto) Baso # (Auto) Abs Immat Gran (auto) Absolute Neuts (auto) Absolute Nucleated RBC Nucleated RBC % (auto) Smear Tech's Comments Anion Gap Estim Creat Clear Calc Estimated GFR POC Glucose 315 H 249 H 184 H Random Glucose Calcium Phosphorus Magnesium Albumin 08/06/23 08/06/23 08/06/23 07:02 07:02 07:02 MCV 87.8 MCH 28.3 MCHC 32.3 RDW 13.8 Plt Count 227 MPV 10.8 Immature Gran % (Auto) 0.6 H Neut % (Auto) 64.1 Lymph % (Auto) 25.7 [place] % (Auto) 9.4 Eos % (Auto) 0.1 Baso % (Auto) 0.1 Lymph # (Auto) 2.6 [place] # (Auto) 1.0 Eos # (Auto) 0.0 Baso # (Auto) 0.0 Abs Immat Gran (auto) 0.06 H Absolute Neuts (auto) 6.5 Absolute Nucleated RBC 0.000 Nucleated RBC % (auto) 0.0 Smear Tech's Comments VERIFIED Anion Gap 12 Cancelled Estim Creat Clear Calc 78.6 Cancelled Estimated GFR > 60 POC Glucose Random Glucose Calcium Phosphorus Magnesium Albumin 08/06/23 08/06/23 08/06/23 07:02 07:02 07:02 MCV MCH MCHC RDW Plt Count MPV Immature Gran % (Auto) Neut % (Auto) Lymph % (Auto) [place] % (Auto) Eos % (Auto) Baso % (Auto) Lymph # (Auto) [place] # (Auto) Eos # (Auto) Baso # (Auto) Abs Immat Gran (auto) Absolute Neuts (auto) Absolute Nucleated RBC Nucleated RBC % (auto) Smear Tech's Comments Anion Gap Estim Creat Clear Calc Estimated GFR Cancelled POC Glucose Random Glucose 133 H Cancelled Calcium 9.1 Cancelled Phosphorus 2.7 Magnesium 1.7 Albumin 3.6 08/06/23 07:09 MCV MCH MCHC RDW Plt Count MPV Immature Gran % (Auto) Neut % (Auto) Lymph % (Auto) [place] % (Auto) Eos % (Auto) Baso % (Auto) Lymph # (Auto) [place] # (Auto) Eos # (Auto) Baso # (Auto) Abs Immat Gran (auto) Absolute Neuts (auto) Absolute Nucleated RBC Nucleated RBC % (auto) Smear Tech's Comments Anion Gap Estim Creat Clear Calc Estimated GFR POC Glucose 128 H Random Glucose Calcium Phosphorus Magnesium Albumin Assessment and Plan (1) Acute and chronic respiratory failure with hypoxia: Status: Acute Plan 62M PMH chronic hypoxic respiratory failure due to copd on 2L home o2, htn, hld, dm, cad, mood disorder, obesity, mulugeta, NAFLD, left aka, history of cva on xarelto, pvd, prostatits presented with sob, ams, due to flu and copd with acute decompensation and co2 narcosis, required bipap in icu, now improved and downgraded to medical floor Acute on chronic hypoxic and hypercapnic respiratory failure secondary to COPD with acute decompensation and influenza a complicated by acute metabolic encephalopathy Mental status back to baseline, still wheezing, O2 requirements above baseline Continue steroids, bronchodilators, wean O2, Tamiflu Hypertension Amlodipine, Coreg, lisinopril, Cardura Coronary artery disease, peripheral vascular disease, history of CVA Continue Xarelto, atorvastatin, aspirin Diabetes Basal bolus insulin Obesity Weight loss recommended DVT prophylaxis on Xarelto DNR/DNI reason for continued hospitalization: still wheezy, above baseline o2 Quality Stroke Does the patient have a stroke diagnosis?: No VTE Prior VTE?: No VTE Risk Level:: Medical - moderate - high VTE Device Contraindication: N/A - Device Ordered VTE Drug Contraindication: N/A - Med Ordered
[2023-08-06 11:28] LABS: Glucose, Whole Blood 203 mg/dL (60-115)
[2023-08-06] MEDS: Insulin Regular, Human 100 UNIT/ML 3 ML VIAL IVPUSH ×2 (12:13→17:09)
--- NOTE | 2023-08-06 15:52 | MHC.CM.PN ---
EMR REVIEWED, PER [facility] PT WHEEZING AND PLAN TO WEAN PT OFF O2, PT CURRENTLY AT 3.5L NC, [facility] FOLLOWING, CM WILL CONT TO FOLLOW DC NEEDS.
[2023-08-06 16:18] LABS: Glucose, Whole Blood 196 mg/dL (60-115)
[2023-08-06 19:49] LABS: Glucose, Whole Blood 94 mg/dL (60-115)
[2023-08-06] MEDS: Atorvastatin Calcium 80 MG TABLET PO (20:21)
[2023-08-06] MEDS: QUEtiapine Fumarate 25 MG TABLET PO (20:21)
[2023-08-06] MEDS: Doxazosin Mesylate 2 MG TABLET 4 MG PO (20:22)
[2023-08-06] MEDS: Insulin Glargine,Hum.rec.anlog 100 UNIT/ML 10 ML VIAL 25 UNIT SUBCUT (20:24)
[2023-08-06] MEDS: LORazepam 0.5 MG TABLET PO (20:25)
[2023-08-07] VITALS (10 sets, daily range): BP systolic 119–151; BP diastolic 61–82; PULSE 54–70; RESP 16–22; TEMP 36–36.8; O2SAT 88–97
[2023-08-07] MEDS: Azithromycin 500 MG in 0.9 % Sodium Chloride 250 ML 125 MG IV (05:26)
[2023-08-07] MEDS: Oseltamivir Phosphate 75 MG CAPSULE PO ×2 (05:26→16:52)
[2023-08-07 07:07] LABS: Hematocrit 38.8 % (42.0-52.0); Hemoglobin 12.4 g/dl (14.0-18.0); Mean Corpuscular Volume 87.6 fL (80.0-98.0); Mean Platelet Volume 10.8 fL (9.4-12.4); Platelet Count 223 X10*3/uL (160-400); Red Blood Count 4.43 X10*6/uL (4.60-5.80); Red Cell Distribution Width 13.5 % (11.0-16.0)
[2023-08-07 07:09] LABS: Anion Gap 11 (12-20); Blood Urea Nitrogen 21 mg/dL (9-16); Calcium 8.9 mg/dL (8.4-10.2); Carbon Dioxide 35 mmol/L (22-29); Chloride 101 mmol/L (96-108); Creatinine Clr Calc Pharmacy 85.7; Estimated Glomerular Filt Rate > 60; Glucose Fasting 76 mg/dL (60-99); Potassium 3.5 mmol/L (3.3-5.1); Sodium 143 mmol/L (135-145)
[2023-08-07 07:09] LABS: Glucose, Whole Blood 73 mg/dL (60-115)
[2023-08-07] MEDS: carvediloL 25 MG TABLET PO ×2 (08:09→20:58)
[2023-08-07] MEDS: Fenofibrate 160 MG TABLET PO (08:09)
[2023-08-07] MEDS: predniSONE 20 MG TABLET 40 MG PO (08:09)
[2023-08-07] MEDS: Aspirin 81 MG TAB.CHEW PO (08:09)
[2023-08-07] MEDS: TiZANidine HCL 4 MG TABLET PO ×3 (08:09→20:57)
[2023-08-07] MEDS: amLODIPine Besylate 2.5 MG TABLET PO (08:09)
[2023-08-07] MEDS: lisinopriL 10 MG TABLET PO (08:10)
[2023-08-07] MEDS: Ezetimibe 10 MG TABLET PO (08:10)
[2023-08-07] MEDS: DULoxetine HCl 60 MG CAPSULE.DR PO (08:10)
[2023-08-07] MEDS: Albuterol/Iprat 2.5/0.5MG 3 ML AMPUL.NEB INHALE ×4 (08:23→19:55)
--- NOTE | 2023-08-07 10:54 | P.PNIM_ITS ---
Subjective Subjective Date of Service: 08/07/23 Interval History: much improved, still wheezy, some sob Physical Exam 2 Vital Signs: Vital Signs: Last Vital Signs Temp 98.2 F 08/07/23 07:20 Pulse 59 08/07/23 08:23 Resp 20 08/07/23 08:23 BP 144/82 H 08/07/23 07:20 Pulse Ox 93 08/07/23 07:20 O2 Del Method Nasal Cannula 08/07/23 07:20 O2 Flow Rate 3.5 08/07/23 07:20 FiO2 40 08/05/23 20:00 BMI result Body Mass Index 27.9 General: AO X 3, no acute distress Resp: wheezing bilateral, some accessory muscles used CVS: S1,S2,RRR GI: soft, non tender, non distended Neuro: motor grossly intact, alert Psych: appropriate affect, appropriate insight Objective Data Active Medications Albuterol Sulfate (Albuterol Sulfate (0.083%) 2.5 Mg/3 Ml Vial.Neb) 2.5 mg INHALE Q3H PRN PRN Reason: Shortness of Breath/Wheezing Last Admin: 08/06/23 05:39 Dose: 2.5 mg Documented By: RAN Albuterol/Ipratropium (Albuterol/Iprat 2.5/0.5mg 3 Ml Ampul.Neb) 3 ml INHALE RQ4H WHILE AWAKE [facility] Last Admin: 08/07/23 08:23 Dose: 3 ml Documented By: TRUDY Amlodipine Besylate (Amlodipine Besylate 2.5 Mg Tablet) 2.5 mg PO DAILY [facility]; Protocol Last Admin: 08/07/23 08:09 Dose: 2.5 mg Documented By: CRYSTAL Aspirin (Aspirin 81 Mg Tab.Chew) 81 mg PO DAILY [facility] Last Admin: 08/07/23 08:09 Dose: 81 mg Documented By: CRYSTAL Atorvastatin Calcium (Atorvastatin Calcium 80 Mg Tablet) 80 mg PO BEDTIME [facility] Last Admin: 08/06/23 20:21 Dose: 80 mg Documented By: LUCAS Carvedilol (Carvedilol 25 Mg Tablet) 25 mg PO BID [facility]; Protocol Last Admin: 08/07/23 08:09 Dose: 25 mg Documented By: CRYSTAL Doxazosin Mesylate (Doxazosin Mesylate 2 Mg Tablet) 4 mg PO BEDTIME [facility] Last Admin: 08/06/23 20:22 Dose: 4 mg Documented By: LUCAS Duloxetine HCl (Duloxetine Hcl 60 Mg Capsule.) 60 mg PO DAILY [facility] Last Admin: 08/07/23 08:10 Dose: 60 mg Documented By: CRYSTAL Ezetimibe (Ezetimibe 10 Mg Tablet) 10 mg PO DAILY [facility] Last Admin: 08/07/23 08:10 Dose: 10 mg Documented By: CRYSTAL Fenofibrate (Fenofibrate 160 Mg Tablet) 160 mg PO DAILY [facility] Last Admin: 08/07/23 08:09 Dose: 160 mg Documented By: CRYSTAL Azithromycin 500 mg/ Sodium (Chloride) 250 mls @ 125 mls/hr IV Q24H [facility] Last Infusion: 08/07/23 07:53 Dose: Infused Documented By: CRYSTAL Insulin Glargine (Insulin Glargine,Hum.Rec.Anlog 100 Unit/Ml 10 Ml Vial) 25 unit SUBCUT BEDTIME [facility] Last Admin: 08/06/23 20:24 Dose: 25 unit Documented By: LUCAS Insulin Human Regular (Insulin Regular, Human 100 Unit/Ml 3 Ml Vial) 0 unit IVPUSH QIDACHS [facility]; Protocol Last Admin: 08/07/23 07:58 Dose: Not Given Documented By: CRYSTAL Non-Admin Reason: No Insulin Coverage Lisinopril (Lisinopril 10 Mg Tablet) 10 mg PO DAILY [facility]; Protocol Last Admin: 08/07/23 08:10 Dose: 10 mg Documented By: CRYSTLA Lorazepam (Lorazepam 0.5 Mg Tablet) 0.5 mg PO BEDTIME PRN PRN Reason: Anxiety Last Admin: 08/06/23 20:25 Dose: 0.5 mg Documented By: LUCAS Pat Own (Rivaroxaban (2.5 Mg Tablet)) 2.5 each PO BID [facility] Last Admin: 08/07/23 08:18 Dose: Not Given Documented By: CRYSTAL Non-Admin Reason: Med Not Available Oseltamivir Phosphate (Oseltamivir Phosphate 75 Mg Capsule) 75 mg PO Q12H [facility] Last Admin: 08/07/23 05:26 Dose: 75 mg Documented By: ZAIRA Oxycodone HCl (Oxycodone Hcl Immed Release 5 Mg Tablet) 10 mg PO Q6H PRN PRN Reason: Pain, Moderate(Pain Scale 4-6) Last Admin: 08/05/23 21:46 Dose: 10 mg Documented By: KENNY Prednisone (Prednisone 20 Mg Tablet) 40 mg PO DAILY [facility] Last Admin: 08/07/23 08:09 Dose: 40 mg Documented By: CRYSTAL Quetiapine Fumarate (Quetiapine Fumarate 25 Mg Tablet) 25 mg PO BEDTIME [facility] Last Admin: 08/06/23 20:21 Dose: 25 mg Documented By: LUCAS Tizanidine HCl (Tizanidine Hcl 4 Mg Tablet) 4 mg PO TID [facility] Last Admin: 08/07/23 08:09 Dose: 4 mg Documented By: CRYSTAL Labs 08/07/23 06:16 08/07/23 06:16 Labs: Laboratory Results - last 24 hr 08/06/23 08/06/23 08/06/23 11:21 16:11 19:43 MCV MCH MCHC RDW Plt Count MPV Absolute Nucleated RBC Nucleated RBC % (auto) Anion Gap Estim Creat Clear Calc Estimated GFR POC Glucose 203 H 196 H 94 Fasting Glucose Calcium 08/07/23 08/07/23 06:16 07:02 MCV 87.6 MCH 28.0 MCHC 32.0 RDW 13.5 Plt Count 223 MPV 10.8 Absolute Nucleated RBC 0.000 Nucleated RBC % (auto) 0.0 Anion Gap 11 L Estim Creat Clear Calc 85.7 Estimated GFR > 60 POC Glucose 73 Fasting Glucose 76 Calcium 8.9 Assessment and Plan (1) Acute and chronic respiratory failure with hypoxia: Status: Acute Plan 62M PMH chronic hypoxic respiratory failure due to copd on 2L home o2, htn, hld, dm, cad, mood disorder, obesity, mulugeta, NAFLD, left aka, history of cva on xarelto, pvd, prostatits presented with sob, ams, due to flu and copd with acute decompensation and co2 narcosis, required bipap in icu, now improved and downgraded to medical floor Acute on chronic hypoxic and hypercapnic respiratory failure secondary to COPD with acute decompensation and influenza a complicated by acute metabolic encephalopathy Mental status back to baseline, still wheezing, O2 requirements above baseline Continue steroids, bronchodilators, wean O2, Tamiflu Hypertension Amlodipine, Coreg, lisinopril, Cardura Coronary artery disease, peripheral vascular disease, history of CVA Continue Xarelto, atorvastatin, aspirin Diabetes Basal bolus insulin Obesity Weight loss recommended DVT prophylaxis on Xarelto DNR/DNI reason for continued hospitalization: still wheezy, above baseline o2 Quality Stroke Does the patient have a stroke diagnosis?: No VTE Prior VTE?: No VTE Risk Level:: Medical - moderate - high VTE Device Contraindication: N/A - Device Ordered VTE Drug Contraindication: N/A - Med Ordered
[2023-08-07 10:56] LABS: Glucose, Whole Blood 114 mg/dL (60-115)
[2023-08-07 16:25] LABS: Glucose, Whole Blood 259 mg/dL (60-115)
[2023-08-07] MEDS: Insulin Regular, Human 100 UNIT/ML 3 ML VIAL IVPUSH (16:52)
[2023-08-07] MEDS: oxyCODONE HCl Immed Release 5 MG TABLET 10 MG PO (16:58)
[2023-08-07 20:21] LABS: Glucose, Whole Blood 149 mg/dL (60-115)
[2023-08-07] MEDS: Atorvastatin Calcium 80 MG TABLET PO (20:57)
[2023-08-07] MEDS: Doxazosin Mesylate 2 MG TABLET 4 MG PO (20:57)
[2023-08-07] MEDS: QUEtiapine Fumarate 25 MG TABLET PO (20:57)
[2023-08-07] MEDS: Insulin Glargine,Hum.rec.anlog 100 UNIT/ML 10 ML VIAL 25 UNIT SUBCUT (20:58)
[2023-08-07] MEDS: LORazepam 0.5 MG TABLET PO (21:01)
[2023-08-08] VITALS (11 sets, daily range): BP systolic 110–140; BP diastolic 50–74; PULSE 54–94; RESP 18–24; TEMP 36.1–37.1; O2SAT 86–95
[2023-08-08] MEDS: Oseltamivir Phosphate 75 MG CAPSULE PO ×2 (03:56→15:29)
[2023-08-08] MEDS: Azithromycin 500 MG in 0.9 % Sodium Chloride 250 ML 125 MG IV (05:00)
[2023-08-08 07:42] LABS: Hematocrit 37.8 % (42.0-52.0); Hemoglobin 12.3 g/dl (14.0-18.0); Mean Corpuscular HGB Conc 32.5 g/dl (31.0-36.0); Mean Corpuscular Hemoglobin 28.4 pg (27.0-33.0); Mean Corpuscular Volume 87.3 fL (80.0-98.0); Platelet Count 223 X10*3/uL (160-400); Red Blood Count 4.33 X10*6/uL (4.60-5.80); Red Cell Distribution Width 13.4 % (11.0-16.0); White Blood Count 9.8 X10*3/uL (4.8-10.8)
[2023-08-08 07:47] LABS: Glucose, Whole Blood 63 mg/dL (60-115)
[2023-08-08] MEDS: TiZANidine HCL 4 MG TABLET PO ×3 (07:55→22:00)
[2023-08-08] MEDS: DULoxetine HCl 60 MG CAPSULE.DR PO (07:57)
[2023-08-08] MEDS: amLODIPine Besylate 2.5 MG TABLET PO (07:57)
[2023-08-08] MEDS: carvediloL 25 MG TABLET PO ×2 (07:57→22:02)
[2023-08-08] MEDS: lisinopriL 10 MG TABLET PO (07:58)
[2023-08-08] MEDS: Ezetimibe 10 MG TABLET PO (07:58)
[2023-08-08] MEDS: Fenofibrate 160 MG TABLET PO (07:58)
[2023-08-08] MEDS: Aspirin 81 MG TAB.CHEW PO (07:58)
[2023-08-08] MEDS: predniSONE 20 MG TABLET 40 MG PO (07:59)
[2023-08-08 08:01] LABS: Anion Gap 10 (12-20); Blood Urea Nitrogen 20 mg/dL (9-16); Calcium 8.5 mg/dL (8.4-10.2); Carbon Dioxide 32 mmol/L (22-29); Chloride 102 mmol/L (96-108); Creatinine Clr Calc Pharmacy 94.3; Estimated Glomerular Filt Rate > 60; Glucose Fasting 70 mg/dL (60-99); Potassium 3.1 mmol/L (3.3-5.1); Sodium 141 mmol/L (135-145)
[2023-08-08] MEDS: Albuterol/Iprat 2.5/0.5MG 3 ML AMPUL.NEB INHALE ×4 (08:02→19:29)
[2023-08-08 08:53] LABS: Glucose, Whole Blood 90 mg/dL (60-115)
--- NOTE | 2023-08-08 10:25 | P.PNIM_ITS ---
Subjective Subjective Date of Service: 08/08/23 Interval History: much improved, still wheezy, some sob Physical Exam 2 Vital Signs: Vital Signs: Last Vital Signs Temp 97 F 08/08/23 08:00 Pulse 94 08/08/23 08:08 Resp 20 08/08/23 08:08 BP 138/74 08/08/23 08:00 Pulse Ox 93 08/08/23 08:00 O2 Del Method Nasal Cannula 08/08/23 08:00 O2 Flow Rate 4 08/08/23 08:00 FiO2 40 08/05/23 20:00 BMI result Body Mass Index 27.9 General: AO X 3, no acute distress Resp: wheezing bilateral, some accessory muscles used CVS: S1,S2,RRR GI: soft, non tender, non distended Neuro: motor grossly intact, alert Psych: appropriate affect, appropriate insight Objective Data Active Medications Albuterol Sulfate (Albuterol Sulfate (0.083%) 2.5 Mg/3 Ml Vial.Neb) 2.5 mg INHALE Q3H PRN PRN Reason: Shortness of Breath/Wheezing Last Admin: 08/06/23 05:39 Dose: 2.5 mg Documented By: RAN Albuterol/Ipratropium (Albuterol/Iprat 2.5/0.5mg 3 Ml Ampul.Neb) 3 ml INHALE RQ4H WHILE AWAKE [facility] Last Admin: 08/08/23 08:02 Dose: 3 ml Documented By: CASEY Amlodipine Besylate (Amlodipine Besylate 2.5 Mg Tablet) 2.5 mg PO DAILY [facility]; Protocol Last Admin: 08/08/23 07:57 Dose: 2.5 mg Documented By: AMAURI Aspirin (Aspirin 81 Mg Tab.Chew) 81 mg PO DAILY [facility] Last Admin: 08/08/23 07:58 Dose: 81 mg Documented By: AMAURI Atorvastatin Calcium (Atorvastatin Calcium 80 Mg Tablet) 80 mg PO BEDTIME [facility] Last Admin: 08/07/23 20:57 Dose: 80 mg Documented By: DINORAH Carvedilol (Carvedilol 25 Mg Tablet) 25 mg PO BID [facility]; Protocol Last Admin: 08/08/23 07:57 Dose: 25 mg Documented By: AMAURI Doxazosin Mesylate (Doxazosin Mesylate 2 Mg Tablet) 4 mg PO BEDTIME [facility] Last Admin: 08/07/23 20:57 Dose: 4 mg Documented By: DINORAH Duloxetine HCl (Duloxetine Hcl 60 Mg Capsule.) 60 mg PO DAILY [facility] Last Admin: 08/08/23 07:57 Dose: 60 mg Documented By: AMAURI Ezetimibe (Ezetimibe 10 Mg Tablet) 10 mg PO DAILY [facility] Last Admin: 08/08/23 07:58 Dose: 10 mg Documented By: AMAURI Fenofibrate (Fenofibrate 160 Mg Tablet) 160 mg PO DAILY [facility] Last Admin: 08/08/23 07:58 Dose: 160 mg Documented By: AMAURI Azithromycin 500 mg/ Sodium (Chloride) 250 mls @ 125 mls/hr IV Q24H [facility] Last Infusion: 08/08/23 07:07 Dose: Infused Documented By: DINORAH Insulin Glargine (Insulin Glargine,Hum.Rec.Anlog 100 Unit/Ml 10 Ml Vial) 25 unit SUBCUT BEDTIME [facility] Last Admin: 08/07/23 20:58 Dose: 25 unit Documented By: DINORAH Insulin Human Regular (Insulin Regular, Human 100 Unit/Ml 3 Ml Vial) 0 unit IVPUSH [facility]; Protocol Last Admin: 08/07/23 20:52 Dose: Not Given Documented By: DINORAH Non-Admin Reason: No Insulin Coverage Lisinopril (Lisinopril 10 Mg Tablet) 10 mg PO DAILY [facility]; Protocol Last Admin: 08/08/23 07:58 Dose: 10 mg Documented By: AMAURI Lorazepam (Lorazepam 0.5 Mg Tablet) 0.5 mg PO BEDTIME PRN PRN Reason: Anxiety Last Admin: 08/07/23 21:01 Dose: 0.5 mg Documented By: DINORAH Pat Own (Rivaroxaban (2.5 Mg Tablet)) 2.5 each PO BID [facility] Last Admin: 08/08/23 07:59 Dose: 2.5 each Documented By: AMAURI Oseltamivir Phosphate (Oseltamivir Phosphate 75 Mg Capsule) 75 mg PO Q12H [facility] Last Admin: 08/08/23 03:56 Dose: 75 mg Documented By: DINORAH Oxycodone HCl (Oxycodone Hcl Immed Release 5 Mg Tablet) 10 mg PO Q6H PRN PRN Reason: Pain, Moderate(Pain Scale 4-6) Last Admin: 08/07/23 16:58 Dose: 10 mg Documented By: CRYSTAL Prednisone (Prednisone 20 Mg Tablet) 40 mg PO DAILY [facility] Last Admin: 08/08/23 07:59 Dose: 40 mg Documented By: AMAURI Quetiapine Fumarate (Quetiapine Fumarate 25 Mg Tablet) 25 mg PO BEDTIME [facility] Last Admin: 08/07/23 20:57 Dose: 25 mg Documented By: DINORAH Tizanidine HCl (Tizanidine Hcl 4 Mg Tablet) 4 mg PO TID [facility] Last Admin: 08/08/23 07:55 Dose: 4 mg Documented By: AMAURI Comments: mg Labs 08/08/23 06:53 08/08/23 06:54 Labs: Laboratory Results - last 24 hr 08/07/23 08/07/23 08/07/23 10:50 16:22 20:18 MCV MCH MCHC RDW Plt Count MPV Absolute Nucleated RBC Nucleated RBC % (auto) Anion Gap Estim Creat Clear Calc Estimated GFR POC Glucose 114 259 H 149 H Fasting Glucose Calcium 08/08/23 08/08/23 08/08/23 06:53 06:54 07:32 MCV 87.3 MCH 28.4 MCHC 32.5 RDW 13.4 Plt Count 223 MPV 11.0 Absolute Nucleated RBC 0.000 Nucleated RBC % (auto) 0.0 Anion Gap 10 L Estim Creat Clear Calc 94.3 Estimated GFR > 60 POC Glucose 63 Fasting Glucose 70 Calcium 8.5 08/08/23 08:48 MCV MCH MCHC RDW Plt Count MPV Absolute Nucleated RBC Nucleated RBC % (auto) Anion Gap Estim Creat Clear Calc Estimated GFR POC Glucose 90 Fasting Glucose Calcium Assessment and Plan (1) Acute and chronic respiratory failure with hypoxia: Status: Acute Plan 62M PMH chronic hypoxic respiratory failure due to copd on 2L home o2, htn, hld, dm, cad, mood disorder, obesity, mulugeta, NAFLD, left aka, history of cva on xarelto, pvd, prostatits presented with sob, ams, due to flu and copd with acute decompensation and co2 narcosis, required bipap in icu, now improved and downgraded to medical floor Acute on chronic hypoxic and hypercapnic respiratory failure secondary to COPD with acute decompensation and influenza a complicated by acute metabolic encephalopathy Mental status back to baseline, still wheezing, O2 requirements above baseline, desaturates to mid 80s on home 2L at rest Continue steroids, bronchodilators, wean O2, Tamiflu Hypertension Amlodipine, Coreg, lisinopril, Cardura Coronary artery disease, peripheral vascular disease, history of CVA Continue Xarelto, atorvastatin, aspirin Diabetes Basal bolus insulin Obesity Weight loss recommended DVT prophylaxis on Xarelto DNR/DNI reason for continued hospitalization: still wheezy, above baseline o2 Quality Stroke Does the patient have a stroke diagnosis?: No VTE Prior VTE?: No VTE Risk Level:: Medical - moderate - high VTE Device Contraindication: N/A - Device Ordered VTE Drug Contraindication: N/A - Med Ordered
[2023-08-08 12:02] LABS: Glucose, Whole Blood 202 mg/dL (60-115)
[2023-08-08] MEDS: oxyCODONE HCl Immed Release 5 MG TABLET 10 MG PO ×2 (13:35→22:11)
[2023-08-08] MEDS: Insulin Regular, Human 100 UNIT/ML 3 ML VIAL IVPUSH ×3 (13:40→21:59)
[2023-08-08 15:57] LABS: Glucose, Whole Blood 337 mg/dL (60-115)
[2023-08-08 19:57] LABS: Glucose, Whole Blood 191 mg/dL (60-115)
[2023-08-08] MEDS: Insulin Glargine,Hum.rec.anlog 100 UNIT/ML 10 ML VIAL 25 UNIT SUBCUT (21:59)
[2023-08-08] MEDS: Atorvastatin Calcium 80 MG TABLET PO (22:00)
[2023-08-08] MEDS: Doxazosin Mesylate 2 MG TABLET 4 MG PO (22:02)
[2023-08-08] MEDS: QUEtiapine Fumarate 25 MG TABLET PO (22:02)
[2023-08-09] VITALS (12 sets, daily range): BP systolic 83–131; BP diastolic 51–74; PULSE 54–88; RESP 16–20; TEMP 36.1–36.9; O2SAT 78–95
[2023-08-09] MEDS: Azithromycin 500 MG in 0.9 % Sodium Chloride 250 ML 125 MG IV (06:53)
[2023-08-09 06:59] LABS: Hematocrit 37.2 % (42.0-52.0); Hemoglobin 12.2 g/dl (14.0-18.0); Mean Corpuscular HGB Conc 32.8 g/dl (31.0-36.0); Mean Corpuscular Hemoglobin 28.2 pg (27.0-33.0); Mean Corpuscular Volume 85.9 fL (80.0-98.0); Mean Platelet Volume 11.1 fL (9.4-12.4); Platelet Count 230 X10*3/uL (160-400); Red Blood Count 4.33 X10*6/uL (4.60-5.80); Red Cell Distribution Width 13.5 % (11.0-16.0); White Blood Count 10.1 X10*3/uL (4.8-10.8)
[2023-08-09 07:00] LABS: Anion Gap 12 (12-20); Blood Urea Nitrogen 19 mg/dL (9-16); Calcium 8.5 mg/dL (8.4-10.2); Carbon Dioxide 31 mmol/L (22-29); Chloride 102 mmol/L (96-108); Estimated Glomerular Filt Rate > 60; Glucose Fasting 83 mg/dL (60-99); Potassium 3.3 mmol/L (3.3-5.1); Sodium 142 mmol/L (135-145)
[2023-08-09 07:37] LABS: Glucose, Whole Blood 98 mg/dL (60-115)
[2023-08-09] MEDS: Albuterol/Iprat 2.5/0.5MG 3 ML AMPUL.NEB INHALE ×4 (08:44→19:37)
[2023-08-09] MEDS: lisinopriL 10 MG TABLET PO (09:12)
[2023-08-09] MEDS: DULoxetine HCl 60 MG CAPSULE.DR PO (09:12)
[2023-08-09] MEDS: TiZANidine HCL 4 MG TABLET PO ×3 (09:13→22:58)
[2023-08-09] MEDS: predniSONE 20 MG TABLET 40 MG PO (09:13)
[2023-08-09] MEDS: Ezetimibe 10 MG TABLET PO (09:13)
[2023-08-09] MEDS: carvediloL 25 MG TABLET PO ×2 (09:13→22:58)
[2023-08-09] MEDS: Aspirin 81 MG TAB.CHEW PO (09:13)
[2023-08-09] MEDS: amLODIPine Besylate 2.5 MG TABLET PO (09:13)
[2023-08-09] MEDS: Fenofibrate 160 MG TABLET PO (09:13)
--- NOTE | 2023-08-09 09:43 | HO.PM.IMPN ---
Subjective Subjective Date of Service: 08/09/23 Interval History: much improved, still wheezy, some sob Physical Exam Vital Signs: Vital Signs: Last Vital Signs Temp 98.3 F 08/09/23 08:00 Pulse 54 08/09/23 08:45 Resp 20 08/09/23 08:45 BP 106/63 08/09/23 08:00 Pulse Ox 91 L 08/09/23 08:00 O2 Del Method Nasal Cannula 08/09/23 08:00 O2 Flow Rate 2 08/09/23 08:00 FiO2 40 08/05/23 20:00 BMI result Body Mass Index 27.9 General: AO X 3, no acute distress Resp: wheezing bilateral, some accessory muscles used CVS: S1,S2,RRR GI: soft, non tender, non distended Neuro: motor grossly intact, alert Psych: appropriate affect, appropriate insight Objective Data Active Medications Albuterol Sulfate (Albuterol Sulfate (0.083%) 2.5 Mg/3 Ml Vial.Neb) 2.5 mg INHALE Q3H PRN PRN Reason: Shortness of Breath/Wheezing Last Admin: 08/06/23 05:39 Dose: 2.5 mg Documented By: RAN Albuterol/Ipratropium (Albuterol/Iprat 2.5/0.5mg 3 Ml Ampul.Neb) 3 ml INHALE RQ4H WHILE AWAKE [facility] Last Admin: 08/09/23 08:44 Dose: 3 ml Documented By: KATE Amlodipine Besylate (Amlodipine Besylate 2.5 Mg Tablet) 2.5 mg PO DAILY [facility]; Protocol Last Admin: 08/09/23 09:13 Dose: 2.5 mg Documented By: TANK Aspirin (Aspirin 81 Mg Tab.Chew) 81 mg PO DAILY [facility] Last Admin: 08/09/23 09:13 Dose: 81 mg Documented By: TANK Atorvastatin Calcium (Atorvastatin Calcium 80 Mg Tablet) 80 mg PO BEDTIME [facility] Last Admin: 08/08/23 22:00 Dose: 80 mg Documented By: ALEJANDRINA Carvedilol (Carvedilol 25 Mg Tablet) 25 mg PO BID [facility]; Protocol Last Admin: 08/09/23 09:13 Dose: 25 mg Documented By: TANK Doxazosin Mesylate (Doxazosin Mesylate 2 Mg Tablet) 4 mg PO BEDTIME [facility] Last Admin: 08/08/23 22:02 Dose: 4 mg Documented By: ALEJANDRINA Duloxetine HCl (Duloxetine Hcl 60 Mg Capsule.Dr) 60 mg PO DAILY [facility] Last Admin: 08/09/23 09:12 Dose: 60 mg Documented By: TANK Ezetimibe (Ezetimibe 10 Mg Tablet) 10 mg PO DAILY [facility] Last Admin: 08/09/23 09:13 Dose: 10 mg Documented By: TANK Fenofibrate (Fenofibrate 160 Mg Tablet) 160 mg PO DAILY [facility] Last Admin: 08/09/23 09:13 Dose: 160 mg Documented By: TANK Azithromycin 500 mg/ Sodium (Chloride) 250 mls @ 125 mls/hr IV Q24H [facility] Last Infusion: 08/09/23 09:37 Dose: Infused Documented By: TANK Insulin Glargine (Insulin Glargine,Hum.Rec.Anlog 100 Unit/Ml 10 Ml Vial) 25 unit SUBCUT BEDTIME [facility] Last Admin: 08/08/23 21:59 Dose: 25 unit Documented By: ALEJANDRINA Insulin Human Regular (Insulin Regular, Human 100 Unit/Ml 3 Ml Vial) [facility]; Protocol Last Admin: 08/09/23 07:42 Dose: Not Given Documented By: TANK Non-Admin Reason: No Insulin Coverage Lisinopril (Lisinopril 10 Mg Tablet) 10 mg PO DAILY [facility]; Protocol Last Admin: 08/09/23 09:12 Dose: 10 mg Documented By: TANK Pat Own (Rivaroxaban (2.5 Mg Tablet)) 2.5 each PO BID [facility] Last Admin: 08/09/23 09:14 Dose: Not Given Documented By: TANK Non-Admin Reason: Med Not Available Prednisone (Prednisone 20 Mg Tablet) 40 mg PO DAILY [facility] Last Admin: 08/09/23 09:13 Dose: 40 mg Documented By: TANK Quetiapine Fumarate (Quetiapine Fumarate 25 Mg Tablet) 25 mg PO BEDTIME [facility] Last Admin: 08/08/23 22:02 Dose: 25 mg Documented By: ALEJANDRINA Tizanidine HCl (Tizanidine Hcl 4 Mg Tablet) 4 mg PO TID [facility] Last Admin: 08/09/23 09:13 Dose: 4 mg Documented By: TANK Labs 08/09/23 06:02 08/09/23 06:02 Labs: Laboratory Results - last 24 hr 08/08/23 08/08/23 08/08/23 11:58 15:52 19:53 MCV MCH MCHC RDW Plt Count MPV Absolute Nucleated RBC Nucleated RBC % (auto) Anion Gap Estim Creat Clear Calc Estimated GFR POC Glucose 202 H 337 H 191 H Fasting Glucose Calcium 08/09/23 08/09/23 06:02 07:33 MCV 85.9 MCH 28.2 MCHC 32.8 RDW 13.5 Plt Count 230 MPV 11.1 Absolute Nucleated RBC 0.000 Nucleated RBC % (auto) 0.0 Anion Gap 12 Estim Creat Clear Calc 98.0 Estimated GFR > 60 POC Glucose 98 Fasting Glucose 83 Calcium 8.5 Assessment and Plan (1) Acute and chronic respiratory failure with hypoxia: Status: Acute Plan 62M PMH chronic hypoxic respiratory failure due to copd on 2L home o2, htn, hld, dm, cad, mood disorder, obesity, mulugeta, NAFLD, left aka, history of cva on xarelto, pvd, prostatits presented with sob, ams, due to flu and copd with acute decompensation and co2 narcosis, required bipap in icu, now improved and downgraded to medical floor Acute on chronic hypoxic and hypercapnic respiratory failure secondary to COPD with acute decompensation and influenza a complicated by acute metabolic encephalopathy Mental status back to baseline, still wheezing, O2 requirements still above baseline, desaturates on home 2L at rest Continue steroids, bronchodilators, wean O2, Tamiflu Hypertension Amlodipine, Coreg, lisinopril, Cardura Coronary artery disease, peripheral vascular disease, history of CVA Continue Xarelto, atorvastatin, aspirin Diabetes Basal bolus insulin Obesity Weight loss recommended DVT prophylaxis on Xarelto DNR/DNI reason for continued hospitalization: still wheezy, above baseline o2 Quality Stroke Does the patient have a stroke diagnosis?: No VTE Prior VTE?: No VTE Risk Level:: Medical - moderate - high VTE Device Contraindication: N/A - Device Ordered VTE Drug Contraindication: N/A - Med Ordered
[2023-08-09] MEDS: 0.9 % Sodium Chloride 500 ML IV (11:29)
[2023-08-09 11:36] LABS: Glucose, Whole Blood 159 mg/dL (60-115)
[2023-08-09] MEDS: Insulin Regular, Human 100 UNIT/ML 3 ML VIAL IVPUSH ×3 (12:15→22:56)
[2023-08-09 16:31] LABS: Glucose, Whole Blood 299 mg/dL (60-115)
[2023-08-09] MEDS: oxyCODONE HCl Immed Release 5 MG TABLET 10 MG PO (17:27)
[2023-08-09 20:22] LABS: Glucose, Whole Blood 243 mg/dL (60-115)
[2023-08-09 22:51] LABS: Glucose, Whole Blood 232 mg/dL (60-115)
[2023-08-09] MEDS: Insulin Glargine,Hum.rec.anlog 100 UNIT/ML 10 ML VIAL 25 UNIT SUBCUT (22:57)
[2023-08-09] MEDS: Doxazosin Mesylate 2 MG TABLET 4 MG PO (22:58)
[2023-08-09] MEDS: QUEtiapine Fumarate 25 MG TABLET PO (22:58)
[2023-08-09] MEDS: Atorvastatin Calcium 80 MG TABLET PO (22:59)
[2023-08-10] VITALS: BP 113/53; PULSE 60; RESP 20; TEMP 36.3; O2SAT 91
[2023-08-10 03:43] VITALS: BP 152/71; PULSE 67; RESP 20; TEMP 36.2; O2SAT 94
[2023-08-10 06:18] LABS: Hematocrit 35.4 % (42.0-52.0); Hemoglobin 11.5 g/dl (14.0-18.0); Mean Corpuscular HGB Conc 32.5 g/dl (31.0-36.0); Mean Corpuscular Hemoglobin 27.6 pg (27.0-33.0); Mean Corpuscular Volume 85.1 fL (80.0-98.0); Mean Platelet Volume 10.7 fL (9.4-12.4); Platelet Count 260 X10*3/uL (160-400); Red Blood Count 4.16 X10*6/uL (4.60-5.80); Red Cell Distribution Width 13.4 % (11.0-16.0); White Blood Count 8.2 X10*3/uL (4.8-10.8)
[2023-08-10 06:50] LABS: Anion Gap 9 (12-20); Blood Urea Nitrogen 13 mg/dL (9-16); Calcium 8.4 mg/dL (8.4-10.2); Carbon Dioxide 30 mmol/L (22-29); Chloride 105 mmol/L (96-108); Estimated Glomerular Filt Rate > 60; Glucose Fasting 95 mg/dL (60-99); Potassium 3.1 mmol/L (3.3-5.1); Sodium 141 mmol/L (135-145)
[2023-08-10 07:03] VITALS: BP 166/74; PULSE 63; RESP 20; TEMP 36.9; O2SAT 97
[2023-08-10 07:13] LABS: Glucose, Whole Blood 100 mg/dL (60-115)
[2023-08-10] MEDS: Azithromycin 500 MG in 0.9 % Sodium Chloride 250 ML 125 MG IV (07:58)
[2023-08-10] MEDS: Albuterol/Iprat 2.5/0.5MG 3 ML AMPUL.NEB INHALE (08:25)
[2023-08-10 08:27] VITALS: PULSE 63; RESP 16; O2SAT 97
[2023-08-10] MEDS: lisinopriL 10 MG TABLET PO (09:37)
[2023-08-10] MEDS: Potassium Chloride ER 20 MEQ TAB.ER.PRT 40 MEQ PO (09:37)
[2023-08-10] MEDS: Aspirin 81 MG TAB.CHEW PO (09:37)
[2023-08-10] MEDS: TiZANidine HCL 4 MG TABLET PO (09:37)
[2023-08-10] MEDS: predniSONE 20 MG TABLET 40 MG PO (09:37)
[2023-08-10] MEDS: Fenofibrate 160 MG TABLET PO (09:37)
[2023-08-10] MEDS: DULoxetine HCl 60 MG CAPSULE.DR PO (09:37)
[2023-08-10] MEDS: amLODIPine Besylate 2.5 MG TABLET PO (09:38)
[2023-08-10] MEDS: carvediloL 25 MG TABLET PO (09:38)
[2023-08-10] MEDS: Ezetimibe 10 MG TABLET PO (09:38)
--- NOTE | 2023-08-10 10:02 | P.DS_ITS ---
DS: Providers Provider Date of Service: 08/10/23 Date of admission: 08/03/23 05:05 Primary care physician: Pedro Holliday MD DS: Diagnosis Discharge Diagnosis (1) Acute and chronic respiratory failure with hypoxia: Status: Acute DS: Summary Hospital Course Hospital Course: from initial hpi: 62-year-old gentleman with underlying history of hypertension, hyperlipidemia, diabetes, coronary artery post RCA stent in 2013, anxiety, depression, BPH, COPD on 2 L nasal cannula, obesity with BMI above 30, obstructive sleep apnea, avascular necrosis of right hip, restrictive lung disease, fatty liver, diabetic neuropathy , left AKA, CVA on Xarelto, ischemia of right lower extremity, prostatitis among multiple other things. Patient had presented to the emergency room last night with complaints of shortness a breath for the past 3 days despite of his supplemental oxygen, he has had a dry cough and EMS noted the patient was satting 77% upon their arrival.? The patient was placed on CPAP and his sats came up to 90%.? Given some ?chest tightness? patient received nitroglycerin sublingual and paste as his blood pressure was also 186/102. ?In the ER the patient received Solu- Medrol, magnesium, albuterol and subsequently Tamiflu as his workup was positive for influenza A. ?Venous blood gas was done and this showed a pH of 7.26, pCO2 of 76, PO2 49, HC03 34, the patient was placed on BiPAP.? We are asked to initially evaluate the patient but it was too soon from 10 he was placed on BiPAP, we waited a total of 4 hours of BiPAP and reassessed, although his ABG shows improvement of his hypercapnia and correction of his acidosis, as well as the fact that the patient claims to feel well, when taken off BiPAP, he appears to have respiratory distress, use of accessory muscles and desatted quite quickly requiring up to 5 L of oxygen nasal cannula to maintain his O2 sat at barely 88%.? At this point we made the determination the patient with the better treated in the ICU for continuous BiPAP. Patient is not able to give a full history but he currently denies any sputum production, fever or chills, abdominal pain, nausea, vomiting, diarrhea, chest pain, no history of CHF and denies any swelling of the right leg at this point. hospital course: Patient was admitted for acute on chronic hypoxic and hypercapnic respiratory failure secondary to COPD with acute decompensation and influenza a complicated by acute metabolic encephalopathy. He received BiPAP therapy in the ICU and mental status improved to baseline. He was given steroids, Tamiflu, bronchodilators. Eventually was able to be weaned back to his 2 L home O2. On discharge will be given 5 more days of prednisone. For hypertension was continued on amlodipine, carvedilol, lisinopril, Cardura. For coronary artery disease, peripheral vascular disease, history of CVA was continued on Xarelto, atorvastatin, aspirin. For diabetes was continued on insulin. For obesity weight loss recommended. Patient is feeling better will be discharged home. Time Attestation Discharge coordination time: Greater than 30 minutes Quality: Safe Use of Opioids Does Pt have an Active Cancer Diagnosis on the Problem List?: No Quality: Stroke Does the patient have a stroke diagnosis?: No Physical Exam Vital Signs: Vital Signs: Last Vital Signs Temp 98.5 F 08/10/23 07:03 Pulse 63 08/10/23 08:27 Resp 16 08/10/23 08:27 BP 166/74 H 08/10/23 07:03 Pulse Ox 97 08/10/23 07:03 O2 Del Method Nasal Cannula 08/10/23 07:03 O2 Flow Rate 2 08/10/23 07:03 FiO2 40 08/05/23 20:00 BMI result Body Mass Index 27.9 General: AO X 3, no acute distress Resp: cta bilateral, no accessory muscles used CVS: S1,S2,RRR GI: soft, non tender, non distended Neuro: motor grossly intact, alert Psych: appropriate affect, appropriate insight left aka DS: Data Data Completed and Pending Labs on day of discharge: Laboratory Results - last 24 hr 08/09/23 08/09/23 08/09/23 11:21 16:21 20:02 WBC RBC Hgb Hct MCV MCH MCHC RDW Plt Count MPV Absolute Nucleated RBC Nucleated RBC % (auto) Sodium Potassium Chloride Carbon Dioxide Anion Gap BUN Creatinine Estim Creat Clear Calc Estimated GFR POC Glucose 159 H 299 H 243 H Fasting Glucose Calcium 08/09/23 08/10/23 08/10/23 22:47 05:36 07:07 WBC 8.2 RBC 4.16 L Hgb 11.5 L Hct 35.4 L MCV 85.1 MCH 27.6 MCHC 32.5 RDW 13.4 Plt Count 260 MPV 10.7 Absolute Nucleated RBC 0.000 Nucleated RBC % (auto) 0.0 Sodium 141 Potassium 3.1 L Chloride 105 Carbon Dioxide 30 H Anion Gap 9 L BUN 13 Creatinine 0.74 Estim Creat Clear Calc 102.0 Estimated GFR > 60 POC Glucose 232 H 100 Fasting Glucose 95 Calcium 8.4 Discharge Plan Discharge Anticipated Discharge Date/Time: 08/10/23 10:00 Patient Disposition: Home, Self-Care Discharge Diagnosis: copd flu Referrals: Po,Pedro Lvei MD [Primary Care Provider] - 1 Week Discharge Medications: New prednisone 20 mg tablet 40 mg PO DAILY Qty: 10 0RF Continued (DME) blood sugar diagnostic Strip See Rx Instructions .ROUTE .MEDSUPPLY Qty: 3 3RF Rx Instructions: As directed check the blood sugar 3 times a day (DME) blood sugar diagnostic Strip See Rx Instructions .ROUTE .MEDSUPPLY Qty: 3 3RF Rx Instructions: As directed check the blood sugar 3 a day (DME) blood-glucose meter [OneTouch Ultra2 Meter] Kit See Rx Instructions .ROUTE .MEDSUPPLY Qty: 1 0RF Rx Instructions: As directed check the blood sugar once a day (DME) [id number] SOCK, multiple ply ABove knee (AK) See Rx Instructions .Route .MEDSUPPLY Qty: 1 0RF Rx Instructions: As directed fenofibrate 160 mg tablet 160 mg PO DAILY 90 Days Qty: 90 3RF (DME) lancets Misc See Rx Instructions .ROUTE .MEDSUPPLY Qty: 3 3RF Rx Instructions: As directed check the blood sugarTID (DME) lancets 33 gauge misc See Rx Instructions .ROUTE .MEDSUPPLY Qty: 3 3RF Rx Instructions: As directed check the blood sugar TID quetiapine 25 mg tablet 25 mg PO BEDTIME Qty: 90 3RF nitroglycerin 0.4 mg tablet, sublingual 0.4 mg sublingual Q5M PRN (Reason: chest pain) Qty: 25 0RF Rx Instructions: do not exceed 3 doses per episode pioglitazone 30 mg tablet 30 mg PO DAILY 90 Days Qty: 90 3RF (DME) PULLUPS large See Rx Instructions .Route .MEDSUPPLY Qty: 60 11RF Rx Instructions: As directed (DME) Prosthetic Leg See Rx Instructions .Route .MEDSUPPLY Qty: 1 0RF Rx Instructions: modification of his prosthetic leg amlodipine 5 mg tablet 2.5 mg PO DAILY Qty: 30 5RF albuterol sulfate 90 mcg/actuation HFA aerosol inhaler 2 puff inhalation Q4-6H PRN (Reason: shortness of breath or wheezing) Qty: 8.5 5RF Xarelto 2.5 mg tablet 2.5 mg PO BID Qty: 90 1RF (DME) pen needle, diabetic [1st Tier Unifine Pentips] 31 gauge x 5/16 needle See Rx Instructions .Route Qty: 100 3RF Rx Instructions: 3 to 4 times per day finasteride 5 mg tablet 5 mg PO DAILY Qty: 90 1RF metformin 500 mg tablet 500 mg PO BID Qty: 180 1RF duloxetine 60 mg capsule,delayed release(DR/EC) 60 mg PO DAILY 90 Days Qty: 90 1RF gabapentin 600 mg tablet 600 mg PO TID 30 Days Qty: 90 2RF lisinopril 10 mg tablet 10 mg PO DAILY Qty: 30 6RF carvedilol 25 mg tablet 25 mg PO BID Qty: 180 1RF oxycodone 10 mg tablet 10 mg PO TID PRN (Reason: severe pain (scale score 7-10)) 30 Days Qty: 80 0RF Rx Instructions: Partial Fill upon patient request. ezetimibe [Zetia] 10 mg tablet 10 mg PO DAILY Qty: 30 3RF potassium chloride 20 mEq tablet extended release 20 meq PO BID Qty: 60 1RF terazosin 5 mg capsule 5 mg PO BEDTIME 30 Days Qty: 90 1RF albuterol sulfate 2.5 mg /3 mL (0.083 %) solution for nebulization 2.5 mg inhalation QID PRN (Reason: shortness of breath or wheezing) Qty: 360 3RF lorazepam 0.5 mg tablet 0.5 mg PO BEDTIME PRN (Reason: anxiety) Qty: 14 0RF atorvastatin 80 mg tablet 80 mg PO BEDTIME hydrocortisone [Proctosol HC] 2.5 % cream with perineal applicator 1 appl WI QID PRN (Reason: hemorrhoids) lidocaine 5 % adhesive patch,medicated 1 patch topical DAILY Rx Instructions: leave on most painful area for up to 12 hrs docusate sodium 100 mg capsule 100 mg PO BID PRN (Reason: Constipation) tizanidine 4 mg tablet 4 mg PO TID insulin glargine [Lantus Solostar U-100 Insulin] 100 unit/mL (3 mL) insulin pen 25 unit subcut BEDTIME Rx Instructions: or as directed multivitamin Tablet 1 tab PO DAILY PreserVision AREDS-2 250-90-40-1 mg Capsule 1 tab PO BID (DME) FreeStyle Anival 14 Day [place] Misc See Rx Instructions .ROUTE .MEDSUPPLY Qty: 1 0RF Rx Instructions: 4 times per day, patient on insulin (DME) FreeStyle Anival 14 Day Sensor Kit See Rx Instructions .ROUTE .MEDSUPPLY Qty: 6 3RF Rx Instructions: 4 times per day patient on insulin (DME) blood pressure monitor Kit See Rx Instructions .Route Qty: 1 0RF Rx Instructions: As directed (DME) PRESS OPERATOR SLEEVE L See Rx Instructions .Route .MEDSUPPLY Qty: 1 0RF Rx Instructions: As directed (DME) DIABETIC SHOE See Rx Instructions .Route .MEDSUPPLY Qty: 1 0RF Rx Instructions: As directed aspirin [Adult Low Dose Aspirin] 81 mg tablet,delayed release (DR/EC) 81 mg PO DAILY Qty: 30 0RF (DME) compress.stocking,knee,reg,med Misc See Rx Instructions .Route Qty: 2 0RF Rx Instructions: As directed 20-30 mm HG (DME) Oxygen Home Use Kit See Rx Instructions .Route Rx Instructions: 2 LPM as needed- [facility] supplier Discharge Orders: Discharge Order (Routine); Ordered 08/10/23 Ordered By: Trace Tan Diet: Advance to usual diet Activity on Discharge: As tolerated Stand Alone Forms: Patient Portal Discharge page Care Plan Goals: recovery Health Concerns: copd Plan of Treatment: 5 days prednisone Assessment: see above
--- NOTE | 2023-08-10 10:10 | MHC.CM.PN ---
PT TO DC HOME TODAY WITH NO NEW SERVICES FAMILY TO TRANSPORT
== END 2023-08-10 11:41 | disposition home or self-care (01) | DRG 193 ==
LOC: HO.ED 08-03 02:10 → HO.EDOVER 08-03 05:18 → HO.ICU 08-03 05:20 → HO.IMC 08-05 10:55 → HO.ICU 08-05 11:42 → HO.IMC 08-05 13:44
PROVIDERS: Internal Medicine; Internal Medicine Critical Care Medicine; Internal Medicine Pulmonary Disease; Student in an Organized Health Care Education/Training Program; Admitting Provider Physician Assistant Medical; Emergency Provider Emergency Medicine Emergency Medical Services; PCP Internal Medicine; Visit Provider Internal Medicine
DX: J10.1 Influenza due to other identified influenza virus with other respiratory manifestations (principal); G93.41 Metabolic encephalopathy; J96.21 Acute and chronic respiratory failure with hypoxia; J96.22 Acute and chronic respiratory failure with hypercapnia; J44.1 Chronic obstructive pulmonary disease with (acute) exacerbation; I25.10 Atherosclerotic heart disease of native coronary artery without angina pectoris; E11.51 Type 2 diabetes mellitus with diabetic peripheral angiopathy without gangrene; E11.65 Type 2 diabetes mellitus with hyperglycemia; Z66 Do not resuscitate; G47.33 Obstructive sleep apnea (adult) (pediatric); I10 Essential (primary) hypertension; E66.9 Obesity, unspecified; Z68.27 Body mass index [BMI] 27.0-27.9, adult; Z71.3 Dietary counseling and surveillance; Z95.5 Presence of coronary angioplasty implant and graft; Z89.612 Acquired absence of left leg above knee; Z20.822 Contact with and (suspected) exposure to COVID-19; Z99.81 Dependence on supplemental oxygen; Z86.73 Personal history of transient ischemic attack (TIA), and cerebral infarction without residual deficits; Z88.0 Allergy status to penicillin; Z79.4 Long term (current) use of insulin; Z79.01 Long term (current) use of anticoagulants; Z79.82 Long term (current) use of aspirin; Z79.899 Other long term (current) drug therapy
CPT/HCPCS: 36415; 71045; 80048; 80053; 82040; 82803; 82947; 83735; 83880; 84100; 84484; 85025; 85027; 87502; 87635; 93005; 94640; 99285; C9113; J0456; J2930; J3475

== ENCOUNTER → 2023-08-02 23:42 | Outpatient (BNV) | payer MEDICARE, SELFPAY | PROVIDERS: Admitting Provider Physician Assistant Medical; Emergency Provider Emergency Medicine Emergency Medical Services; PCP Internal Medicine; Visit Provider Internal Medicine Cardiovascular Disease | DX: R07.9 Chest pain, unspecified (principal) | CPT/HCPCS: 93010 ==

== ENCOUNTER → 2023-08-03 05:05 | Outpatient (BNV) | payer MEDICARE, SELFPAY | PROVIDERS: Admitting Provider Physician Assistant Medical; Emergency Provider Emergency Medicine Emergency Medical Services; PCP Internal Medicine; Visit Provider Internal Medicine Pulmonary Disease | DX: J96.21 Acute and chronic respiratory failure with hypoxia (principal); J10.1 Influenza due to other identified influenza virus with other respiratory manifestations; Z86.73 Personal history of transient ischemic attack (TIA), and cerebral infarction without residual deficits; I73.9 Peripheral vascular disease, unspecified; S78.112A Complete traumatic amputation at level between left hip and knee, initial encounter; J98.4 Other disorders of lung; G47.33 Obstructive sleep apnea (adult) (pediatric); J44.9 Chronic obstructive pulmonary disease, unspecified; E11.65 Type 2 diabetes mellitus with hyperglycemia; I25.10 Atherosclerotic heart disease of native coronary artery without angina pectoris | CPT/HCPCS: 99232; 99291 ==

== ENCOUNTER → 2023-08-03 05:05 | Outpatient (BNV) | payer MEDICARE, SELFPAY | PROVIDERS: Admitting Provider Physician Assistant Medical; Emergency Provider Emergency Medicine Emergency Medical Services; PCP Internal Medicine; Visit Provider Internal Medicine | DX: J96.21 Acute and chronic respiratory failure with hypoxia (principal) | CPT/HCPCS: 99232; 99233; 99239 ==

== ENCOUNTER → 2023-08-03 05:05 | Outpatient (BNV) | payer MEDICARE, SELFPAY | PROVIDERS: Admitting Provider Physician Assistant Medical; Emergency Provider Emergency Medicine Emergency Medical Services; PCP Internal Medicine; Visit Provider Internal Medicine Critical Care Medicine | DX: J96.01 Acute respiratory failure with hypoxia (principal); J96.02 Acute respiratory failure with hypercapnia; J09.X2 Influenza due to identified novel influenza A virus with other respiratory manifestations | CPT/HCPCS: 99291; 99497 ==

== ENCOUNTER → 2023-08-20 13:56 | Outpatient (REF) | payer MEDICARE, SELFPAY | LOC: HO.SL 13:56 | PROVIDERS: PCP Internal Medicine; Visit Provider Psychiatry & Neurology Neurology | DX: Z13.89 Encounter for screening for other disorder (principal) ==

== ENCOUNTER 2023-09-01 10:47 | Outpatient (AMB) | payer OTHER, MEDICAID, SELFPAY ==
[2023-09-01 10:54] VITALS: BP 102/64; PULSE 63; O2SAT 90
--- NOTE | 2023-09-01 10:54 | MHC.OFFVIS ---
Intake Vital Signs 09/01/23 10:54 Height 5 ft BP 102/64 Blood Pressure Location Lt brachial Position Sitting Pulse 63 Pulse Source Pulse Oximeter Pulse Oximetry (%) 90 L Oxygen Delivery Method Room Air Intake Visit Reasons: COPD Intake Note: pt is here for follow up and states he is using oxygen at night, and he is struggling with mucous in the chest. Air Marshal Required: No Allergies ciprofloxacin [From CIPRO] Allergy (Severe, Verified 09/01/23 11:53) SWELLING, ITCHING bee pollen [BEE STINGS] Allergy (Unknown, Verified 09/01/23 11:53) HIVES Penicillins Allergy (Unknown, Verified 09/01/23 11:53) UNKNOWN insulin lispro [From Humalog U-100 Insulin] Adverse Reaction (Intermediate, Verified 09/01/23 11:53) Swelling Medication List - Last Reconciled 09/01/23 by Azael Sams MD albuterol sulfate 90 mcg/actuation 2 puffs inhalation Q4-6H PRN albuterol sulfate 2.5 mg (3 mL) inhalation QID PRN amlodipine 2.5 mg PO DAILY aspirin (Adult Low Dose Aspirin) 81 mg PO DAILY atorvastatin 80 mg PO BEDTIME blood pressure monitor As directed blood sugar diagnostic As directed check the blood sugar 3 a day blood sugar diagnostic As directed check the blood sugar 3 times a day blood-glucose meter (Revision3Touch Ultra2 Meter kit) As directed check the blood sugar once a day carvedilol 25 mg PO BID compress.stocking,knee,reg,med As directed 20-30 mm HG [DIABETIC SHOE As directed] docusate sodium 100 mg PO BID PRN duloxetine 60 mg PO DAILY 90 days ezetimibe (Zetia) 10 mg PO DAILY fenofibrate 160 mg PO DAILY 90 days finasteride 5 mg PO DAILY flash glucose scanning reader (EverestStyle Anival 14 Day [place]) 4 times per day, patient on insulin flash glucose sensor (FreeStyle Anival 14 Day Sensor kit) 4 times per day patient on insulin gabapentin 600 mg PO TID 30 days hydrocortisone 2.5% (Proctosol HC) 1 appl FL QID PRN insulin glargine (Lantus Solostar U-100 Insulin) 25 units subcut BEDTIME [[id number] SOCK, multiple ply ABove knee ([place]) As directed] lancets As directed check the blood sugar TID lancets As directed check the blood sugarTID lidocaine 5% 1 patch topical DAILY lisinopril 10 mg PO DAILY lorazepam 0.5 mg PO BEDTIME PRN metformin 500 mg PO BID multivitamin 1 tab PO DAILY nitroglycerin 0.4 mg sublingual Q5M PRN oxycodone 10 mg PO TID PRN 30 days Oxygen 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, diabetic (1st Tier Unifine Pentips) 3 to 4 times per day pioglitazone 30 mg PO DAILY 90 days potassium chloride ER 20 mEq PO BID [Prosthetic Leg modification of his prosthetic leg] [PULLUPS As directed] quetiapine 25 mg PO BEDTIME rivaroxaban (Xarelto) 2.5 mg PO BID [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 HE HAS THE PROSTHESIS FOR LEFT LOWER EXTREMITY AND WOULD BE, STARTING TO USE IT. HIS WEIGHT REMAINS UP, HE HAS SLEEP APNEA BUT CANNOT USE THE CPAP, DOES USE O2. 2 L/MINUTE FOR NOCTURNAL HYPOXEMIA CLAIMS THAT HE GETS SHORT OF BREATH EASILY DURING THE DAYTIME AND HAS MILD INTERMITTENT COUGH. LAST MONTH HE WAS HOSPITALIZED AFTER AN ACUTE VIRAL ILLNESS, HE WAS TREATED FOR ACUTE RESPIRATORY FAILURE DUE TO ACUTE VIRAL BRONCHITIS, . NO DEFINITE PNEUMONIA HE NEEDED BIPAP TREATMENT FOR A FEW DAYS AND THEN IT WAS WEANED DOWN TO HIGH-FLOW , DOWN TO REGULAR NASAL. CANNULA AT 2 L/MINUTE HE IS HERE TODAY FOR FOLLOW-UP AND CLAIMS THAT HE IS BACK TO HIS BASELINE. HE DOES HAVE MILD TO MODERATE INTERMITTENT COUGH BUT CAN NOT BRING UP MUCH PHLEGM. USES ALBUTEROL SOLUTION IN THE NEBULIZER TWICE A DAY AND P.R.N.. HIS PULMONARY PROBLEM IS MAINLY RESTRICTIVE DUE TO BEING OVERWEIGHT. HE HAS HISTORY OF USING CBD GUMMIES , A FEW TIMES A DAY BUT SINCE LAST MONTH AFTER HIS HOSPITALIZATION HE HAS STOPPED USING THEM, [facility] Medical History Recurrent falls Hospital discharge follow-up Ankle pain, left Left leg weakness UTI (urinary tract infection) Screening for prostate cancer Elevated WBCs Dizziness Preoperative cardiovascular examination LUQ abdominal pain Cough Colon cancer screening Leg cramps Restrictive lung disease Mass of left paraspinous region Obstructive sleep apnea Obesity (BMI 30-39.9) Osteoarthritis, hip, bilateral COPD (chronic obstructive pulmonary disease) History of CVA (cerebrovascular accident) BPH (benign prostatic hyperplasia) Avascular necrosis of bone of right hip Type 2 diabetes mellitus with hyperglycemia Coronary artery disease Peripheral vascular disease Hypercholesterolemia Alcohol abuse Urinary incontinence Anxiety and depression Hypertension Surgical History History of surgery History of vascular surgery History of tonsillectomy Family History Father Lung cancer COPD (chronic obstructive pulmonary disease) Heart disease Hypertension Mother COPD (chronic obstructive pulmonary disease) Diabetes Hypertension Breast cancer Paternal Uncle Prostate cancer Sister Heart disease Social History Household Members: None Housing: House Do you presently have visiting nurse or other home services: No Alcohol intake: former Patient Tobacco Use Status: Former Tobacco user Tobacco use type: Cigarette Years Smoked: stopped smoking 12/2022 e-Cigarette/Vaping Use: Never Used Second Hand Smoke Exposure: No Substance Use Type: Marijuana service: No Current occupational status: disabled Cognitive needs: Yes (cane, wheel chair ) Hearing needs: Yes Vision needs: Yes Review of Systems Const All systems reviewed & are unremarkable except as noted in HPI and below ENT Denies nasal congestion and Denies nasal discharge Card Denies chest pain at rest, Denies irregular heart rhythm, Denies leg edema and Reports dyspnea on exertion (mild ) Resp Reports cough (occasional due to an urge to clear throat ) and Reports dyspnea on exertion (mild ) GI Reports no additional complaints Musc Reports arthralgias (rt hip ) Neuro Reports no additional complaints Psych Reports no additional complaints Physical Exam Vital Signs: Last Vital Signs Pulse 63 09/01/23 10:54 BP 102/64 09/01/23 10:54 Pulse Ox 90 L 09/01/23 10:54 Oxygen Delivery Method Room Air 09/01/23 10:54 Const General: healthy appearing (Except for being overweight), comfortable, no acute distress, alert and awake Orientation/consciousness: patient oriented x3 HEENT Head: Yes normal to inspection General nose exam: No nasal polyps present and No nasal discharge present Face and sinus: Yes sinuses nontender Mouth: oropharynx normal Throat: Yes posterior oropharynx normal Eyes General: appearance normal, both eyes and all related structures Neck Neck: Yes normal visual inspection, Yes no lymphadenopathy, Yes trachea midline and Yes no JVD Thyroid: Thyroid normal Chest Chest palpation & inspection: normal inspection of the chest, normal palpation of entire chest wall and no tenderness Resp Other: Percussion note is resonant, breath sounds are slightly decreased over the basilar areas. No wheezes rhonchi or crepitations are heard. Cardio Palpation: normal PMI Rate: regular rate Rhythm: regular rhythm Heart sounds: no gallops and no murmurs Peripheral pulses: Peripheral pulses 2+ throughout GI Palpation (GI): Soft to palpation, nontender, No hepatosplenomegaly present, no masses and Other GI palpation findings present (Abdomen is slightly protuberant) Auscultation: normal bowel sounds Back/Spine/Pelvis Thoracic/Lumbar Spine: thoracic and lumbar spine normal to inspection Skin General skin exam: no rashes or lesions noted Neuro General: patient oriented x3 and no focal motor deficits Cranial nerves: Yes CN's II-XII intact bilaterally Extrem Other: S/P LEFT [place]. AMPUTEE RT LEG AND FOOT , THIN , NO PULSES General: Yes no calf tenderness Psych Appearance: grossly normal and well kempt Speech and movement: Normal speech and movement present Assessment & Plan Assessment & Plan (1) Obesity (BMI 30-39.9): Comment: HE DOES HAVE MODERATELY SEVERE OBESITY. MAINLY IT IS DUE TO BODY HABITUS. HE IS SHORT STATURED WEIGHT REMAINS UP BECAUSE HE IS NOT ABLE TO DO MUCH WALKING, HOPEFULLY ONCE HE LEARNS TO USE THE PROSTHESIS, AND STARTS WALKING, HE WILL BE IS ABLE TO LOSE SOME WEIGHT. Code(s): E66.9 - Obesity, unspecified Plan: ABOVE (2) Restrictive lung disease: Comment: SPIROMETRY RESULTS WERE CONSISTENT WITH RATHER SEVERE RESTRICTIVE PULMONARY DISORDER, Code(s): J98.4 - Other disorders of lung Plan: HE IS INSTRUCTED TO KEEP ON DOING DEEP BREATHING EXERCISES ,AT LEAST 3 TIMES A DAY ,WITH THE INCENTIVE SPIROMETRY WHICH HE DOES HAVE AT HOME. (3) Obstructive sleep apnea: Comment: HAS CLINICAL FEATURES OF OBSTRUCTIVE SLEEP APNEA, HE IS NOT ABLE TO TOLERATE CPAP. AT THIS TIME , HE DOES NOT HAVE SYMPTOMS OF OBSTRUCTIVE SLEEP APNEA AT NIGHT, BUT DOES HAVE NOCTURNAL HYPOXEMIA. Code(s): G47.33 - Obstructive sleep apnea (adult) (pediatric) Plan: ADVISED TO KEEP ON USING O2 2 L/MINUTE AT NIGHT, HE MAY ALSO USE IT P.R.N. DURING THE DAYTIME Coding Level of Care Code Est Pt Level 3 (52790) Diagnoses Obesity (BMI 30-39.9) E66.9 Restrictive lung disease J98.4 Obstructive sleep apnea G47.33
== END 2023-09-01 11:17 | disposition home or self-care (01) ==
PROVIDERS: PCP Internal Medicine; Visit Provider Internal Medicine
DX: E66.9 Obesity, unspecified (principal); J98.4 Other disorders of lung; G47.33 Obstructive sleep apnea (adult) (pediatric)
CPT/HCPCS: 99213

== ENCOUNTER → 2023-09-01 10:47 | Outpatient (BNVA) | payer MEDICARE, MEDICAID, SELFPAY | PROVIDERS: PCP Internal Medicine; Visit Provider Internal Medicine ==

== ENCOUNTER 2023-09-02 13:30 | Outpatient (AMB) | payer MEDICARE, SELFPAY ==
[2023-09-02 13:33] VITALS: BP 102/60; PULSE 58; O2SAT 90
--- NOTE | 2023-09-02 13:33 | MHC.PC.OV ---
Vital Signs 09/02/23 13:33 Height 5 ft BP 102/60 Blood Pressure Location Rt brachial Position Sitting Pulse 58 Pulse Source Pulse Oximeter Pulse Oximetry (%) 90 L Oxygen Delivery Method Room Air Intake Visit Reasons: prosthetic leg issue Telephone Lineman Required: No Allergies ciprofloxacin [From CIPRO] Allergy (Severe, Verified 09/02/23 13:33) SWELLING, ITCHING bee pollen [BEE STINGS] Allergy (Unknown, Verified 09/02/23 13:33) HIVES Penicillins Allergy (Unknown, Verified 09/02/23 13:33) UNKNOWN insulin lispro [From Humalog U-100 Insulin] Adverse Reaction (Intermediate, Verified 09/02/23 13:33) Swelling Tobacco use date assessed: 09/02/23 Dental Screening Dental Screen Date: 09/02/23 HPI prosthetic leg issue HPI Details 62-year-old male smoker with a history of CVA, diabetes mellitus, COPD, obstructive sleep apnea but can not tolerate CPAP, coronary artery disease peripheral vascular disease renal insufficiency hypertension hypercholesterolemia coming in for follow-up. Last seen April 2023. Up-to-date with Cologuard negative July 2021 above the knee amputation of the left lower extremity. Patient has followed up with Pulmonary has obstructive sleep apnea with can not tolerate the CPAP spirometry has shown severe restrictive pulmonary disorder as patient has remained heavy. July 2023 ER with admission for respiratory failure secondary to COPD as for the renal cyst CT done stable bilateral renal cyst, noted liver lesions also noted occluded bypass graft on the left and distal abdominal aortic occlusion in May patient was seen by Neurology also for the slurred speech history of right ICA occlusion patchy embolic looking right MCA infarcts in 2015. dysphagia. Patient is suppose to have the L prosthesis done but was stopped by insuranced because the insurance nned to know the He has had a history of CVA with the L arm paralysis having limited movement and that the prosthesis needs an attachment to be able to be used. [facility] Medical History Recurrent falls Hospital discharge follow-up Ankle pain, left Left leg weakness UTI (urinary tract infection) Screening for prostate cancer Elevated WBCs Dizziness Preoperative cardiovascular examination LUQ abdominal pain Cough Colon cancer screening Leg cramps Restrictive lung disease Mass of left paraspinous region Obstructive sleep apnea Obesity (BMI 30-39.9) Osteoarthritis, hip, bilateral COPD (chronic obstructive pulmonary disease) History of CVA (cerebrovascular accident) BPH (benign prostatic hyperplasia) Avascular necrosis of bone of right hip Type 2 diabetes mellitus with hyperglycemia Coronary artery disease Peripheral vascular disease Hypercholesterolemia Alcohol abuse Urinary incontinence Anxiety and depression Hypertension Surgical History History of surgery History of vascular surgery History of tonsillectomy Family History Father Lung cancer COPD (chronic obstructive pulmonary disease) Heart disease Hypertension Mother COPD (chronic obstructive pulmonary disease) Diabetes Hypertension Breast cancer Paternal Uncle Prostate cancer Sister Heart disease Social History Household Members: None Housing: House Do you presently have visiting nurse or other home services: No Alcohol intake: former Patient Tobacco Use Status: Former Tobacco user Tobacco use type: Cigarette Years Smoked: stopped smoking 12/2022 e-Cigarette/Vaping Use: Never Used Second Hand Smoke Exposure: No Substance Use Type: Marijuana service: No Current occupational status: disabled Cognitive needs: Yes (cane, wheel chair ) Hearing needs: Yes Vision needs: Yes Questionnaire Thrive Questionnaire Date Thrive assessed: 08/04/23 AUDIT C Alcohol Use Questionnaire (AUDIT-C) 1. How often do you have a drink containing alcohol?: Never 3. How often do you have six or more drinks on one occasion?: Never Total Score: 0 Score Reviewed/Action Taken: No FRANCESCA-7 AMB Questionnaire FRANCESCA-7 Date FRANCESCA - 7 assessed: 09/02/23 Source: Developed by Drs. Lio Izaguirre, Taylor Beck, Kiko Chaparro and colleagues, with an educational anh from [employer]. Physical exam (Primary Care) Vital Signs: Last Vital Signs Pulse 58 09/02/23 13:33 BP 102/60 09/02/23 13:33 Pulse Ox 90 L 09/02/23 13:33 Oxygen Delivery Method Room Air 09/02/23 13:33 Tobacco/Smoking Status: Tobacco use Status Tobacco use date assessed 09/02/23 09/02/23 13:35 Patient Tobacco Use Status Former Tobacco user 09/02/23 13:35 Tobacco use type Cigarette 09/02/23 13:35 e-Cigarette/Vaping Use Never Used 09/02/23 13:35 Thrive Assessment: Date of Thrive Assessment Date Thrive assessed 08/04/23 09/02/23 13:35 Const General: alert; No acute distress Eyes Conjunctivae: conjunctivae normal Resp Auscultation: clear to auscultation bilaterally Cardio Rate: regular rate Rhythm: regular rhythm GI Inspection: Yes normal to inspection Extrem Other: Amputation left above the knee. 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 Hemoglobin A1c goal of less than 6.5 patient is taking pioglitazone, metformin 500 mg twice a day Lantus 25 units at bedtime.. PAtient was recently in the hospital for respiratory failure and was placed on steroids (2) Coronary artery disease: Comment: RCA stent in 2012 Dr. Dodson Code(s): I25.10 - Atherosclerotic heart disease of [place] coronary artery without angina pectoris Qualifiers: Coronary Disease-Associated Artery/Lesion type: [place] artery [place] vs. transplanted heart: [place] heart Associated angina: without angina Qualified Code(s): I25.10 - Atherosclerotic heart disease of [place] coronary artery without angina pectoris Plan: Control the cholesterol, weight, blood pressure, diabetes continue with aspirin (3) Hypercholesterolemia: Code(s): E78.00 - Pure hypercholesterolemia, unspecified Plan: Avoid fried foods, chicken skin, eggs, butter margarine, pastries and meat. Be it pork or beef they have a lot of cholesterol LDL goal of less than 70 and triglyceride of less than 150 patient will need blood work (4) Hypertension: Code(s): I10 - Essential (primary) hypertension Qualifiers: Hypertension type: essential hypertension Qualified Code(s): I10 - Essential (primary) hypertension Plan: Continue with blood pressure medication. Decrease salt intake and exercise takes amlodipine 2.5 mg once a day carvedilol 25 mg twice a day lisinopril 10 mg once a day (5) COPD (chronic obstructive pulmonary disease): Comment: THE OBSTRUCTIVE COMPONENT IS VERY MINIMAL, HE HAS NEBULIZER DEVICE AT HOME. ADVISED TO USE ALBUTEROL SOLUTION IN THE NEBULIZER B.I.D, AND MAY USE Q 6 HOURS P.R.N.. HE MAY ALSO USE OXYGEN 2 L/MINUTE FOR SHORT PERIODS IF HE FEELS SHORT OF BREATH DURING THE DAYTIME. Code(s): J44.9 - Chronic obstructive pulmonary disease, unspecified Plan: Patient follows up with Pulmonary concern on weight having restrictive lung disease (6) Above knee amputation of left lower extremity: Comment: Left 04/15/2022 Dr. Boone Code(s): S78.112A - Complete traumatic amputation at level between left hip and knee, initial encounter Plan: Patient has no prosthesis yet.Patient is suppose to have the L prosthesis done but was stopped by insurance because the insurance needs to know the He has had a history of CVA with the L arm paralysis having limited movement so will need to have prosthesis attachment to be able to use using the R arm. (7) History of CVA (cerebrovascular accident): Comment: Left-sided weakness Code(s): Z86.73 - Personal history of transient ischemic attack (TIA), and cerebral infarction without residual deficits Plan: Continue with aspirin controlling blood pressure cholesterol. L sided weakness( ARM) (8) Tobacco abuse: Comment: Patient stopped mid December 2022 Code(s): Z72.0 - Tobacco use Plan: Patient has stooped already and now stopping smoking marijuana 07/2023 (9) Dysphagia: Code(s): R13.10 - Dysphagia, unspecified Plan: refer to gastroenterology Orders: Orders AMB Hemoglobin A1c Today E11.65 - Type 2 diabetes mellitus with hyperglycemia Referrals Gastroenterology Referral R13.10 - Dysphagia, unspecified Coding Level of Care Code Est Pt Level 4 (40614) Diagnoses Type 2 diabetes mellitus with hyperglycemia, without long-term current use of insulin E11.65 Diabetes mellitus nursing home insulin use: without nursing home use Coronary artery disease involving [place] coronary artery of [place] heart without angina pectoris I25.10 Coronary Disease-Associated Artery/Lesion type: [place] artery [place] vs. transplanted heart: [place] heart Associated angina: without angina Hypercholesterolemia E78.00 Essential hypertension I10 Hypertension type: essential hypertension Pulmonary emphysema, unspecified emphysema type J44.9 Above knee amputation of left lower extremity S78.112A History of CVA (cerebrovascular accident) Z86.73 Tobacco abuse Z72.0 Dysphagia R13.10
== END 2023-09-02 14:06 | disposition home or self-care (01) ==
PROVIDERS: PCP Internal Medicine; Visit Provider Internal Medicine
DX: E11.65 Type 2 diabetes mellitus with hyperglycemia (principal); J44.9 Chronic obstructive pulmonary disease, unspecified; S78.112A Complete traumatic amputation at level between left hip and knee, initial encounter; I25.10 Atherosclerotic heart disease of native coronary artery without angina pectoris; E78.00 Pure hypercholesterolemia, unspecified; I10 Essential (primary) hypertension; Z86.73 Personal history of transient ischemic attack (TIA), and cerebral infarction without residual deficits; Z72.0 Tobacco use; R13.10 Dysphagia, unspecified
CPT/HCPCS: 83036; 99214

== ENCOUNTER 2023-10-08 10:19 | Outpatient (REF) | payer MEDICARE, SELFPAY ==
[2023-10-08 10:31] LABS: MANUAL DIFF FLAG NO
[2023-10-08 10:59] LABS: Basophils Percent Auto 0.4 % (0-2); Eosinophils Absolute Auto 0.2 X10*3/uL (0.0-0.4); Eosinophils Percent Auto 2.2 % (0-4); Hematocrit 39.8 % (42.0-52.0); Hemoglobin 12.4 g/dl (14.0-18.0); Imm Gran Abs Auto 0.04 X10*3/uL (0.00-0.03); Imm Gran Pct Auto 0.5 % (0.0-0.4); Lymphocytes Absolute Auto 2.2 X10*3/uL (1.2-4.9); Mean Corpuscular HGB Conc 31.2 g/dl (31.0-36.0); Mean Corpuscular Hemoglobin 28.3 pg (27.0-33.0); Mean Corpuscular Volume 90.9 fL (80.0-98.0); Mean Platelet Volume 10.6 fL (9.4-12.4); Monocytes Absolute Auto 0.5 X10*3/uL (0.1-1.2); Monocytes Percent Auto 6.8 % (2-11); Neutrophils Absolute Auto 4.7 x10*3/uL (2.0-8.3); Neutrophils Percent Auto 61.1 % (45-73); Platelet Count 274 X10*3/uL (160-400); Red Blood Count 4.38 X10*6/uL (4.60-5.80); Red Cell Distribution Width 14.4 % (11.0-16.0); White Blood Count 7.6 X10*3/uL (4.8-10.8)
[2023-10-08 11:37] LABS: Alanine Aminotransferase 16 U/L (0-40); Alkaline Phosphatase 76 U/L (39-117); Anion Gap 11 (12-20); Aspartate Amino Transferase 16 U/L (5-37); Bilirubin Total 0.2 mg/dL (0.0-1.0); Blood Urea Nitrogen 14 mg/dL (9-16); Calcium 9.5 mg/dL (8.4-10.2); Carbon Dioxide 33 mmol/L (22-29); Chloride 103 mmol/L (96-108); Cholesterol 110 mg/dL (<200); Estimated Glomerular Filt Rate > 60; Glucose Random 193 mg/dL (60-115); HDL Cholesterol 44 mg/dL (>40); LDL Cholesterol Calculated 57 mg/dL (<100); Potassium 4.8 mmol/L (3.3-5.1); Sodium 142 mmol/L (135-145); Total Protein 6.6 g/dL (6.5-8.0); Triglycerides 45 mg/dL (<150)
[2023-10-08 11:54] LABS: Free T4 (Free Thyroxine) 0.93 ng/dL (0.71-1.85); Thyroid Stimulating Hormone 1.79 uIU/mL (0.32-4.0)
[2023-10-08 12:05] LABS: Folate 19.6 ng/mL (> or = 4.0); Prostate Specific Antigen Scr 0.17 ng/mL (<0.05-4.0); Vitamin B12 876 pg/mL (200-900)
[2023-10-08 12:28] LABS: Creatinine Urine 106.25 mg/dL; Microalbum/Creatinine Ratio Ur 35.7 ug/mg cr (<30)
== END 2023-10-08 10:20 | disposition home or self-care (01) ==
LOC: HO.LAB 10:19
PROVIDERS: PCP Internal Medicine; Visit Provider Internal Medicine
DX: Z12.5 Encounter for screening for malignant neoplasm of prostate (principal); E11.65 Type 2 diabetes mellitus with hyperglycemia; E78.00 Pure hypercholesterolemia, unspecified
CPT/HCPCS: 36415; 80053; 80061; 82043; 82570; 82607; 82746; 84153; 84439; 84443; 85025

== ENCOUNTER 2023-10-14 10:45 | Outpatient (AMB) | payer MEDICARE, MEDICAID, SELFPAY ==
[2023-10-14 10:47] VITALS: BP 100/62; PULSE 61; O2SAT 95
--- NOTE | 2023-10-14 10:47 | A.OFFPC_ITS ---
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 Canteen Operator Required: No Allergies ciprofloxacin [From CIPRO] Allergy (Severe, Verified 10/14/23 10:52) SWELLING, ITCHING bee pollen [BEE STINGS] Allergy (Unknown, Verified 10/14/23 10:52) HIVES Penicillins Allergy (Unknown, Verified 10/14/23 10:52) UNKNOWN insulin lispro [From Humalog U-100 Insulin] Adverse Reaction (Intermediate, Verified 10/14/23 10:52) Swelling Medication List - Last Reconciled 10/14/23 by Pedro Holliday MD albuterol sulfate 90 mcg/actuation 2 puffs inhalation Q4-6H PRN albuterol sulfate 2.5 mg (3 mL) inhalation QID PRN amlodipine 2.5 mg PO DAILY aspirin (Adult Low Dose Aspirin) 81 mg PO DAILY atorvastatin 80 mg PO BEDTIME blood pressure monitor As directed blood sugar diagnostic As directed check the blood sugar 3 a day blood sugar diagnostic As directed check the blood sugar 3 times a day blood-glucose meter ([email or web address] Ultra2 Meter kit) As directed check the blood sugar once a day carvedilol 25 mg PO BID clotrimazole 1% 1 appl topical BID 4 weeks compress.stocking,knee,reg,med As directed 20-30 mm HG [DIABETIC SHOE As directed] docusate sodium 100 mg PO BID PRN duloxetine 60 mg PO DAILY 90 days ezetimibe (Zetia) 10 mg PO DAILY fenofibrate 160 mg PO DAILY 90 days finasteride 5 mg PO DAILY flash glucose scanning reader (eblizzStyle Anival 14 Day [place]) 4 times per day, patient on insulin flash glucose sensor (FreeStyle Anival 14 Day Sensor kit) 4 times per day patient on insulin gabapentin 600 mg PO TID 30 days hydrocortisone 2.5% (Proctosol HC) 1 appl DE QID PRN insulin glargine (Lantus Solostar U-100 Insulin) 25 units (0.25 mL) subcut BEDTIME [[id number] SOCK, multiple ply ABove knee ([place]) As directed] lancets As directed check the blood sugar TID lancets As directed check the blood sugarTID lidocaine 5% 1 patch topical DAILY lisinopril 10 mg PO DAILY lorazepam 0.5 mg PO BEDTIME PRN metformin 500 mg PO BID multivitamin 1 tab PO DAILY nitroglycerin 0.4 mg sublingual Q5M PRN oxycodone 10 mg PO TID PRN 30 days Oxygen Home Use 2 LPM as needed- [employer]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, diabetic (1st Tier Unifine Pentips) 3 to 4 times per day pioglitazone 30 mg PO DAILY 90 days potassium chloride ER 20 mEq PO BID [Prosthetic Leg modification of his prosthetic leg] [PULLUPS As directed] quetiapine 25 mg PO BEDTIME rivaroxaban (Xarelto) 2.5 mg PO BID [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 Last seen in August 2023 has dysphagia and workup advised. Patient is up-to-date with Cologuard negative July 2021. Eye exam August 2023 dry eyes not visually significant cataract bilateral . L prosthesis 3rd leg tomorrow- first- too big, 2nd reversed and now . PAtient complains of burning sensation around the groibn area as he is inco ntinence- has a schedule with urology 10/20/2023. EGD 11/16/2023. So patient complains of burning sensation in the groin area and has incontinence which he will we will be seeing the urologist. Discussed that this promotes the groin infection with fungal infection. As for her legs and arms has occasional episodes of movement of the left arm as well as right foot. [facility] Medical History (Updated 10/14/23 @ 11:27 by Pedro Holliday MD) Recurrent falls Hospital discharge follow-up Ankle pain, left Left leg weakness UTI (urinary tract infection) Screening for prostate cancer Elevated WBCs Dizziness Preoperative cardiovascular examination LUQ abdominal pain Cough Colon cancer screening Leg cramps Restrictive lung disease Mass of left paraspinous region Obstructive sleep apnea Obesity (BMI 30-39.9) Osteoarthritis, hip, bilateral COPD (chronic obstructive pulmonary disease) History of CVA (cerebrovascular accident) BPH (benign prostatic hyperplasia) Avascular necrosis of bone of right hip Type 2 diabetes mellitus with hyperglycemia Coronary artery disease Peripheral vascular disease Hypercholesterolemia Alcohol abuse Urinary incontinence Anxiety and depression Hypertension Surgical History History of surgery History of vascular surgery History of tonsillectomy Family History Father Lung cancer COPD (chronic obstructive pulmonary disease) Heart disease Hypertension Mother COPD (chronic obstructive pulmonary disease) Diabetes Hypertension Breast cancer Paternal Uncle Prostate cancer Sister Heart disease Social History Household Members: None Housing: House Do you presently have visiting nurse or other home services: No Alcohol intake: former Patient Tobacco Use Status: Former Tobacco user Tobacco use type: Cigarette Years Smoked: stopped smoking 12/2022 e-Cigarette/Vaping Use: Never Used Second Hand Smoke Exposure: No Substance Use Type: Marijuana service: No Current occupational status: disabled Cognitive needs: Yes (cane, wheel chair ) Hearing needs: Yes Vision needs: Yes Questionnaire Thrive Questionnaire Date Thrive assessed: 08/04/23 I am a: Patient What is your living situation today?: I have a steady place to live Within the past 12 months, did the food you bought not last and you didn't have the money to get more?: Never true Within the past 12 months, did you worry whether your food would run out before you got money to buy more?: Never true Do you have trouble paying for medicines?: No Do you have trouble getting transportation to medical appointments?: No Do you have trouble paying your heating and electricity bill?: No Do you have trouble taking care of your child, family member or friend?: No Do you have trouble with day-to-day activities such as bathing, preparing meals, shopping, managing finances, etc.?: No Are you currently unemployed and looking for a job?: No Are you interested in more education?: No Please select the resources that you would like help with: None THRIVE Score: 0 AUDIT C Alcohol Use Questionnaire (AUDIT-C) 1. How often do you have a drink containing alcohol?: Never 3. How often do you have six or more drinks on one occasion?: Never Total Score: 0 Score Reviewed/Action Taken: No FRANCESCA-7 AMB Questionnaire FRANCESCA-7 Date FRANCESCA - 7 assessed: 09/02/23 Source: Developed by Drs. Lio Izaguirre, Taylor Beck, Kiko Chaparro and colleagues, with an educational anh from [employer]. Physical exam (Primary Care) Vital Signs: Last Vital Signs Pulse 61 10/14/23 10:47 BP 100/62 10/14/23 10:47 Pulse Ox 95 10/14/23 10:47 Oxygen Delivery Method Room Air 10/14/23 10:47 Tobacco/Smoking Status: Tobacco use Status Tobacco use date assessed 10/14/23 10/14/23 10:50 Patient Tobacco Use Status Former Tobacco user 10/14/23 10:50 Tobacco use type Cigarette 10/14/23 10:50 e-Cigarette/Vaping Use Never Used 10/14/23 10:50 Thrive Assessment: Date of Thrive Assessment Date Thrive assessed 08/04/23 10/14/23 10:50 Const General: alert; No acute distress Eyes Conjunctivae: conjunctivae normal Resp Auscultation: clear to auscultation bilaterally Cardio Rate: regular rate Rhythm: regular rhythm GI Inspection: Yes normal to inspection Extrem General: Yes normal to inspection and No edema Assessment and Plan Assessment & Plan (1) Type 2 diabetes mellitus with hyperglycemia: Comment: Dr. Camejo Code(s): E11.65 - Type 2 diabetes mellitus with hyperglycemia Qualifiers: Diabetes mellitus long term care phlebotomist insulin use: without long term care phlebotomist use Qualified Code(s): E11.65 - Type 2 diabetes mellitus with hyperglycemia Plan: Decrease the amount of carbohydrate intake, pasta, bread, rice and potatoes are all sugar and that is aside from all the sweet stuff, remember that fruits are good but they are Sweet also. Hemoglobin A1c goal of less than 6.5. Patient's hemoglobin A1c was done in August 2023 7.8. Presently on Lantus 25 units at bedtime metformin 500 mg twice a day pioglitazone 30 mg once a day (2) Coronary artery disease: Comment: RCA stent in 2013 Dr. Dodson Code(s): I25.10 - Atherosclerotic heart disease of habematolel coronary artery without angina pectoris Qualifiers: Coronary Disease-Associated Artery/Lesion type: habematolel artery [place] vs. transplanted heart: habematolel heart Associated angina: without angina Qualified Code(s): I25.10 - Atherosclerotic heart disease of habematolel coronary artery without angina pectoris Plan: Control the cholesterol, weight, blood pressure, diabetes on aspirin 81 mg once a day (3) Hypertension: Code(s): I10 - Essential (primary) hypertension Qualifiers: Hypertension type: essential hypertension Qualified Code(s): I10 - Essential (primary) hypertension Plan: Continue with blood pressure medication. Decrease salt intake and exercise takes amlodipine 2.5 mg once a day carvedilol to 25 mg twice a day lisinopril 10 mg once a day (4) Hypercholesterolemia: Code(s): E78.00 - Pure hypercholesterolemia, unspecified Plan: Avoid fried foods, chicken skin, eggs, butter margarine, pastries and meat. Be it pork or beef they have a lot of cholesterol LDL goal of less than 70 and triglyceride of less than 150 presently on Zetia fenofibrate and atorvastatin 80 mg once a day (5) COPD (chronic obstructive pulmonary disease): Comment: THE OBSTRUCTIVE COMPONENT IS VERY MINIMAL, HE HAS NEBULIZER DEVICE AT HOME. ADVISED TO USE ALBUTEROL SOLUTION IN THE NEBULIZER B.I.D, AND MAY USE Q 6 HOURS P.R.N.. HE MAY ALSO USE OXYGEN 2 L/MINUTE FOR SHORT PERIODS IF HE FEELS SHORT OF BREATH DURING THE DAYTIME. Code(s): J44.9 - Chronic obstructive pulmonary disease, unspecified Plan: Patient is strongly advised to stop smoking admission (6) Obstructive sleep apnea: Comment: HAS CLINICAL FEATURES OF OBSTRUCTIVE SLEEP APNEA, HE IS NOT ABLE TO TOLERATE CPAP. AT THIS TIME , HE DOES NOT HAVE SYMPTOMS OF OBSTRUCTIVE SLEEP APNEA AT NIGHT, BUT DOES HAVE NOCTURNAL HYPOXEMIA. Code(s): G47.33 - Obstructive sleep apnea (adult) (pediatric) Plan: Discussed importance of treating sleep apnea. (7) Tobacco abuse: Comment: Patient stopped 08/2023 Code(s): Z72.0 - Tobacco use Plan: Strongly advised to stop smoking (8) History of CVA (cerebrovascular accident): Comment: Left-sided weakness Code(s): Z86.73 - Personal history of transient ischemic attack (TIA), and cerebral infarction without residual deficits Plan: Advised to stop smoking continue with aspirin Control the cholesterol, weight, blood pressure, diabetes (9) Generalized anxiety disorder: Code(s): F41.1 - Generalized anxiety disorder Plan: Continue with present medication has duloxetine 60 mg once a day (10) Above knee amputation of left lower extremity: Comment: Left 04/15/2022 Dr. Boone Code(s): S78.112A - Complete traumatic amputation at level between left hip and knee, initial encounter Plan: Narcotic pain meds: Is being prescribed with the understanding that these medications are potentially addictive and should be used only when absolutely necessary and must always be secured. Any remaining pills should be safely disposed off appropriately. Patient is advised that narcotics can impaired judgment and one should not drive or operate heavy machinery while taking these medications. Never share these medications with anybody and do not leave them unattended. They will not be replaced under any circumstances. Patient has the prosthesis (11) Tinea cruris: Code(s): B35.6 - Tinea cruris Plan: Antifungal cream sent in but the problem of urinary incontinence is there. (12) Myoclonic jerking: Comment: Left arm and right leg Code(s): G25.3 - Myoclonus Plan: Will continue to monitor for now Medications: New clotrimazole 1% 1 appl topical BID 4 weeks 90 grams 0RF B35.6 - Tinea cruris Coding Level of Care Code Est Pt Level 4 (03695) Diagnoses Type 2 diabetes mellitus with hyperglycemia, without long-term current use of insulin E11.65 Diabetes mellitus long term care phlebotomist insulin use: without long term care phlebotomist use Coronary artery disease involving habematolel coronary artery of habematolel heart without angina pectoris I25.10 Coronary Disease-Associated Artery/Lesion type: habematolel artery [place] vs. transplanted heart: habematolel heart Associated angina: without angina Essential hypertension I10 Hypertension type: essential hypertension Hypercholesterolemia E78.00 Pulmonary emphysema, unspecified emphysema type J44.9 Obstructive sleep apnea G47.33 Tobacco abuse Z72.0 History of CVA (cerebrovascular accident) Z86.73 Generalized anxiety disorder F41.1 Above knee amputation of left lower extremity S78.112A Tinea cruris B35.6 Myoclonic jerking G25.3 Additional Codes PHQ-9 - 04201 - PHQ-9 Billing: ([id number])
== END 2023-10-14 11:30 | disposition home or self-care (01) ==
PROVIDERS: PCP Internal Medicine; Visit Provider Internal Medicine
DX: E11.65 Type 2 diabetes mellitus with hyperglycemia (principal); J44.9 Chronic obstructive pulmonary disease, unspecified; S78.112A Complete traumatic amputation at level between left hip and knee, initial encounter; I25.10 Atherosclerotic heart disease of native coronary artery without angina pectoris; I10 Essential (primary) hypertension; E78.00 Pure hypercholesterolemia, unspecified; G47.33 Obstructive sleep apnea (adult) (pediatric); Z72.0 Tobacco use; Z86.73 Personal history of transient ischemic attack (TIA), and cerebral infarction without residual deficits; F41.1 Generalized anxiety disorder; B35.6 Tinea cruris; G25.3 Myoclonus
CPT/HCPCS: 99214

== ENCOUNTER 2023-10-27 10:09 | Outpatient (AMB) | payer OTHER, MEDICAID, SELFPAY ==
[2023-10-27 10:13] VITALS: BP 100/62; PULSE 63; O2SAT 91
--- NOTE | 2023-10-27 10:13 | MHC.OFFVIS ---
Intake Vital Signs 10/27/23 10:13 Height 5 ft BP 100/62 Blood Pressure Location Lt brachial Position Sitting Pulse 63 Pulse Source Pulse Oximeter Pulse Oximetry (%) 91 L Oxygen Delivery Method Room Air Intake Visit Reasons: COPD Intake Note: pt is here for follow up and states he is doing okay, but would like a poc, for portability to get around and do things. 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 Allergies ciprofloxacin [From CIPRO] Allergy (Severe, Verified 10/27/23 10:25) SWELLING, ITCHING bee pollen [BEE STINGS] Allergy (Unknown, Verified 10/27/23 10:25) HIVES Penicillins Allergy (Unknown, Verified 10/27/23 10:25) UNKNOWN insulin lispro [From Humalog U-100 Insulin] Adverse Reaction (Intermediate, Verified 10/27/23 10:25) Swelling Medication List - Last Reconciled 10/27/23 by Azael Sams MD albuterol sulfate 90 mcg/actuation 2 puffs inhalation Q4-6H PRN albuterol sulfate 2.5 mg (3 mL) inhalation QID PRN amlodipine 2.5 mg PO DAILY aspirin (Adult Low Dose Aspirin) 81 mg PO DAILY atorvastatin 80 mg PO BEDTIME blood pressure monitor As directed blood sugar diagnostic As directed check the blood sugar 3 a day blood sugar diagnostic As directed check the blood sugar 3 times a day blood-glucose meter (OneTouch Ultra2 Meter kit) As directed check the blood sugar once a day carvedilol 25 mg PO BID clotrimazole 1% 1 appl topical BID 4 weeks compress.stocking,knee,reg,med As directed 20-30 mm HG [DIABETIC SHOE As directed] docusate sodium 100 mg PO BID PRN duloxetine 60 mg PO DAILY 90 days ezetimibe (Zetia) 10 mg PO DAILY fenofibrate 160 mg PO DAILY 90 days finasteride 5 mg PO DAILY flash glucose scanning reader (MobiliBuyStyle Anival 14 Day [place]) 4 times per day, patient on insulin flash glucose sensor (FreeStyle Anival 14 Day Sensor kit) 4 times per day patient on insulin gabapentin 600 mg PO TID 30 days hydrocortisone 2.5% (Proctosol HC) 1 appl GA QID PRN insulin glargine (Lantus Solostar U-100 Insulin) 25 units (0.25 mL) subcut BEDTIME [[id number] SOCK, multiple ply ABove knee ([place]) As directed] lancets As directed check the blood sugar TID lancets As directed check the blood sugarTID lidocaine 5% 1 patch topical DAILY lisinopril 10 mg PO DAILY lorazepam 0.5 mg PO BEDTIME PRN metformin 500 mg PO BID multivitamin 1 tab PO DAILY nitroglycerin 0.4 mg sublingual Q5M PRN oxycodone 10 mg PO TID PRN 30 days Oxygen Home Use 2 LPM as needed- [employer]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, diabetic (1st Tier Unifine Pentips) 3 to 4 times per day pioglitazone 30 mg PO DAILY 90 days potassium chloride ER 20 mEq PO BID [Prosthetic Leg modification of his prosthetic leg] [PULLUPS As directed] quetiapine 25 mg PO BEDTIME rivaroxaban (Xarelto) 2.5 mg PO BID [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 HE HAS MILD DEGREE OF BRONCHIAL ASTHMA, COMPLAINING OF GETTING SHORT OF BREATH WITH SOME BOUTS OF COUGH WHEN HE EXERTS. 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 [facility] Medical History (Updated 10/27/23 @ 10:42 by Azael Sams MD) Hypoxemia Recurrent falls Hospital discharge follow-up Ankle pain, left Left leg weakness UTI (urinary tract infection) Screening for prostate cancer Elevated WBCs Dizziness Preoperative cardiovascular examination LUQ abdominal pain Cough Colon cancer screening Leg cramps Restrictive lung disease Mass of left paraspinous region Obstructive sleep apnea Obesity (BMI 30-39.9) Osteoarthritis, hip, bilateral COPD (chronic obstructive pulmonary disease) History of CVA (cerebrovascular accident) BPH (benign prostatic hyperplasia) Avascular necrosis of bone of right hip Type 2 diabetes mellitus with hyperglycemia Coronary artery disease Peripheral vascular disease Hypercholesterolemia Alcohol abuse Urinary incontinence Anxiety and depression Hypertension Surgical History History of surgery History of vascular surgery History of tonsillectomy Family History Father Lung cancer COPD (chronic obstructive pulmonary disease) Heart disease Hypertension Mother COPD (chronic obstructive pulmonary disease) Diabetes Hypertension Breast cancer Paternal Uncle Prostate cancer Sister Heart disease Social History Household Members: None Housing: House Do you presently have visiting nurse or other home services: No Alcohol intake: former Patient Tobacco Use Status: Former Tobacco user Tobacco use type: Cigarette Years Smoked: stopped smoking 12/2022 e-Cigarette/Vaping Use: Never Used Second Hand Smoke Exposure: No Substance Use Type: Marijuana service: No Current occupational status: disabled Cognitive needs: Yes (cane, wheel chair ) Hearing needs: Yes Vision needs: Yes Review of Systems Const All systems reviewed & are unremarkable except as noted in HPI and below ENT Denies nasal congestion and Denies nasal discharge Card Denies chest pain at rest, Denies irregular heart rhythm, Denies leg edema and Reports dyspnea on exertion (mild ) Resp Reports cough (occasional due to an urge to clear throat ) and Reports dyspnea on exertion (mild ) GI Reports no additional complaints Musc Reports arthralgias (rt hip ) Neuro Reports no additional complaints Psych Reports no additional complaints Physical Exam Vital Signs: Last Vital Signs Pulse 63 10/27/23 10:13 BP 100/62 10/27/23 10:13 Pulse Ox 91 L 10/27/23 10:13 Oxygen Delivery Method Room Air 10/27/23 10:13 Const General: healthy appearing (Except for being overweight), comfortable, no acute distress, alert and awake Orientation/consciousness: patient oriented x3 HEENT Head: Yes normal to inspection General nose exam: No nasal polyps present and No nasal discharge present Face and sinus: Yes sinuses nontender Mouth: oropharynx normal Throat: Yes posterior oropharynx normal Eyes General: appearance normal, both eyes and all related structures Neck Neck: Yes normal visual inspection, Yes no lymphadenopathy, Yes trachea midline and Yes no JVD Thyroid: Thyroid normal Chest Chest palpation & inspection: normal inspection of the chest, normal palpation of entire chest wall and no tenderness Resp Other: Percussion note is resonant, breath sounds are slightly decreased over the basilar areas. No wheezes rhonchi or crepitations are heard. Cardio Palpation: normal PMI Rate: regular rate Rhythm: regular rhythm Heart sounds: no gallops and no murmurs Peripheral pulses: Peripheral pulses 2+ throughout GI Palpation (GI): Soft to palpation, nontender, No hepatosplenomegaly present, no masses and Other GI palpation findings present (Abdomen is slightly protuberant) Auscultation: normal bowel sounds Back/Spine/Pelvis Thoracic/Lumbar Spine: thoracic and lumbar spine normal to inspection Skin General skin exam: no rashes or lesions noted Neuro General: patient oriented x3 and no focal motor deficits Cranial nerves: Yes CN's II-XII intact bilaterally Extrem Other: S/P LEFT [place]. AMPUTEE RT LEG AND FOOT , THIN , NO PULSES General: Yes no calf tenderness Psych Appearance: grossly normal and well kempt Speech and movement: Normal speech and movement present Assessment & Plan Assessment & Plan (1) COPD (chronic obstructive pulmonary disease): Comment: THE OBSTRUCTIVE COMPONENT IS VERY MINIMAL, HE HAS NEBULIZER DEVICE AT HOME. Code(s): J44.9 - Chronic obstructive pulmonary disease, unspecified Plan: ADVISED TO USE ALBUTEROL SOLUTION IN THE NEBULIZER B.I.D, AND MAY USE Q 6 HOURS P.R.N.. HE MAY ALSO USE OXYGEN 2 L/MINUTE FOR SHORT PERIODS IF HE FEELS SHORT OF BREATH DURING THE DAYTIME. (2) Obesity (BMI 30-39.9): Comment: HE DOES HAVE MODERATELY SEVERE OBESITY. MAINLY IT IS DUE TO BODY HABITUS. HE IS SHORT STATURED WEIGHT REMAINS UP BECAUSE HE IS NOT ABLE TO DO MUCH WALKING, HOPEFULLY ONCE HE LEARNS TO USE THE PROSTHESIS, AND STARTS WALKING, HE WILL BE IS ABLE TO LOSE SOME WEIGHT. Code(s): E66.9 - Obesity, unspecified Plan: ADVISED TO START WALKING AND DOING SOME EXERCISE SOON HE GETS HIS PROSTHESIS FIXED (3) Obstructive sleep apnea: Comment: HAS CLINICAL FEATURES OF OBSTRUCTIVE SLEEP APNEA, HE IS NOT ABLE TO TOLERATE CPAP. AT THIS TIME , HE DOES NOT HAVE SYMPTOMS OF OBSTRUCTIVE SLEEP APNEA AT NIGHT, BUT DOES HAVE NOCTURNAL HYPOXEMIA. Code(s): G47.33 - Obstructive sleep apnea (adult) (pediatric) Plan: CONTINUE TO USE O2 2 L/MINUTE AT NIGHT (4) Restrictive lung disease: Comment: SPIROMETRY RESULTS WERE CONSISTENT WITH RATHER SEVERE RESTRICTIVE PULMONARY DISORDER, HE HAS VERY LITTLE OBSTRUCTIVE COMPONENT Code(s): J98.4 - Other disorders of lung Plan: ALBUTEROL INHALER 2 PUFFS Q 4-6 HOURS P.R.N. WHEN OUTDOORS, AND WHEN IN THE HOUSE HE CAN USE ALBUTEROL SOLUTION IN THE NEBULIZER Q.6 HOURS P.R.N. (5) Hypoxemia: Comment: PATIENT IS KNOWN TO HAVE NOCTURNAL HYPOXEMIA WELL . EXERCISE INDUCED HYPOXEMIA. HE DOES USE O2 2 L/MINUTE AT NIGHT, HE HAS PORTABLE CYLINDERS BUT CAN NOT BRING THEM OUTDDORS. HE WANTS TO GET A POC UNIT Code(s): R09.02 - Hypoxemia Plan: ADVISED TO START USING HIS PROSTHESIS AND START WALKING. WHEN HE STARTS WALKING HE WILL COME BACK FOR 6 MINUTES WALK, AND TESTING FOR POC UNIT. THEN WE WILL GO AHEAD AND ORDER A POC FOR HIM. Coding Level of Care Code Est Pt Level 3 (30198) Diagnoses Pulmonary emphysema, unspecified emphysema type J44.9 Obesity (BMI 30-39.9) E66.9 Obstructive sleep apnea G47.33 Restrictive lung disease J98.4 Hypoxemia R09.02
== END 2023-10-27 10:35 | disposition home or self-care (01) ==
PROVIDERS: PCP Internal Medicine; Visit Provider Internal Medicine
DX: J44.9 Chronic obstructive pulmonary disease, unspecified (principal); E66.9 Obesity, unspecified; G47.33 Obstructive sleep apnea (adult) (pediatric); J98.4 Other disorders of lung; R09.02 Hypoxemia
CPT/HCPCS: 99213

== ENCOUNTER → 2023-10-27 10:09 | Outpatient (BNVA) | payer OTHER, MEDICAID, SELFPAY | PROVIDERS: PCP Internal Medicine; Visit Provider Internal Medicine ==

== ENCOUNTER 2023-11-12 09:51 | Outpatient (AMB) | payer MEDICARE, MEDICAID, SELFPAY ==
--- NOTE | 2023-11-12 09:59 | MHC.OFFVIS ---
Vital Signs 11/12/23 10:01 Height 5 ft Weight 167 lb BMI 32.6 BP 109/56 L Blood Pressure Location Lt brachial Position Sitting Pulse 70 Intake Visit Reasons: Dysphagia, unspecified Intake Note: Patient new consult for dysphagia Patient cc: abdominal pain with bloating, acid reflex with burning sensation, between diarrhea and constipation. Loan Review Officer Required: No Accompanied by: Self / Same As Patient Allergies ciprofloxacin [From CIPRO] Allergy (Severe, Verified 11/12/23 09:59) SWELLING, ITCHING bee pollen [BEE STINGS] Allergy (Unknown, Verified 11/12/23 09:59) HIVES Penicillins Allergy (Unknown, Verified 11/12/23 09:59) UNKNOWN insulin lispro [From Humalog U-100 Insulin] Adverse Reaction (Intermediate, Verified 11/12/23 09:59) Swelling HPI Comments Details: A 63 y/o male smoker- multiple comorbid illness, DM, COPD, hx AL, stents [id number] anticoagulation therapy referred with trouble swallowing for the past few months- he says when he eats or drinks- he chokes- food going down the wrong tube- it is painful-Acid reflux seems to be worse, nausea, vomiting- Able to swallow saliva O2@ HS PFSH Medical History (Updated 11/13/23 @ 12:34 by Irma Camargo PA-C) Hypoxemia Recurrent falls Hospital discharge follow-up Ankle pain, left Left leg weakness UTI (urinary tract infection) Screening for prostate cancer Elevated WBCs Dizziness Preoperative cardiovascular examination LUQ abdominal pain Cough Colon cancer screening Leg cramps Restrictive lung disease Mass of left paraspinous region Obstructive sleep apnea Obesity (BMI 30-39.9) Osteoarthritis, hip, bilateral COPD (chronic obstructive pulmonary disease) History of CVA (cerebrovascular accident) BPH (benign prostatic hyperplasia) Avascular necrosis of bone of right hip Type 2 diabetes mellitus with hyperglycemia Coronary artery disease Peripheral vascular disease Hypercholesterolemia Alcohol abuse Urinary incontinence Anxiety and depression Hypertension Surgical History History of surgery History of vascular surgery History of tonsillectomy Family History Father Lung cancer COPD (chronic obstructive pulmonary disease) Heart disease Hypertension Mother COPD (chronic obstructive pulmonary disease) Diabetes Hypertension Breast cancer Paternal Uncle Prostate cancer Sister Heart disease Social History Household Members: None Housing: House Do you presently have visiting nurse or other home services: No Alcohol intake: former Patient Tobacco Use Status: Former Tobacco user Tobacco use type: Cigarette Years Smoked: stopped smoking 12/2022 e-Cigarette/Vaping Use: Never Used Second Hand Smoke Exposure: No Substance Use Type: Marijuana service: No Current occupational status: disabled Cognitive needs: Yes (cane, wheel chair ) Hearing needs: Yes Vision needs: Yes Review of Systems ENT Denies Normal hearing present Neuro Denies Normal hearing present Physical Exam Vital Signs: Last Vital Signs Pulse 70 11/12/23 10:01 BP 109/56 L 11/12/23 10:01 BMI result Body Mass Index 32.6 strong tobacco odor [place] W/C- L AKA Const General: comfortable Orientation/consciousness: patient oriented x3 Limitations: wheelchair Resp Auscultation: diminished lung sounds Cardio Rate: regular rate Rhythm: regular rhythm Heart sounds: S1 normal heart sound present and S2 normal heart sound present Neuro General: patient oriented x3 Cranial nerves: No Normal hearing present Extrem Other: [place] Psych Speech and movement: Slurred speech present Affect: Irritable affect present Attitude: cooperative Thought process: Normal thought process present Thought content: Normal thought content present Assessment & Plan Assessment & Plan (1) Hypoxemia: Comment: PATIENT IS KNOWN TO HAVE NOCTURNAL HYPOXEMIA WELL . EXERCISE INDUCED HYPOXEMIA. HE DOES USE O2 2 L/MINUTE AT NIGHT, HE HAS PORTABLE CYLINDERS BUT CAN NOT BRING THEM OUTDDORS. HE WANTS TO GET A POC UNIT Code(s): R09.02 - Hypoxemia Category: Medical (2) History of CVA (cerebrovascular accident): Comment: Left-sided weakness Code(s): Z86.73 - Personal history of transient ischemic attack (TIA), and cerebral infarction without residual deficits Category: Medical (3) Anticoagulated: Code(s): Z79.01 - intermediate (current) use of anticoagulants Category: Medical (4) Dysphagia: Comment: ONGOING SEVERAL MONTHS- Needs further eval however given history CVA, diabetes, given high-risk anesthesia discussed with MD Code(s): R13.10 - Dysphagia, unspecified Category: Medical Plan: Eat slowly Chew food well Barium swallow with pill Maximize PPI and give carafate Plan BMI: 32.6kg/m? Note to T- [phone] sister- [phone]- Critical access hospital taker Orders: Orders FL barium swallow Today R13.10 - Dysphagia, unspecified, Z79.01 - intermediate (current) use of anticoagulants, Z86.73 - Personal history of transient ischemic attack (TIA), and cerebral infarction without residual deficits Medications: New sucralfate 1 g (10 mL) PO BID 4 weeks PRN 420 mL 2RF reflux pantoprazole 40 mg (2 x 20 mg) PO BID 30 days PRN 30 tabs 2RF reflux Patient Instructions: 63-year-old male multiple comorbidities increased risk for anesthesia referred with dysphagia Diet as tolerated- avoid choking- Any worsening of sx- - ED Call sister with plan of care after discussion with MD-likely get barium swallow however will confirm Coding Level of Care Code New Pt Level 4 (51427) Diagnoses Hypoxemia R09.02 History of CVA (cerebrovascular accident) Z86.73 Anticoagulated Z79.01 Dysphagia R13.10 Time Spent (min) 35
[2023-11-12 10:01] VITALS: BP 109/56; PULSE 70; BMI 32.6
== END 2023-11-12 10:55 | disposition home or self-care (01) ==
PROVIDERS: PCP Internal Medicine; Referring Provider Internal Medicine; Visit Provider Physician Assistant
DX: R09.02 Hypoxemia (principal); Z86.73 Personal history of transient ischemic attack (TIA), and cerebral infarction without residual deficits; Z79.01 Long term (current) use of anticoagulants; R13.10 Dysphagia, unspecified
CPT/HCPCS: 99204; 99214

== ENCOUNTER → 2023-11-12 09:51 | Outpatient (BNVA) | payer MEDICARE, SELFPAY | PROVIDERS: PCP Internal Medicine; Visit Provider Physician Assistant | DX: R09.02 Hypoxemia (principal); R13.10 Dysphagia, unspecified; Z79.01 Long term (current) use of anticoagulants; Z86.73 Personal history of transient ischemic attack (TIA), and cerebral infarction without residual deficits | CPT/HCPCS: 99202 ==

== ENCOUNTER 2023-11-18 09:03 | Outpatient (AMB) | payer MEDICARE, MEDICAID, SELFPAY ==
--- NOTE | 2023-11-18 09:22 | A.OFFVIS_ITS ---
Intake Visit Reasons: scrotal complaint Intake Note: Patient presents today for scrotal complaint Urology Medications: finasteride, terazosin Allergies to Antibiotic: Cipro & Penicillin Blood Thinner: Xarelto Diagrammer Required: No Accompanied by: Self / Same As Patient Allergies ciprofloxacin [From CIPRO] Allergy (Severe, Verified 11/18/23 21:19) SWELLING, ITCHING bee pollen [BEE STINGS] Allergy (Unknown, Verified 11/18/23 21:19) HIVES Penicillins Allergy (Unknown, Verified 11/18/23 21:19) UNKNOWN insulin lispro [From Humalog U-100 Insulin] Adverse Reaction (Intermediate, Verified 11/18/23 21:19) Swelling Medication List - Last Reconciled 11/18/23 by TAMIKA Silverio [Adult diapers As directed] albuterol sulfate 90 mcg/actuation 2 puffs inhalation Q4-6H PRN albuterol sulfate 2.5 mg (3 mL) inhalation QID PRN amlodipine 2.5 mg PO DAILY aspirin (Adult Low Dose Aspirin) 81 mg PO DAILY atorvastatin 80 mg PO BEDTIME blood pressure monitor As directed blood sugar diagnostic As directed check the blood sugar 3 a day blood sugar diagnostic As directed check the blood sugar 3 times a day blood-glucose meter (J[employer] Ultra2 Meter kit) As directed check the blood sugar once a day carvedilol 25 mg PO BID clotrimazole 1% 1 appl topical BID 4 weeks compress.stocking,knee,reg,med As directed 20-30 mm HG [DIABETIC SHOE As directed] docusate sodium 100 mg PO BID PRN duloxetine 60 mg PO DAILY 90 days ezetimibe (Zetia) 10 mg PO DAILY fenofibrate 160 mg PO DAILY 90 days finasteride 5 mg PO DAILY flash glucose scanning reader (FreeStyle Anival 14 Day [place]ard) 4 times per day, patient on insulin flash glucose sensor (FreeStyle Anival 14 Day Sensor kit) 4 times per day patient on insulin gabapentin 600 mg PO TID 30 days hydrocortisone 2.5% (Proctosol HC) 1 appl MN QID PRN insulin glargine (Lantus Solostar U-100 Insulin) 25 units (0.25 mL) subcut BEDTIME [[id number] SOCK, multiple ply ABove knee (AK) As directed] lancets As directed check the blood sugar TID lancets As directed check the blood sugarTID lidocaine 5% 1 patch topical DAILY lisinopril 10 mg PO DAILY lorazepam 0.5 mg PO BEDTIME PRN metformin 500 mg PO BID mirabegron ER (Myrbetriq) 25 mg PO DAILY 30 days multivitamin 1 tab PO DAILY nitroglycerin 0.4 mg sublingual Q5M PRN oxycodone 10 mg PO TID PRN 30 days Oxygen Home Use 2 LPM as needed- [employer] supplier pantoprazole 40 mg (2 x 20 mg) PO BID PRN 30 days pen needle, diabetic (1st Tier Unifine Pentips) 3 to 4 times per day pioglitazone 30 mg PO DAILY 90 days potassium chloride ER 20 mEq PO BID [Prosthetic Leg modification of his prosthetic leg] [PULLUPS As directed] quetiapine 25 mg PO BEDTIME rivaroxaban (Xarelto) 2.5 mg PO BID [TIRE RETREADER SLEEVE L As directed] sucralfate 1 g (10 mL) PO BID PRN 4 weeks tizanidine 4 mg PO TID PRN vit C,Z-Mf-nngon-lutein-zeaxan 250-90-40-1 mg (PreserVision AREDS-2) 1 tab PO BID HPI Comments Details: Ayo is a pleasant 62-year-old male patient of Dr. Holliday. He has a past medical history of recurrent falls, restrictive lung disease, LUIS ALBERTO, obesity, osteoarthritis, COPD, history of CVA, BPH, type 2 diabetes, coronary artery disease, PVD, hypercholesteremia, alcohol abuse, anxiety, depression, and hypertension. He presents to the office today for a follow up of his lower urinary tract symptoms. During last office visit approximately 6 months ago recommendations were made for obtaining CT urogram for further assessment evaluation of renal cysts. These results were reviewed with the patient today. There is stable cortical cyst on the right in interpolar area, measuring approximately 2 cm in the right upper pole measuring approximately 1.2 cm. On the left there are 2 small cyst too small to characterize. There is no evidence of solid lesions, hydronephrosis, and or nephrolithiasis. No perinephric stranding. The bladder is unremarkable. In discussion with the patient today he continues to report ongoing lower urinary tract symptoms. He continues with urinary urgency, urinary frequency, and episodes of incontinence if not near a bathroom.He otherwise denies hematuria, dysuria, changes to urinary stream, flank pain, fever, and or chills. When asked he reports compliance with terazosin 5 mg and finasteride 5 mg daily. In office urinalysis results reviewed with the patient today. PVR 0ml's. Previous workup has included a retroperitoneal ultrasound noting right kidney with no hydronephrosis or calculi noted. Right renal mid to lower pole 1.8 x 1.8 x 1.9 cm complex cyst with septations and calcifications previously measured 2.2 x 2.0 x 2.1 cm on 10/16/2021 and appears increased in complexity with focal lobular peripheral calcification measuring 0.4 cm and thickening of septations. Left kidney with no hydronephrosis and or calculi. 0.8 x 0.6 x 0.9 cyst with benign features. There is no indication for follow-up imaging per radiology report. The bladder is partially distended limiting evaluation. Mild irregularity and trabeculation of the bladder wall as well as bladder wall thickness of 0.5 cm. Pre void bladder volume is approximately 140 mL. Postvoid bladder volume is approximately 25 mL. Patient with a previous TURP approximately 5-[address] Blue. Patient discusses in March 2022 undergoing left above the knee amputation in [place] and is recovering well and has been receiving PT and OT therapy. He also discusses having recently undergone fitting for prosthesis for his left leg. Patient discusses being a recovering alcoholic and had been sober for over 3 years. He discusses attempting to quit smoking and is limiting his smoking and utilizing nicotine patches. PSAs are as follows: 05/09 0.7, 01/08 0.6, 09/11 0.6, 08/12 0.4, 10/11 0.2 [facility] Medical History Hypoxemia Recurrent falls Hospital discharge follow-up Ankle pain, left Left leg weakness UTI (urinary tract infection) Screening for prostate cancer Elevated WBCs Dizziness Preoperative cardiovascular examination LUQ abdominal pain Cough Colon cancer screening Leg cramps Restrictive lung disease Mass of left paraspinous region Obstructive sleep apnea Obesity (BMI 30-39.9) Osteoarthritis, hip, bilateral COPD (chronic obstructive pulmonary disease) History of CVA (cerebrovascular accident) BPH (benign prostatic hyperplasia) Avascular necrosis of bone of right hip Type 2 diabetes mellitus with hyperglycemia Coronary artery disease Peripheral vascular disease Hypercholesterolemia Alcohol abuse Urinary incontinence Anxiety and depression Hypertension Surgical History History of surgery History of vascular surgery History of tonsillectomy Family History Father Lung cancer COPD (chronic obstructive pulmonary disease) Heart disease Hypertension Mother COPD (chronic obstructive pulmonary disease) Diabetes Hypertension Breast cancer Paternal Uncle Prostate cancer Sister Heart disease Social History Household Members: None Housing: House Do you presently have visiting nurse or other home services: No Alcohol intake: former Patient Tobacco Use Status: Former Tobacco user Tobacco use type: Cigarette Years Smoked: stopped smoking 12/2022 e-Cigarette/Vaping Use: Never Used Second Hand Smoke Exposure: No Substance Use Type: Marijuana service: No Current occupational status: disabled Cognitive needs: Yes (cane, wheel chair ) Hearing needs: Yes Vision needs: Yes Review of Systems Const All systems reviewed & are unremarkable except as noted in HPI and below Reports as per HPI Eyes Reports as per HPI ENT Reports no additional complaints Card Reports as per HPI Resp Reports as per HPI GI Reports no additional complaints Reports as per HPI Musc Reports as per HPI Neuro Reports as per HPI Psych Reports as per HPI Endo Reports as per HPI Jorge/Lymph Reports no additional complaints Aller/Immun Reports no additional complaints Physical Exam Const General: cooperative, comfortable, no acute distress, well developed, alert and awake Orientation/consciousness: patient oriented x3 Limitations: wheelchair (Motorized) HEENT Other: bilateral hearing aides present. Head: Yes normal to inspection, Yes normocephalic and Yes atraumatic Ears: hearing grossly normal bilaterally Eyes General: appearance normal, both eyes and all related structures Neck Neck: Yes normal visual inspection and Yes trachea midline Chest Chest palpation & inspection: normal inspection of the chest Resp Effort & Inspection: normal respiratory effort and able to speak in complete sentences Cardio Rate: regular rate GI Inspection: Yes normal to inspection Rectal Exam - Male: Yes visual inspection normal, Yes normal sphincter tone and Yes prostate abnormal (boggy ) General: Yes no CVA tenderness Back/Spine/Pelvis Back: no CVA tenderness Skin General skin exam: no rashes or lesions noted Neuro General: patient oriented x3 Extrem General: Yes normal to inspection Psych Appearance: grossly normal and well kempt Mental Status: mental status grossly normal Speech and movement: Normal speech and movement present and Clear speech present Affect: normal affect Attitude: cooperative Thought process: Normal thought process present Thought content: Normal thought content present Insight: Fair insight present (Psych) Judgement: Fair judgement present (Psych) Office Procedures Post Void Residual Post Residual Void Post Void Residual (PVR): 0 [id number] Void Residual by ultrasound Results AMB Urinalysis, Automated UA Leukoctes 70 Randee/uL Last Edit by [employer] on 11/18/23 09:45 UA Nitrite Negative Last Edit by [employer] on 11/18/23 09:45 UA Urobilinogen 0.2 mg/dL Last Edit by [employer] on 11/18/23 09:45 UA Protein 15 mg/dL Last Edit by [employer] on 11/18/23 09:45 UA pH 6.0 Last Edit by Little[employer] on 11/18/23 09:45 UA Blood 0 Buster/uL Last Edit by [employer] on 11/18/23 09:45 UA Specific Benton 1.020 Last Edit by [employer] on 11/18/23 09:45 UA Ketone Negative Last Edit by Little1 on 11/18/23 09:45 UA Bilirubin 0 mg/dL Last Edit by [employer] on 11/18/23 09:45 UA Glucose 0 mg/dL Last Edit by [employer] on 11/18/23 09:45 Results Reviewed Results Reviewed: Laboratory Last Values Urine pH (Auto) 6.0 11/18/23 09:24 Specific Benton (Auto) 1.020 11/18/23 09:24 Urine Protein (Auto) 15 mg/dL 11/18/23 09:24 Glucose (UA)(Auto) 0 mg/dL 11/18/23 09:24 Urine Ketones (Auto) Negative 11/18/23 09:24 Urine Blood (Auto) 0 Buster/uL 11/18/23 09:24 Urine Nitrite (Auto) Negative 11/18/23 09:24 Urine Bilirubin (Auto) 0 mg/dL 11/18/23 09:24 Urine Urobilinogen (Auto) 0.2 mg/dL 11/18/23 09:24 Leukocyte Esterase (Auto) 70 Randee/uL 11/18/23 09:24 Date of Service: 07/31/23 EXAMINATION: CT ABDOMEN AND PELVIS WITHOUT AND WITH CONTRAST FINDINGS: LUNG BASES: The visualized lung bases are unremarkable. LIVER, GALLBLADDER, AND BILIARY TREE: There is new since previous examination ill-defined low-attenuation lesion in the left lobe of the liver measured 0.8 cm on image 29 series 4. Another lesion seen and the right lobe of the liver, ill-defined, measured 0.7 cm The gallbladder is unremarkable with no evidence of radiopaque gallstones, gallbladder wall thickening, or obvious pericholecystic inflammatory changes. PANCREAS: Unremarkable SPLEEN: Unremarkable ADRENAL GLANDS: There is nodularity of the left adrenal gland stable since previous study. KIDNEYS AND URETERS: There is stable cortical cyst on the right in interpolar area, measured 2.0 x 1.6 cm and right upper lobe 1.2 x 1.0 cm cyst. On the left there is 2 small to characterize left lower cortical 0.6 cm cyst. There is no evidence of solid lesions hydronephrosis or nephrolithiasis. No perinephric stranding. BLADDER: Unremarkable GASTROINTESTINAL TRACT: The small and large bowel are unremarkable. The appendix is unremarkable. ABDOMINAL WALL: No significant hernia is appreciated. LYMPH NODES: Normal VASCULAR: There are atherosclerotic calcifications of abdominal aorta with bypass graft on the left. The graft on the left is not opacified, occluded. Proximal abdominal aorta is opacified. Distal abdominal aorta revealed standard but is not opacified, questionably occluded. PELVIC VISCERA: Calcifications seen in the prostate. OSSEOUS STRUCTURES: Unremarkable IMPRESSION: 1. Stable bilateral renal cysts. 2. Stable nodularity of the left adrenal gland. 3. 2 new ill-defined low-attenuation lesions in the liver, correlate with ultrasound. 4. Occluded bypass graft on the left and distal abdominal aortic occlusion. 5. Prostate calcifications. Assessment & Plan Assessment & Plan (1) Complex renal cyst: Code(s): N28.1 - Cyst of kidney, acquired Category: Medical (2) Bladder trabeculation: Code(s): N32.89 - Other specified disorders of bladder Category: Medical (3) Bladder wall thickening: Code(s): N32.89 - Other specified disorders of bladder Category: Medical (4) Urinary dribbling: Code(s): N39.43 - Post-void dribbling Category: Medical (5) Frequency of micturition: Comment: July 2022 Small postvoid residual bladder volume with normal right ureteral jet. Left ureteral jet is not seen. 2. Mild prostate enlargement. Code(s): R35.0 - Frequency of micturition Category: Medical Plan In office urinalysis results reviewed with the patient today; as noted above. PVR [address] results reviewed with the patient today; as noted above. Continue finasteride 5 mg daily; discussed decreasing dose to Friday Start Myrbetriq as discussed and prescribed. Stop terazosin 5 mg at bedtime Discussed near future in office cystoscopy if symptoms persist and/or worsen. Discussed, educated, and encouraged on the importance of drinking plenty of wate r daily. Discussed importance of managing diabetes for improvement in lower urinary tract symptoms as well as overall health and well-being. Discussed and stressed the importance of limiting/quitting smoking for overall health and well-being. Discussed importance of timed/scheduled voiding due to decreased mobility to decreased episodes of incontinence. Follow-up in 6-8 weeks with PVR; or sooner with any issues, concerns, and or questions. Orders: Orders AMB Post Void Residual by ultrasound Today R39.9 - Unspecified symptoms and signs involving the genitourinary system AMB Urinalysis Automated Today Z13.9 - Encounter for screening, unspecified Medications: New mirabegron ER (Myrbetriq) 25 mg PO DAILY 30 days 30 tabs 3RF N30.10 - Interstitial cystitis (chronic) without hematuria, N32.81 - Overactive bladder, R35.1 - Nocturia, R39.15 - Urgency of urination Discontinued terazosin Discontinued Reason: Doctor's Order 5 mg PO BEDTIME 30 days 90 caps 1RF N40.1 - Benign prostatic hyperplasia with lower urinary tract symptoms, R35.0 - Frequency of micturition Patient Instructions: The patient had an opportunity to ask questions regarding the treatment plan. All questions were answered. Physical exam, labs, and imaging were discussed and reviewed in detail. As well as risks, benefits, and discussion of treatment choices. No major barriers to understanding were identified. The patient expressed understanding and agreement with the above treatment plan. The patient was made aware they should contact our office by phone for worsening of their current condition, the appearance of new symptoms, or with any questions or concerns. Compliance is encouraged with any medications and follow up testing that is ordered. It is a privilege to be allowed the opportunity to participate in? your urological care.? Again, if you have any questions or concerns If you have any questions or concerns please do not hesitate to contact me. The office is [phone]. This note is constructed using voice recognition software. While every effort has been made to ensure accuracy rehabilitation services counselor errors may have been included. Yours sincerely, QUYEN Silverio Coding Level of Care Code Est Pt Level 4 (10410) Diagnoses Complex renal cyst N28.1 Bladder trabeculation N32.89 Bladder wall thickening N32.89 Urinary dribbling N39.43 Frequency of micturition R35.0 CPT Codes Post Residual Void - PVR CPT Code: 80803-Nldw Void Residual by ultrasound ([id number])
== END 2023-11-18 09:56 | disposition home or self-care (01) ==
PROVIDERS: PCP Internal Medicine; Visit Provider Nurse Practitioner Family
DX: N28.1 Cyst of kidney, acquired (principal); N32.89 Other specified disorders of bladder; N39.43 Post-void dribbling; R35.0 Frequency of micturition
CPT/HCPCS: 99214

== ENCOUNTER → 2023-11-18 09:03 | Outpatient (BNVA) | payer MEDICARE, SELFPAY | PROVIDERS: PCP Internal Medicine; Visit Provider Nurse Practitioner Family | DX: N28.1 Cyst of kidney, acquired (principal); N32.89 Other specified disorders of bladder; N39.43 Post-void dribbling; R35.0 Frequency of micturition | CPT/HCPCS: 51798; 81003; 99212 ==